=== PATIENT | male | born 1950 | race Caucasian/White ===

== ENCOUNTER → 2019-06-20 | Outpatient (CLI) | payer MEDICARE, OTHER, SELFPAY | PROVIDERS: Family Provider Nurse Practitioner Family; Visit Provider Internal Medicine Medical Oncology | DX: C4A.72 Merkel cell carcinoma of left lower limb, including hip (principal) | CPT/HCPCS: J7050; J9023 ==

== ENCOUNTER 2019-07-04 09:54 | Outpatient (CLI) | payer MEDICARE, OTHER, SELFPAY ==
[2019-07-04] MEDS: diphenhydrAMINE 25 mg Capsule PO (11:29)
[2019-07-04] MEDS: acetaminophen 325 mg Tablet 650 MG PO (11:29)
[2019-07-04 11:31] LABS: Basophils % 0.3 %; Eosinophils # 0.1 10^3/uL (0.0-0.8); Hematocrit 41.1 % (42.0-52.0); Hemoglobin 14.3 g/dL (11.7-16.6); Lymphocytes # 0.9 10^3/uL (0.8-4.8); Lymphocytes % 13.1 %; Mean Corpuscular HGB Conc 34.8 g/dL (30.0-36.0); Mean Corpuscular Hemoglobin 32.2 pg (28.0-34.0); Mean Corpuscular Volume 92.6 fL (80-94); Mean Platelet Volume 9.1 fL (7.4-10.4); Monocytes # 0.6 10^3/uL (0.2-0.9); Neutrophils # 5.4 10^3/uL (1.8-7.7); Neutrophils % 77.3 %; Nucleated Red Blood Cells % 0 %; Platelet Count 286 10^3/cmm (130-400); Red Blood Count 4.44 10^6/uL (4.1-5.3); Red Cell Distribution Width 12.5 % (12.1-15.1)
[2019-07-04 11:52] LABS: Alanine Aminotransferase 18 U/L (0-41); Albumin Level 4.2 g/dL (3.5-5.2); Alkaline Phosphatase 84 IU/L (40-130); Anion Gap 16.8 (5-19); Aspartate Amino Transferase 17 U/L (0-40); Blood Urea Nitrogen 18 mg/dL (8-23); Calcium 9.9 mg/Dl (8.8-10.2); Carbon Dioxide 23 mmol/L (22-29); Chloride 102 mmol/L (98-107); Globulin 2.7 g/dL (1.3-4.6); Glomerular Filtration Rate 111.5 mL/min (90-130); Glucose 160 mg/dL (74-106); Potassium 3.8 mmol/L (3.5-5.1); Sodium 138 mmol/L (136-145); Thyroid Stimulating Hormone 0.88 uIU/mL (0.27-4.20); Total Bilirubin 0.4 mg/dL (0.15-1.2); Total Protein 6.9 g/dL (6.6-8.7)
[2019-07-04] MEDS: sodium chloride 0.9% 250 ML IV (12:31)
--- NOTE | 2019-07-04 19:51 | ONC FU_ITS ---
Dr. Martínez Patient Follow-Up Note Patient: Bebeto Lang Unit #: [id number]: 1950 Dicatated By: Aman Martínez M.D.Date of Visit:Jul 04, 2019 Onc Med Follow-up/Prog Note Chief Complaint: Comptche cell carcinoma. 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 He had presented with an enlarging mass on his left knee. He was initially seen in the emergency room at [facility] in [place]. His subsequent evaluation there included an angiogram and an MRI of the left knee. He was then referred to Dr. Lin Blevins at [facility] for further evaluation. 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 The malignant cells were noted to be positive for pancytokeratin, DENI, CK20, CD56, and CD138. The tumor cells were also positive for NSE. The CK7, CD45, CD99, desmin, TTF-1, CD-X2, and SHIRA 3 stains were negative. Staging PET/CT on 11/11/2016 showed FDG avid mass within the left prepatellar soft tissues measuring 4.2 x 2.4 cm, maximum SUV 13.9. The mass was noted to be superficial to the joint capsule. An enlarged left inguinal lymph node measuring 1.7 x 1.5 cm showed increased FDG uptake with SUV 7.1, consistent with metastasis. A subcentimeter left external iliac lymph node showed mildly increased FDG uptake, SUV 2.9. A destructive lytic lesion was noted within the posterior L3 vertebral body with associated increased FDG uptake, SUV 10.6. There was an associated soft tissue component extending posteriorly with at least moderate central canal stenosis. 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 He was seen by Dr. Obdulio Banda for medical oncology consultation. He recommended systemic therapy with avelumab. He also recommended consideration for palliative radiation to the lumbar spine lesion. The patient was then seen here because he desired to receive his treatment closer to home. He was referred to Dr. Guzman. He began radiation to the lumbar spine on 12/15/2016. That treatment was completed on 12/29/2016 to a total dose of 3000 cGy. On 12/16/2016 he also began treatment to the involved left inguinal lymph node and to the primary tumor at the left knee. He completed radiation on 01/13/2017, both sites to a total dose of 4875 cGy. He received cycle 1 of avelumab on 12/29/2016. He tolerated it without acute toxicity, but for about a week afterward he was fatigued, and he just didn't feel good. He was able to proceed with a second cycle of treatment on 01/12/2017. He tolerated it well. He then continued his treatment at two-week intervals with the exception that his cycle 7 treatment was delayed to 4 weeks due to a follow-up visit in [place]. A restaging PET/CT on 04/09/2017 showed marked interval decrease in size and FDG activity within the left prepatellar soft tissue mass, left inguinal and external iliac lymph nodes, and the L3 lytic lesion, consistent with a nearly complete metabolic response. A CT abdomen/pelvis on 05/25/2017 still showed evidence of lytic metastatic disease involving the L3 vertebral body. There were no other significant findings. He had a follow-up visit at [facility] in 06/24/2017. PET/CT at that time was consistent with continued complete metabolic response. He then continued treatment with avelumab at 2 week intervals. He had a follow-up visit at [facility] again on 09/16/2017. Repeat PET/CT at that time showed complete metabolic response with no evidence of metabolically active disease. He then continued the same treatment. His other medical illnesses have been limited to GERD and obstructive sleep apnea. He was found to have serologic evidence of hepatitis C, but with no active hepatitis. He has a history of smoking 1-1/2 packs of cigarettes daily for 30 years. He quit smoking in approximately 1987. He has a history of alcohol and drug abuse. He quit both proximally 1986. INTERIM HISTORY: As of 10/11/2018 he had completed cycle 46 of avelumab. At that point he was tolerating the treatment well, and there had been no evidence of disease progression. On 10/19/2018 he reported development of a generalized skin eruption. The appearance was consistent with hives, and he responded very well to prednisone. An underlying cause for the reaction was not determined. He continued treatment with avelumab. His surveillance PET/CT at [facility] on 11/29/2018 showed minimally increased FDG uptake in left supraclavicular, mediastinal, and hilar lymph nodes and also in the spleen. The most FDG-avid lesion was a node in the aortopulmonary window measuring 2.0 x 1.3 cm with maximum SUV 5.2. It was felt to be a nonspecific finding, but short-term follow-up was recommended. There was no other suspicious activity noted. He continued treatment with avelumab at 2-week intervals. His repeat PET/CT at [facility] on 05/23/2019 showed multiple mildly enlarged mediastinal lymph nodes which demonstrated mildly increased FDG uptake, unchanged compared to the November 2018 study. Bilateral hilar lymphadenopathy also appeared unchanged, but with slightly increased SUV values. The most FDG avid lesion was in a right hilar lymph node measuring 11 mm with SUV 5.7. The appearance was felt to be most consistent with an inflammatory process. A right middle lobe groundglass pulmonary nodule had shown equivocal increase in size, but was still too small to characterize. A 4 cm exophytic lower pole right renal lesion measuring 4 cm was consistent with simple cyst. A 4 mm lesion in the lower pole the left kidney was noted to contain punctate calcifications. It was indeterminate, but unchanged. Overall there was no evidence of disease recurrence. He is seen for a scheduled visit. He has been feeling good generally. He reports that he still has outbreaks of hives off and on, but only about once every 2 or 3 weeks. He is managing it adequately with topical Benadryl. He was sick a couple weeks ago with fever and respiratory symptoms, but that all resolved. He has otherwise had good energy, and he has normal activity. ECOG score is 0. He has good appetite. He has otherwise not had fever. He sometimes has sweating at night. He has no shortness of breath, cough, or chest pain. He has no GI/ complaints other than occasional heartburn. He notes that his hip pain has improved. He currently is not having any other joint or bone pain. He has no focal neurologic symptoms. Medications: Acetaminophen 1 - 2 Capsule (of 325 mg) Oral PRN, Acidophilus 1 Capsule Oral daily PRN, Aleve 1 (220 mg) Tablet Oral q 8 hours PRN, Aspirin 1 (81 mg) Tablet Oral daily, Cinnamon 1 Capsule Oral daily, Clobetasol Propionate Shampoo Topical PRN, Clotrimazole-Betamethasone Cream Topical PRN, Co Q 10 1 Capsule Oral daily, Fish Oil 1 Capsule Oral daily, formula 303 1 Tablet daily PRN, Multiple Vitamin 1 Capsule Oral daily, Protonix 1 (40 mg) Tablet, enteric coated Oral daily, Red Yeast Rice 1 Capsule Oral daily Allergies: Codeine Sulfate Review of Systems: Constitutional - His energy is good. He does normal activities. His appetite is good and his weight is stable. He had a low-grade fever a couple of weeks ago when he was sick. He has occasional sweating at night. ECOG score is 0, ENMT - He has some sinus congestion in the mornings. No mouth sores. No sore throat or difficulty swallowing, Hematologic/Lymphatic - No abnormal bruising or bleeding, Respiratory - No shortness of breath. No cough. No pleuritic pain or hemoptysis, Cardiovascular - No angina pain. No palpitations, Gastrointestinal - No nausea or vomiting. He has some heartburn, depending on what he eats. No diarrhea or constipation. No blood in the stool or black stools, Genitourinary (M) - No dysuria or hematuria. No urinary frequency. No urgency or incontinence, Musculoskeletal - The pain in his hips has gotten better, Integumentary - He has flare-ups of hives every few weeks, Neurologic - No headache or dizziness. He has occasional tingling in his left knee, Psychiatric - He has a little bit of stress, nothing abnormal. No insomnia. Vital Signs: Performed on Jul 04, 2019 10:20 Height - 68.00 in Weight - 206.6 lbs (HIGH) BSA - 2.07 sq.m BMI - 31.41 (HIGH) Temperature - 98.3 F (LOW) Pulse - 64 /min Respiration - 20 /min BP - 141/75 mm(hg) (HIGH) O2 Sat - 98 % Pain - 0 Physical Examination: Constitutional - He looks good generally, Eyes - Sclerae nonicteric. Conjunctivae clear, ENMT - No lesions noted in the oral cavity, Hematologic/Lymphatic - No cervical, clavicular, or axillary adenopathy, Respiratory - Lungs are clear with good air movement bilaterally, Cardiovascular - Heart rhythm is regular. There is no murmur, gallop, or rub noted, Abdomen - Soft. Liver and spleen are not enlarged. There is no abdominal mass or ascites noted. There is no inguinal adenopathy, and there is no palpable mass in the left groin area, Extremities - No edema. There are no skin changes and no palpable mass in the area of the left patella, Neurologic - No focal neurologic deficits noted. Lab/Imaging: Test performed on Jul 04, 2019 12:00 TSH 0.88 uU/mL Glucose 160 mg/dL BUN 18 mg/dL Creatinine 0.7 mg/dL Cr Clearance (Est) 132.17 mL/min Sodium 138 mmol/L Potassium 3.8 mmol/L Chloride 102 mmol/L CO2 23 mmol/L Calcium 0.4 mg/dL Protein, Total 6.9 g/dL Albumin 4.2 g/dL Globulin 2.7 g/dL Bilirubin, Total 0.4 mg/dL Alkaline Phosphatase 84 IU/L AST (SGOT) 17 IU/L ALT (SGPT) 18 IU/L WBC 7 10^9/L RBC 4.44 10^12/L HGB 14.3 g/dL HCT 41.1 % MCV 92.6 fl MCH 32.2 pg MCHC 34.8 g/dL RDW 12.5 % Platelet Count 286 10^9/L MPV 9.1 fL Neutrophils (Gran) 5.4 10^9/L Lymphocytes 0.9 10^9/L Monocytes 0.6 10^9/L Eosinophils 0.1 10^9/L Basophils 0 10^9/L Manual Segs 77.3 % Manual Lymphocytes 13.1 % Manual Monocytes 8 % Manual Eosinophils 1 % Manual Basophils 0.3 % Test performed on Jul 04, 2019 10:13 Neutrophil % 77.3 % Lymphocyte % 0.9 % Monocyte % 0.6 % Basophils % 0.0 % Test performed on Feb 14, 2019 09:58 Anion Gap 18.1 eGFR 66.2 mL/min Eosinophil % 0.6 % Test performed on Jan 31, 2019 09:38 T4, Free 1.14 ng/dL Impression: 1. 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 By clinical evaluation his disease was stage IV (T2, N1, M1) with involvement in a left inguinal lymph node and in the L3 vertebral body. His other medical illnesses include: 2. GERD. 3. Obstructive sleep apnea. 4. He has had serologic evidence of hepatitis C, but without any clinical indication of active hepatitis. He began radiation to the lumbar spine on 12/15/2016. He completed that treatment on 12/29/2016 to a total dose of 3000 cGy. On 12/16/2016 he also began treatment to the involved left inguinal lymph node and to the primary tumor at the left knee. He completed radiation on 01/13/2017, both sites to a total dose of 4875 cGy. He received his initial infusion of avelumab on 12/29/2016. He developed fatigue and just didn't feel good for about a week or so afterwards. Those symptoms subsequently resolved. He had no other apparent toxicity. He developed significant radiation skin toxicity in the left groin area and the left knee, but that subsequently resolved. He had a very good response to the treatment. He has since then continued avelumab at 2-week intervals. Restaging PET/CT on 03/30/2017 showed findings consistent with near complete response to the treatment. CT abdomen/pelvis on 05/25/2017 showed evidence of lytic metastatic disease in the L3 vertebral body. There were no other significant findings on that study. He continued his treatment with avelumab, which he tolerated well. Restaging PET/CT on 06/24/2017 showed continued complete metabolic response. He had follow-up at [facility] again on 09/16/2017 and his repeat PET/CT again showed evidence of complete response with no metabolically active disease. He has since then continued treatment with avelumab every 2 weeks. As of 10/11/2018 he had completed his 46th cycle. He had subsequently developed a generalized skin eruption. The appearance was consistent with hives. An underlying cause for the eruption was not determined, but it did resolve on empiric treatment with prednisone. He continued with cycle 47 of avelumab on 10/25/2018. He had no adverse effects, and he continued treatment with avelumab on a 2-week schedule. His surveillance PET/CT at [facility] on 11/29/2018 showed nonspecific FDG uptake in left supraclavicular, mediastinal, and hilar lymph nodes and also in the spleen. The clinical significance is uncertain. Overall, he has been doing well clinically, though during treatment did develop significant joint pain, initially in the shoulders, and subsequently in the right hip. He continued treatment at the same dose and schedule. His repeat PET/CT on 05/23/2019 again showed no evidence of recurrent disease. Mild FDG avidity in mediastinal and hilar lymph nodes was felt to be most consistent with inflammatory uptake. Overall he has been doing well clinically with no evidence of recurrence of the Comptche cell carcinoma. He has continued to have occasional outbreaks of hives, but he has been able to manage it adequately with topical Benadryl. Plan: He will continue treatment with avelumab 952 mg by IV infusion every 2 weeks. This is now his 65th cycle of treatment. He is scheduled to return for follow-up visit at [facility] in 6 weeks, and he will be seen for a follow-up visit here in 12 weeks. Signed By: Aman Martínez M.D. <<Signature on File>>
== END 2019-07-04 09:55 | disposition home or self-care (01) ==
LOC: ONCMED 09:54
PROVIDERS: Family Provider Nurse Practitioner Family; PCP Nurse Practitioner Family; Visit Provider Internal Medicine Medical Oncology
DX: Z51.12 Encounter for antineoplastic immunotherapy (principal); C4A.72 Merkel cell carcinoma of left lower limb, including hip; C79.51 Secondary malignant neoplasm of bone; C77.4 Secondary and unspecified malignant neoplasm of inguinal and lower limb lymph nodes; K21.9 Gastro-esophageal reflux disease without esophagitis; G47.33 Obstructive sleep apnea (adult) (pediatric); Z79.899 Other long term (current) drug therapy; Z92.3 Personal history of irradiation; Z86.19 Personal history of other infectious and parasitic diseases; Z87.891 Personal history of nicotine dependence
CPT/HCPCS: 80053; 84443; 85025; 96413; 99214; J7050; J9023

== ENCOUNTER 2019-07-18 08:59 | Outpatient (CLI) | payer MEDICARE, OTHER, SELFPAY ==
[2019-07-18] MEDS: acetaminophen 325 mg Tablet 650 MG PO (09:20)
[2019-07-18] MEDS: diphenhydrAMINE 25 mg Capsule PO (09:20)
== END 2019-07-18 09:00 | disposition home or self-care (01) ==
LOC: ONCMED 09:04
PROVIDERS: Family Provider Nurse Practitioner Family; PCP Nurse Practitioner Family; Visit Provider Internal Medicine Medical Oncology
DX: Z51.12 Encounter for antineoplastic immunotherapy (principal); C4A.72 Merkel cell carcinoma of left lower limb, including hip; C79.51 Secondary malignant neoplasm of bone
CPT/HCPCS: 96413; J7050; J9023

== ENCOUNTER 2019-07-27 16:33 | Emergency (ER) | payer MEDICARE, OTHER, SELFPAY ==
[2019-07-27] VITALS (8 sets, daily range): BP systolic 102–1109; BP diastolic 59–88; PULSE 84–98; RESP 16–18; TEMP 37.3; O2SAT 92–96; BMI 31.6
--- NOTE | 2019-07-27 17:15 | ECG_ITS ---
Measurements Intervals [place] Rate: 101 P: 21 SD: 160 QRS: -46 QRSD: 87 T: 27 QT: 292 QTc: 380 SINUS TACHYCARDIA LEFT ANTERIOR FASCICULAR BLOCK [QRS AXIS <= -45, QR IN I, RS IN II] POSSIBLE ANTERIOR MYOCARDIAL INFARCTION [30 ms Q WAVE IN V3/V4, OR R < 0.2 mV IN V4], PROBABLY OLD No previous ECG available for comparison Electronically Signed On 07-28-2019 16:25:52 [employer] by Ben Oliver M.D. [email or web address]
--- NOTE | 2019-07-27 17:54 | ED_ITS ---
Entered by Jazmyn Rose, acting as scribe for Denisse Sandoval MD Jul 27, 2019 16:33 HPI - SOB/Dyspnea General: Chief Complaint: Shortness of Breath/Dyspnea Stated Complaint: O2 levels are low sent by another facility Time Seen by Provider: 07/27/19 17:56 Source: patient and family Mode of arrival: ambulatory Limitations: no limitations History of Present Illness: HPI Narrative: 69 yo male presents with shortness of breath and weakness. pt states this started a few days ago. pt has had a fever and cough. pt is on chemo every 2 weeks. pt denies any other symptoms at this time. MD elicited complaint: shortness of breath and cough Timing: constant and progressively worsening Severity: moderate Exacerbating factors: coughing and other (weakness) Relieving factors: nothing Associated symptoms: Reports cough, fever(s) and rash; Deny abdominal pain, nausea or vomiting Treatment prior to arrival: other (chemo every 2 weeks) Related Data: Home oxygen amount: none Review of Systems Const: Reports: fever Eyes: Denies: blurry vision or eye discomfort ENMT: Denies: throat pain or dental pain GI: Denies: abdominal pain, nausea, vomiting or diarrhea : Denies: painful urination Musc: Denies: neck pain or back pain Neuro: Denies: headache Psych: Denies: depression Ian/Lymph: Denies: easy bruising PFSH ED PFSH: Statuses (acute, chronic, etc) shown below reflect problem list status as previously entered and may not be historically accurate Social History Smoking and tobacco status: former smoker Physical Exam Const: COMMON NORMALS: no apparent distress, oriented x3 and healthy appearing HENMT: COMMON NORMALS: normocephalic and head/scalp atraumatic HEAD & SCALP: normocephalic and atraumatic Eye: COMMON NORMALS: PERRL and EOMs intact bilaterally PUPIL: Yes PERRL Neck/C-Spine: COMMON NORMALS: full ROM and supple Chest: COMMONS NORMALS: inspection of chest normal and palpation of chest normal Cardio: COMMON NORMALS: regular rate, regular rhythm and no murmurs RATE: regular rate RHYTHM: regular rhythm GI: COMMON NORMALS: normal to inspection, nondistended, normoactive bowel sounds, soft to palpation, non-tender and no masses PALPATION: Yes soft Extremity: COMMON NORMALS: normal to inspection and full ROM Neuro: COMMON NORMALS: oriented x3, moves all extremities and no focal motor deficits Psych: COMMON NORMALS: mental status grossly normal, thought process normal and cooperative THOUGHT PROCESS: normal thought process Course Vital Signs: Vital signs: Vital Signs Temperature 99.1 F 07/27/19 16:54 Pulse Rate 93 07/27/19 20:38 Respiratory Rate 16 07/27/19 20:38 Blood Pressure 118/88 07/27/19 20:38 Pulse Oximetry 96 07/27/19 20:38 MDM - SOB/Dyspnea MDM Narrative: Medical decision making narrative: Patient presents here after fever and slight cough. X-ray shows a possible pneumonia that is mild in nature. He has no signs of sepsis. Patient is stable for discharge and will start on doxycycline. Patient is to follow-up with his primary care doctor in 3 to 5 days and return if worsening. Lab Data: Labs: Lab Results 07/27/19 07/27/19 07/27/19 Range/Units 17:18 18:00 18:00 WBC 6.7 (4.0-10.0) 10^3/ uL RBC 4.41 (4.1-5.3) 10^6/u L Hgb 14.3 (11.7-16.6) g/dL Hct 40.6 L (42.0-52.0) % MCV 92.1 (80-94) fL MCH 32.4 (28.0-34.0) pg MCHC 35.2 (30.0-36.0) g/dL RDW 12.7 (12.1-15.1) % Plt Count 211 (130-400) 10^3/c mm MPV 9.1 (7.4-10.4) fL Neut % (Auto) 78.9 % Lymph % (Auto) 10.6 % Darke % (Auto) 7.9 % Eos % (Auto) 2.1 % Baso % (Auto) 0.1 % Neut # (Auto) 5.3 (1.8-7.7) 10^3/u L Lymph # (Auto) 0.7 L (0.8-4.8) 10^3/u L Darke # (Auto) 0.5 (0.2-0.9) 10^3/u L Eos # (Auto) 0.1 (0.0-0.8) 10^3/u L Baso # (Auto) 0.0 (0.0-0.1) 10^3/u L Nucleated RBC % (a uto) 0 % Nucleated RBCs # 0.0 /100WBC D-Dimer 17.55 H (0-0.59) ug/mIFE U Sodium (136-145) mmol/L Potassium (3.5-5.1) mmol/L Chloride (98-107) mmol/L Carbon Dioxide (22-29) mmol/L Anion Gap (5-19) BUN (8-23) mg/dL Creatinine (0.7-1.2) mg/dL GFR Calculation (90-130) mL/min Glucose (65-115) mg/dL Calcium (8.5-10.5) mg/dL Total Bilirubin (0.15-1.2) mg/dL AST (0-40) U/L ALT (0-41) U/L Alkaline Phosphata se (40-130) IU/L Troponin T Baselin e (0-15) ng/mL Troponin T 120 Min [place] (0-15) ng/mL Total Protein (6.6-8.7) g/dL Albumin (3.5-5.2) g/dL Globulin (1.3-4.6) g/dL Urine Color (Yellow) Urine Appearance (CLEAR) Urine pH (5-7) Ur Specific Gravit y (1.005-1.030) Urine Protein (Negative) Urine Glucose (UA) (Normal) Urine Ketones (Negative) Urine Occult Blood (Negative) Urine Nitrate (Negative) Urine Bilirubin (NEGATIVE) Urine Urobilinogen (Negative) mg/dL Ur Leukocyte [place] ase (Negative) Urine RBC (0-2) /hpf Urine WBC (0-5) /hpf Ur Squamous Epith Cells (0-5) Urine Bacteria (NONE) Urine Mucus Influenza Type A A g Negative (Negative) POC Influenza B Ag Negative (Negative) 07/27/19 07/27/19 07/27/19 Range/Units 18:00 18:00 19:10 WBC (4.0-10.0) 10^3/ uL RBC (4.1-5.3) 10^6/u L Hgb (11.7-16.6) g/dL Hct (42.0-52.0) % MCV (80-94) fL MCH (28.0-34.0) pg MCHC (30.0-36.0) g/dL RDW (12.1-15.1) % Plt Count (130-400) 10^3/c mm MPV (7.4-10.4) fL Neut % (Auto) % Lymph % (Auto) % Darke % (Auto) % Eos % (Auto) % Baso % (Auto) % Neut # (Auto) (1.8-7.7) 10^3/u L Lymph # (Auto) (0.8-4.8) 10^3/u L Darke # (Auto) (0.2-0.9) 10^3/u L Eos # (Auto) (0.0-0.8) 10^3/u L Baso # (Auto) (0.0-0.1) 10^3/u L Nucleated RBC % (a uto) % Nucleated RBCs # /100WBC D-Dimer (0-0.59) ug/mIFE U Sodium 134 L (136-145) mmol/L Potassium 4.0 (3.5-5.1) mmol/L Chloride 99 (98-107) mmol/L Carbon Dioxide 23 (22-29) mmol/L Anion Gap 16.0 (5-19) BUN 16 (8-23) mg/dL Creatinine 0.9 (0.7-1.2) mg/dL GFR Calculation 83.4 L (90-130) mL/min Glucose 118 H (65-115) mg/dL Calcium 8.8 (8.5-10.5) mg/dL Total Bilirubin 0.4 (0.15-1.2) mg/dL AST 21 (0-40) U/L ALT 25 (0-41) U/L Alkaline Phosphata se 82 (40-130) IU/L Troponin T Baselin e 27 H (0-15) ng/mL Troponin T 120 Min [place] 22.89 H (0-15) ng/mL Total Protein 7.2 (6.6-8.7) g/dL Albumin 3.6 (3.5-5.2) g/dL Globulin 3.6 (1.3-4.6) g/dL Urine Color (Yellow) Urine Appearance (CLEAR) Urine pH (5-7) Ur Specific Gravit y (1.005-1.030) Urine Protein (Negative) Urine Glucose (UA) (Normal) Urine Ketones (Negative) Urine Occult Blood (Negative) Urine Nitrate (Negative) Urine Bilirubin (NEGATIVE) Urine Urobilinogen (Negative) mg/dL Ur Leukocyte [place] ase (Negative) Urine RBC (0-2) /hpf Urine WBC (0-5) /hpf Ur Squamous Epith Cells (0-5) Urine Bacteria (NONE) Urine Mucus Influenza Type A A g (Negative) POC Influenza B Ag (Negative) 07/27/19 Range/Units 19:27 WBC (4.0-10.0) 10^3/ uL RBC (4.1-5.3) 10^6/u L Hgb (11.7-16.6) g/dL Hct (42.0-52.0) % MCV (80-94) fL MCH (28.0-34.0) pg MCHC (30.0-36.0) g/dL RDW (12.1-15.1) % Plt Count (130-400) 10^3/c mm MPV (7.4-10.4) fL Neut % (Auto) % Lymph % (Auto) % Darke % (Auto) % Eos % (Auto) % Baso % (Auto) % Neut # (Auto) (1.8-7.7) 10^3/u L Lymph # (Auto) (0.8-4.8) 10^3/u L Darke # (Auto) (0.2-0.9) 10^3/u L Eos # (Auto) (0.0-0.8) 10^3/u L Baso # (Auto) (0.0-0.1) 10^3/u L Nucleated RBC % (a uto) % Nucleated RBCs # /100WBC D-Dimer (0-0.59) ug/mIFE U Sodium (136-145) mmol/L Potassium (3.5-5.1) mmol/L Chloride (98-107) mmol/L Carbon Dioxide (22-29) mmol/L Anion Gap (5-19) BUN (8-23) mg/dL Creatinine (0.7-1.2) mg/dL GFR Calculation (90-130) mL/min Glucose (65-115) mg/dL Calcium (8.5-10.5) mg/dL Total Bilirubin (0.15-1.2) mg/dL AST (0-40) U/L ALT (0-41) U/L Alkaline Phosphata se (40-130) IU/L Troponin T Baselin e (0-15) ng/mL Troponin T 120 Min [place] (0-15) ng/mL Total Protein (6.6-8.7) g/dL Albumin (3.5-5.2) g/dL Globulin (1.3-4.6) g/dL Urine Color Yellow (Yellow) Urine Appearance Clear (CLEAR) Urine pH 5 (5-7) Ur Specific Gravit y 1.010 (1.005-1.030) Urine Protein Neg (Negative) Urine Glucose (UA) Norm (Normal) Urine Ketones 1+ H (Negative) Urine Occult Blood 2+ H (Negative) Urine Nitrate Negative (Negative) Urine Bilirubin Neg (NEGATIVE) Urine Urobilinogen Norm (Negative) mg/dL Ur Leukocyte [place] ase Negative (Negative) Urine RBC 5-10 H (0-2) /hpf Urine WBC None (0-5) /hpf Ur Squamous Epith Cells None (0-5) Urine Bacteria None (NONE) Urine Mucus Trace Influenza Type A A g (Negative) POC Influenza B Ag (Negative) Imaging Data^: CXR: Attestation: I personally reviewed and interpreted this imaging study as follows: My impression: no acute abnormality CT Chest: Radiologist's impression: Patient: Bebeto Lang Unit #: [id number] : 1950 Age/Sex: 69 / M ADM Date: 07/27/19 Loc: ER Room/Bed: Attending Dr: Ordering Provider/Ordering MD: Denisse Sandoval MD Date of Service: 07/27/19 Procedure(s): CT angio chest PE protcl [id number] Accession Number(s): [id number] Report Number: [id number] PROCEDURE INFORMATION: Exam: CT Angiography Chest With Contrast Exam date and time: 07/27/2019 7:14 PM Age: 69 years old Clinical indication: Shortness of breath; Additional info: Pe SOB TECHNIQUE: Imaging protocol: Computed tomographic angiography of the chest with intravenous contrast. 3D rendering: MIP and/or 3D reconstructed images were created by the technologist. Total DLP: 610.95 mGy-cm Radiation optimization: All CT scans at this facility use at least one of these dose optimization techniques: automated exposure control; mA and/or kV adjustment per patient size (includes targeted exams where dose is matched to clinical indication); or iterative reconstruction. Contrast material: OMNI; Contrast volume: 95 ml; Contrast route: IV; COMPARISON: CR XR chest 1V portable [id number] 07/27/2019 6:52 PM FINDINGS: Pulmonary arteries: There is no evidence of filling defects within the pulmonary arterial circulation to suggest pulmonary embolism. Aorta: Unremarkable. No aortic aneurysm. No aortic dissection. Lungs: There is partial atelectasis at the right lung base. There is some mild scattered in patchy ground-glass opacities in the peripheries of both lungs mostly in the right lower lobe but also in the other segments. This could represent some are on mild interstitial pneumonitis. There is a single 14 mm sized ground-glass nodule in the right upper lobe adjacent to the major fissure surrounding a bronchus such as on image number 27 of the axial series. Since this possible nodule and the peripheral ground-glass changes are new compared with 09/16/2017, short-term follow-up in 3 months is suggested to document clearing and this is likely related to inflammatory disease. Pleural space: Unremarkable. No pneumothorax. No pleural effusion. Heart: Unremarkable. No cardiomegaly. No pericardial effusion. Mediastinum: There is a small hiatal hernia. Adrenals: Adrenal glands are not enlarged. Lymph nodes: There is mild hilar mediastinal adenopathy with the largest subcarinal lymph node measuring 19 x 28 mm, right hilar lymph node measuring 17 x 25 mm, left hilar node measuring 16 x 16 mm, right paratracheal measuring 8 x 19 mm, and AP window measuring 16 x 26 mm. There is no axillary adenopathy. Bones/joints: Unremarkable. No acute fracture. Soft tissues: Unremarkable. CT/CT angio chest PE protcl [id number] IMPRESSION: 1. No evidence of pulmonary embolism 2. Peripheral ground-glass changes including ground-glass nodule in the right lung, likely related to inflammatory disease. Short-term follow-up recommended to document clearing EKG Data^: EKG 1: Attestation: I personally reviewed and interpreted this EKG as follows: EKG Interpretation Date: 07/27/19 EKG interpretation time: 19:12 Interpretation: nsr hr [address] or t wave abnormalities qrs 97 [id number] Discharge Plan Discharge Patient Disposition: Home, Self-Care Clinical Impression: Community acquired pneumonia Qualifiers: Laterality: right Lung location: middle lobe of lung Qualified Code(s): J18.9 - Pneumonia, unspecified organism Condition: Stable Prescriptions: New doxycycline hyclate 100 mg capsule 100 mg PO BID 7 Days Qty: 14 RF: 0 Discharge Orders: Discharge Order (Routine); Ordered 07/27/19 Ordered By: Denisse Sandoval Referrals: Nancy Calrk [Primary Care Provider] - Discharge Diet: Advance as tolerated Discharge Activity: Resume usual activity Patient Instructions: Bacterial Pneumonia (ED) Discharge Date/Time: 07/27/19 20:39 Coding Level of Care Code ED Weigh Boss for Chg Fwd Exam Problem Focused The documentation recorded by the Milton collazo Bridget Annette, accurately reflects the service I personally performed and the decisions made by Jaime abbott Korby, MD Jul 27, 2019 16:33
--- NOTE | 2019-07-27 17:58 | PC.NURSE ---
Patient reports that he has been not feeling well, with body aches, chills, SOB, and fever.
[2019-07-27 18:12] LABS: Basophils % 0.1 %; Eosinophils # 0.1 10^3/uL (0.0-0.8); Eosinophils % 2.1 %; Hematocrit 40.6 % (42.0-52.0); Hemoglobin 14.3 g/dL (11.7-16.6); Lymphocytes # 0.7 10^3/uL (0.8-4.8); Lymphocytes % 10.6 %; Mean Corpuscular HGB Conc 35.2 g/dL (30.0-36.0); Mean Corpuscular Hemoglobin 32.4 pg (28.0-34.0); Mean Corpuscular Volume 92.1 fL (80-94); Mean Platelet Volume 9.1 fL (7.4-10.4); Monocytes # 0.5 10^3/uL (0.2-0.9); Monocytes % 7.9 %; Neutrophils # 5.3 10^3/uL (1.8-7.7); Neutrophils % 78.9 %; Nucleated Red Blood Cells % 0 %; Platelet Count 211 10^3/cmm (130-400); Red Blood Count 4.41 10^6/uL (4.1-5.3); Red Cell Distribution Width 12.7 % (12.1-15.1); White Blood Count 6.7 10^3/uL (4.0-10.0)
[2019-07-27 18:20] LABS: Influenza A by IFA Negative (Negative); Influenza B by IFA Negative (Negative)
[2019-07-27] MEDS: acetaminophen 650 mg/20.3 mL UDC PO (18:30)
[2019-07-27] MEDS: sodium chloride 0.9% 1,000 ML 999 ML IV (18:30)
--- NOTE | 2019-07-27 18:33 | XR_ITS ---
WS: [id number] PORTABLE CHEST HISTORY: fever COMPARISON: None available. Lungs are clear and well expanded. No pleural effusion or pneumothorax. Cardiac size: Normal. Mediastinum/Aorta: Normal mediastinum. No osseous abnormality seen. XR/XR chest 1V portable [id number] IMPRESSION: Unremarkable portable chest.
[2019-07-27 18:35] LABS: Alanine Aminotransferase 25 U/L (0-41); Albumin Level 3.6 g/dL (3.5-5.2); Alkaline Phosphatase 82 IU/L (40-130); Aspartate Amino Transferase 21 U/L (0-40); Blood Urea Nitrogen 16 mg/dL (8-23); Calcium 8.8 mg/dL (8.5-10.5); Carbon Dioxide 23 mmol/L (22-29); Chloride 99 mmol/L (98-107); Globulin 3.6 g/dL (1.3-4.6); Glomerular Filtration Rate 83.4 mL/min (90-130); Glucose 118 mg/dL (65-115); Sodium 134 mmol/L (136-145); Total Bilirubin 0.4 mg/dL (0.15-1.2); Total Protein 7.2 g/dL (6.6-8.7)
[2019-07-27 18:37] LABS: D Dimer 17.55 ug/mIFEU (0-0.59)
[2019-07-27 18:52] LABS: Troponin(5th) Baseline 27 ng/mL (0-15)
--- NOTE | 2019-07-27 18:58 | CTR_ITS ---
PROCEDURE INFORMATION: Exam: CT Angiography Chest With Contrast Exam date and time: 07/27/2019 7:14 PM Age: 69 years old Clinical indication: Shortness of breath; Additional info: Pe SOB TECHNIQUE: Imaging protocol: Computed tomographic angiography of the chest with intravenous contrast. 3D rendering: MIP and/or 3D reconstructed images were created by the technologist. Total DLP: 610.95 mGy-cm Radiation optimization: All CT scans at this facility use at least one of these dose optimization techniques: automated exposure control; mA and/or kV adjustment per patient size (includes targeted exams where dose is matched to clinical indication); or iterative reconstruction. Contrast material: OMNI; Contrast volume: 95 ml; Contrast route: IV; COMPARISON: CR XR chest 1V portable [id number] 07/27/2019 6:52 PM FINDINGS: Pulmonary arteries: There is no evidence of filling defects within the pulmonary arterial circulation to suggest pulmonary embolism. Aorta: Unremarkable. No aortic aneurysm. No aortic dissection. Lungs: There is partial atelectasis at the right lung base. There is some mild scattered in patchy ground-glass opacities in the peripheries of both lungs mostly in the right lower lobe but also in the other segments. This could represent some are on mild interstitial pneumonitis. There is a single 14 mm sized ground-glass nodule in the right upper lobe adjacent to the major fissure surrounding a bronchus such as on image number 27 of the axial series. Since this possible nodule and the peripheral ground-glass changes are new compared with 09/16/2017, short-term follow-up in 3 months is suggested to document clearing and this is likely related to inflammatory disease. Pleural space: Unremarkable. No pneumothorax. No pleural effusion. Heart: Unremarkable. No cardiomegaly. No pericardial effusion. Mediastinum: There is a small hiatal hernia. Adrenals: Adrenal glands are not enlarged. Lymph nodes: There is mild hilar mediastinal adenopathy with the largest subcarinal lymph node measuring 19 x 28 mm, right hilar lymph node measuring 17 x 25 mm, left hilar node measuring 16 x 16 mm, right paratracheal measuring 8 x 19 mm, and AP window measuring 16 x 26 mm. There is no axillary adenopathy. Bones/joints: Unremarkable. No acute fracture. Soft tissues: Unremarkable. CT/CT angio chest PE protcl [id number] IMPRESSION: 1. No evidence of pulmonary embolism 2. Peripheral ground-glass changes including ground-glass nodule in the right lung, likely related to inflammatory disease. Short-term follow-up recommended to document clearing Radiation Dose CTDIVOL = (mGy): DLP = 610.95 (mGy-cm)
--- NOTE | 2019-07-27 19:16 | PC.NURSE ---
REPORT RECEIVED FROM [facility] AND CARE TRANSFERRED TO [facility]
--- NOTE | 2019-07-27 19:28 | PC.NURSE ---
collected urine and took to lab for a UA
[2019-07-27 19:40] LABS: Glucose Urine UA Norm (Normal); Ketones Urine 1+ (Negative); Protein Urine Neg (Negative); Urine Appearance Clear (CLEAR); Urine Color Yellow (Yellow); pH Urine 5 (5-7)
[2019-07-27 19:41] LABS: Bilirubin Urine Neg (NEGATIVE); Blood Urine 2+ (Negative); Leukocyte Esterase Urine Negative (Negative); Nitrate Urine Negative (Negative); Urobilinogen Urine Norm (Negative)
[2019-07-27] MEDS: iohexol 350 mg/mL 100 mL Btl 95 ML IV (19:48)
[2019-07-27 19:49] LABS: Mucus Urine TRACE
[2019-07-27 19:50] LABS: Troponin 5 2HR 22.89 ng/mL (0-15)
--- NOTE | 2019-07-27 23:15 | ECG_ITS ---
Measurements Intervals [place] Rate: 87 P: 61 IL: 165 QRS: 9 QRSD: 97 T: 50 QT: 343 QTc: 413 SINUS RHYTHM POSSIBLE ANTERIOR MYOCARDIAL INFARCTION , PROBABLY OLD [30 ms Q WAVE IN V3/V4, OR R < 0.2 mV IN V4] No previous ECG available for comparison Electronically Signed On 07-28-2019 16:35:28 SWEAT BAND SEPARATOR by Ben Oliver M.D. [email or web address]
== END 2019-07-27 20:39 | disposition home or self-care (01) ==
PROVIDERS: Family Medicine; Emergency Provider Emergency Medicine; Family Provider Nurse Practitioner Family; PCP Nurse Practitioner Family
DX: J18.9 Pneumonia, unspecified organism (principal); Z87.891 Personal history of nicotine dependence
CPT/HCPCS: 36415; 71045; 71275; 80053; 81001; 84484; 85025; 85378; 87804; 93005; 96360; 99283; 99284; J7030; Q9967

== ENCOUNTER 2019-08-02 09:15 | Outpatient (CLI) | payer MEDICARE, OTHER, SELFPAY | END 2019-08-02 09:16 | disposition home or self-care (01) | LOC: ONCMED 09:18 | PROVIDERS: Family Provider Nurse Practitioner Family; PCP Nurse Practitioner Family; Visit Provider Internal Medicine Medical Oncology | DX: Z51.12 Encounter for antineoplastic immunotherapy (principal); C4A.72 Merkel cell carcinoma of left lower limb, including hip; C79.51 Secondary malignant neoplasm of bone | CPT/HCPCS: 96413; J7050; J9023 ==

== ENCOUNTER 2019-08-16 09:43 | Outpatient (CLI) | payer MEDICARE, OTHER, SELFPAY ==
[2019-08-16] MEDS: acetaminophen 325 mg Tablet 650 MG PO (09:57)
[2019-08-16] MEDS: diphenhydrAMINE 25 mg Capsule PO (09:57)
[2019-08-16 10:06] LABS: Basophils % 0.6 %; Eosinophils # 0.1 10^3/uL (0.0-0.8); Eosinophils % 2.5 %; Hematocrit 37.9 % (42.0-52.0); Hemoglobin 12.9 g/dL (11.7-16.6); Lymphocytes # 0.7 10^3/uL (0.8-4.8); Lymphocytes % 13.3 %; Mean Corpuscular Hemoglobin 31.8 pg (28.0-34.0); Mean Corpuscular Volume 93.3 fL (80-94); Mean Platelet Volume 8.9 fL (7.4-10.4); Monocytes # 0.5 10^3/uL (0.2-0.9); Neutrophils # 3.9 10^3/uL (1.8-7.7); Neutrophils % 74.4 %; Nucleated Red Blood Cells % 0 %; Platelet Count 235 10^3/cmm (130-400); Red Blood Count 4.06 10^6/uL (4.1-5.3); Red Cell Distribution Width 12.8 % (12.1-15.1); White Blood Count 5.3 10^3/uL (4.0-10.0)
[2019-08-16 10:34] LABS: Alanine Aminotransferase 14 U/L (0-41); Albumin Level 3.7 g/dL (3.5-5.2); Alkaline Phosphatase 96 IU/L (40-130); Anion Gap 15.9 (5-19); Aspartate Amino Transferase 13 U/L (0-40); Blood Urea Nitrogen 16 mg/dL (8-23); Calcium 9.4 mg/dL (8.5-10.5); Carbon Dioxide 23 mmol/L (22-29); Chloride 102 mmol/L (98-107); Globulin 3.5 g/dL (1.3-4.6); Glomerular Filtration Rate 111.5 mL/min (90-130); Glucose 149 mg/dL (65-115); Potassium 3.9 mmol/L (3.5-5.1); Sodium 137 mmol/L (136-145); Thyroid Stimulating Hormone 0.71 uIU/mL (0.27-4.20); Total Bilirubin 0.3 mg/dL (0.15-1.2); Total Protein 7.2 g/dL (6.6-8.7)
== END 2019-08-16 09:44 | disposition home or self-care (01) ==
LOC: ONCMED 09:46
PROVIDERS: Family Provider Nurse Practitioner Family; PCP Nurse Practitioner Family; Visit Provider Internal Medicine Medical Oncology
DX: Z51.12 Encounter for antineoplastic immunotherapy (principal); C4A.72 Merkel cell carcinoma of left lower limb, including hip; C79.51 Secondary malignant neoplasm of bone; Z79.899 Other long term (current) drug therapy
CPT/HCPCS: 80053; 84443; 85025; 96413; J7050; J9023

== ENCOUNTER 2019-08-29 09:30 | Outpatient (CLI) | payer MEDICARE, OTHER, SELFPAY ==
[2019-08-29] MEDS: acetaminophen 325 mg Tablet 650 MG PO (09:50)
[2019-08-29] MEDS: diphenhydrAMINE 25 mg Capsule PO (09:50)
== END 2019-08-29 09:31 | disposition home or self-care (01) ==
PROVIDERS: Family Provider Nurse Practitioner Family; PCP Nurse Practitioner Family; Visit Provider Internal Medicine Medical Oncology
DX: Z51.12 Encounter for antineoplastic immunotherapy (principal); C4A.72 Merkel cell carcinoma of left lower limb, including hip; C79.51 Secondary malignant neoplasm of bone
CPT/HCPCS: 96413; J7050; J9023

== ENCOUNTER 2019-09-13 09:23 | Outpatient (CLI) | payer MEDICARE, OTHER, SELFPAY ==
[2019-09-13] MEDS: acetaminophen 325 mg Tablet 650 MG PO (09:52)
[2019-09-13] MEDS: diphenhydrAMINE 25 mg Capsule PO (09:52)
== END 2019-09-13 09:24 | disposition home or self-care (01) ==
LOC: ONCMED 09:23
PROVIDERS: Family Provider Nurse Practitioner Family; PCP Nurse Practitioner Family; Visit Provider Internal Medicine Medical Oncology
DX: Z51.12 Encounter for antineoplastic immunotherapy (principal); C4A.72 Merkel cell carcinoma of left lower limb, including hip; C79.51 Secondary malignant neoplasm of bone
CPT/HCPCS: 96413; J7050; J9023

== ENCOUNTER 2019-09-27 09:35 | Outpatient (CLI) | payer MEDICARE, OTHER, SELFPAY ==
[2019-09-27 10:03] LABS: Basophils % 0.8 %; Eosinophils # 0.1 10^3/uL (0.0-0.8); Hematocrit 40.2 % (42.0-52.0); Lymphocytes # 0.8 10^3/uL (0.8-4.8); Lymphocytes % 20.2 %; Mean Corpuscular HGB Conc 34.8 g/dL (30.0-36.0); Mean Corpuscular Hemoglobin 32.9 pg (28.0-34.0); Mean Corpuscular Volume 94.6 fL (80-94); Mean Platelet Volume 8.9 fL (7.4-10.4); Monocytes # 0.4 10^3/uL (0.2-0.9); Neutrophils # 2.6 10^3/uL (1.8-7.7); Neutrophils % 65.7 %; Nucleated Red Blood Cells % 0 %; Platelet Count 237 10^3/cmm (130-400); Red Blood Count 4.25 10^6/uL (4.1-5.3); Red Cell Distribution Width 13.1 % (12.1-15.1); White Blood Count 3.9 10^3/uL (4.0-10.0)
[2019-09-27 10:29] LABS: Alanine Aminotransferase 13 U/L (0-41); Alkaline Phosphatase 88 IU/L (40-130); Anion Gap 18.3 (5-19); Aspartate Amino Transferase 17 U/L (0-40); Blood Urea Nitrogen 16 mg/dL (8-23); Carbon Dioxide 22 mmol/L (22-29); Chloride 101 mmol/L (98-107); Globulin 3.1 g/dL (1.3-4.6); Glomerular Filtration Rate 95.6 mL/min (90-130); Glucose 128 mg/dL (65-115); Osmolality Calculated 282 mOsm/kg (285-295); Potassium 4.3 mmol/L (3.5-5.1); Sodium 137 mmol/L (136-145); Thyroid Stimulating Hormone 0.58 uIU/mL (0.27-4.20); Total Bilirubin 0.5 mg/dL (0.15-1.2); Total Protein 7.1 g/dL (6.6-8.7)
--- NOTE | 2019-09-27 11:43 | ONC FU_ITS ---
Dr. Martínez Patient Follow-Up Note Patient: Bebeto Lang Unit #: [id number]: 1950 Dicatated By: Aman Martínez M.D.Date of Visit:Sep 27, 2019 Onc Med Follow-up/Prog Note Chief Complaint: Lykens cell carcinoma. 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 He had presented with an enlarging mass on his left knee. He was initially seen in the emergency room at [facility] in [place]. His subsequent evaluation there included an angiogram and an MRI of the left knee. He was then referred to Dr. Lin Blevins at [facility] for further evaluation. 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 The malignant cells were noted to be positive for pancytokeratin, DENI, CK20, CD56, and CD138. The tumor cells were also positive for NSE. The CK7, CD45, CD99, desmin, TTF-1, CD-X2, and SHIRA 3 stains were negative. Staging PET/CT on 11/11/2016 showed FDG avid mass within the left prepatellar soft tissues measuring 4.2 x 2.4 cm, maximum SUV 13.9. The mass was noted to be superficial to the joint capsule. An enlarged left inguinal lymph node measuring 1.7 x 1.5 cm showed increased FDG uptake with SUV 7.1, consistent with metastasis. A subcentimeter left external iliac lymph node showed mildly increased FDG uptake, SUV 2.9. A destructive lytic lesion was noted within the posterior L3 vertebral body with associated increased FDG uptake, SUV 10.6. There was an associated soft tissue component extending posteriorly with at least moderate central canal stenosis. 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 He was seen by Dr. Obdulio Banda for medical oncology consultation. He recommended systemic therapy with avelumab. He also recommended consideration for palliative radiation to the lumbar spine lesion. The patient was then seen here because he desired to receive his treatment closer to home. He was referred to Dr. Guzman. He began radiation to the lumbar spine on 12/15/2016. That treatment was completed on 12/29/2016 to a total dose of 3000 cGy. On 12/16/2016 he also began treatment to the involved left inguinal lymph node and to the primary tumor at the left knee. He completed radiation on 01/13/2017, both sites to a total dose of 4875 cGy. He received cycle 1 of avelumab on 12/29/2016. He tolerated it without acute toxicity, but for about a week afterward he was fatigued, and he just didn't feel good. He was able to proceed with a second cycle of treatment on 01/12/2017. He tolerated it well. He then continued his treatment at two-week intervals with the exception that his cycle 7 treatment was delayed to 4 weeks due to a follow-up visit in [place]. A restaging PET/CT on 04/09/2017 showed marked interval decrease in size and FDG activity within the left prepatellar soft tissue mass, left inguinal and external iliac lymph nodes, and the L3 lytic lesion, consistent with a nearly complete metabolic response. A CT abdomen/pelvis on 05/25/2017 still showed evidence of lytic metastatic disease involving the L3 vertebral body. There were no other significant findings. He had a follow-up visit at [facility] in 06/24/2017. PET/CT at that time was consistent with continued complete metabolic response. He then continued treatment with avelumab at 2 week intervals. He had a follow-up visit at [facility] again on 09/16/2017. Repeat PET/CT at that time showed complete metabolic response with no evidence of metabolically active disease. He then continued the same treatment. His other medical illnesses have been limited to GERD and obstructive sleep apnea. He was found to have serologic evidence of hepatitis C, but with no active hepatitis. He has a history of smoking 1-1/2 packs of cigarettes daily for 30 years. He quit smoking in approximately 1987. He has a history of alcohol and drug abuse. He quit both proximally 1986. INTERIM HISTORY: As of 10/11/2018 he had completed cycle 46 of avelumab. At that point he was tolerating the treatment well, and there had been no evidence of disease progression. On 10/19/2018 he reported development of a generalized skin eruption. The appearance was consistent with hives, and he responded very well to prednisone. An underlying cause for the reaction was not determined. He continued treatment with avelumab. His surveillance PET/CT at [facility] on 11/29/2018 showed minimally increased FDG uptake in left supraclavicular, mediastinal, and hilar lymph nodes and also in the spleen. The most FDG-avid lesion was a node in the aortopulmonary window measuring 2.0 x 1.3 cm with maximum SUV 5.2. It was felt to be a nonspecific finding, but short-term follow-up was recommended. There was no other suspicious activity noted. His repeat PET/CT at [facility] on 05/23/2019 showed multiple mildly enlarged mediastinal lymph nodes which demonstrated mildly increased FDG uptake, unchanged compared to the November 2018 study. Bilateral hilar lymphadenopathy also appeared unchanged, but with slightly increased SUV values. The most FDG avid lesion was in a right hilar lymph node measuring 11 mm with SUV 5.7. The appearance was felt to be most consistent with an inflammatory process. A right middle lobe groundglass pulmonary nodule had shown equivocal increase in size, but was still too small to characterize. A 4 cm exophytic lower pole right renal lesion measuring 4 cm was consistent with simple cyst. A 4 mm lesion in the lower pole the left kidney was noted to contain punctate calcifications. It was indeterminate, but unchanged. Overall there was no evidence of disease recurrence. He continued treatment with avelumab at 2-week intervals. In July 2019 he was treated for pneumonia. His surveillance PET/CT on 08/15/2019 showed hypometabolism within a hypodense area involving the right frontal lobe of the brain, likely related to prior brain injury. There was no PET/CT evidence of recurrent or metastatic disease. He is seen for a scheduled visit. He has been feeling good generally. He does feel a little tired, but he still has normal activity. ECOG score is 0. His appetite is good. He has not had any fever since the pneumonia in July. He has been having occasional night sweating, that has decreased now. He has no shortness of breath, cough, or chest pain. He occasionally has heartburn, depending on what he eats. He has no other GI or complaints. He has been having pain in his hips and lower back. It tends to bother him the most when he first gets up in the morning. It eases up with activity. He has no other joint or bone pain. He does not complain of headache or dizziness. He has no focal neurologic symptoms. Medications: Acetaminophen 1 - 2 Capsule (of 325 mg) Oral PRN, Acidophilus 1 Capsule Oral daily PRN, Aleve 1 (220 mg) Tablet Oral q 8 hours PRN, Aspirin 1 (81 mg) Tablet Oral daily, Cinnamon 1 Capsule Oral daily, Clobetasol Propionate Shampoo Topical PRN, Clotrimazole-Betamethasone Cream Topical PRN, Co Q 10 1 Capsule Oral daily, Fish Oil 1 Capsule Oral daily, formula 303 1 Tablet daily PRN, Multiple Vitamin 1 Capsule Oral daily, Protonix 1 (40 mg) Tablet, enteric coated Oral daily, Red Yeast Rice 1 Capsule Oral daily Allergies: Codeine Sulfate Review of Systems: Constitutional - His energy level is generally good. He has some fatigue, but he has normal activity. His appetite is good and weight is stable. No fever, chills, or hot flashes. He was having occasional night sweats, but they have now resolved. ECOG score is 0, ENMT - No sinus congestion/drainage. No mouth sores. No sore throat or difficulty swallowing, Hematologic/Lymphatic - No abnormal bruising or bleeding, Respiratory - No shortness of breath. No cough. No pleuritic pain or hemoptysis, Cardiovascular - No angina pain. No palpitations, Gastrointestinal - No nausea or vomiting. He has occasional acid reflux depending on what he eats. No diarrhea or constipation. No blood in the stool or black stools, Genitourinary (M) - No dysuria or hematuria. No urinary frequency. No urgency or incontinence, Musculoskeletal - He is having pain in his hips and lower back, especially when he first gets up in the morning. It tends to improve with activity, Integumentary - No skin complications, Neurologic - No headache or dizziness. No numbness/paresthesias or other focal neurologic symptoms, Psychiatric - No anxiety or depression. No insomnia. Vital Signs: Performed on Sep 27, 2019 11:06 Height - 68.00 in Weight - 209.4 lbs (HIGH) BSA - 2.08 sq.m BMI - 31.84 (HIGH) Temperature - 99.0 F (HIGH) Pulse - 61 /min Respiration - 18 /min BP - 144/70 mm(hg) (HIGH) O2 Sat - 97 % Pain - 7 Physical Examination: Constitutional - He looks good generally, Eyes - Sclerae nonicteric. Conjunctivae clear, ENMT - No lesions noted in the oral cavity, Hematologic/Lymphatic - No cervical, clavicular, or axillary adenopathy, Respiratory - Lungs are clear with good air movement bilaterally, Cardiovascular - Heart rhythm is regular. There is no murmur, gallop, or rub noted, Abdomen - Soft. Liver and spleen are not enlarged. There is no abdominal mass or ascites noted. There is no inguinal mass or adenopathy noted, Extremities - No edema, Neurologic - No focal neurologic deficits noted. Lab/Imaging: Test performed on Sep 27, 2019 09:52 Sodium 137 mmol/L TSH 0.58 uIU/mL Potassium 4.3 mmol/L Chloride 101 mmol/L CO2 22 mmol/L Anion Gap 18.3 BUN 16 mg/dL Creatinine 0.8 mg/dL Cr Clearance (Est) 115.6500 mL/min eGFR 95.6 mL/min Glucose 128 mg/dL Calcium 9.0 mg/dL Protein, Total 7.1 g/dL Albumin 4.0 g/dL Globulin 3.1 g/dL Bilirubin, Total 0.5 mg/dL ALT (SGPT) 13 U/L AST (SGOT) 17 U/L Alkaline Phosphatase 88 IU/L WBC 3.9 10 3/uL RBC 4.25 10 6/uL HGB 14.0 g/dL HCT 40.2 % MCV 94.6 fL MCH 32.9 pg MCHC 34.8 g/dL RDW 13.1 % Platelet Count 237 10 3/cmm MPV 8.9 fL Neutrophils 2.6 10 3/uL Lymphocytes 0.8 10 3/uL Monocytes 0.4 10 3/uL Eosinophils 0.1 10 3/uL Basophils 0.0 10 3/uL Neutrophil % 65.7 % Lymphocyte % 20.2 % Monocyte % 11.0 % Eosinophil % 2.0 % Basophils % 0.8 % Impression: 1. Patient with Lykens cell carcinoma in the form of a left prepatellar mass. By clinical evaluation his disease was stage IV (T2, N1, M1) with involvement in a left inguinal lymph node and in the L3 vertebral body. His other medical illnesses include: 2. GERD. 3. Obstructive sleep apnea. 4. He has had serologic evidence of hepatitis C, but without any clinical indication of active hepatitis. He began radiation to the lumbar spine on 12/15/2016. He completed that treatment on 12/29/2016 to a total dose of 3000 cGy. On 12/16/2016 he also began treatment to the involved left inguinal lymph node and to the primary tumor at the left knee. He completed radiation on 01/13/2017, both sites to a total dose of 4875 cGy. He received his initial infusion of avelumab on 12/29/2016. He developed fatigue and just didn't feel good for about a week or so afterwards. Those symptoms subsequently resolved. He had no other apparent toxicity. He developed significant radiation skin toxicity in the left groin area and the left knee, but that subsequently resolved. He had a very good response to the treatment. He has since then continued avelumab at 2-week intervals. Restaging PET/CT on 03/30/2017 showed findings consistent with near complete response to the treatment. CT abdomen/pelvis on 05/25/2017 showed evidence of lytic metastatic disease in the L3 vertebral body. There were no other significant findings on that study. He continued his treatment with avelumab, which he tolerated well. Restaging PET/CT on 06/24/2017 showed continued complete metabolic response. He had follow-up at [facility] again on 09/16/2017 and his repeat PET/CT again showed evidence of complete response with no metabolically active disease. He has since then continued treatment with avelumab every 2 weeks. As of 10/11/2018 he had completed his 46th cycle. He had subsequently developed a generalized skin eruption. The appearance was consistent with hives. An underlying cause for the eruption was not determined, but it did resolve on empiric treatment with prednisone. He continued with cycle 47 of avelumab on 10/25/2018. He had no adverse effects, and he continued treatment with avelumab on a 2-week schedule. His surveillance PET/CT at [facility] on 11/29/2018 showed nonspecific FDG uptake in left supraclavicular, mediastinal, and hilar lymph nodes and also in the spleen. The clinical significance is uncertain. Overall, he has been doing well clinically, though during treatment did develop significant joint pain, initially in the shoulders, and subsequently in the right hip. He continued treatment at the same dose and schedule. His repeat PET/CT on 05/23/2019 again showed no evidence of recurrent disease. Mild FDG avidity in mediastinal and hilar lymph nodes was felt to be most consistent with inflammatory uptake. In July 2019 he was treated for pneumonia. That illness resolved uneventfully. His surveillance PET/CT on 08/15/2019 showed no evidence of recurrent or metastatic disease. Overall, he has been doing well clinically, thus far with no evidence of recurrence of the Lykens cell carcinoma. He continues to tolerate his treatment well. Plan: He will continue with cycle 71 of avelumab 952 mg by IV infusion. He returns for treatment every 2 weeks. He is tentatively scheduled for follow-up at [facility] on 06 November. He will be scheduled for a follow-up visit here in 12 weeks. Signed By: Aman Martínez M.D. <<Signature on File>>
[2019-09-27] MEDS: diphenhydrAMINE 25 mg Capsule PO (12:35)
[2019-09-27] MEDS: acetaminophen 325 mg Tablet 650 MG PO (12:35)
[2019-09-27] MEDS: sodium chloride 0.9% 250 ML 75 ML IV (12:35)
== END 2019-09-27 09:36 | disposition home or self-care (01) ==
LOC: ONCMED 09:35
PROVIDERS: Family Provider Nurse Practitioner Family; PCP Nurse Practitioner Family; Visit Provider Internal Medicine Medical Oncology
DX: Z51.12 Encounter for antineoplastic immunotherapy (principal); C4A.72 Merkel cell carcinoma of left lower limb, including hip; C79.51 Secondary malignant neoplasm of bone; K21.9 Gastro-esophageal reflux disease without esophagitis; G47.33 Obstructive sleep apnea (adult) (pediatric); Z79.899 Other long term (current) drug therapy; Z79.82 Long term (current) use of aspirin; Z92.3 Personal history of irradiation; Z87.891 Personal history of nicotine dependence; Z87.01 Personal history of pneumonia (recurrent); Z86.19 Personal history of other infectious and parasitic diseases
CPT/HCPCS: 80053; 84443; 85025; 96413; 99214; J7050; J9023

== ENCOUNTER 2019-10-11 08:38 | Outpatient (CLI) | payer MEDICARE, OTHER, SELFPAY ==
[2019-10-11] MEDS: acetaminophen 325 mg Tablet 650 MG PO (08:57)
[2019-10-11] MEDS: diphenhydrAMINE 25 mg Capsule PO (08:57)
== END 2019-10-11 08:39 | disposition home or self-care (01) ==
LOC: ONCMED 08:39
PROVIDERS: Family Provider Nurse Practitioner Family; PCP Nurse Practitioner Family; Visit Provider Internal Medicine Medical Oncology
DX: Z51.12 Encounter for antineoplastic immunotherapy (principal); C4A.72 Merkel cell carcinoma of left lower limb, including hip; C79.51 Secondary malignant neoplasm of bone
CPT/HCPCS: 96413; J7050; J9023

== ENCOUNTER 2019-10-25 08:46 | Outpatient (CLI) | payer MEDICARE, OTHER, SELFPAY ==
[2019-10-25] MEDS: diphenhydrAMINE 25 mg Capsule PO (09:00)
[2019-10-25] MEDS: acetaminophen 325 mg Tablet 650 MG PO (09:00)
== END 2019-10-25 08:47 | disposition home or self-care (01) ==
LOC: ONCMED 08:47
PROVIDERS: Family Provider Nurse Practitioner Family; PCP Nurse Practitioner Family; Visit Provider Internal Medicine Medical Oncology
DX: Z51.12 Encounter for antineoplastic immunotherapy (principal); C4A.72 Merkel cell carcinoma of left lower limb, including hip; C79.51 Secondary malignant neoplasm of bone; Z92.3 Personal history of irradiation; Z79.899 Other long term (current) drug therapy
CPT/HCPCS: 96413; J7050; J9023

== ENCOUNTER 2019-11-08 08:54 | Outpatient (CLI) | payer MEDICARE, OTHER, SELFPAY ==
[2019-11-08] MEDS: acetaminophen 325 mg Tablet 650 MG PO (09:10)
[2019-11-08] MEDS: diphenhydrAMINE 25 mg Capsule PO (09:10)
== END 2019-11-08 08:55 | disposition home or self-care (01) ==
LOC: ONCMED 08:57
PROVIDERS: PCP Nurse Practitioner Family; Visit Provider Internal Medicine Medical Oncology
DX: Z51.12 Encounter for antineoplastic immunotherapy (principal); C4A.72 Merkel cell carcinoma of left lower limb, including hip; C79.51 Secondary malignant neoplasm of bone; K21.9 Gastro-esophageal reflux disease without esophagitis; G47.33 Obstructive sleep apnea (adult) (pediatric); Z86.19 Personal history of other infectious and parasitic diseases; Z92.3 Personal history of irradiation; Z79.899 Other long term (current) drug therapy
CPT/HCPCS: 96413; J7050; J9023

== ENCOUNTER 2019-11-22 08:41 | Outpatient (CLI) | payer MEDICARE, OTHER, SELFPAY ==
[2019-11-22] MEDS: diphenhydrAMINE 25 mg Capsule PO (08:50)
[2019-11-22] MEDS: acetaminophen 325 mg Tablet 650 MG PO (08:50)
== END 2019-11-22 08:42 | disposition home or self-care (01) ==
LOC: ONCMED 08:45
PROVIDERS: PCP Nurse Practitioner Family; Visit Provider Internal Medicine Medical Oncology
DX: Z51.12 Encounter for antineoplastic immunotherapy (principal); C4A.72 Merkel cell carcinoma of left lower limb, including hip; C79.51 Secondary malignant neoplasm of bone; K21.9 Gastro-esophageal reflux disease without esophagitis; G47.33 Obstructive sleep apnea (adult) (pediatric); Z86.19 Personal history of other infectious and parasitic diseases; Z92.3 Personal history of irradiation; Z79.899 Other long term (current) drug therapy
CPT/HCPCS: 96413; J7050; J9023

== ENCOUNTER 2019-12-06 08:58 | Outpatient (CLI) | payer MEDICARE, OTHER, SELFPAY ==
[2019-12-06] MEDS: diphenhydrAMINE 25 mg Capsule PO (09:30)
[2019-12-06] MEDS: acetaminophen 325 mg Tablet 650 MG PO (09:30)
== END 2019-12-06 08:59 | disposition home or self-care (01) ==
LOC: ONCMED 09:03
PROVIDERS: Visit Provider Internal Medicine Medical Oncology
DX: Z51.12 Encounter for antineoplastic immunotherapy (principal); C4A.72 Merkel cell carcinoma of left lower limb, including hip; C79.51 Secondary malignant neoplasm of bone; Z92.3 Personal history of irradiation; Z79.899 Other long term (current) drug therapy
CPT/HCPCS: 96413; J7050; J9023

== ENCOUNTER 2019-12-20 09:03 | Outpatient (CLI) | payer MEDICARE, OTHER, SELFPAY ==
[2019-12-20 09:47] LABS: Basophils % 0.7 %; Eosinophils # 0.1 10^3/uL (0.0-0.8); Eosinophils % 1.8 %; Hematocrit 40.4 % (42.0-52.0); Hemoglobin 14.2 g/dL (11.7-16.6); Lymphocytes # 0.8 10^3/uL (0.8-4.8); Lymphocytes % 17.3 %; Mean Corpuscular HGB Conc 35.1 g/dL (30.0-36.0); Mean Corpuscular Hemoglobin 33.5 pg (28.0-34.0); Mean Corpuscular Volume 95.3 fL (80-94); Monocytes # 0.4 10^3/uL (0.2-0.9); Neutrophils # 3.2 10^3/uL (1.8-7.7); Neutrophils % 70.8 %; Nucleated Red Blood Cells % 0 %; Platelet Count 226 10^3/cmm (130-400); Red Blood Count 4.24 10^6/uL (4.1-5.3); Red Cell Distribution Width 13.1 % (12.1-15.1); White Blood Count 4.6 10^3/uL (4.0-10.0)
[2019-12-20 10:21] LABS: Alanine Aminotransferase 16 U/L (0-41); Alkaline Phosphatase 79 IU/L (40-130); Anion Gap 16.1 (5-19); Aspartate Amino Transferase 17 U/L (0-40); Blood Urea Nitrogen 16 mg/dL (8-23); Calcium 9.1 mg/dL (8.5-10.5); Carbon Dioxide 24 mmol/L (22-29); Chloride 104 mmol/L (98-107); Glomerular Filtration Rate 111.5 mL/min (90-130); Glucose 124 mg/dL (65-115); Osmolality Calculated 288 mOsm/kg (285-295); Potassium 4.1 mmol/L (3.5-5.1); Sodium 140 mmol/L (136-145); Thyroid Stimulating Hormone 1.05 uIU/mL (0.27-4.20); Total Bilirubin 0.6 mg/dL (0.15-1.2)
[2019-12-20] MEDS: diphenhydrAMINE 25 mg Capsule PO (11:28)
[2019-12-20] MEDS: acetaminophen 325 mg Tablet 650 MG PO (13:46)
--- NOTE | 2019-12-23 10:34 | ONC FU_ITS ---
Dr. Martínez Patient Follow-Up Note Patient: Bebeto Lang Unit #: [id number]: 1950 Dicatated By: Aman Martínez M.D.Date of Visit:Dec 20, 2019 Onc Med Follow-up/Prog Note Chief Complaint: [place] cell carcinoma. 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 He had presented with an enlarging mass on his left knee. He was initially seen in the emergency room at [facility] in [place]. His subsequent evaluation there included an angiogram and an MRI of the left knee. He was then referred to Dr. Lin Blevins at [facility] for further evaluation. 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 The malignant cells were noted to be positive for pancytokeratin, DENI, CK20, CD56, and CD138. The tumor cells were also positive for NSE. The CK7, CD45, CD99, desmin, TTF-1, CD-X2, and SHIRA 3 stains were negative. Staging PET/CT on 11/11/2016 showed FDG avid mass within the left prepatellar soft tissues measuring 4.2 x 2.4 cm, maximum SUV 13.9. The mass was noted to be superficial to the joint capsule. An enlarged left inguinal lymph node measuring 1.7 x 1.5 cm showed increased FDG uptake with SUV 7.1, consistent with metastasis. A subcentimeter left external iliac lymph node showed mildly increased FDG uptake, SUV 2.9. A destructive lytic lesion was noted within the posterior L3 vertebral body with associated increased FDG uptake, SUV 10.6. There was an associated soft tissue component extending posteriorly with at least moderate central canal stenosis. 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 He was seen by Dr. Obdulio Banda for medical oncology consultation. He recommended systemic therapy with avelumab. He also recommended consideration for palliative radiation to the lumbar spine lesion. The patient was then seen here because he desired to receive his treatment closer to home. He was referred to Dr. Guzman. He began radiation to the lumbar spine on 12/15/2016. That treatment was completed on 12/29/2016 to a total dose of 3000 cGy. On 12/16/2016 he also began treatment to the involved left inguinal lymph node and to the primary tumor at the left knee. He completed radiation on 01/13/2017, both sites to a total dose of 4875 cGy. He received cycle 1 of avelumab on 12/29/2016. He tolerated it without acute toxicity, but for about a week afterward he was fatigued, and he just didn't feel good. He was able to proceed with a second cycle of treatment on 01/12/2017. He tolerated it well. He then continued his treatment at two-week intervals with the exception that his cycle 7 treatment was delayed to 4 weeks due to a follow-up visit in [place]. A restaging PET/CT on 04/09/2017 showed marked interval decrease in size and FDG activity within the left prepatellar soft tissue mass, left inguinal and external iliac lymph nodes, and the L3 lytic lesion, consistent with a nearly complete metabolic response. A CT abdomen/pelvis on 05/25/2017 still showed evidence of lytic metastatic disease involving the L3 vertebral body. There were no other significant findings. He had a follow-up visit at [facility] in 06/24/2017. PET/CT at that time was consistent with continued complete metabolic response. He then continued treatment with avelumab at 2 week intervals. He had a follow-up visit at [facility] again on 09/16/2017. Repeat PET/CT at that time showed complete metabolic response with no evidence of metabolically active disease. He then continued the same treatment. His other medical illnesses have been limited to GERD and obstructive sleep apnea. He was found to have serologic evidence of hepatitis C, but with no active hepatitis. He has a history of smoking 1-1/2 packs of cigarettes daily for 30 years. He quit smoking in approximately 1987. He has a history of alcohol and drug abuse. He quit both proximally 1986. INTERIM HISTORY: As of 10/11/2018 he had completed cycle 46 of avelumab. At that point he was tolerating the treatment well, and there had been no evidence of disease progression. On 10/19/2018 he reported development of a generalized skin eruption. The appearance was consistent with hives, and he responded very well to prednisone. An underlying cause for the reaction was not determined. He continued treatment with avelumab. His surveillance PET/CT at [facility] on 11/29/2018 showed minimally increased FDG uptake in left supraclavicular, mediastinal, and hilar lymph nodes and also in the spleen. The most FDG-avid lesion was a node in the aortopulmonary window measuring 2.0 x 1.3 cm with maximum SUV 5.2. It was felt to be a nonspecific finding, but short-term follow-up was recommended. There was no other suspicious activity noted. His repeat PET/CT at [facility] on 05/23/2019 showed multiple mildly enlarged mediastinal lymph nodes which demonstrated mildly increased FDG uptake, unchanged compared to the November 2018 study. Bilateral hilar lymphadenopathy also appeared unchanged, but with slightly increased SUV values. The most FDG avid lesion was in a right hilar lymph node measuring 11 mm with SUV 5.7. The appearance was felt to be most consistent with an inflammatory process. A right middle lobe groundglass pulmonary nodule had shown equivocal increase in size, but was still too small to characterize. A 4 cm exophytic lower pole right renal lesion measuring 4 cm was consistent with simple cyst. A 4 mm lesion in the lower pole the left kidney was noted to contain punctate calcifications. It was indeterminate, but unchanged. Overall there was no evidence of disease recurrence. In July 2019 he was treated for pneumonia. His surveillance PET/CT on 08/15/2019 showed hypometabolism within a hypodense area involving the right frontal lobe of the brain, likely related to prior brain injury. There was no PET/CT evidence of recurrent or metastatic disease. He continued treatment with avelumab at 2-week intervals. Repeat PET/CT at [facility] on 11/07/2019 showed no evidence of recurrent or metastatic disease. There was unchanged hypometabolic lesion in the right frontal lobe noted to be likely secondary to prior trauma. Mediastinal and hilar lymph nodes were felt to be likely reactive. He is seen for a scheduled visit. He has been feeling good generally. His energy has been okay, though not real good. He still has normal activity. He has good appetite. He has not had fever. He has very little night sweating. He has no shortness of breath, cough, or chest pain. He has no GI complaints. Bladder function has been good. He does report that he has been developing Peyronie's disease. He has some pain in the lower back when he first gets up, but that goes away with activity. He has no other joint or bone pain. He has no focal neurologic symptoms. Medications: Acetaminophen 1 - 2 Capsule (of 325 mg) Oral PRN, Acidophilus 1 Capsule Oral daily PRN, Aleve 1 (220 mg) Tablet Oral q 8 hours PRN, Aspirin 1 (81 mg) Tablet Oral daily, Cinnamon 1 Capsule Oral daily, Clobetasol Propionate Shampoo Topical PRN, Clotrimazole-Betamethasone Cream Topical PRN, Co Q 10 1 Capsule Oral daily, Fish Oil 1 Capsule Oral daily, formula 303 1 Tablet daily PRN, Multiple Vitamin 1 Capsule Oral daily, Protonix 1 (40 mg) Tablet, enteric coated Oral daily, Red Yeast Rice 1 Capsule Oral daily Allergies: Codeine Sulfate Review of Systems: Constitutional - His energy is OK, though not as good. He has normal activity. Appetite is good and weight is stable. No fever. He has very little night sweating. ECOG score is 0, ENMT - No sinus congestion/drainage. No mouth sores. No sore throat or difficulty swallowing, Hematologic/Lymphatic - No abnormal bruising or bleeding, Respiratory - No shortness of breath. No cough. No pleuritic pain or hemoptysis, Cardiovascular - No angina pain. No palpitations, Gastrointestinal - No nausea or vomiting. No heartburn or acid reflux. No diarrhea or constipation. No blood in the stool or black stools, Genitourinary (M) - No dysuria or hematuria. No urinary frequency. No urgency or incontinence, Musculoskeletal - His lower back has been hurting more lately. He has no other joint or bone pain. His shoulders have not been bothering him, Integumentary - No skin rash, Neurologic - No headache or dizziness. No numbness or tingling. No other focal neurologic symptoms, Psychiatric - No anxiety or depression. No insomnia. Vital Signs: Performed on Dec 20, 2019 10:36 Height - 68.00 in Weight - 213.8 lbs (HIGH) BSA - 2.10 sq.m BMI - 32.51 (HIGH) Temperature - 98.8 F Pulse - 57 /min (LOW) Respiration - 20 /min BP - 135/58 mm(hg) O2 Sat - 97 % Pain - 5 Physical Examination: Constitutional - He looks good generally, Eyes - Sclerae nonicteric. Conjunctivae clear, ENMT - No lesions noted in the oral cavity, Hematologic/Lymphatic - No cervical, clavicular, or axillary adenopathy, Respiratory - Lungs are clear with good air movement bilaterally, Cardiovascular - Heart rhythm is regular. There is no murmur, gallop, or rub noted, Abdomen - Soft. Liver and spleen are not enlarged. There is no abdominal mass or ascites noted. There is no inguinal mass or adenopathy noted, Extremities - No edema. The appearance of the left knee is unchanged. There is no evidence of residual or recurrent mass, Neurologic - No focal neurologic deficits noted. Lab/Imaging: Test performed on Dec 20, 2019 09:23 Sodium 140 mmol/L TSH 1.05 uIU/mL Potassium 4.1 mmol/L Chloride 104 mmol/L CO2 24 mmol/L Anion Gap 16.1 BUN 16 mg/dL Creatinine 0.7 mg/dL Cr Clearance (Est) 132.1700 mL/min eGFR 111.5 mL/min Glucose 124 mg/dL Calcium 9.1 mg/dL Protein, Total 7.0 g/dL Albumin 4.0 g/dL Globulin 3.0 g/dL Bilirubin, Total 0.6 mg/dL ALT (SGPT) 16 U/L AST (SGOT) 17 U/L Alkaline Phosphatase 79 IU/L WBC 4.6 10 3/uL RBC 4.24 10 6/uL HGB 14.2 g/dL HCT 40.4 % MCV 95.3 fL MCH 33.5 pg MCHC 35.1 g/dL RDW 13.1 % Platelet Count 226 10 3/cmm MPV 9.0 fL Neutrophils 3.2 10 3/uL Lymphocytes 0.8 10 3/uL Monocytes 0.4 10 3/uL Eosinophils 0.1 10 3/uL Basophils 0.0 10 3/uL Neutrophil % 70.8 % Lymphocyte % 17.3 % Monocyte % 9.0 % Eosinophil % 1.8 % Basophils % 0.7 % NRBC % 0 % Impression: 1. 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 By clinical evaluation his disease was stage IV (T2, N1, M1) with involvement in a left inguinal lymph node and in the L3 vertebral body. His other medical illnesses include: 2. GERD. 3. Obstructive sleep apnea. 4. He has had serologic evidence of hepatitis C, but without any clinical indication of active hepatitis. He began radiation to the lumbar spine on 12/15/2016. He completed that treatment on 12/29/2016 to a total dose of 3000 cGy. On 12/16/2016 he also began treatment to the involved left inguinal lymph node and to the primary tumor at the left knee. He completed radiation on 01/13/2017, both sites to a total dose of 4875 cGy. He received his initial infusion of avelumab on 12/29/2016. He developed fatigue and just didn't feel good for about a week or so afterwards. Those symptoms subsequently resolved. He had no other apparent toxicity. He developed significant radiation skin toxicity in the left groin area and the left knee, but that subsequently resolved. He had a very good response to the treatment. He has since then continued avelumab at 2-week intervals. Restaging PET/CT on 03/30/2017 showed findings consistent with near complete response to the treatment. CT abdomen/pelvis on 05/25/2017 showed evidence of lytic metastatic disease in the L3 vertebral body. There were no other significant findings on that study. He continued his treatment with avelumab, which he tolerated well. Restaging PET/CT on 06/24/2017 showed continued complete metabolic response. He had follow-up at [facility] again on 09/16/2017 and his repeat PET/CT again showed evidence of complete response with no metabolically active disease. He has since then continued treatment with avelumab every 2 weeks. As of 10/11/2018 he had completed his 46th cycle. He had subsequently developed a generalized skin eruption. The appearance was consistent with hives. An underlying cause for the eruption was not determined, but it did resolve on empiric treatment with prednisone. He continued with cycle 47 of avelumab on 10/25/2018. He had no adverse effects, and he continued treatment with avelumab on a 2-week schedule. His surveillance PET/CT at [facility] on 11/29/2018 showed nonspecific FDG uptake in left supraclavicular, mediastinal, and hilar lymph nodes and also in the spleen. The clinical significance is uncertain. Overall, he has been doing well clinically, though during treatment did develop significant joint pain, initially in the shoulders, and subsequently in the right hip. He continued treatment at the same dose and schedule. His repeat PET/CT on 05/23/2019 again showed no evidence of recurrent disease. Mild FDG avidity in mediastinal and hilar lymph nodes was felt to be most consistent with inflammatory uptake. In July 2019 he was treated for pneumonia. That illness resolved uneventfully. His surveillance PET/CT on 08/15/2019 showed no evidence of recurrent or metastatic disease. During subsequent follow-up he has been doing well clinically, and he has continued to tolerate his treatment well. Thus far there has been no evidence of recurrence/progression of the Erik cell carcinoma. Plan: He will continue with cycle 77 of avelumab 952 mg by IV infusion. He returns for treatment every 2 weeks. He will be scheduled for follow-up in 6 weeks. Signed By: Aman Martínez M.D. <<Signature on File>>
== END 2019-12-20 09:04 | disposition home or self-care (01) ==
LOC: ONCMED 09:09
PROVIDERS: PCP Nurse Practitioner Family; Visit Provider Internal Medicine Medical Oncology
DX: Z51.12 Encounter for antineoplastic immunotherapy (principal); C4A.72 Merkel cell carcinoma of left lower limb, including hip; C79.51 Secondary malignant neoplasm of bone; K21.9 Gastro-esophageal reflux disease without esophagitis; G47.33 Obstructive sleep apnea (adult) (pediatric); R79.89 Other specified abnormal findings of blood chemistry; R76.8 Other specified abnormal immunological findings in serum; Z92.3 Personal history of irradiation; Z79.899 Other long term (current) drug therapy
CPT/HCPCS: 80053; 84443; 85025; 96413; 99214; J7050; J9023

== ENCOUNTER 2020-01-02 08:08 | Outpatient (CLI) | payer MEDICARE, OTHER, SELFPAY ==
[2020-01-02] MEDS: diphenhydrAMINE 25 mg Capsule PO (09:00)
[2020-01-02] MEDS: acetaminophen 325 mg Tablet 650 MG PO (09:00)
== END 2020-01-02 08:09 | disposition home or self-care (01) ==
LOC: ONCMED 08:35
PROVIDERS: PCP Nurse Practitioner Family; Visit Provider Internal Medicine Medical Oncology
DX: Z51.12 Encounter for antineoplastic immunotherapy (principal); C4A.72 Merkel cell carcinoma of left lower limb, including hip; C79.51 Secondary malignant neoplasm of bone; K21.9 Gastro-esophageal reflux disease without esophagitis; G47.33 Obstructive sleep apnea (adult) (pediatric); Z86.19 Personal history of other infectious and parasitic diseases; Z92.3 Personal history of irradiation; Z79.899 Other long term (current) drug therapy
CPT/HCPCS: 96413; J7050; J9023

== ENCOUNTER 2020-01-19 09:05 | Outpatient (CLI) | payer MEDICARE, OTHER, SELFPAY ==
[2020-01-19] MEDS: diphenhydrAMINE 25 mg Capsule PO (09:45)
[2020-01-19] MEDS: acetaminophen 325 mg Tablet 650 MG PO (09:45)
== END 2020-01-19 09:06 | disposition home or self-care (01) ==
LOC: ONCMED 09:09
PROVIDERS: PCP Nurse Practitioner Family; Visit Provider Internal Medicine Medical Oncology
DX: Z51.12 Encounter for antineoplastic immunotherapy (principal); C4A.72 Merkel cell carcinoma of left lower limb, including hip; C79.51 Secondary malignant neoplasm of bone; K21.9 Gastro-esophageal reflux disease without esophagitis; G47.33 Obstructive sleep apnea (adult) (pediatric); B18.2 Chronic viral hepatitis C; Z92.3 Personal history of irradiation; Z79.899 Other long term (current) drug therapy
CPT/HCPCS: 96413; J7050; J9023

== ENCOUNTER 2020-01-31 08:38 | Outpatient (CLI) | payer MEDICARE, OTHER, SELFPAY ==
[2020-01-31 09:31] LABS: Basophils % 0.4 %; Eosinophils # 0.1 10^3/uL (0.0-0.8); Eosinophils % 1.2 %; Hematocrit 42.7 % (42.0-52.0); Hemoglobin 14.8 g/dL (11.7-16.6); Lymphocytes # 0.9 10^3/uL (0.8-4.8); Lymphocytes % 16.3 %; Mean Corpuscular HGB Conc 34.7 g/dL (30.0-36.0); Mean Corpuscular Hemoglobin 33.1 pg (28.0-34.0); Mean Corpuscular Volume 95.5 fL (80-94); Mean Platelet Volume 8.9 fL (7.4-10.4); Monocytes # 0.4 10^3/uL (0.2-0.9); Monocytes % 8.3 %; Neutrophils # 3.83 10^3/uL (1.8-7.7); Neutrophils % 73.6 %; Nucleated Red Blood Cells % 0 %; Platelet Count 258 10^3/cmm (130-400); Red Blood Count 4.47 10^6/uL (4.1-5.3); Red Cell Distribution Width 12.8 % (12.1-15.1); White Blood Count 5.2 10^3/uL (4.0-10.0)
[2020-01-31 10:04] LABS: Thyroid Stimulating Hormone 0.97 uIU/mL (0.27-4.20)
[2020-01-31 10:36] LABS: Alanine Aminotransferase 17 U/L (0-41); Albumin Level 4.2 g/dL (3.5-5.2); Alkaline Phosphatase 75 IU/L (40-130); Aspartate Amino Transferase 18 U/L (0-40); Blood Urea Nitrogen 18 mg/dL (8-23); Calcium 8.5 mg/dL (8.5-10.5); Carbon Dioxide 22 mmol/L (22-29); Chloride 104 mmol/L (98-107); Globulin 3.1 g/dL (1.3-4.6); Glucose 145 mg/dL (65-115); Osmolality Calculated 285 mOsm/kg (285-295); Sodium 138 mmol/L (136-145); Total Bilirubin 0.7 mg/dL (0.15-1.2); Total Protein 7.3 g/dL (6.6-8.7)
[2020-01-31] MEDS: diphenhydrAMINE 25 mg Capsule PO (10:46)
[2020-01-31] MEDS: acetaminophen 325 mg Tablet 650 MG PO (10:46)
--- NOTE | 2020-01-31 10:49 | ONC FU_ITS ---
[facility] Patient Note Patient: Bebeto Lang Unit #: [id number]: 1950 Dictated By: Austin MontielDate of Visit: Jan 31, 2020 Onc MED Follow-Up/Prog Note Chief Complaint: [place] cell carcinoma. 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 He had presented with an enlarging mass on his left knee. He was initially seen in the emergency room at [facility] in [place]. His subsequent evaluation there included an angiogram and an MRI of the left knee. He was then referred to Dr. Lin Blevins at [facility] for further evaluation. A biopsy of the left prepatellar mass on 10/23/2016 showed poorly differentiated carcinoma favoring [place] cell carcinoma. The malignant cells were noted to be positive for pancytokeratin, DENI, CK20, CD56, and CD138. The tumor cells were also positive for NSE. The CK7, CD45, CD99, desmin, TTF-1, CD-X2, and SHIRA 3 stains were negative. Staging PET/CT on 11/11/2016 showed FDG avid mass within the left prepatellar soft tissues measuring 4.2 x 2.4 cm, maximum SUV 13.9. The mass was noted to be superficial to the joint capsule. An enlarged left inguinal lymph node measuring 1.7 x 1.5 cm showed increased FDG uptake with SUV 7.1, consistent with metastasis. A subcentimeter left external iliac lymph node showed mildly increased FDG uptake, SUV 2.9. A destructive lytic lesion was noted within the posterior L3 vertebral body with associated increased FDG uptake, SUV 10.6. There was an associated soft tissue component extending posteriorly with at least moderate central canal stenosis. 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 He was seen by Dr. Obdulio Banda for medical oncology consultation. He recommended systemic therapy with avelumab. He also recommended consideration for palliative radiation to the lumbar spine lesion. The patient was then seen here because he desired to receive his treatment closer to home. He was referred to Dr. Guzman. He began radiation to the lumbar spine on 12/15/2016. That treatment was completed on 12/29/2016 to a total dose of 3000 cGy. On 12/16/2016 he also began treatment to the involved left inguinal lymph node and to the primary tumor at the left knee. He completed radiation on 01/13/2017, both sites to a total dose of 4875 cGy. He received cycle 1 of avelumab on 12/29/2016. He tolerated it without acute toxicity, but for about a week afterward he was fatigued, and he just didn't feel good. He was able to proceed with a second cycle of treatment on 01/12/2017. He tolerated it well. He then continued his treatment at two-week intervals with the exception that his cycle 7 treatment was delayed to 4 weeks due to a follow-up visit in [place]. A restaging PET/CT on 04/09/2017 showed marked interval decrease in size and FDG activity within the left prepatellar soft tissue mass, left inguinal and external iliac lymph nodes, and the L3 lytic lesion, consistent with a nearly complete metabolic response. A CT abdomen/pelvis on 05/25/2017 still showed evidence of lytic metastatic disease involving the L3 vertebral body. There were no other significant findings. He had a follow-up visit at [facility] in 06/24/2017. PET/CT at that time was consistent with continued complete metabolic response. He then continued treatment with avelumab at 2 week intervals. He had a follow-up visit at [facility] again on 09/16/2017. Repeat PET/CT at that time showed complete metabolic response with no evidence of metabolically active disease. He then continued the same treatment. His other medical illnesses have been limited to GERD and obstructive sleep apnea. He was found to have serologic evidence of hepatitis C, but with no active hepatitis. He has a history of smoking 1-1/2 packs of cigarettes daily for 30 years. He quit smoking in approximately 1987. He has a history of alcohol and drug abuse. He quit both proximally 1986. INTERIM HISTORY: As of 10/11/2018 he had completed cycle 46 of avelumab. At that point he was tolerating the treatment well, and there had been no evidence of disease progression. On 10/19/2018 he reported development of a generalized skin eruption. The appearance was consistent with hives, and he responded very well to prednisone. An underlying cause for the reaction was not determined. He continued treatment with avelumab. His surveillance PET/CT at [facility] on 11/29/2018 showed minimally increased FDG uptake in left supraclavicular, mediastinal, and hilar lymph nodes and also in the spleen. The most FDG-avid lesion was a node in the aortopulmonary window measuring 2.0 x 1.3 cm with maximum SUV 5.2. It was felt to be a nonspecific finding, but short-term follow-up was recommended. There was no other suspicious activity noted. His repeat PET/CT at [facility] on 05/23/2019 showed multiple mildly enlarged mediastinal lymph nodes which demonstrated mildly increased FDG uptake, unchanged compared to the November 2018 study. Bilateral hilar lymphadenopathy also appeared unchanged, but with slightly increased SUV values. The most FDG avid lesion was in a right hilar lymph node measuring 11 mm with SUV 5.7. The appearance was felt to be most consistent with an inflammatory process. A right middle lobe groundglass pulmonary nodule had shown equivocal increase in size, but was still too small to characterize. A 4 cm exophytic lower pole right renal lesion measuring 4 cm was consistent with simple cyst. A 4 mm lesion in the lower pole the left kidney was noted to contain punctate calcifications. It was indeterminate, but unchanged. Overall there was no evidence of disease recurrence. In July 2019 he was treated for pneumonia. His surveillance PET/CT on 08/15/2019 showed hypometabolism within a hypodense area involving the right frontal lobe of the brain, likely related to prior brain injury. There was no PET/CT evidence of recurrent or metastatic disease. He continued treatment with avelumab at 2-week intervals. Repeat PET/CT at [facility] on 11/07/2019 showed no evidence of recurrent or metastatic disease. There was unchanged hypometabolic lesion in the right frontal lobe noted to be likely secondary to prior trauma. Mediastinal and hilar lymph nodes were felt to be likely reactive. Mr. Garcia is here today for follow-up. He has no new concerns. He states he feels like he has been clearing his throat more than normal for him. He states is, like a cough but not really a cough. He states that he has had a little sputum production with that but nothing that is bothersome. He does not feel it is concerned. He states it may be something related to allergies as well. We discussed that he could you try over the counter antihistamine if he feels it is bad enough to take something. If he has any further cough or develops any fever or more sputum production I did tell him to do a chest x-ray to monitor that if needed. He states he does not feel he wants to worry about at this point. He denies any other concerns. He denies diarrhea or constipation. He has had no new shortness of breath orthopnea. He denies any pneumonitis symptoms. 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 He has no shortness of breath, cough, or chest pain. He has no GI complaints. Bladder function has been good. His ECOG is 0. Past Medical History: Gastroesophageal reflux disease Hepatitis C Obstructive sleep apnea Past Surgical History: Angiogram in 2017 He underwent biopsy of the mass overlying the left knee on 10/23/2016. He underwent ultrasound-guided fine-needle aspiration biopsy of left inguinal lymph node on 11/24/2016. He has had no prior surgeries. Allergies: Codeine Sulfate Medications: Acetaminophen 1 - 2 Capsule (of 325 mg) Oral PRN Acidophilus 1 Capsule Oral daily PRN Aleve 1 (220 mg) Tablet Oral q 8 hours PRN Aspirin 1 (81 mg) Tablet Oral daily Cinnamon 1 Capsule Oral daily Clobetasol Propionate Shampoo Topical PRN Clotrimazole-Betamethasone Cream Topical PRN Co Q 10 1 Capsule Oral daily Fish Oil 1 Capsule Oral daily formula 303 1 Tablet daily PRN Multiple Vitamin 1 Capsule Oral daily Protonix 1 (40 mg) Tablet, enteric coated Oral daily Red Yeast Rice 1 Capsule Oral daily Family History: Mr. Lang's mother at age 84: old age . Mr. Lang's father at age 87: old age . Mr. Lang's maternal grandmother is : breast cancer. His paternal grandfather is : stomach cancer. Mr. Lang has 2 sisters: 1 , 1 unknown. Mr. Lang's first sister's stroke. Another sister's breast cancer. Both parents apparently of old age. A brother of heart disease at age 70. A sister of stroke at age 65. She also had breast cancer, and his maternal grandmother had breast cancer. His paternal grandfather had stomach cancer. Social History: Mr. 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 Mr. Lang quit smoking 29 years ago but had smoked 1.5 packs/day for 20 years. He is a former drinker. Mr. Lang reports the following support systems: lives alone, lives in own house, supportive family/friends willing to assist with needs, and adequate transportation available for expected visits. His diet consists of regular meals. He indicates his activity level as: daily activities. 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 He has a history of smoking 1-1/2 packs of cigarettes daily for 30 years. He quit smoking approximately 1987. He has a prior history of alcohol and drug abuse. He quit both approximately 1986. Review Of Symptoms: Constitutional Denies fevers, night sweats, or weight loss. Had exposure to extreme heat last week and got too hot 2 days in a row . chills off and on, overall better today. Does have Cipro on hand at home. Allergic/Immunologic No reactions. Eyes His vision has improved. ENMT Denies changes in hearing, sore throat, mouth sores, difficulty or changes in swallowing ability, and/or sinus drainage. Feels like clearing throat more than normal for him with occasional sputum, thinks it could be allergies. Endocrine No diabetes, thyroid disease or hormone replacement. Denies hot flashes. Hematologic/Lymphatic Denies easy bruising or bleeding. Respiratory Denies dyspnea on exertion, chest pain, cough or hemoptysis. Cardiovascular Denies anginal chest pain, palpitations or orthopnea. Gastrointestinal Denies nausea, vomiting, GI bleeding, or constipation. Denies change in bowel habits and/or stool color, no heartburn or early satiety. Genitourinary (M) Denies hematuria, dysuria, increased frequency, urgency, hesitancy or incontinence. Musculoskeletal No new concerns. Denies any new pain. Integumentary Denies chronic rashes, inflammation, ulcerations or skin changes. Neurologic Denies headache, blurred vision, and no areas of focal weakness or numbness. Psychiatric Denies insomnia. Denies anxiety and depression. Vital Signs: Performed on Jan 31, 2020 10:13 Height - 68.00 in Weight - 214.8 lbs (HIGH) BSA - 2.11 sq.m BMI - 32.66 (HIGH) Temperature - 98.2 F (LOW) Pulse - 67 /min Respiration - 17 /min BP - 140/64 mm(hg) O2 Sat - 96 % Pain - 0,0 - Fully active, able to carry on all predisease activities without restrictions. (ECOG) Physical Examination: Constitutional Alert, oriented, no acute distress. Skin pink, warm and dry. Head Normocephalic; atraumatic. Eyes Conjunctivae and sclerae are clear and without icterus. Pupils are reactive and equal. Neck Supple without masses or thyromegaly. No jugular venous distension. Hematologic/Lymphatic No petechiae or purpura. Respiratory Lungs are clear to auscultation without rhonchi or wheezing. Cardiovascular Regular rate and rhythm of heart without murmurs,clicks, gallops or rubs. Abdomen Non-tender, non-distended, no masses, ascites. Good bowel sounds in all quads. Back/Spine Non-tender to palpation. Extremities No visible deformities, no cyanosis, clubbing or edema. Musculoskeletal No tenderness or swelling, normal range of motion without obvious weakness. Integumentary No rashes or lesions. Neurologic No sensory or motor deficits, normal cerebellar function, normal gait. Psychiatric Alert and oriented times three. Coherent speech. Verbalizes understanding of our discussions today. Laboratory:Test performed on Jan 31, 2020 08:52 Sodium 138 mmol/L TSH 0.97 uIU/mL Potassium 4.0 mmol/L Chloride 104 mmol/L CO2 22 mmol/L Anion Gap 16.0 BUN 18 mg/dL Creatinine 0.8 mg/dL Cr Clearance (Est) 114.0000 mL/min Glucose 145 mg/dL Calcium 8.5 mg/dL Protein, Total 7.3 g/dL Albumin 4.2 g/dL Globulin 3.1 g/dL Bilirubin, Total 0.7 mg/dL ALT (SGPT) 17 U/L AST (SGOT) 18 U/L Alkaline Phosphatase 75 IU/L WBC 5.2 10 3/uL RBC 4.47 10 6/uL HGB 14.8 g/dL HCT 42.7 % MCV 95.5 fL MCH 33.1 pg MCHC 34.7 g/dL RDW 12.8 % Platelet Count 258 10 3/cmm MPV 8.9 fL Neutrophils 3.83 10 3/uL Lymphocytes 0.9 10 3/uL Monocytes 0.4 10 3/uL Eosinophils 0.1 10 3/uL Basophils 0.0 10 3/uL Neutrophil % 73.6 % Lymphocyte % 16.3 % Monocyte % 8.3 % Eosinophil % 1.2 % Basophils % 0.4 % NRBC % 0 % Test performed on Dec 20, 2019 09:23 eGFR 111.5 mL/min Impression: 1. 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 By clinical evaluation his disease was stage IV (T2, N1, M1) with involvement in a left inguinal lymph node and in the L3 vertebral body. His other medical illnesses include: 2. GERD. 3. Obstructive sleep apnea. 4. He has had serologic evidence of hepatitis C, but without any clinical indication of active hepatitis. He began radiation to the lumbar spine on 12/15/2016. He completed that treatment on 12/29/2016 to a total dose of 3000 cGy. On 12/16/2016 he also began treatment to the involved left inguinal lymph node and to the primary tumor at the left knee. He completed radiation on 01/13/2017, both sites to a total dose of 4875 cGy. He received his initial infusion of avelumab on 12/29/2016. He developed fatigue and just didn't feel good for about a week or so afterwards. Those symptoms subsequently resolved. He had no other apparent toxicity. He developed significant radiation skin toxicity in the left groin area and the left knee, but that subsequently resolved. He had a very good response to the treatment. He has since then continued avelumab at 2-week intervals. Restaging PET/CT on 03/30/2017 showed findings consistent with near complete response to the treatment. CT abdomen/pelvis on 05/25/2017 showed evidence of lytic metastatic disease in the L3 vertebral body. There were no other significant findings on that study. He continued his treatment with avelumab, which he tolerated well. Restaging PET/CT on 06/24/2017 showed continued complete metabolic response. He had follow-up at [facility] again on 09/16/2017 and his repeat PET/CT again showed evidence of complete response with no metabolically active disease. He has since then continued treatment with avelumab every 2 weeks. As of 10/11/2018 he had completed his 46th cycle. He had subsequently developed a generalized skin eruption. The appearance was consistent with hives. An underlying cause for the eruption was not determined, but it did resolve on empiric treatment with prednisone. He continued with cycle 47 of avelumab on 10/25/2018. He had no adverse effects, and he continued treatment with avelumab on a 2-week schedule. His surveillance PET/CT at [facility] on 11/29/2018 showed nonspecific FDG uptake in left supraclavicular, mediastinal, and hilar lymph nodes and also in the spleen. The clinical significance is uncertain. Overall, he has been doing well clinically, though during treatment did develop significant joint pain, initially in the shoulders, and subsequently in the right hip. He continued treatment at the same dose and schedule. His repeat PET/CT on 05/23/2019 again showed no evidence of recurrent disease. Mild FDG avidity in mediastinal and hilar lymph nodes was felt to be most consistent with inflammatory uptake. In July 2019 he was treated for pneumonia. That illness resolved uneventfully. His surveillance PET/CT on 08/15/2019 showed no evidence of recurrent or metastatic disease. During subsequent follow-up he has been doing well clinically, and he has continued to tolerate his treatment well. Thus far there has been no evidence of recurrence/progression of the Erik cell carcinoma. Plan: 1. Proceed with cycle 80 avelumab 952 mg IV. 2. Today's labs were reviewed in detail discussed with Mr. Lang and a copy was given to him. WBC 5.2, hemoglobin 14.8, platelets 258,000 ANC is 3800. Chemistry was unremarkable. 3. He was encouraged to let us know if he feels that the clearing of the throat worsens or if he feels like he is becoming short of breath or having a productive cough, we can do a chest x-ray at that point. 4. He will continue treatments every 2 weeks. 5. He will be due for follow-up again in 6 weeks with CBC CMP and TSH. 6. Mr. Lang was instructed to contact us in the interim should questions or problems arise. Signed By: Austin Montiel-, [facility] Aman Martínez MD <<Signature on File>>
== END 2020-01-31 08:39 | disposition home or self-care (01) ==
LOC: ONCMED 08:39
PROVIDERS: PCP Nurse Practitioner Family; Visit Provider Nurse Practitioner
DX: Z51.12 Encounter for antineoplastic immunotherapy (principal); C4A.72 Merkel cell carcinoma of left lower limb, including hip; C79.51 Secondary malignant neoplasm of bone; K21.9 Gastro-esophageal reflux disease without esophagitis; G47.33 Obstructive sleep apnea (adult) (pediatric); Z92.3 Personal history of irradiation; Z79.899 Other long term (current) drug therapy; Z86.19 Personal history of other infectious and parasitic diseases
CPT/HCPCS: 80053; 84443; 85025; 96413; 99214; J7050; J9023

== ENCOUNTER 2020-02-14 06:02 | Outpatient (CLI) | payer MEDICARE, OTHER, SELFPAY ==
[2020-02-14] MEDS: acetaminophen 325 mg Tablet 650 MG PO (10:00)
[2020-02-14] MEDS: diphenhydrAMINE 25 mg Capsule PO (10:00)
[2020-02-14] MEDS: sodium chloride 0.9% 250 ML 75 ML IV (10:17)
== END 2020-02-14 06:03 | disposition home or self-care (01) ==
LOC: ONCMED 06:05
PROVIDERS: PCP Nurse Practitioner Family; Visit Provider Nurse Practitioner
DX: Z51.12 Encounter for antineoplastic immunotherapy (principal); C4A.72 Merkel cell carcinoma of left lower limb, including hip; C79.51 Secondary malignant neoplasm of bone; Z92.3 Personal history of irradiation; Z79.899 Other long term (current) drug therapy
CPT/HCPCS: 96413; J7050; J9023

== ENCOUNTER 2020-02-28 08:37 | Outpatient (CLI) | payer MEDICARE, OTHER, SELFPAY ==
[2020-02-28] MEDS: acetaminophen 325 mg Tablet 650 MG PO (09:30)
[2020-02-28] MEDS: diphenhydrAMINE 25 mg Capsule PO (09:30)
[2020-02-28] MEDS: sodium chloride 0.9% 1,000 ML 999 ML IV (11:05)
== END 2020-02-28 08:38 | disposition home or self-care (01) ==
PROVIDERS: PCP Nurse Practitioner Family; Visit Provider Nurse Practitioner
DX: Z51.12 Encounter for antineoplastic immunotherapy (principal); C4A.72 Merkel cell carcinoma of left lower limb, including hip; C79.51 Secondary malignant neoplasm of bone; K21.9 Gastro-esophageal reflux disease without esophagitis; G47.33 Obstructive sleep apnea (adult) (pediatric); Z86.19 Personal history of other infectious and parasitic diseases
CPT/HCPCS: 96361; 96413; J7030; J7050; J9023

== ENCOUNTER 2020-02-29 09:38 | Outpatient (CLI) | payer MEDICARE, OTHER, SELFPAY ==
[2020-02-29] MEDS: sodium chloride 0.9% 1,000 ML 999 ML IV (10:00)
[2020-02-29] MEDS: ibuprofen 600 mg Tablet PO (10:30)
[2020-02-29 11:21] LABS: Eosinophils % 0.6 %; Hematocrit 42.9 % (42.0-52.0); Hemoglobin 14.5 g/dL (11.7-16.6); Lymphocytes # 0.5 10^3/uL (0.8-4.8); Lymphocytes % 9.2 %; Mean Corpuscular HGB Conc 33.8 g/dL (30.0-36.0); Mean Corpuscular Hemoglobin 32.9 pg (28.0-34.0); Mean Corpuscular Volume 97.3 fL (80-94); Mean Platelet Volume 9.2 fL (7.4-10.4); Monocytes # 0.4 10^3/uL (0.2-0.9); Monocytes % 6.7 %; Neutrophils # 4.35 10^3/uL (1.8-7.7); Neutrophils % 83.1 %; Nucleated Red Blood Cells % 0 %; Platelet Count 211 10^3/cmm (130-400); Red Blood Count 4.41 10^6/uL (4.1-5.3); Red Cell Distribution Width 12.5 % (12.1-15.1); White Blood Count 5.2 10^3/uL (4.0-10.0)
[2020-02-29 11:38] LABS: Alanine Aminotransferase 15 U/L (0-41); Albumin Level 3.3 g/dL (3.5-5.2); Alkaline Phosphatase 74 IU/L (40-130); Anion Gap 14.1 (5-19); Aspartate Amino Transferase 19 U/L (0-40); Blood Urea Nitrogen 13 mg/dL (8-23); Calcium 8.1 mg/dL (8.5-10.5); Carbon Dioxide 22 mmol/L (22-29); Chloride 103 mmol/L (98-107); Globulin 3.6 g/dL (1.3-4.6); Glucose 91 mg/dL (65-115); Osmolality Calculated 276 mOsm/kg (285-295); Potassium 4.1 mmol/L (3.5-5.1); Sodium 135 mmol/L (136-145); Total Bilirubin 0.4 mg/dL (0.15-1.2); Total Protein 6.9 g/dL (6.6-8.7)
[2020-02-29 12:14] LABS: Add Urine Microscopic? NO
[2020-02-29 12:30] LABS: Bilirubin Urine Neg (NEGATIVE); Blood Urine Neg (Negative); Glucose Urine UA Norm (Normal); Ketones Urine Negative (Negative); Leukocyte Esterase Urine Negative (Negative); Nitrate Urine Negative (Negative); Protein Urine Neg (Negative); Urine Appearance Clear (CLEAR); Urine Color Yellow (Yellow); Urobilinogen Urine Norm (Negative)
[2020-02-29 13:00] LABS: SARS Covid-2 Antigen Positive (Negative)
== END 2020-02-29 09:39 | disposition home or self-care (01) ==
LOC: ONCMED 09:42
PROVIDERS: PCP Nurse Practitioner Family; Visit Provider Nurse Practitioner
DX: R50.9 Fever, unspecified (principal); C4A.72 Merkel cell carcinoma of left lower limb, including hip; Z11.59 Encounter for screening for other viral diseases
CPT/HCPCS: 80053; 81003; 85025; 87426; 96360; J7030

== ENCOUNTER 2020-03-13 05:49 | Outpatient (CLI) | payer MEDICARE, OTHER, SELFPAY ==
[2020-03-13 09:31] LABS: Basophils # 0.1 10^3/uL (0.0-0.1); Basophils % 0.8 %; Eosinophils # 0.1 10^3/uL (0.0-0.8); Eosinophils % 0.8 %; Hemoglobin 13.7 g/dL (11.7-16.6); Lymphocytes # 0.8 10^3/uL (0.8-4.8); Lymphocytes % 13.3 %; Mean Corpuscular HGB Conc 34.3 g/dL (30.0-36.0); Mean Corpuscular Hemoglobin 32.4 pg (28.0-34.0); Mean Corpuscular Volume 94.6 fL (80-94); Mean Platelet Volume 8.3 fL (7.4-10.4); Monocytes # 0.5 10^3/uL (0.2-0.9); Monocytes % 8.9 %; Neutrophils # 4.59 10^3/uL (1.8-7.7); Neutrophils % 75.7 %; Nucleated Red Blood Cells % 0 %; Platelet Count 420 10^3/cmm (130-400); Red Blood Count 4.23 10^6/uL (4.1-5.3); Red Cell Distribution Width 12.7 % (12.1-15.1); White Blood Count 6.1 10^3/uL (4.0-10.0)
[2020-03-13 10:09] LABS: Alanine Aminotransferase 17 U/L (0-41); Albumin Level 3.5 g/dL (3.5-5.2); Alkaline Phosphatase 85 IU/L (40-130); Anion Gap 16.9 (5-19); Aspartate Amino Transferase 14 U/L (0-40); Blood Urea Nitrogen 14 mg/dL (8-23); Carbon Dioxide 22 mmol/L (22-29); Chloride 103 mmol/L (98-107); Globulin 3.8 g/dL (1.3-4.6); Glucose 111 mg/dL (65-115); Osmolality Calculated 287 mOsm/kg (285-295); Potassium 3.9 mmol/L (3.5-5.1); Sodium 138 mmol/L (136-145); Thyroid Stimulating Hormone 0.65 uIU/mL (0.27-4.20); Total Bilirubin 0.5 mg/dL (0.15-1.2); Total Protein 7.3 g/dL (6.6-8.7)
[2020-03-13] MEDS: acetaminophen 325 mg Tablet 650 MG PO (11:00)
[2020-03-13] MEDS: diphenhydrAMINE 25 mg Capsule PO (11:00)
[2020-03-13] MEDS: sodium chloride 0.9% 1,000 ML 999 ML IV (11:35)
--- NOTE | 2020-03-22 20:11 | ONC FU_ITS ---
[facility] Patient Note Patient: Bebeto Lang Unit #: [id number]: 1950 Dictated By: Austin MontielDate of Visit: Mar 13, 2020 Onc MED Follow-Up/Prog Note Chief Complaint: Warwick cell carcinoma. 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 He had presented with an enlarging mass on his left knee. He was initially seen in the emergency room at [facility] in [place]. His subsequent evaluation there included an angiogram and an MRI of the left knee. He was then referred to Dr. Lin Blevins at [facility] for further evaluation. A biopsy of the left prepatellar mass on 10/23/2016 showed poorly differentiated carcinoma favoring Warwick cell carcinoma. The malignant cells were noted to be positive for pancytokeratin, DENI, CK20, CD56, and CD138. The tumor cells were also positive for NSE. The CK7, CD45, CD99, desmin, TTF-1, CD-X2, and SHIRA 3 stains were negative. Staging PET/CT on 11/11/2016 showed FDG avid mass within the left prepatellar soft tissues measuring 4.2 x 2.4 cm, maximum SUV 13.9. The mass was noted to be superficial to the joint capsule. An enlarged left inguinal lymph node measuring 1.7 x 1.5 cm showed increased FDG uptake with SUV 7.1, consistent with metastasis. A subcentimeter left external iliac lymph node showed mildly increased FDG uptake, SUV 2.9. A destructive lytic lesion was noted within the posterior L3 vertebral body with associated increased FDG uptake, SUV 10.6. There was an associated soft tissue component extending posteriorly with at least moderate central canal stenosis. 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 He was seen by Dr. Obdulio Banda for medical oncology consultation. He recommended systemic therapy with avelumab. He also recommended consideration for palliative radiation to the lumbar spine lesion. The patient was then seen here because he desired to receive his treatment closer to home. He was referred to Dr. Guzman. He began radiation to the lumbar spine on 12/15/2016. That treatment was completed on 12/29/2016 to a total dose of 3000 cGy. On 12/16/2016 he also began treatment to the involved left inguinal lymph node and to the primary tumor at the left knee. He completed radiation on 01/13/2017, both sites to a total dose of 4875 cGy. He received cycle 1 of avelumab on 12/29/2016. He tolerated it without acute toxicity, but for about a week afterward he was fatigued, and he just didn't feel good. He was able to proceed with a second cycle of treatment on 01/12/2017. He tolerated it well. He then continued his treatment at two-week intervals with the exception that his cycle 7 treatment was delayed to 4 weeks due to a follow-up visit in [place]. A restaging PET/CT on 04/09/2017 showed marked interval decrease in size and FDG activity within the left prepatellar soft tissue mass, left inguinal and external iliac lymph nodes, and the L3 lytic lesion, consistent with a nearly complete metabolic response. A CT abdomen/pelvis on 05/25/2017 still showed evidence of lytic metastatic disease involving the L3 vertebral body. There were no other significant findings. He had a follow-up visit at [facility] in 06/24/2017. PET/CT at that time was consistent with continued complete metabolic response. He then continued treatment with avelumab at 2 week intervals. He had a follow-up visit at [facility] again on 09/16/2017. Repeat PET/CT at that time showed complete metabolic response with no evidence of metabolically active disease. He then continued the same treatment. His other medical illnesses have been limited to GERD and obstructive sleep apnea. He was found to have serologic evidence of hepatitis C, but with no active hepatitis. He has a history of smoking 1-1/2 packs of cigarettes daily for 30 years. He quit smoking in approximately 1987. He has a history of alcohol and drug abuse. He quit both proximally 1986. INTERIM HISTORY: As of 10/11/2018 he had completed cycle 46 of avelumab. At that point he was tolerating the treatment well, and there had been no evidence of disease progression. On 10/19/2018 he reported development of a generalized skin eruption. The appearance was consistent with hives, and he responded very well to prednisone. An underlying cause for the reaction was not determined. He continued treatment with avelumab. His surveillance PET/CT at [facility] on 11/29/2018 showed minimally increased FDG uptake in left supraclavicular, mediastinal, and hilar lymph nodes and also in the spleen. The most FDG-avid lesion was a node in the aortopulmonary window measuring 2.0 x 1.3 cm with maximum SUV 5.2. It was felt to be a nonspecific finding, but short-term follow-up was recommended. There was no other suspicious activity noted. His repeat PET/CT at [facility] on 05/23/2019 showed multiple mildly enlarged mediastinal lymph nodes which demonstrated mildly increased FDG uptake, unchanged compared to the November 2018 study. Bilateral hilar lymphadenopathy also appeared unchanged, but with slightly increased SUV values. The most FDG avid lesion was in a right hilar lymph node measuring 11 mm with SUV 5.7. The appearance was felt to be most consistent with an inflammatory process. A right middle lobe groundglass pulmonary nodule had shown equivocal increase in size, but was still too small to characterize. A 4 cm exophytic lower pole right renal lesion measuring 4 cm was consistent with simple cyst. A 4 mm lesion in the lower pole the left kidney was noted to contain punctate calcifications. It was indeterminate, but unchanged. Overall there was no evidence of disease recurrence. In July 2019 he was treated for pneumonia. His surveillance PET/CT on 08/15/2019 showed hypometabolism within a hypodense area involving the right frontal lobe of the brain, likely related to prior brain injury. There was no PET/CT evidence of recurrent or metastatic disease. He continued treatment with avelumab at 2-week intervals. Repeat PET/CT at [facility] on 11/07/2019 showed no evidence of recurrent or metastatic disease. There was unchanged hypometabolic lesion in the right frontal lobe noted to be likely secondary to prior trauma. Mediastinal and hilar lymph nodes were felt to be likely reactive. Mr. Garcia is here today for follow-up. Mr. Lang tested positive for COVID-19 on February 29, 2020. He remained a quarantine but states that his health department released him from quarantined about 2 days ago. He denies any fever or chills or use of any Tylenol reducing medicine for at least the last 72 hours. He states he did have some shortness of breath and once or twice thought he may have to go to the hospital but it did settle down on its own . He denies any nausea or vomiting. He states he has had significant fatigue. He states that he has not even been [place] 2 [place]. He is planning to present there tomorrow. 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 His is had no symptoms and has quarantined with him. He states his bowel and bladder are normal for him. He denies any new pain other than body aches with the COVID-19. He states that it started to settle down some as well. He states the pain was severe enough though that he did take a couple of pain medications a couple days in a row. His ECOG currently is 1. Past Medical History: Gastroesophageal reflux disease Hepatitis C Obstructive sleep apnea COVID 19 + in 2019 Past Surgical History: Angiogram in 2017 He underwent biopsy of the mass overlying the left knee on 10/23/2016. He underwent ultrasound-guided fine-needle aspiration biopsy of left inguinal lymph node on 11/24/2016. He has had no prior surgeries. Allergies: Codeine Sulfate Medications: Acetaminophen 1 - 2 Capsule (of 325 mg) Oral PRN Acidophilus 1 Capsule Oral daily PRN Aleve 1 (220 mg) Tablet Oral q 8 hours PRN Aspirin 1 (81 mg) Tablet Oral daily Cinnamon 1 Capsule Oral daily Clobetasol Propionate Shampoo Topical PRN Clotrimazole-Betamethasone Cream Topical PRN Co Q 10 1 Capsule Oral daily Fish Oil 1 Capsule Oral daily formula 303 1 Tablet daily PRN Multiple Vitamin 1 Capsule Oral daily Protonix 1 (40 mg) Tablet, enteric coated Oral daily Red Yeast Rice 1 Capsule Oral daily Family History: Mr. Lang's mother at age 84: old age . Mr. Lang's father at age 87: old age . Mr. Lang's maternal grandmother is : breast cancer. His paternal grandfather is : stomach cancer. Mr. Lang has 2 sisters: 1 , 1 unknown. Mr. Lang's first sister's stroke. Another sister's breast cancer. Both parents apparently of old age. A brother of heart disease at age 70. A sister of stroke at age 65. She also had breast cancer, and his maternal grandmother had breast cancer. His paternal grandfather had stomach cancer. 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 Mr. Lang quit smoking 30 years ago but had smoked 1.5 packs/day for 20 years. He is a former drinker. Mr. Lang reports the following support systems: lives alone, lives in own house, supportive family/friends willing to assist with needs, and adequate transportation available for expected visits. His diet consists of regular meals. He indicates his activity level as: daily activities. 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 He has a history of smoking 1-1/2 packs of cigarettes daily for 30 years. He quit smoking approximately 1987. He has a prior history of alcohol and drug abuse. He quit both approximately 1986. Review Of Symptoms: Constitutional Denies fevers, night sweats, or weight loss. Had + COVID testing and states he was really weak and Tylenol products. Fatigue is still present but some better overall. Allergic/Immunologic No reactions. Eyes His vision has improved. ENMT Denies changes in hearing, sore throat, mouth sores, difficulty or changes in swallowing ability, and/or sinus drainage. Endocrine No diabetes, thyroid disease or hormone replacement. Denies hot flashes. Hematologic/Lymphatic Denies easy bruising or bleeding. Respiratory Denies dyspnea on exertion, chest pain, cough or hemoptysis. Cardiovascular Denies anginal chest pain, palpitations or orthopnea. Gastrointestinal Denies nausea, vomiting, GI bleeding, or constipation. Denies change in bowel habits and/or stool color, no heartburn or early satiety. Genitourinary (M) Denies hematuria, dysuria, increased frequency, urgency, hesitancy or incontinence. Musculoskeletal No new concerns. Denies any new pain. Integumentary Denies chronic rashes, inflammation, ulcerations or skin changes. Neurologic Denies headache, blurred vision, and no areas of focal weakness or numbness. Psychiatric Denies insomnia. Denies anxiety and depression. Vital Signs: Performed on Mar 13, 2020 10:23 Height - 68.00 in Weight - 207.8 lbs (LOW) BSA - 2.08 sq.m BMI - 31.60 (HIGH) Temperature - 98.2 F (LOW) Pulse - 60 /min Respiration - 20 /min BP - 149/68 mm(hg) (HIGH) O2 Sat - 97 % Pain - 0,1 - No physically strenuous activity, but ambulatory and able to carry out light or sedentary work (e.g. office work, light house work). (ECOG) Physical Examination: Constitutional Alert, oriented, no acute distress. Skin pink, warm and dry. Head Normocephalic; atraumatic. Eyes Conjunctivae and sclerae are clear and without icterus. Pupils are reactive and equal. Neck Supple without masses or thyromegaly. No jugular venous distension. Hematologic/Lymphatic No petechiae or purpura. Respiratory Lungs are clear to auscultation without rhonchi or wheezing. Cardiovascular Regular rate and rhythm of heart without murmurs,clicks, gallops or rubs. Abdomen Non-tender, non-distended, no masses, ascites. Good bowel sounds in all quads. Back/Spine Non-tender to palpation. Extremities No visible deformities, no cyanosis, clubbing or edema. Musculoskeletal No tenderness or swelling, normal range of motion without obvious weakness. Integumentary No rashes or lesions. Neurologic No sensory or motor deficits, normal cerebellar function, normal gait. Psychiatric Alert and oriented times three. Coherent speech. Verbalizes understanding of our discussions today. Laboratory:Test performed on Mar 13, 2020 09:15 Sodium 138 mmol/L TSH 0.65 uIU/mL Potassium 3.9 mmol/L Chloride 103 mmol/L CO2 22 mmol/L Anion Gap 16.9 BUN 14 mg/dL Creatinine 0.7 mg/dL Cr Clearance (Est) 130.2900 mL/min Glucose 111 mg/dL Osmolality - Calculated 287 mOsm/kg Calcium 9.0 mg/dL Protein, Total 7.3 g/dL Albumin 3.5 g/dL Globulin 3.8 g/dL Bilirubin, Total 0.5 mg/dL ALT (SGPT) 17 U/L AST (SGOT) 14 U/L Alkaline Phosphatase 85 IU/L WBC 6.1 10 3/uL RBC 4.23 10 6/uL HGB 13.7 g/dL HCT 40.0 % MCV 94.6 fL MCH 32.4 pg MCHC 34.3 g/dL RDW 12.7 % Platelet Count 420 10 3/cmm MPV 8.3 fL Neutrophils 4.59 10 3/uL Lymphocytes 0.8 10 3/uL Monocytes 0.5 10 3/uL Eosinophils 0.1 10 3/uL Basophils 0.1 10 3/uL Neutrophil % 75.7 % Lymphocyte % 13.3 % Monocyte % 8.9 % Eosinophil % 0.8 % Basophils % 0.8 % NRBC % 0 % Test performed on Dec 20, 2019 09:23 eGFR 111.5 mL/min Impression: 1. 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 By clinical evaluation his disease was stage IV (T2, N1, M1) with involvement in a left inguinal lymph node and in the L3 vertebral body. His other medical illnesses include: 2. GERD. 3. Obstructive sleep apnea. 4. He has had serologic evidence of hepatitis C, but without any clinical indication of active hepatitis. He began radiation to the lumbar spine on 12/15/2016. He completed that treatment on 12/29/2016 to a total dose of 3000 cGy. On 12/16/2016 he also began treatment to the involved left inguinal lymph node and to the primary tumor at the left knee. He completed radiation on 01/13/2017, both sites to a total dose of 4875 cGy. He received his initial infusion of avelumab on 12/29/2016. He developed fatigue and just didn't feel good for about a week or so afterwards. Those symptoms subsequently resolved. He had no other apparent toxicity. He developed significant radiation skin toxicity in the left groin area and the left knee, but that subsequently resolved. He had a very good response to the treatment. He has since then continued avelumab at 2-week intervals. Restaging PET/CT on 03/30/2017 showed findings consistent with near complete response to the treatment. CT abdomen/pelvis on 05/25/2017 showed evidence of lytic metastatic disease in the L3 vertebral body. There were no other significant findings on that study. He continued his treatment with avelumab, which he tolerated well. Restaging PET/CT on 06/24/2017 showed continued complete metabolic response. He had follow-up at [facility] again on 09/16/2017 and his repeat PET/CT again showed evidence of complete response with no metabolically active disease. He has since then continued treatment with avelumab every 2 weeks. As of 10/11/2018 he had completed his 46th cycle. He had subsequently developed a generalized skin eruption. The appearance was consistent with hives. An underlying cause for the eruption was not determined, but it did resolve on empiric treatment with prednisone. He continued with cycle 47 of avelumab on 10/25/2018. He had no adverse effects, and he continued treatment with avelumab on a 2-week schedule. His surveillance PET/CT at [facility] on 11/29/2018 showed nonspecific FDG uptake in left supraclavicular, mediastinal, and hilar lymph nodes and also in the spleen. The clinical significance is uncertain. Overall, he has been doing well clinically, though during treatment did develop significant joint pain, initially in the shoulders, and subsequently in the right hip. He continued treatment at the same dose and schedule. His repeat PET/CT on 05/23/2019 again showed no evidence of recurrent disease. Mild FDG avidity in mediastinal and hilar lymph nodes was felt to be most consistent with inflammatory uptake. In July 2019 he was treated for pneumonia. That illness resolved uneventfully. His surveillance PET/CT on 08/15/2019 showed no evidence of recurrent or metastatic disease. During subsequent follow-up he has been doing well clinically, and he has continued to tolerate his treatment well. Thus far there has been no evidence of recurrence/progression of the Erik cell carcinoma. We did discuss at length the unknown possible side effects of the avelumab with known COVID-19 infection. We did discuss delaying his treatment but he states he wants to try to go ahead and do treatment now. He states he feels good overall and feels that he can do the treatment. He was advised to make sure and watch for worsening shortness of breath, cough, hemoptysis, pneumonitis symptoms or worsening fatigue.. Plan: 1. Proceed with cycle 83 avelumab 952 mg IV. 2. Today's labs were reviewed in detail discussed with Mr. Lang and a copy was given to him. WBC 6.1, hemoglobin 13.7, platelets 420,000 ANC is 4600. Chemistry was unremarkable. TSH 0.65. 3. He was encouraged to let us know if he feels that he is having any recurrent symptoms he experienced with COVID-19. 4. He will continue treatments every 2 weeks. 5. He will be due for follow-up again in 4 weeks with CBC CMP and TSH. 6. Mr. Lang was instructed to contact us in the interim should questions or problems arise. Signed By: Austin Montiel-, [facility] Aman Martínez MD <<Signature on File>>
== END 2020-03-13 05:50 | disposition home or self-care (01) ==
LOC: ONCMED 05:51
PROVIDERS: PCP Nurse Practitioner Family; Visit Provider Nurse Practitioner
DX: Z51.12 Encounter for antineoplastic immunotherapy (principal); C4A.72 Merkel cell carcinoma of left lower limb, including hip; C7B.1 Secondary Merkel cell carcinoma; C79.51 Secondary malignant neoplasm of bone; K21.9 Gastro-esophageal reflux disease without esophagitis; G47.33 Obstructive sleep apnea (adult) (pediatric); R74.8 Abnormal levels of other serum enzymes; Z79.899 Other long term (current) drug therapy; Z87.891 Personal history of nicotine dependence; Z86.19 Personal history of other infectious and parasitic diseases; Z92.3 Personal history of irradiation
CPT/HCPCS: 80053; 84443; 85025; 96361; 96367; 96413; 99214; J1100; J7030; J7050; J9023

== ENCOUNTER 2020-03-14 13:25 | Outpatient (CLI) | payer MEDICARE, OTHER, SELFPAY ==
[2020-03-14] MEDS: sodium chloride 0.9% 1,000 ML 999 ML IV (13:55)
== END 2020-03-14 13:26 | disposition home or self-care (01) ==
LOC: ONCMED 13:28
PROVIDERS: PCP Nurse Practitioner Family; Visit Provider Nurse Practitioner
DX: C4A.72 Merkel cell carcinoma of left lower limb, including hip (principal); C79.51 Secondary malignant neoplasm of bone; Z79.899 Other long term (current) drug therapy; Z92.3 Personal history of irradiation
CPT/HCPCS: 96361; 96365; J1100; J7030

== ENCOUNTER 2020-03-19 14:14 | Outpatient (CLI) | payer MEDICARE, OTHER, SELFPAY ==
[2020-03-19] MEDS: sodium chloride 0.9% 1,000 ML 999 ML IV (14:46)
== END 2020-03-19 14:15 | disposition home or self-care (01) ==
LOC: ONCMED 14:18
PROVIDERS: PCP Nurse Practitioner Family; Visit Provider Nurse Practitioner
DX: C4A.72 Merkel cell carcinoma of left lower limb, including hip (principal); C79.51 Secondary malignant neoplasm of bone; Z51.81 Encounter for therapeutic drug level monitoring; Z79.899 Other long term (current) drug therapy; Z92.3 Personal history of irradiation
CPT/HCPCS: 96361; 96365; J1100; J7030

== ENCOUNTER 2020-03-22 05:59 | Outpatient (CLI) | payer MEDICARE, OTHER, SELFPAY ==
[2020-03-22] MEDS: sodium chloride 0.9% 1,000 ML 999 ML IV (15:03)
== END 2020-03-22 06:00 | disposition home or self-care (01) ==
LOC: ONCMED 06:02
PROVIDERS: PCP Nurse Practitioner Family; Visit Provider Nurse Practitioner
DX: C4A.72 Merkel cell carcinoma of left lower limb, including hip (principal); C79.51 Secondary malignant neoplasm of bone; Z92.3 Personal history of irradiation; Z79.899 Other long term (current) drug therapy
CPT/HCPCS: 96361; 96365; J1100; J7030

== ENCOUNTER → 2020-03-23 16:13 | Outpatient (BNVA) | payer MEDICARE, OTHER, SELFPAY | PROVIDERS: PCP Nurse Practitioner Family; Visit Provider Emergency Medicine | DX: Z11.59 Encounter for screening for other viral diseases (principal) | CPT/HCPCS: 87635 ==

== ENCOUNTER 2020-03-27 06:26 | Outpatient (CLI) | payer MEDICARE, OTHER, SELFPAY ==
[2020-03-27] MEDS: acetaminophen 325 mg Tablet 650 MG PO (09:15)
[2020-03-27] MEDS: diphenhydrAMINE 25 mg Capsule PO (09:15)
[2020-03-27] MEDS: sodium chloride 0.9% 1,000 ML 1000 ML IV (09:47)
== END 2020-03-27 06:27 | disposition home or self-care (01) ==
PROVIDERS: PCP Nurse Practitioner Family; Visit Provider Nurse Practitioner
DX: Z51.12 Encounter for antineoplastic immunotherapy (principal); C4A.72 Merkel cell carcinoma of left lower limb, including hip; C79.51 Secondary malignant neoplasm of bone; Z92.3 Personal history of irradiation; Z79.899 Other long term (current) drug therapy
CPT/HCPCS: 96361; 96367; 96413; J1100; J7030; J7050; J9023

== ENCOUNTER 2020-04-10 05:58 | Outpatient (CLI) | payer MEDICARE, OTHER, SELFPAY ==
[2020-04-10] MEDS: diphenhydrAMINE 25 mg Capsule PO (09:49)
[2020-04-10] MEDS: acetaminophen 325 mg Tablet 650 MG PO (09:49)
== END 2020-04-10 05:59 | disposition home or self-care (01) ==
LOC: ONCMED 06:00
PROVIDERS: PCP Nurse Practitioner Family; Visit Provider Nurse Practitioner
DX: Z51.12 Encounter for antineoplastic immunotherapy (principal); C4A.72 Merkel cell carcinoma of left lower limb, including hip; C79.51 Secondary malignant neoplasm of bone; Z92.3 Personal history of irradiation; Z79.899 Other long term (current) drug therapy
CPT/HCPCS: 96413; J7050; J9023

== ENCOUNTER 2020-04-26 05:53 | Outpatient (CLI) | payer MEDICARE, OTHER, SELFPAY ==
[2020-04-26 09:02] LABS: Basophils % 0.9 %; Eosinophils # 0.1 10^3/uL (0.0-0.8); Eosinophils % 2.3 %; Hematocrit 41.5 % (42.0-52.0); Hemoglobin 14.3 g/dL (11.7-16.6); Lymphocytes # 0.7 10^3/uL (0.8-4.8); Lymphocytes % 16.9 %; Mean Corpuscular HGB Conc 34.5 g/dL (30.0-36.0); Mean Corpuscular Hemoglobin 32.6 pg (28.0-34.0); Mean Corpuscular Volume 94.7 fL (80-94); Monocytes # 0.5 10^3/uL (0.2-0.9); Monocytes % 12.1 %; Neutrophils # 2.97 10^3/uL (1.8-7.7); Neutrophils % 67.6 %; Nucleated Red Blood Cells % 0 %; Platelet Count 245 10^3/cmm (130-400); Red Blood Count 4.38 10^6/uL (4.1-5.3); Red Cell Distribution Width 13.4 % (12.1-15.1); White Blood Count 4.4 10^3/uL (4.0-10.0)
[2020-04-26 09:29] LABS: Alanine Aminotransferase 14 U/L (0-41); Albumin Level 3.9 g/dL (3.5-5.2); Alkaline Phosphatase 88 IU/L (40-130); Aspartate Amino Transferase 14 U/L (0-40); Blood Urea Nitrogen 20 mg/dL (8-23); Carbon Dioxide 23 mmol/L (22-29); Chloride 105 mmol/L (98-107); Glucose 141 mg/dL (65-115); Osmolality Calculated 293 mOsm/kg (285-295); Sodium 139 mmol/L (136-145); Thyroid Stimulating Hormone 1.14 uIU/mL (0.27-4.20); Total Bilirubin 0.5 mg/dL (0.15-1.2); Total Protein 6.9 g/dL (6.6-8.7)
[2020-04-26] MEDS: acetaminophen 325 mg Tablet 650 MG PO (10:35)
[2020-04-26] MEDS: diphenhydrAMINE 25 mg Capsule PO (10:35)
[2020-04-26] MEDS: sodium chloride 0.9% 250 ML 75 ML IV (10:39)
--- NOTE | 2020-04-26 18:24 | ONC FU_ITS ---
Dr. Martínez Patient Follow-Up Note Patient: Bebeto Lang Unit #: [id number]: 1950 Dicatated By: Aman Martínez M.D.Date of Visit:Apr 26, 2020 Onc Med Follow-up/Prog Note Chief Complaint: [place] cell carcinoma. 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 He had presented with an enlarging mass on his left knee. He was initially seen in the emergency room at [facility] in [place]. His subsequent evaluation there included an angiogram and an MRI of the left knee. He was then referred to Dr. Lin Blevins at [facility] for further evaluation. 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 The malignant cells were noted to be positive for pancytokeratin, DENI, CK20, CD56, and CD138. The tumor cells were also positive for NSE. The CK7, CD45, CD99, desmin, TTF-1, CD-X2, and SHIRA 3 stains were negative. Staging PET/CT on 11/11/2016 showed FDG avid mass within the left prepatellar soft tissues measuring 4.2 x 2.4 cm, maximum SUV 13.9. The mass was noted to be superficial to the joint capsule. An enlarged left inguinal lymph node measuring 1.7 x 1.5 cm showed increased FDG uptake with SUV 7.1, consistent with metastasis. A subcentimeter left external iliac lymph node showed mildly increased FDG uptake, SUV 2.9. A destructive lytic lesion was noted within the posterior L3 vertebral body with associated increased FDG uptake, SUV 10.6. There was an associated soft tissue component extending posteriorly with at least moderate central canal stenosis. 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 He was seen by Dr. Obdulio Banda for medical oncology consultation. He recommended systemic therapy with avelumab. He also recommended consideration for palliative radiation to the lumbar spine lesion. The patient was then seen here because he desired to receive his treatment closer to home. He was referred to Dr. Guzman. He began radiation to the lumbar spine on 12/15/2016. That treatment was completed on 12/29/2016 to a total dose of 3000 cGy. On 12/16/2016 he also began treatment to the involved left inguinal lymph node and to the primary tumor at the left knee. He completed radiation on 01/13/2017, both sites to a total dose of 4875 cGy. He received cycle 1 of avelumab on 12/29/2016. He tolerated it without acute toxicity, but for about a week afterward he was fatigued, and he just didn't feel good. He was able to proceed with a second cycle of treatment on 01/12/2017. He tolerated it well. He then continued his treatment at two-week intervals with the exception that his cycle 7 treatment was delayed to 4 weeks due to a follow-up visit in [place]. A restaging PET/CT on 04/09/2017 showed marked interval decrease in size and FDG activity within the left prepatellar soft tissue mass, left inguinal and external iliac lymph nodes, and the L3 lytic lesion, consistent with a nearly complete metabolic response. A CT abdomen/pelvis on 05/25/2017 still showed evidence of lytic metastatic disease involving the L3 vertebral body. There were no other significant findings. He had a follow-up visit at [facility] in 06/24/2017. PET/CT at that time was consistent with continued complete metabolic response. He then continued treatment with avelumab at 2 week intervals. He had a follow-up visit at [facility] again on 09/16/2017. Repeat PET/CT at that time showed complete metabolic response with no evidence of metabolically active disease. He then continued the same treatment. His other medical illnesses have been limited to GERD and obstructive sleep apnea. He was found to have serologic evidence of hepatitis C, but with no active hepatitis. He has a history of smoking 1-1/2 packs of cigarettes daily for 30 years. He quit smoking in approximately 1987. He has a history of alcohol and drug abuse. He quit both proximally 1986. INTERIM HISTORY: As of 10/11/2018 he had completed cycle 46 of avelumab. At that point he was tolerating the treatment well, and there had been no evidence of disease progression. On 10/19/2018 he reported development of a generalized skin eruption. The appearance was consistent with hives, and he responded very well to prednisone. An underlying cause for the reaction was not determined. He continued treatment with avelumab. His surveillance PET/CT at [facility] on 11/29/2018 showed minimally increased FDG uptake in left supraclavicular, mediastinal, and hilar lymph nodes and also in the spleen. The most FDG-avid lesion was a node in the aortopulmonary window measuring 2.0 x 1.3 cm with maximum SUV 5.2. It was felt to be a nonspecific finding, but short-term follow-up was recommended. There was no other suspicious activity noted. His repeat PET/CT at [facility] on 05/23/2019 showed multiple mildly enlarged mediastinal lymph nodes which demonstrated mildly increased FDG uptake, unchanged compared to the November 2018 study. Bilateral hilar lymphadenopathy also appeared unchanged, but with slightly increased SUV values. The most FDG avid lesion was in a right hilar lymph node measuring 11 mm with SUV 5.7. The appearance was felt to be most consistent with an inflammatory process. A right middle lobe groundglass pulmonary nodule had shown equivocal increase in size, but was still too small to characterize. A 4 cm exophytic lower pole right renal lesion measuring 4 cm was consistent with simple cyst. A 4 mm lesion in the lower pole the left kidney was noted to contain punctate calcifications. It was indeterminate, but unchanged. Overall there was no evidence of disease recurrence. In July 2019 he was treated for pneumonia. His surveillance PET/CT on 08/15/2019 showed hypometabolism within a hypodense area involving the right frontal lobe of the brain, likely related to prior brain injury. There was no PET/CT evidence of recurrent or metastatic disease. Repeat PET/CT at [facility] on 11/07/2019 showed no evidence of recurrent or metastatic disease. There was unchanged hypometabolic lesion in the right frontal lobe noted to be likely secondary to prior trauma. Mediastinal and hilar lymph nodes were felt to be likely reactive. He continued treatment with avelumab at 2-week intervals. In February 2020 he was diagnosed with COVID-19 virus infection. However, he did not encounter any treatment delays because of it. His surveillance PET/CT at [facility] on 04/23/2020 showed no PET/CT evidence of recurrent or residual metastatic [place] cell carcinoma. He is seen for a follow-up visit. He says his energy is not completely back to normal since the COVID-19 infection, but it is getting better. His ECOG score is 1. He has recovered is sense of taste and smell, so his appetite is good now. He does not have fever or night sweats. He has no shortness of breath, cough, or chest pain. He has no GI or complaints. He was having generalized aching, but that has resolved. He now has just a little bit of lower back and hip pain. He has shoulder pain just occasionally. He does not complain of headache or dizziness. He has no focal neurologic symptoms. Medications: Acetaminophen 1 - 2 Capsule (of 325 mg) Oral PRN, Acidophilus 1 Capsule Oral daily PRN, Aleve 1 (220 mg) Tablet Oral q 8 hours PRN, Aspirin 1 (81 mg) Tablet Oral daily, Cinnamon 1 Capsule Oral daily, Clobetasol Propionate Shampoo Topical PRN, Clotrimazole-Betamethasone Cream Topical PRN, Co Q 10 1 Capsule Oral daily, Fish Oil 1 Capsule Oral daily, formula 303 1 Tablet daily PRN, Multiple Vitamin 1 Capsule Oral daily, Protonix 1 (40 mg) Tablet, enteric coated Oral daily, Red Yeast Rice 1 Capsule Oral daily Allergies: Codeine Sulfate Review of Systems: Constitutional - With the COVID-19 virus infection in February he had significant weakness/fatigue, and his energy is still not back up to normal. He also had lost of taste and smell, but that is better, and his appetite is okay now. He had fever, also resolved. He does not have night sweating. ECOG score is 1, ENMT - No sinus congestion/drainage. No mouth sores. No sore throat or difficulty swallowing, Hematologic/Lymphatic - No abnormal bruising or bleeding, Respiratory - No shortness of breath. No cough. No pleuritic pain or hemoptysis, Cardiovascular - No angina pain. No palpitations, Gastrointestinal - No nausea or vomiting. No heartburn or acid reflux. No diarrhea or constipation. No blood in the stool or black stools, Genitourinary (M) - No dysuria or hematuria. No urinary frequency. He has some urgency. No incontinence, Musculoskeletal - He is having a little pain in his lower back and hips. He he now has just occasional shoulder pain, Integumentary - No skin rash, Neurologic - No headache or dizziness. No numbness or tingling. No other focal neurologic symptoms, Psychiatric - He has a little depression. No insomnia. Vital Signs: Performed on Apr 26, 2020 09:57 Height - 68.00 in Weight - 212.0 lbs (HIGH) BSA - 2.10 sq.m BMI - 32.23 (HIGH) Temperature - 98.6 F Pulse - 65 /min Respiration - 20 /min BP - 136/61 mm(hg) O2 Sat - 97 % Pain - 0 Physical Examination: Constitutional - He looks good generally, Eyes - Sclerae nonicteric. Conjunctivae clear, ENMT - No lesions noted in the oral cavity, Hematologic/Lymphatic - No cervical, clavicular, or axillary adenopathy, Respiratory - Lungs are clear with good air movement bilaterally, Cardiovascular - Heart rhythm is regular. There is no murmur, gallop, or rub noted, Abdomen - Soft. Liver and spleen are not enlarged. There is no abdominal mass or ascites noted. There is no inguinal mass or adenopathy noted, Extremities - No edema. There is no evidence of residual or recurrent mass in the left knee area, Integumentary - No skin eruption, Neurologic - No focal neurologic deficits noted. Lab/Imaging: Test performed on Apr 26, 2020 08:48 Sodium 139 mmol/L TSH 1.14 uIU/mL Potassium 4.0 mmol/L Chloride 105 mmol/L CO2 23 mmol/L Anion Gap 15.0 BUN 20 mg/dL Creatinine 0.7 mg/dL Cr Clearance (Est) 130.2900 mL/min Glucose 141 mg/dL Osmolality - Calculated 293 mOsm/kg Calcium 9.0 mg/dL Protein, Total 6.9 g/dL Albumin 3.9 g/dL Globulin 3.0 g/dL Bilirubin, Total 0.5 mg/dL ALT (SGPT) 14 U/L AST (SGOT) 14 U/L Alkaline Phosphatase 88 IU/L WBC 4.4 10 3/uL RBC 4.38 10 6/uL HGB 14.3 g/dL HCT 41.5 % MCV 94.7 fL MCH 32.6 pg MCHC 34.5 g/dL RDW 13.4 % Platelet Count 245 10 3/cmm MPV 9.0 fL Neutrophils 2.97 10 3/uL Lymphocytes 0.7 10 3/uL Monocytes 0.5 10 3/uL Eosinophils 0.1 10 3/uL Basophils 0.0 10 3/uL Neutrophil % 67.6 % Lymphocyte % 16.9 % Monocyte % 12.1 % Eosinophil % 2.3 % Basophils % 0.9 % NRBC % 0 % Impression: 1. Patient with [place] cell carcinoma in the form of a left prepatellar mass. By clinical evaluation his disease was stage IV (T2, N1, M1) with involvement in a left inguinal lymph node and in the L3 vertebral body. His other medical illnesses include: 2. GERD. 3. Obstructive sleep apnea. 4. He has had serologic evidence of hepatitis C, but without any clinical indication of active hepatitis. He began radiation to the lumbar spine on 12/15/2016. He completed that treatment on 12/29/2016 to a total dose of 3000 cGy. On 12/16/2016 he also began treatment to the involved left inguinal lymph node and to the primary tumor at the left knee. He completed radiation on 01/13/2017, both sites to a total dose of 4875 cGy. He received his initial infusion of avelumab on 12/29/2016. He developed fatigue and just didn't feel good for about a week or so afterwards. Those symptoms subsequently resolved. He had no other apparent toxicity. He developed significant radiation skin toxicity in the left groin area and the left knee, but that subsequently resolved. He had a very good response to the treatment. He has since then continued avelumab at 2-week intervals. Restaging PET/CT on 03/30/2017 showed findings consistent with near complete response to the treatment. CT abdomen/pelvis on 05/25/2017 showed evidence of lytic metastatic disease in the L3 vertebral body. There were no other significant findings on that study. He continued his treatment with avelumab, which he tolerated well. Restaging PET/CT on 06/24/2017 showed continued complete metabolic response. He had follow-up at [facility] again on 09/16/2017 and his repeat PET/CT again showed evidence of complete response with no metabolically active disease. He has since then continued treatment with avelumab every 2 weeks. As of 10/11/2018 he had completed his 46th cycle. He had subsequently developed a generalized skin eruption. The appearance was consistent with hives. An underlying cause for the eruption was not determined, but it did resolve on empiric treatment with prednisone. He continued with cycle 47 of avelumab on 10/25/2018. He had no adverse effects, and he continued treatment with avelumab on a 2-week schedule. His surveillance PET/CT at [facility] on 11/29/2018 showed nonspecific FDG uptake in left supraclavicular, mediastinal, and hilar lymph nodes and also in the spleen. The clinical significance is uncertain. Overall, he has been doing well clinically, though during treatment did develop significant joint pain, initially in the shoulders, and subsequently in the right hip. He continued treatment at the same dose and schedule. His repeat PET/CT on 05/23/2019 again showed no evidence of recurrent disease. Mild FDG avidity in mediastinal and hilar lymph nodes was felt to be most consistent with inflammatory uptake. In July 2019 he was treated for pneumonia. That illness resolved uneventfully. His surveillance PET/CT on 08/15/2019 showed no evidence of recurrent or metastatic disease. During subsequent follow-up he has been doing well clinically, and he has continued to tolerate his treatment well. His clinical course was complicated by COVID-19 virus infection in February 2020. He did not encounter any treatment delays because of it, and he has had an uneventful recovery. Thus far there has been no evidence of recurrence/progression of the [place] Michael cell cancer. Plan: He will continue with avelumab 10 mg/kg by IV infusion. He returns for treatment every 2 weeks. He will be scheduled for follow-up in 6 weeks. Signed By: Aman Martínez M.D. <<Signature on File>>
== END 2020-04-26 05:54 | disposition home or self-care (01) ==
LOC: ONCMED 05:56
PROVIDERS: PCP Nurse Practitioner Family; Visit Provider Internal Medicine Medical Oncology
DX: Z51.12 Encounter for antineoplastic immunotherapy (principal); C4A.72 Merkel cell carcinoma of left lower limb, including hip; C79.51 Secondary malignant neoplasm of bone; Z86.19 Personal history of other infectious and parasitic diseases; K21.9 Gastro-esophageal reflux disease without esophagitis; G47.33 Obstructive sleep apnea (adult) (pediatric); Z92.3 Personal history of irradiation; Z79.899 Other long term (current) drug therapy
CPT/HCPCS: 80053; 84443; 85025; 96367; 96413; 99214; J1100; J7050; J9023

== ENCOUNTER 2020-05-07 06:13 | Outpatient (CLI) | payer MEDICARE, OTHER, SELFPAY ==
[2020-05-07] MEDS: acetaminophen 325 mg Tablet 650 MG PO (11:05)
[2020-05-07] MEDS: diphenhydrAMINE 25 mg Capsule PO (11:05)
== END 2020-05-07 06:14 | disposition home or self-care (01) ==
LOC: ONCMED 06:16
PROVIDERS: PCP Nurse Practitioner Family; Visit Provider Internal Medicine Medical Oncology
DX: Z51.12 Encounter for antineoplastic immunotherapy (principal); C4A.72 Merkel cell carcinoma of left lower limb, including hip; C79.51 Secondary malignant neoplasm of bone; Z92.3 Personal history of irradiation; Z79.899 Other long term (current) drug therapy
CPT/HCPCS: 96413; J7050; J9023

== ENCOUNTER 2020-05-21 05:47 | Outpatient (CLI) | payer MEDICARE, OTHER, SELFPAY ==
[2020-05-21] MEDS: diphenhydrAMINE 25 mg Capsule PO (10:55)
[2020-05-21] MEDS: acetaminophen 325 mg Tablet 650 MG PO (10:55)
== END 2020-05-21 05:48 | disposition home or self-care (01) ==
LOC: ONCMED 05:50
PROVIDERS: PCP Nurse Practitioner Family; Visit Provider Internal Medicine Medical Oncology
DX: Z51.12 Encounter for antineoplastic immunotherapy (principal); C4A.72 Merkel cell carcinoma of left lower limb, including hip; C79.51 Secondary malignant neoplasm of bone; Z79.899 Other long term (current) drug therapy; Z92.3 Personal history of irradiation
CPT/HCPCS: 96413; J7050; J9023

== ENCOUNTER 2020-06-04 05:47 | Outpatient (CLI) | payer MEDICARE, OTHER, SELFPAY ==
[2020-06-04 09:51] LABS: Basophils % 0.6 %; Eosinophils # 0.1 10^3/uL (0.0-0.8); Eosinophils % 2.3 %; Hematocrit 42.5 % (42.0-52.0); Hemoglobin 15.2 g/dL (11.7-16.6); Lymphocytes # 0.9 10^3/uL (0.8-4.8); Mean Corpuscular HGB Conc 35.8 g/dL (30.0-36.0); Mean Corpuscular Hemoglobin 33.3 pg (28.0-34.0); Mean Corpuscular Volume 93.2 fL (80-94); Mean Platelet Volume 8.8 fL (7.4-10.4); Monocytes # 0.4 10^3/uL (0.2-0.9); Monocytes % 7.9 %; Neutrophils # 3.73 10^3/uL (1.8-7.7); Neutrophils % 71.8 %; Nucleated Red Blood Cells % 0 %; Platelet Count 272 10^3/cmm (130-400); Red Blood Count 4.56 10^6/uL (4.1-5.3); Red Cell Distribution Width 13.1 % (12.1-15.1); White Blood Count 5.2 10^3/uL (4.0-10.0)
[2020-06-04 10:19] LABS: Alanine Aminotransferase 12 U/L (0-41); Albumin Level 4.1 g/dL (3.5-5.2); Alkaline Phosphatase 84 IU/L (40-130); Anion Gap 15.7 (5-19); Aspartate Amino Transferase 14 U/L (0-40); Blood Urea Nitrogen 13 mg/dL (8-23); Carbon Dioxide 25 mmol/L (22-29); Chloride 104 mmol/L (98-107); Globulin 2.8 g/dL (1.3-4.6); Glucose 157 mg/dL (65-115); Osmolality Calculated 295 mOsm/kg (285-295); Potassium 3.7 mmol/L (3.5-5.1); Sodium 141 mmol/L (136-145); Thyroid Stimulating Hormone 0.92 uIU/mL (0.27-4.20); Total Bilirubin 0.3 mg/dL (0.15-1.2); Total Protein 6.9 g/dL (6.6-8.7)
[2020-06-04] MEDS: diphenhydrAMINE 25 mg Capsule PO (11:20)
[2020-06-04] MEDS: acetaminophen 325 mg Tablet 650 MG PO (11:20)
--- NOTE | 2020-06-04 22:29 | ONC FU_ITS ---
[facility] Patient Note Patient: Bebeto Lang Unit #: [id number]: 1950 Dictated By: Austin MontielDate of Visit: Jun 04, 2020 Onc MED Follow-Up/Prog Note Chief Complaint: Ark[place] cell carcinoma. 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 He had presented with an enlarging mass on his left knee. He was initially seen in the emergency room at [facility] in [place]. His subsequent evaluation there included an angiogram and an MRI of the left knee. He was then referred to Dr. Lin Blevins at [facility] for further evaluation. 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 The malignant cells were noted to be positive for pancytokeratin, DENI, CK20, CD56, and CD138. The tumor cells were also positive for NSE. The CK7, CD45, CD99, desmin, TTF-1, CD-X2, and SHIRA 3 stains were negative. Staging PET/CT on 11/11/2016 showed FDG avid mass within the left prepatellar soft tissues measuring 4.2 x 2.4 cm, maximum SUV 13.9. The mass was noted to be superficial to the joint capsule. An enlarged left inguinal lymph node measuring 1.7 x 1.5 cm showed increased FDG uptake with SUV 7.1, consistent with metastasis. A subcentimeter left external iliac lymph node showed mildly increased FDG uptake, SUV 2.9. A destructive lytic lesion was noted within the posterior L3 vertebral body with associated increased FDG uptake, SUV 10.6. There was an associated soft tissue component extending posteriorly with at least moderate central canal stenosis. 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 He was seen by Dr. Obdulio Banda for medical oncology consultation. He recommended systemic therapy with avelumab. He also recommended consideration for palliative radiation to the lumbar spine lesion. The patient was then seen here because he desired to receive his treatment closer to home. He was referred to Dr. Guzman. He began radiation to the lumbar spine on 12/15/2016. That treatment was completed on 12/29/2016 to a total dose of 3000 cGy. On 12/16/2016 he also began treatment to the involved left inguinal lymph node and to the primary tumor at the left knee. He completed radiation on 01/13/2017, both sites to a total dose of 4875 cGy. He received cycle 1 of avelumab on 12/29/2016. He tolerated it without acute toxicity, but for about a week afterward he was fatigued, and he just didn't feel good. He was able to proceed with a second cycle of treatment on 01/12/2017. He tolerated it well. He then continued his treatment at two-week intervals with the exception that his cycle 7 treatment was delayed to 4 weeks due to a follow-up visit in [place]. A restaging PET/CT on 04/09/2017 showed marked interval decrease in size and FDG activity within the left prepatellar soft tissue mass, left inguinal and external iliac lymph nodes, and the L3 lytic lesion, consistent with a nearly complete metabolic response. A CT abdomen/pelvis on 05/25/2017 still showed evidence of lytic metastatic disease involving the L3 vertebral body. There were no other significant findings. He had a follow-up visit at [facility] in 06/24/2017. PET/CT at that time was consistent with continued complete metabolic response. He then continued treatment with avelumab at 2 week intervals. He had a follow-up visit at [facility] again on 09/16/2017. Repeat PET/CT at that time showed complete metabolic response with no evidence of metabolically active disease. He then continued the same treatment. His other medical illnesses have been limited to GERD and obstructive sleep apnea. He was found to have serologic evidence of hepatitis C, but with no active hepatitis. He has a history of smoking 1-1/2 packs of cigarettes daily for 30 years. He quit smoking in approximately 1987. He has a history of alcohol and drug abuse. He quit both proximally 1986. INTERIM HISTORY: As of 10/11/2018 he had completed cycle 46 of avelumab. At that point he was tolerating the treatment well, and there had been no evidence of disease progression. On 10/19/2018 he reported development of a generalized skin eruption. The appearance was consistent with hives, and he responded very well to prednisone. An underlying cause for the reaction was not determined. He continued treatment with avelumab. His surveillance PET/CT at [facility] on 11/29/2018 showed minimally increased FDG uptake in left supraclavicular, mediastinal, and hilar lymph nodes and also in the spleen. The most FDG-avid lesion was a node in the aortopulmonary window measuring 2.0 x 1.3 cm with maximum SUV 5.2. It was felt to be a nonspecific finding, but short-term follow-up was recommended. There was no other suspicious activity noted. His repeat PET/CT at [facility] on 05/23/2019 showed multiple mildly enlarged mediastinal lymph nodes which demonstrated mildly increased FDG uptake, unchanged compared to the November 2018 study. Bilateral hilar lymphadenopathy also appeared unchanged, but with slightly increased SUV values. The most FDG avid lesion was in a right hilar lymph node measuring 11 mm with SUV 5.7. The appearance was felt to be most consistent with an inflammatory process. A right middle lobe groundglass pulmonary nodule had shown equivocal increase in size, but was still too small to characterize. A 4 cm exophytic lower pole right renal lesion measuring 4 cm was consistent with simple cyst. A 4 mm lesion in the lower pole the left kidney was noted to contain punctate calcifications. It was indeterminate, but unchanged. Overall there was no evidence of disease recurrence. In July 2019 he was treated for pneumonia. His surveillance PET/CT on 08/15/2019 showed hypometabolism within a hypodense area involving the right frontal lobe of the brain, likely related to prior brain injury. There was no PET/CT evidence of recurrent or metastatic disease. Repeat PET/CT at [facility] on 11/07/2019 showed no evidence of recurrent or metastatic disease. There was unchanged hypometabolic lesion in the right frontal lobe noted to be likely secondary to prior trauma. Mediastinal and hilar lymph nodes were felt to be likely reactive. He continued treatment with avelumab at 2-week intervals. In February 2020 he was diagnosed with COVID-19 virus infection. However, he did not encounter any treatment delays because of it. His surveillance PET/CT at [facility] on 04/23/2020 showed no PET/CT evidence of recurrent or residual metastatic Erik cell carcinoma. Mr Lang is here today for followup. He is due for dose 89 avelumab. He continues to have gradual recovery from the COVID-19. He states his energy is not back to normal but seems to be getting a low bit better every day. His only concern is that he has had shortness of breath since the Covid diagnosis but it is not worsening. He denies cough. He denies any fever. He denies any hemoptysis. He states he does notices that when he is doing exertion. He reports that he has had some lower back and right hip pain but thinks it was because he was sitting on his wallet he has now moved to wallet and the pain is improved. He states he is eating good. He denies any lower extremity edema. He denies any orthopnea. He states he has not had any chest pain or palpitations. 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 As mentioned above he is not recovered fully to his normal activity but am getting there . He denies any neuropathy. He states he has not had any diarrhea or abdominal pain. He denies any urinary problems. He states that he has been taking super beta prostate suppplement and thinks his urination patterns are better at night. His ECOG is 1. Past Medical History: Gastroesophageal reflux disease Hepatitis C Obstructive sleep apnea COVID 19 + in 2019 Past Surgical History: Angiogram in 2017 He underwent biopsy of the mass overlying the left knee on 10/23/2016. He underwent ultrasound-guided fine-needle aspiration biopsy of left inguinal lymph node on 11/24/2016. He has had no prior surgeries. Allergies: Codeine Sulfate Medications: Acetaminophen 1 - 2 Capsule (of 325 mg) Oral PRN Acidophilus 1 Capsule Oral daily PRN Aleve 1 (220 mg) Tablet Oral q 8 hours PRN Aspirin 1 (81 mg) Tablet Oral daily Cinnamon 1 Capsule Oral daily Clobetasol Propionate Shampoo Topical PRN Clotrimazole-Betamethasone Cream Topical PRN Co Q 10 1 Capsule Oral daily Fish Oil 1 Capsule Oral daily formula 303 1 Tablet daily PRN Multiple Vitamin 1 Capsule Oral daily Protonix 1 (40 mg) Tablet, enteric coated Oral daily Red Yeast Rice 1 Capsule Oral daily super beta prostate 2 Capsule daily Family History: Mr. Lima mother at age 84: old age . Mr. Lima father at age 87: old age . Mr. Chowdarys maternal grandmother is : breast cancer. His paternal grandfather is : stomach cancer. Mr. Lang has 2 sisters: 1 , 1 unknown. Mr. Lang's first sister's stroke. Another sister's breast cancer. Both parents apparently of old age. A brother of heart disease at age 70. A sister of stroke at age 65. She also had breast cancer, and his maternal grandmother had breast cancer. His paternal grandfather had stomach cancer. 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 Mr. Lang quit smoking 30 years ago but had smoked 1.5 packs/day for 20 years. He is a former drinker. Mr. Lang reports the following support systems: lives alone, lives in own house, supportive family/friends willing to assist with needs, and adequate transportation available for expected visits. His diet consists of regular meals. He indicates his activity level as: daily activities. 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 He has a history of smoking 1-1/2 packs of cigarettes daily for 30 years. He quit smoking approximately 1987. He has a prior history of alcohol and drug abuse. He quit both approximately 1986. Review Of Symptoms: Constitutional Denies fevers, night sweats, or weight loss. Still having some fatigue but getting better. Allergic/Immunologic No reactions. Eyes His vision has improved. ENMT Denies changes in hearing, sore throat, mouth sores, difficulty or changes in swallowing ability, and/or sinus drainage. Hematologic/Lymphatic Denies easy bruising or bleeding. Respiratory Denies dyspnea on exertion, chest pain, cough or hemoptysis. Cardiovascular Denies anginal chest pain, palpitations or orthopnea. Gastrointestinal Denies nausea, vomiting, GI bleeding, or constipation. Denies change in bowel habits and/or stool color, no heartburn or early satiety. Genitourinary (M) Denies hematuria, dysuria, increased frequency, urgency, hesitancy or incontinence. Musculoskeletal No new concerns. Denies any new pain. Integumentary Denies chronic rashes, inflammation, ulcerations or skin changes. Neurologic Denies headache, blurred vision, and no areas of focal weakness or numbness. Psychiatric Denies insomnia. Denies anxiety and depression. Vital Signs: Performed on Jun 04, 2020 10:47 Height - 68.00 in Weight - 214.2 lbs (HIGH) BSA - 2.10 sq.m BMI - 32.57 (HIGH) Temperature - 99.0 F (HIGH) Pulse - 65 /min Respiration - 18 /min BP - 153/74 mm(hg) (HIGH) O2 Sat - 97 % Pain - 0,1 - No physically strenuous activity, but ambulatory and able to carry out light or sedentary work (e.g. office work, light house work). (ECOG) Physical Examination: Constitutional Alert, oriented, no acute distress. Skin pink, warm and dry. Head Normocephalic; atraumatic. Eyes Conjunctivae and sclerae are clear and without icterus. Pupils are reactive and equal. Neck Supple without masses or thyromegaly. No jugular venous distension. Hematologic/Lymphatic No petechiae or purpura. Respiratory Lungs are clear to auscultation without rhonchi or wheezing. Cardiovascular Regular rate and rhythm of heart without murmurs,clicks, gallops or rubs. Chest Chest is symmetric without chest wall deformities. Abdomen Non-tender, non-distended, no masses, ascites. Good bowel sounds in all quads. Back/Spine Non-tender to palpation. Extremities No visible deformities, no cyanosis, clubbing or edema. Musculoskeletal No tenderness or swelling, normal range of motion without obvious weakness. Integumentary No rashes or lesions. Neurologic No sensory or motor deficits, normal cerebellar function, normal gait. Psychiatric Alert and oriented times three. Coherent speech. Verbalizes understanding of our discussions today. Laboratory:Test performed on Jun 04, 2020 09:30 Sodium 141 mmol/L TSH 0.92 uIU/mL Potassium 3.7 mmol/L Chloride 104 mmol/L CO2 25 mmol/L Anion Gap 15.7 BUN 13 mg/dL Creatinine 0.7 mg/dL Cr Clearance (Est) 130.2900 mL/min Glucose 157 mg/dL Osmolality - Calculated 295 mOsm/kg Calcium 9.0 mg/dL Protein, Total 6.9 g/dL Albumin 4.1 g/dL Globulin 2.8 g/dL Bilirubin, Total 0.3 mg/dL ALT (SGPT) 12 U/L AST (SGOT) 14 U/L Alkaline Phosphatase 84 IU/L WBC 5.2 10 3/uL RBC 4.56 10 6/uL HGB 15.2 g/dL HCT 42.5 % MCV 93.2 fL MCH 33.3 pg MCHC 35.8 g/dL RDW 13.1 % Platelet Count 272 10 3/cmm MPV 8.8 fL Neutrophils 3.73 10 3/uL Lymphocytes 0.9 10 3/uL Monocytes 0.4 10 3/uL Eosinophils 0.1 10 3/uL Basophils 0.0 10 3/uL Neutrophil % 71.8 % Lymphocyte % 17.0 % Monocyte % 7.9 % Eosinophil % 2.3 % Basophils % 0.6 % NRBC % 0 % Impression: 1. Patient with Ark[place] cell carcinoma in the form of a left prepatellar mass. By clinical evaluation his disease was stage IV (T2, N1, M1) with involvement in a left inguinal lymph node and in the L3 vertebral body. His other medical illnesses include: 2. GERD. 3. Obstructive sleep apnea. 4. He has had serologic evidence of hepatitis C, but without any clinical indication of active hepatitis. He began radiation to the lumbar spine on 12/15/2016. He completed that treatment on 12/29/2016 to a total dose of 3000 cGy. On 12/16/2016 he also began treatment to the involved left inguinal lymph node and to the primary tumor at the left knee. He completed radiation on 01/13/2017, both sites to a total dose of 4875 cGy. He received his initial infusion of avelumab on 12/29/2016. He developed fatigue and just didn't feel good for about a week or so afterwards. Those symptoms subsequently resolved. He had no other apparent toxicity. He developed significant radiation skin toxicity in the left groin area and the left knee, but that subsequently resolved. He had a very good response to the treatment. He has since then continued avelumab at 2-week intervals. Restaging PET/CT on 03/30/2017 showed findings consistent with near complete response to the treatment. CT abdomen/pelvis on 05/25/2017 showed evidence of lytic metastatic disease in the L3 vertebral body. There were no other significant findings on that study. He continued his treatment with avelumab, which he tolerated well. Restaging PET/CT on 06/24/2017 showed continued complete metabolic response. He had follow-up at [facility] again on 09/16/2017 and his repeat PET/CT again showed evidence of complete response with no metabolically active disease. He has since then continued treatment with avelumab every 2 weeks. As of 10/11/2018 he had completed his 46th cycle. He had subsequently developed a generalized skin eruption. The appearance was consistent with hives. An underlying cause for the eruption was not determined, but it did resolve on empiric treatment with prednisone. He continued with cycle 47 of avelumab on 10/25/2018. He had no adverse effects, and he continued treatment with avelumab on a 2-week schedule. His surveillance PET/CT at [facility] on 11/29/2018 showed nonspecific FDG uptake in left supraclavicular, mediastinal, and hilar lymph nodes and also in the spleen. The clinical significance is uncertain. Overall, he has been doing well clinically, though during treatment did develop significant joint pain, initially in the shoulders, and subsequently in the right hip. He continued treatment at the same dose and schedule. His repeat PET/CT on 05/23/2019 again showed no evidence of recurrent disease. Mild FDG avidity in mediastinal and hilar lymph nodes was felt to be most consistent with inflammatory uptake. In July 2019 he was treated for pneumonia. That illness resolved uneventfully. His surveillance PET/CT on 08/15/2019 showed no evidence of recurrent or metastatic disease. During subsequent follow-up he has been doing well clinically, and he has continued to tolerate his treatment well. His clinical course was complicated by COVID-19 virus infection in February 2020. He did not encounter any treatment delays because of it, and he has had an uneventful, although gradual, recovery. Thus far there has been no evidence of recurrence/progression of the Ark[place] cell cancer. He did have restaging PET/CT on 04/23/2020 at [place] with no evidence of disease recurrence/progression. Plan: 1. Erik cell carcinoma in the left prepatellar with left inguinal lymph node and L3 vertebral body involvement: A. Continue with avelumab at current dosing. He is tolerating that well. B. He did have follow-up PET CT imaging at [place] on 04/23/2020 and has had no signs of disease residual or recurrence. We did review that report again today. C. Chronic low back pain due to L3 vertebral body involvement???currently controlled with hydrocodone. He was given a refill today for 5/325 mg tablets #[address] Martínez's written prescription. D. Today's labs were reviewed in detail and discussed with Mr. Lang and a copy was given to him. WBC 5.2, hemoglobin 15.2, platelets 272,000 ANC is 3730. Potassium 3.7 creatinine 0.7 random glucose 157 (he states he ate a (6-year-old) Addendum: 06-18-2020 should read ate a cinnamon roll on the way to the office this morning). LFTs are normal TSH is 0.92. 2. Follow-up plan: A. He is not due back in [place] for restaging imaging and followup until October 15, 2020. He states they have now put him on a 24-week follow-up plan. B. He will continue every 2-week avelumab. C. We will plan to see him back here in 8 weeks with CBC CMP and TSH. He is aware that we will be glad to see him at any point should he have any problems or questions. He was encouraged to let us know if any issues or concerns arise. Signed By: Austin Montiel-, AOCNP Aman Martínez MD <<Signature on File>>
== END 2020-06-04 05:48 | disposition home or self-care (01) ==
LOC: ONCMED 05:50
PROVIDERS: Internal Medicine Medical Oncology; PCP Nurse Practitioner Family; Visit Provider Nurse Practitioner
DX: Z51.12 Encounter for antineoplastic immunotherapy (principal); C4A.72 Merkel cell carcinoma of left lower limb, including hip; C79.51 Secondary malignant neoplasm of bone; C77.4 Secondary and unspecified malignant neoplasm of inguinal and lower limb lymph nodes; Z79.899 Other long term (current) drug therapy; Z86.19 Personal history of other infectious and parasitic diseases; Z87.891 Personal history of nicotine dependence; K21.9 Gastro-esophageal reflux disease without esophagitis; G47.33 Obstructive sleep apnea (adult) (pediatric)
CPT/HCPCS: 80053; 84443; 85025; 96413; 99214; J7050; J9023

== ENCOUNTER 2020-06-18 05:57 | Outpatient (CLI) | payer MEDICARE, OTHER, SELFPAY ==
[2020-06-18] MEDS: acetaminophen 325 mg Tablet 650 MG PO (08:58)
[2020-06-18] MEDS: diphenhydrAMINE 25 mg Capsule PO (09:11)
== END 2020-06-18 05:58 | disposition home or self-care (01) ==
LOC: ONCMED 05:59
PROVIDERS: PCP Nurse Practitioner Family; Visit Provider Nurse Practitioner
DX: Z51.12 Encounter for antineoplastic immunotherapy (principal); C4A.72 Merkel cell carcinoma of left lower limb, including hip; C79.51 Secondary malignant neoplasm of bone; Z92.3 Personal history of irradiation; Z79.899 Other long term (current) drug therapy
CPT/HCPCS: 96413; J7050; J9023

== ENCOUNTER 2020-07-02 09:02 | Outpatient (CLI) | payer MEDICARE, OTHER, SELFPAY ==
[2020-07-02] MEDS: diphenhydrAMINE 25 mg Capsule PO (09:40)
[2020-07-02] MEDS: acetaminophen 325 mg Tablet 650 MG PO (09:40)
== END 2020-07-02 09:03 | disposition home or self-care (01) ==
LOC: ONCMED 09:06
PROVIDERS: PCP Nurse Practitioner Family; Visit Provider Nurse Practitioner
DX: Z51.12 Encounter for antineoplastic immunotherapy (principal); C4A.72 Merkel cell carcinoma of left lower limb, including hip; C79.51 Secondary malignant neoplasm of bone; Z92.3 Personal history of irradiation; Z79.899 Other long term (current) drug therapy
CPT/HCPCS: 96413; J7050; J9023

== ENCOUNTER 2020-07-16 06:10 | Outpatient (CLI) | payer MEDICARE, OTHER, SELFPAY ==
[2020-07-16] MEDS: acetaminophen 325 mg Tablet 650 MG PO (10:10)
[2020-07-16] MEDS: diphenhydrAMINE 25 mg Capsule PO (10:10)
== END 2020-07-16 06:11 | disposition home or self-care (01) ==
LOC: ONCMED 06:13
PROVIDERS: PCP Nurse Practitioner Family; Visit Provider Nurse Practitioner
DX: Z51.12 Encounter for antineoplastic immunotherapy (principal); C4A.72 Merkel cell carcinoma of left lower limb, including hip; C79.51 Secondary malignant neoplasm of bone; Z92.3 Personal history of irradiation; Z79.899 Other long term (current) drug therapy
CPT/HCPCS: 96413; J7050; J9023

== ENCOUNTER 2020-07-30 06:10 | Outpatient (CLI) | payer MEDICARE, OTHER, SELFPAY ==
[2020-07-30] MEDS: acetaminophen 325 mg Tablet 650 MG PO (09:45)
[2020-07-30] MEDS: diphenhydrAMINE 25 mg Capsule PO (09:45)
== END 2020-07-30 06:11 | disposition home or self-care (01) ==
LOC: ONCMED 06:12
PROVIDERS: PCP Nurse Practitioner Family; Visit Provider Nurse Practitioner
DX: Z51.12 Encounter for antineoplastic immunotherapy (principal); C4A.72 Merkel cell carcinoma of left lower limb, including hip; C79.51 Secondary malignant neoplasm of bone
CPT/HCPCS: 96413; J7050; J9023

== ENCOUNTER 2020-08-13 05:45 | Outpatient (CLI) | payer MEDICARE, OTHER, SELFPAY ==
[2020-08-13 09:43] LABS: Basophils % 0.6 %; Eosinophils # 0.1 10^3/uL (0.0-0.8); Eosinophils % 1.5 %; Hematocrit 43.1 % (42.0-52.0); Hemoglobin 15.1 g/dL (11.7-16.6); Lymphocytes # 0.8 10^3/uL (0.8-4.8); Mean Corpuscular Hemoglobin 32.5 pg (28.0-34.0); Mean Corpuscular Volume 92.9 fL (80-94); Mean Platelet Volume 8.7 fL (7.4-10.4); Monocytes # 0.5 10^3/uL (0.2-0.9); Monocytes % 8.9 %; Neutrophils # 3.88 10^3/uL (1.8-7.7); Neutrophils % 73.6 %; Nucleated Red Blood Cells % 0 %; Platelet Count 289 10^3/cmm (130-400); Red Blood Count 4.64 10^6/uL (4.1-5.3); Red Cell Distribution Width 12.8 % (12.1-15.1); White Blood Count 5.3 10^3/uL (4.0-10.0)
[2020-08-13 10:17] LABS: Alanine Aminotransferase 16 U/L (0-41); Albumin Level 4.1 g/dL (3.5-5.2); Alkaline Phosphatase 78 IU/L (40-130); Anion Gap 12.2 (5-19); Aspartate Amino Transferase 16 U/L (0-40); Blood Urea Nitrogen 13 mg/dL (8-23); Calcium 9.1 mg/dL (8.5-10.5); Carbon Dioxide 26 mmol/L (22-29); Chloride 104 mmol/L (98-107); Globulin 3.2 g/dL (1.3-4.6); Glucose 104 mg/dL (65-115); Osmolality Calculated 286 mOsm/kg (285-295); Potassium 4.2 mmol/L (3.5-5.1); Sodium 138 mmol/L (136-145); Total Bilirubin 0.5 mg/dL (0.15-1.2); Total Protein 7.3 g/dL (6.6-8.7)
--- NOTE | 2020-08-17 18:36 | ONC FU_ITS ---
Dr. Martínez Patient Follow-Up Note Patient: Bebeto Lang Unit #: [id number]: 1950 Dicatated By: Aman Martínez M.D.Date of Visit:Aug 13, 2020 Onc Med Follow-up/Prog Note Chief Complaint: [place] cell carcinoma. 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 He had presented with an enlarging mass on his left knee. He was initially seen in the emergency room at [facility] in [place]. His subsequent evaluation there included an angiogram and an MRI of the left knee. He was then referred to Dr. Lin Blevins at [facility] for further evaluation. 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 The malignant cells were noted to be positive for pancytokeratin, DENI, CK20, CD56, and CD138. The tumor cells were also positive for NSE. The CK7, CD45, CD99, desmin, TTF-1, CD-X2, and SHIRA 3 stains were negative. Staging PET/CT on 11/11/2016 showed FDG avid mass within the left prepatellar soft tissues measuring 4.2 x 2.4 cm, maximum SUV 13.9. The mass was noted to be superficial to the joint capsule. An enlarged left inguinal lymph node measuring 1.7 x 1.5 cm showed increased FDG uptake with SUV 7.1, consistent with metastasis. A subcentimeter left external iliac lymph node showed mildly increased FDG uptake, SUV 2.9. A destructive lytic lesion was noted within the posterior L3 vertebral body with associated increased FDG uptake, SUV 10.6. There was an associated soft tissue component extending posteriorly with at least moderate central canal stenosis. 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 He was seen by Dr. Obdulio Banda for medical oncology consultation. He recommended systemic therapy with avelumab. He also recommended consideration for palliative radiation to the lumbar spine lesion. The patient was then seen here because he desired to receive his treatment closer to home. He was referred to Dr. Guzman. He began radiation to the lumbar spine on 12/15/2016. That treatment was completed on 12/29/2016 to a total dose of 3000 cGy. On 12/16/2016 he also began treatment to the involved left inguinal lymph node and to the primary tumor at the left knee. He completed radiation on 01/13/2017, both sites to a total dose of 4875 cGy. He received cycle 1 of avelumab on 12/29/2016. He tolerated it without acute toxicity, but for about a week afterward he was fatigued, and he just didn't feel good. He was able to proceed with a second cycle of treatment on 01/12/2017. He tolerated it well. He then continued his treatment at two-week intervals with the exception that his cycle 7 treatment was delayed to 4 weeks due to a follow-up visit in [place]. A restaging PET/CT on 04/09/2017 showed marked interval decrease in size and FDG activity within the left prepatellar soft tissue mass, left inguinal and external iliac lymph nodes, and the L3 lytic lesion, consistent with a nearly complete metabolic response. A CT abdomen/pelvis on 05/25/2017 still showed evidence of lytic metastatic disease involving the L3 vertebral body. There were no other significant findings. He had a follow-up visit at [facility] in 06/24/2017. PET/CT at that time was consistent with continued complete metabolic response. He then continued treatment with avelumab at 2 week intervals. He had a follow-up visit at [facility] again on 09/16/2017. Repeat PET/CT at that time showed complete metabolic response with no evidence of metabolically active disease. He then continued the same treatment. His other medical illnesses have been limited to GERD and obstructive sleep apnea. He was found to have serologic evidence of hepatitis C, but with no active hepatitis. He has a history of smoking 1-1/2 packs of cigarettes daily for 30 years. He quit smoking in approximately 1987. He has a history of alcohol and drug abuse. He quit both proximally 1986. INTERIM HISTORY: As of 10/11/2018 he had completed cycle 46 of avelumab. At that point he was tolerating the treatment well, and there had been no evidence of disease progression. On 10/19/2018 he reported development of a generalized skin eruption. The appearance was consistent with hives, and he responded very well to prednisone. An underlying cause for the reaction was not determined. He continued treatment with avelumab. His surveillance PET/CT at [facility] on 11/29/2018 showed minimally increased FDG uptake in left supraclavicular, mediastinal, and hilar lymph nodes and also in the spleen. The most FDG-avid lesion was a node in the aortopulmonary window measuring 2.0 x 1.3 cm with maximum SUV 5.2. It was felt to be a nonspecific finding, but short-term follow-up was recommended. There was no other suspicious activity noted. His repeat PET/CT at [facility] on 05/23/2019 showed multiple mildly enlarged mediastinal lymph nodes which demonstrated mildly increased FDG uptake, unchanged compared to the November 2018 study. Bilateral hilar lymphadenopathy also appeared unchanged, but with slightly increased SUV values. The most FDG avid lesion was in a right hilar lymph node measuring 11 mm with SUV 5.7. The appearance was felt to be most consistent with an inflammatory process. A right middle lobe groundglass pulmonary nodule had shown equivocal increase in size, but was still too small to characterize. A 4 cm exophytic lower pole right renal lesion measuring 4 cm was consistent with simple cyst. A 4 mm lesion in the lower pole the left kidney was noted to contain punctate calcifications. It was indeterminate, but unchanged. Overall there was no evidence of disease recurrence. In July 2019 he was treated for pneumonia. His surveillance PET/CT on 08/15/2019 showed hypometabolism within a hypodense area involving the right frontal lobe of the brain, likely related to prior brain injury. There was no PET/CT evidence of recurrent or metastatic disease. Repeat PET/CT at [facility] on 11/07/2019 showed no evidence of recurrent or metastatic disease. There was unchanged hypometabolic lesion in the right frontal lobe noted to be likely secondary to prior trauma. Mediastinal and hilar lymph nodes were felt to be likely reactive. He continued treatment with avelumab at 2-week intervals. In February 2020 he was diagnosed with COVID-19 virus infection. However, he did not encounter any treatment delays because of it. His surveillance PET/CT at [facility] on 04/23/2020 showed no PET/CT evidence of recurrent or residual metastatic [place] cell carcinoma. He is seen for a follow-up visit. He continues to have some fatigue, but he is able to do light work. ECOG score is 1. He is otherwise feeling okay. Appetite is good. His weight is stable. He has no fever or night sweats. He has no shortness of breath, cough, or chest pain. He has no GI or complaints. He still has some pain in his right shoulder and in his lower back. He does not complain of headache or dizziness. He has no focal neurologic symptoms. Medications: Acetaminophen 1 - 2 Capsule (of 325 mg) Oral PRN, Acidophilus 1 Capsule Oral daily PRN, Aleve 1 (220 mg) Tablet Oral q 8 hours PRN, Aspirin 1 (81 mg) Tablet Oral daily, Cinnamon 1 Capsule Oral daily, Clobetasol Propionate Shampoo Topical PRN, Clotrimazole-Betamethasone Cream Topical PRN, Co Q 10 1 Capsule Oral daily, Fish Oil 1 Capsule Oral daily, formula 303 1 Tablet daily PRN, Multiple Vitamin 1 Capsule Oral daily, Protonix 1 (40 mg) Tablet, enteric coated Oral daily, Red Yeast Rice 1 Capsule Oral daily, super beta prostate 2 Capsule daily Allergies: Codeine Sulfate Vital Signs: Performed on Aug 13, 2020 10:43 Height - 68.00 in Weight - 212.2 lbs (LOW) BSA - 2.10 sq.m BMI - 32.27 (HIGH) Temperature - 98.8 F Pulse - 61 /min Respiration - 18 /min BP - 150/68 mm(hg) (HIGH) O2 Sat - 98 % Pain - 6 Fatigue - 7 Physical Examination: Constitutional - He looks good generally, Eyes - Sclerae nonicteric. Conjunctivae clear, ENMT - No lesions noted in the oral cavity, Hematologic/Lymphatic - No cervical, clavicular, or axillary adenopathy, Respiratory - Lungs are clear with good air movement bilaterally, Cardiovascular - Heart rhythm is regular. There is no murmur, gallop, or rub noted, Abdomen - Soft. Liver and spleen are not enlarged. There is no abdominal mass or ascites noted. There is no inguinal mass or adenopathy noted, Extremities - No edema. There is no evidence of residual or recurrent mass in the left knee area, Integumentary - No skin eruption, Neurologic - No focal neurologic deficits noted. Lab/Imaging: Test performed on Aug 13, 2020 09:34 Sodium 138 mmol/L TSH 0.90 uIU/mL Potassium 4.2 mmol/L Chloride 104 mmol/L CO2 26 mmol/L Anion Gap 12.2 BUN 13 mg/dL Creatinine 0.6 mg/dL Cr Clearance (Est) 152.0000 mL/min Glucose 104 mg/dL Osmolality - Calculated 286 mOsm/kg Calcium 9.1 mg/dL Protein, Total 7.3 g/dL Albumin 4.1 g/dL Globulin 3.2 g/dL Bilirubin, Total 0.5 mg/dL ALT (SGPT) 16 U/L AST (SGOT) 16 U/L Alkaline Phosphatase 78 IU/L WBC 5.3 10 3/uL RBC 4.64 10 6/uL HGB 15.1 g/dL HCT 43.1 % MCV 92.9 fL MCH 32.5 pg MCHC 35.0 g/dL RDW 12.8 % Platelet Count 289 10 3/cmm MPV 8.7 fL Neutrophils 3.88 10 3/uL Lymphocytes 0.8 10 3/uL Monocytes 0.5 10 3/uL Eosinophils 0.1 10 3/uL Basophils 0.0 10 3/uL Neutrophil % 73.6 % Lymphocyte % 15.0 % Monocyte % 8.9 % Eosinophil % 1.5 % Basophils % 0.6 % NRBC % 0 % Problem List: 1. 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 By clinical evaluation his disease was stage IV (T2, N1, M1) with involvement in a left inguinal lymph node and in the L3 vertebral body. 2. GERD. 3. Obstructive sleep apnea. 4. He has had serologic evidence of hepatitis C, but without any clinical indication of active hepatitis. 5. He required treatment for pneumonia in July 2019. 6. He was diagnosed with COVID-19 virus infection in February 2020. 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 By clinical evaluation his disease was stage IV (T2, N1, M1) with involvement in a left inguinal lymph node and in the L3 vertebral body. He began radiation to the lumbar spine on 12/15/2016. He completed that treatment on 12/29/2016 to a total dose of 3000 cGy. On 12/16/2016 he also began radiation to the involved left inguinal lymph node and to the primary tumor at the left knee. He completed treatment on 01/13/2017, both sites to a total dose of 4875 cGy. On 12/29/2016 he began immunotherapy with avelumab. He tolerated the initial infusion well, and he was then able to continue treatment at 2-week intervals. Restaging PET/CT on 03/30/2017 showed findings consistent with near complete response to the treatment. CT abdomen/pelvis on 05/25/2017 showed evidence of lytic metastatic disease in the L3 vertebral body. There were no other significant findings on that study. He has since then continued avelumab infusions every 2 weeks. He has tolerated it very well, thus far with no evidence of recurrence/progression of the [place] cell carcinoma. He continues now to have some fatigue following COVID-19 virus infection in February 2020. He is otherwise doing well clinically. He will be given avelumab 10 mg/kg by IV infusion. He returns for treatment every 2 weeks. He is scheduled to have follow-up at [facility] in the latter part of September. I will plan to see him here at the 6-week interval from that visit. Signed By: Aman Martínez M.D. <<Signature on File>>
== END 2020-08-13 05:46 | disposition home or self-care (01) ==
LOC: ONCMED 05:47
PROVIDERS: PCP Nurse Practitioner Family; Visit Provider Internal Medicine Medical Oncology
DX: C4A.72 Merkel cell carcinoma of left lower limb, including hip (principal); C79.51 Secondary malignant neoplasm of bone; Z79.899 Other long term (current) drug therapy; Z86.16 Personal history of COVID-19; Z92.3 Personal history of irradiation
CPT/HCPCS: 36415; 80053; 84443; 85025; 99214

== ENCOUNTER 2020-08-16 06:03 | Outpatient (CLI) | payer MEDICARE, OTHER, SELFPAY ==
[2020-08-16] MEDS: acetaminophen 325 mg Tablet 650 MG PO (13:40)
[2020-08-16] MEDS: diphenhydrAMINE 25 mg Capsule PO (13:40)
== END 2020-08-16 06:04 | disposition home or self-care (01) ==
LOC: ONCMED 06:05
PROVIDERS: PCP Nurse Practitioner Family; Visit Provider Internal Medicine Medical Oncology
DX: Z51.12 Encounter for antineoplastic immunotherapy (principal); C4A.72 Merkel cell carcinoma of left lower limb, including hip; C79.51 Secondary malignant neoplasm of bone
CPT/HCPCS: 96413; J7050; J9023

== ENCOUNTER 2020-08-27 06:08 | Outpatient (CLI) | payer MEDICARE, OTHER, SELFPAY ==
[2020-08-27] MEDS: acetaminophen 325 mg Tablet 650 MG PO (10:15)
[2020-08-27] MEDS: diphenhydrAMINE 25 mg Capsule PO (10:15)
== END 2020-08-27 06:09 | disposition home or self-care (01) ==
LOC: ONCMED 06:10
PROVIDERS: PCP Nurse Practitioner Family; Visit Provider Internal Medicine Medical Oncology
DX: Z51.11 Encounter for antineoplastic chemotherapy (principal); C4A.72 Merkel cell carcinoma of left lower limb, including hip; C79.51 Secondary malignant neoplasm of bone; Z92.3 Personal history of irradiation; Z79.899 Other long term (current) drug therapy
CPT/HCPCS: 96413; J7050; J9023

== ENCOUNTER 2020-09-10 06:16 | Outpatient (CLI) | payer MEDICARE, OTHER, SELFPAY ==
[2020-09-10] MEDS: diphenhydrAMINE 25 mg Capsule PO (09:45)
[2020-09-10] MEDS: acetaminophen 325 mg Tablet 650 MG PO (09:45)
== END 2020-09-10 06:17 | disposition home or self-care (01) ==
LOC: ONCMED 06:18
PROVIDERS: PCP Nurse Practitioner Family; Visit Provider Internal Medicine Medical Oncology
DX: Z51.12 Encounter for antineoplastic immunotherapy (principal); C4A.72 Merkel cell carcinoma of left lower limb, including hip; C79.51 Secondary malignant neoplasm of bone; Z79.899 Other long term (current) drug therapy; Z92.3 Personal history of irradiation
CPT/HCPCS: 96413; J7050; J9023

== ENCOUNTER 2020-09-24 06:06 | Outpatient (CLI) | payer MEDICARE, OTHER, SELFPAY ==
[2020-09-24] MEDS: acetaminophen 325 mg Tablet 650 MG PO (09:20)
[2020-09-24] MEDS: diphenhydrAMINE 25 mg Capsule PO (09:20)
[2020-09-24] MEDS: sodium chloride 0.9% 250 ML IV (09:45)
== END 2020-09-24 06:07 | disposition home or self-care (01) ==
LOC: ONCMED 06:08
PROVIDERS: PCP Nurse Practitioner Family; Visit Provider Internal Medicine Medical Oncology
DX: Z51.12 Encounter for antineoplastic immunotherapy (principal); C4A.72 Merkel cell carcinoma of left lower limb, including hip; C79.51 Secondary malignant neoplasm of bone; Z92.3 Personal history of irradiation; Z79.899 Other long term (current) drug therapy
CPT/HCPCS: 96413; J7050; J9023

== ENCOUNTER 2020-10-08 06:22 | Outpatient (CLI) | payer MEDICARE, OTHER, SELFPAY ==
[2020-10-08] MEDS: sodium chloride 0.9% 250 ML 75 ML IV (09:40)
[2020-10-08] MEDS: diphenhydrAMINE 25 mg Capsule PO (09:40)
[2020-10-08] MEDS: acetaminophen 325 mg Tablet 650 MG PO (09:40)
[2020-10-08 09:44] LABS: Basophils % 0.7 %; Eosinophils # 0.1 10^3/uL (0.0-0.8); Eosinophils % 1.7 %; Hematocrit 42.6 % (42.0-52.0); Hemoglobin 14.9 g/dL (11.7-16.6); Lymphocytes # 0.9 10^3/uL (0.8-4.8); Lymphocytes % 15.5 %; Mean Corpuscular Hemoglobin 32.7 pg (28.0-34.0); Mean Corpuscular Volume 93.6 fL (80-94); Mean Platelet Volume 8.9 fL (7.4-10.4); Monocytes # 0.4 10^3/uL (0.2-0.9); Monocytes % 7.5 %; Neutrophils # 4.26 10^3/uL (1.8-7.7); Neutrophils % 74.3 %; Nucleated Red Blood Cells % 0 %; Platelet Count 261 10^3/cmm (130-400); Red Blood Count 4.55 10^6/uL (4.1-5.3); White Blood Count 5.7 10^3/uL (4.0-10.0)
[2020-10-08 10:14] LABS: Alanine Aminotransferase 13 U/L (0-41); Albumin Level 4.1 g/dL (3.5-5.2); Alkaline Phosphatase 89 IU/L (40-130); Anion Gap 15.2 (5-19); Aspartate Amino Transferase 14 U/L (0-40); Blood Urea Nitrogen 16 mg/dL (8-23); Calcium 8.7 mg/dL (8.5-10.5); Carbon Dioxide 24 mmol/L (22-29); Chloride 103 mmol/L (98-107); Globulin 3.2 g/dL (1.3-4.6); Glucose 130 mg/dL (65-115); Osmolality Calculated 289 mOsm/kg (285-295); Potassium 4.2 mmol/L (3.5-5.1); Sodium 138 mmol/L (136-145); Total Bilirubin 0.5 mg/dL (0.15-1.2); Total Protein 7.3 g/dL (6.6-8.7)
== END 2020-10-08 06:23 | disposition home or self-care (01) ==
LOC: ONCMED 06:23
PROVIDERS: PCP Nurse Practitioner Family; Visit Provider Internal Medicine Medical Oncology
DX: Z51.11 Encounter for antineoplastic chemotherapy (principal); C4A.72 Merkel cell carcinoma of left lower limb, including hip; C79.51 Secondary malignant neoplasm of bone; Z79.899 Other long term (current) drug therapy; Z92.3 Personal history of irradiation
CPT/HCPCS: 80053; 84443; 85025; 96413; J7050; J9023

== ENCOUNTER 2020-10-22 06:37 | Outpatient (CLI) | payer MEDICARE, OTHER, SELFPAY ==
[2020-10-22] MEDS: acetaminophen 325 mg Tablet 650 MG PO (10:30)
[2020-10-22] MEDS: diphenhydrAMINE 25 mg Capsule PO (10:35)
== END 2020-10-22 06:38 | disposition home or self-care (01) ==
LOC: ONCMED 06:39
PROVIDERS: PCP Nurse Practitioner Family; Visit Provider Internal Medicine Medical Oncology
DX: Z51.12 Encounter for antineoplastic immunotherapy (principal); C4A.72 Merkel cell carcinoma of left lower limb, including hip
CPT/HCPCS: 96413; J7050; J9023

== ENCOUNTER 2020-11-05 06:11 | Outpatient (CLI) | payer MEDICARE, OTHER, SELFPAY ==
[2020-11-05] MEDS: diphenhydrAMINE 25 mg Capsule PO (09:55)
[2020-11-05] MEDS: acetaminophen 325 mg Tablet 650 MG PO (09:55)
== END 2020-11-05 06:12 | disposition home or self-care (01) ==
LOC: ONCMED 06:12
PROVIDERS: PCP Nurse Practitioner Family; Visit Provider Internal Medicine Medical Oncology
DX: Z51.12 Encounter for antineoplastic immunotherapy (principal); C4A.72 Merkel cell carcinoma of left lower limb, including hip; C79.51 Secondary malignant neoplasm of bone
CPT/HCPCS: 96413; J7050; J9023

== ENCOUNTER → 2020-11-20 14:19 | Outpatient (BNVA) | payer MEDICARE, OTHER, SELFPAY | PROVIDERS: PCP Nurse Practitioner Family; Visit Provider Internal Medicine Medical Oncology | DX: C4A.72 Merkel cell carcinoma of left lower limb, including hip (principal); C79.51 Secondary malignant neoplasm of bone; Z79.899 Other long term (current) drug therapy | CPT/HCPCS: 80053; 84443; 85025 ==

== ENCOUNTER 2020-11-22 06:11 | Outpatient (CLI) | payer MEDICARE, OTHER, SELFPAY ==
[2020-11-22] MEDS: diphenhydrAMINE 25 mg Capsule PO (15:00)
[2020-11-22] MEDS: acetaminophen 325 mg Tablet 650 MG PO (15:00)
--- NOTE | 2020-11-25 09:19 | ONC FU_ITS ---
Dr. Martínez Patient Follow-Up Note Patient: Bebeto Lang Unit #: [id number]: 1950 Dicatated By: Aman Martínez M.D.Date of Visit:Nov 22, 2020 Onc Med Follow-up/Prog Note Chief Complaint: [place] cell carcinoma. 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 He had presented with an enlarging mass on his left knee. He was initially seen in the emergency room at [facility] in [place]. His subsequent evaluation there included an angiogram and an MRI of the left knee. He was then referred to Dr. Lin Blevins at [facility] for further evaluation. 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 The malignant cells were noted to be positive for pancytokeratin, DENI, CK20, CD56, and CD138. The tumor cells were also positive for NSE. The CK7, CD45, CD99, desmin, TTF-1, CD-X2, and SHIRA 3 stains were negative. Staging PET/CT on 11/11/2016 showed FDG avid mass within the left prepatellar soft tissues measuring 4.2 x 2.4 cm, maximum SUV 13.9. The mass was noted to be superficial to the joint capsule. An enlarged left inguinal lymph node measuring 1.7 x 1.5 cm showed increased FDG uptake with SUV 7.1, consistent with metastasis. A subcentimeter left external iliac lymph node showed mildly increased FDG uptake, SUV 2.9. A destructive lytic lesion was noted within the posterior L3 vertebral body with associated increased FDG uptake, SUV 10.6. There was an associated soft tissue component extending posteriorly with at least moderate central canal stenosis. 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 He was seen by Dr. Obduloi Banda for medical oncology consultation. He recommended systemic therapy with avelumab. He also recommended consideration for palliative radiation to the lumbar spine lesion. The patient was then seen here because he desired to receive his treatment closer to home. He was referred to Dr. Guzman. He began radiation to the lumbar spine on 12/15/2016. That treatment was completed on 12/29/2016 to a total dose of 3000 cGy. On 12/16/2016 he also began treatment to the involved left inguinal lymph node and to the primary tumor at the left knee. He completed radiation on 01/13/2017, both sites to a total dose of 4875 cGy. He received cycle 1 of avelumab on 12/29/2016. He tolerated it without acute toxicity, but for about a week afterward he was fatigued, and he just didn't feel good. He was able to proceed with a second cycle of treatment on 01/12/2017. He tolerated it well. He then continued his treatment at two-week intervals with the exception that his cycle 7 treatment was delayed to 4 weeks due to a follow-up visit in [place]. A restaging PET/CT on 04/09/2017 showed marked interval decrease in size and FDG activity within the left prepatellar soft tissue mass, left inguinal and external iliac lymph nodes, and the L3 lytic lesion, consistent with a nearly complete metabolic response. A CT abdomen/pelvis on 05/25/2017 still showed evidence of lytic metastatic disease involving the L3 vertebral body. There were no other significant findings. He had a follow-up visit at [facility] in 06/24/2017. PET/CT at that time was consistent with continued complete metabolic response. He then continued treatment with avelumab at 2 week intervals. He had a follow-up visit at [facility] again on 09/16/2017. Repeat PET/CT at that time showed complete metabolic response with no evidence of metabolically active disease. He then continued the same treatment. His other medical illnesses have been limited to GERD and obstructive sleep apnea. He was found to have serologic evidence of hepatitis C, but with no active hepatitis. He has a history of smoking 1-1/2 packs of cigarettes daily for 30 years. He quit smoking in approximately 1987. He has a history of alcohol and drug abuse. He quit both proximally 1986. INTERIM HISTORY: As of 10/11/2018 he had completed cycle 46 of avelumab. At that point he was tolerating the treatment well, and there had been no evidence of disease progression. On 10/19/2018 he reported development of a generalized skin eruption. The appearance was consistent with hives, and he responded very well to prednisone. An underlying cause for the reaction was not determined. He continued treatment with avelumab. His surveillance PET/CT at [facility] on 11/29/2018 showed minimally increased FDG uptake in left supraclavicular, mediastinal, and hilar lymph nodes and also in the spleen. The most FDG-avid lesion was a node in the aortopulmonary window measuring 2.0 x 1.3 cm with maximum SUV 5.2. It was felt to be a nonspecific finding, but short-term follow-up was recommended. There was no other suspicious activity noted. His repeat PET/CT at [facility] on 05/23/2019 showed multiple mildly enlarged mediastinal lymph nodes which demonstrated mildly increased FDG uptake, unchanged compared to the November 2018 study. Bilateral hilar lymphadenopathy also appeared unchanged, but with slightly increased SUV values. The most FDG avid lesion was in a right hilar lymph node measuring 11 mm with SUV 5.7. The appearance was felt to be most consistent with an inflammatory process. A right middle lobe groundglass pulmonary nodule had shown equivocal increase in size, but was still too small to characterize. A 4 cm exophytic lower pole right renal lesion measuring 4 cm was consistent with simple cyst. A 4 mm lesion in the lower pole the left kidney was noted to contain punctate calcifications. It was indeterminate, but unchanged. Overall there was no evidence of disease recurrence. In July 2019 he was treated for pneumonia. His surveillance PET/CT on 08/15/2019 showed hypometabolism within a hypodense area involving the right frontal lobe of the brain, likely related to prior brain injury. There was no PET/CT evidence of recurrent or metastatic disease. Repeat PET/CT at [facility] on 11/07/2019 showed no evidence of recurrent or metastatic disease. There was unchanged hypometabolic lesion in the right frontal lobe noted to be likely secondary to prior trauma. Mediastinal and hilar lymph nodes were felt to be likely reactive. In February 2020 he was diagnosed with COVID-19 virus infection. However, he did not encounter any treatment delays because of it. His surveillance PET/CT at [facility] on 04/23/2020 showed no PET/CT evidence of recurrent or residual metastatic Erik cell carcinoma. He continued treatment with avelumab at 2-week intervals. His surveillance PET/CT at [facility] on 10/15/2020 showed no evidence of recurrent or metastatic disease. He is seen for a follow-up visit. He has been feeling good generally. He still feels tired some days, but he has normal activity now. His ECOG score is 0. He has good appetite. He has no fever or night sweats. He has had no mouth sores and he has not had sore throat or difficulty swallowing. He has no shortness of breath, cough, or chest pain. He has no GI or complaints. In particular, he has had no diarrhea. He still has some problems with his right shoulder. He has no other joint or bone pain. He does not complain of headache or dizziness, and he has no focal neurologic symptoms. Medications: Acetaminophen 1 - 2 Capsule (of 325 mg) Oral PRN, Acidophilus 1 Capsule Oral daily PRN, Aleve 1 (220 mg) Tablet Oral q 8 hours PRN, Aspirin 1 (81 mg) Tablet Oral daily, Cinnamon 1 Capsule Oral daily, Clobetasol Propionate Shampoo Topical PRN, Clotrimazole-Betamethasone Cream Topical PRN, Co Q 10 1 Capsule Oral daily, Fish Oil 1 Capsule Oral daily, formula 303 1 Tablet daily PRN, Multiple Vitamin 1 Capsule Oral daily, Protonix 1 (40 mg) Tablet, enteric coated Oral daily, Red Yeast Rice 1 Capsule Oral daily, super beta prostate 2 Capsule daily Allergies: Codeine Sulfate Vital Signs: Performed on Nov 22, 2020 16:21 Height - 68.00 in Temperature - 98.2 F (LOW) Pulse - 75 /min Respiration - 18 /min BP - 143/67 mm(hg) (HIGH) O2 Sat - 97 % Performed on Nov 22, 2020 14:07 Height - 68.00 in Weight - 210.8 lbs (LOW) BSA - 2.09 sq.m BMI - 32.05 (HIGH) Temperature - 99.2 F (HIGH) Pulse - 68 /min Respiration - 18 /min BP - 144/75 mm(hg) (HIGH) O2 Sat - 96 % Pain - 0 Fatigue - 0 Physical Examination: Constitutional - He looks good generally, Eyes - Sclerae nonicteric. Conjunctivae clear, ENMT - No lesions noted in the oral cavity, Hematologic/Lymphatic - No cervical, clavicular, or axillary adenopathy, Respiratory - Lungs are clear with good air movement bilaterally, Cardiovascular - Heart rhythm is regular. There is no murmur, gallop, or rub noted, Abdomen - Soft. Liver and spleen are not enlarged. There is no abdominal mass or ascites noted. There is no inguinal mass or adenopathy noted, Extremities - No edema. There is no evidence of residual or recurrent mass in the left knee area, Integumentary - No skin eruption, Neurologic - No focal neurologic deficits noted. Lab/Imaging: CBC shows hemoglobin 14.6 g, white blood cell count 7500, and platelet count 271,000. Comprehensive metabolic profile shows stable renal function with BUN 19 and creatinine 0.7 mg/dL. Bilirubin and liver enzymes are normal. TSH is normal at 1.08 ???IU/mL. Problem List: 1. 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 By clinical evaluation his disease was stage IV (T2, N1, M1) with involvement in a left inguinal lymph node and in the L3 vertebral body. 2. GERD. 3. Obstructive sleep apnea. 4. He has had serologic evidence of hepatitis C, but without any clinical indication of active hepatitis. 5. He required treatment for pneumonia in July 2019. 6. He was diagnosed with COVID-19 virus infection in February 2020. Problems Addressed with this Encounter and Plan: Patient with [place] cell carcinoma in the form of a left prepatellar mass, initially diagnosed in October 2016. By clinical evaluation his disease was stage IV (T2, N1, M1) with involvement in a left inguinal lymph node and in the L3 vertebral body. He began radiation to the lumbar spine on 12/15/2016. He completed that treatment on 12/29/2016 to a total dose of 3000 cGy. On 12/16/2016 he also began radiation to the involved left inguinal lymph node and to the primary tumor at the left knee. He completed treatment on 01/13/2017, both sites to a total dose of 4875 cGy. On 12/29/2016 he began immunotherapy with avelumab. He tolerated the initial infusion well, and he was then able to continue treatment at 2-week intervals. Restaging PET/CT on 03/30/2017 showed findings consistent with near complete response to the treatment. CT abdomen/pelvis on 05/25/2017 showed evidence of lytic metastatic disease in the L3 vertebral body. There were no other significant findings on that study. He then continued avelumab infusions every 2 weeks. In February 2020 he was diagnosed with COVID-19 virus infection, but the illness did not result in any interruption in his treatment. He continues to tolerate his treatment well, and his surveillance PET/CT at [facility] in September 2020 showed no evidence of recurrent or metastatic disease. Overall, he is doing well clinically with no evidence of recurrence of the Erik cell carcinoma. He will continue treatment with avelumab, but he will be transitioned now to the fixed dosing schedule of 800 mg by IV infusion every 2 weeks. He will be seen for a follow-up visit in 6 weeks. Signed By: Aman Martínez M.D. <<Signature on File>>
== END 2020-11-22 06:12 | disposition home or self-care (01) ==
LOC: ONCMED 06:11
PROVIDERS: PCP Nurse Practitioner Family; Visit Provider Internal Medicine Medical Oncology
DX: Z51.12 Encounter for antineoplastic immunotherapy (principal); C4A.72 Merkel cell carcinoma of left lower limb, including hip; C7B.1 Secondary Merkel cell carcinoma; K21.9 Gastro-esophageal reflux disease without esophagitis; G47.33 Obstructive sleep apnea (adult) (pediatric); Z86.16 Personal history of COVID-19
CPT/HCPCS: 96413; 99214; J7050; J9023

== ENCOUNTER 2020-12-10 06:10 | Outpatient (CLI) | payer MEDICARE, OTHER, SELFPAY ==
[2020-12-10] MEDS: acetaminophen 325 mg Tablet 650 MG PO (09:00)
[2020-12-10] MEDS: diphenhydrAMINE 25 mg Capsule PO (09:02)
== END 2020-12-10 06:11 | disposition home or self-care (01) ==
LOC: ONCMED 06:14
PROVIDERS: PCP Nurse Practitioner Family; Visit Provider Internal Medicine Medical Oncology
DX: Z51.12 Encounter for antineoplastic immunotherapy (principal); C4A.72 Merkel cell carcinoma of left lower limb, including hip; C79.51 Secondary malignant neoplasm of bone; Z79.899 Other long term (current) drug therapy; Z92.3 Personal history of irradiation
CPT/HCPCS: 96413; J7050; J9023

== ENCOUNTER 2020-12-25 06:34 | Outpatient (CLI) | payer MEDICARE, OTHER, SELFPAY ==
[2020-12-25] MEDS: acetaminophen 325 mg Tablet 650 MG PO (10:05)
[2020-12-25] MEDS: diphenhydrAMINE 25 mg Capsule PO (10:05)
[2020-12-25] MEDS: sodium chloride 0.9% 250 ML 75 ML IV (10:05)
== END 2020-12-25 06:35 | disposition home or self-care (01) ==
LOC: ONCMED 06:36
PROVIDERS: PCP Nurse Practitioner Family; Visit Provider Internal Medicine Medical Oncology
DX: Z51.12 Encounter for antineoplastic immunotherapy (principal); C4A.72 Merkel cell carcinoma of left lower limb, including hip; C79.51 Secondary malignant neoplasm of bone; Z79.899 Other long term (current) drug therapy; Z92.3 Personal history of irradiation
CPT/HCPCS: 96413; J7050; J9023

== ENCOUNTER 2021-01-07 10:34 | Outpatient (CLI) | payer MEDICARE, OTHER, SELFPAY ==
[2021-01-07 11:03] LABS: Basophils # 0.1 10^3/uL (0.0-0.1); Basophils % 1.1 %; Eosinophils # 0.1 10^3/uL (0.0-0.8); Eosinophils % 1.7 %; Hematocrit 40.2 % (42.0-52.0); Hemoglobin 13.9 g/dL (11.7-16.6); Lymphocytes % 18.7 %; Mean Corpuscular HGB Conc 34.6 g/dL (30.0-36.0); Mean Corpuscular Hemoglobin 32.7 pg (28.0-34.0); Mean Corpuscular Volume 94.6 fL (80-94); Mean Platelet Volume 8.9 fL (7.4-10.4); Monocytes # 0.4 10^3/uL (0.2-0.9); Monocytes % 8.2 %; Neutrophils # 3.73 10^3/uL (1.8-7.7); Neutrophils % 69.9 %; Nucleated Red Blood Cells % 0 %; Platelet Count 285 10^3/cmm (130-400); Red Blood Count 4.25 10^6/uL (4.1-5.3); Red Cell Distribution Width 12.8 % (12.1-15.1); White Blood Count 5.3 10^3/uL (4.0-10.0)
[2021-01-07 12:05] LABS: Alanine Aminotransferase 10 U/L (0-41); Albumin Level 3.8 g/dL (3.5-5.2); Alkaline Phosphatase 82 IU/L (40-130); Aspartate Amino Transferase 14 U/L (0-40); Blood Urea Nitrogen 18 mg/dL (8-23); Calcium 8.5 mg/dL (8.5-10.5); Carbon Dioxide 24 mmol/L (22-29); Chloride 105 mmol/L (98-107); Globulin 3.5 g/dL (1.3-4.6); Glucose 134 mg/dL (65-115); Osmolality Calculated 290 mOsm/kg (285-295); Sodium 138 mmol/L (136-145); Thyroid Stimulating Hormone 0.74 uIU/mL (0.27-4.20); Total Bilirubin 0.4 mg/dL (0.15-1.2); Total Protein 7.3 g/dL (6.6-8.7)
[2021-01-07] MEDS: diphenhydrAMINE 25 mg Capsule PO (12:21)
[2021-01-07] MEDS: acetaminophen 325 mg Tablet 650 MG PO (12:21)
== END 2021-01-07 10:35 | disposition home or self-care (01) ==
PROVIDERS: PCP Nurse Practitioner Family; Visit Provider Internal Medicine Medical Oncology
DX: Z51.12 Encounter for antineoplastic immunotherapy (principal); C4A.72 Merkel cell carcinoma of left lower limb, including hip; C79.51 Secondary malignant neoplasm of bone; Z79.899 Other long term (current) drug therapy; Z92.3 Personal history of irradiation
CPT/HCPCS: 36415; 80053; 84443; 85025; 96413; J7050; J9023

== ENCOUNTER 2021-01-21 06:27 | Outpatient (CLI) | payer MEDICARE, OTHER, SELFPAY ==
[2021-01-21] MEDS: diphenhydrAMINE 25 mg Capsule PO (11:00)
[2021-01-21] MEDS: acetaminophen 325 mg Tablet 650 MG PO (11:00)
== END 2021-01-21 06:28 | disposition home or self-care (01) ==
LOC: ONCMED 06:32
PROVIDERS: PCP Nurse Practitioner Family; Visit Provider Internal Medicine Medical Oncology
DX: Z51.12 Encounter for antineoplastic immunotherapy (principal); C4A.72 Merkel cell carcinoma of left lower limb, including hip; C79.51 Secondary malignant neoplasm of bone; Z79.899 Other long term (current) drug therapy; Z92.3 Personal history of irradiation
CPT/HCPCS: 96413; J7050; J9023

== ENCOUNTER 2021-02-04 06:04 | Outpatient (CLI) | payer MEDICARE, OTHER, SELFPAY ==
[2021-02-04] MEDS: diphenhydrAMINE 25 mg Capsule PO (11:10)
[2021-02-04] MEDS: acetaminophen 325 mg Tablet 650 MG PO (11:10)
== END 2021-02-04 06:05 | disposition home or self-care (01) ==
LOC: ONCMED 06:06
PROVIDERS: PCP Nurse Practitioner Family; Visit Provider Nurse Practitioner
DX: Z51.12 Encounter for antineoplastic immunotherapy (principal); C4A.72 Merkel cell carcinoma of left lower limb, including hip; C79.51 Secondary malignant neoplasm of bone; Z79.899 Other long term (current) drug therapy; Z92.3 Personal history of irradiation
CPT/HCPCS: 96413; J7050; J9023

== ENCOUNTER 2021-02-19 05:52 | Outpatient (CLI) | payer MEDICARE, OTHER, SELFPAY ==
[2021-02-19 11:07] LABS: Basophils % 0.6 %; Eosinophils # 0.1 10^3/uL (0.0-0.8); Eosinophils % 1.8 %; Hematocrit 42.7 % (42.0-52.0); Hemoglobin 14.8 g/dL (11.7-16.6); Lymphocytes # 0.9 10^3/uL (0.8-4.8); Lymphocytes % 18.3 %; Mean Corpuscular HGB Conc 34.7 g/dL (30.0-36.0); Mean Corpuscular Hemoglobin 32.9 pg (28.0-34.0); Mean Corpuscular Volume 94.9 fl (80-94); Mean Platelet Volume 8.9 fL (7.4-10.4); Monocytes # 0.6 10^3/uL (0.2-0.9); Monocytes % 11.6 %; Neutrophils # 3.42 10^3/uL (1.8-7.7); Neutrophils % 67.3 %; Nucleated Red Blood Cells % 0 %; Platelet Count 242 10^3/cmm (130-400); White Blood Count 5.1 10^3/uL (4.0-10.0)
[2021-02-19 11:29] LABS: Alanine Aminotransferase 13 U/L (0-41); Alkaline Phosphatase 109 IU/L (40-130); Anion Gap 17.2 (5-19); Aspartate Amino Transferase 16 U/L (0-40); Blood Urea Nitrogen 14 mg/dL (8-23); Carbon Dioxide 24 mmol/L (22-29); Chloride 102 mmol/L (98-107); Globulin 3.8 g/dL (1.3-4.6); Glucose 101 mg/dL (65-115); Osmolality Calculated 289 mOsm/kg (285-295); Potassium 4.2 mmol/L (3.5-5.1); Sodium 139 mmol/L (136-145); Total Bilirubin 0.5 mg/dL (0.15-1.2); Total Protein 7.8 g/dL (6.6-8.7)
[2021-02-19] MEDS: acetaminophen 325 mg Tablet 650 MG PO (12:03)
[2021-02-19] MEDS: diphenhydrAMINE 25 mg Capsule PO (12:03)
--- NOTE | 2021-02-23 10:11 | ONC FU_ITS ---
Dr. Martínez Patient Follow-Up Note Patient: Bebeto Lang Unit #: [id number]: 1950 Dicatated By: Aman Martínez M.D.Date of Visit:Feb 19, 2021 Onc Med Follow-up/Prog Note Chief Complaint: Pella cell carcinoma. 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 He had presented with an enlarging mass on his left knee. He was initially seen in the emergency room at [facility] in [place]. His subsequent evaluation there included an angiogram and an MRI of the left knee. He was then referred to Dr. Lin Blevins at [facility] for further evaluation. 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 The malignant cells were noted to be positive for pancytokeratin, DENI, CK20, CD56, and CD138. The tumor cells were also positive for NSE. The CK7, CD45, CD99, desmin, TTF-1, CD-X2, and SHIRA 3 stains were negative. Staging PET/CT on 11/11/2016 showed FDG avid mass within the left prepatellar soft tissues measuring 4.2 x 2.4 cm, maximum SUV 13.9. The mass was noted to be superficial to the joint capsule. An enlarged left inguinal lymph node measuring 1.7 x 1.5 cm showed increased FDG uptake with SUV 7.1, consistent with metastasis. A subcentimeter left external iliac lymph node showed mildly increased FDG uptake, SUV 2.9. A destructive lytic lesion was noted within the posterior L3 vertebral body with associated increased FDG uptake, SUV 10.6. There was an associated soft tissue component extending posteriorly with at least moderate central canal stenosis. 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 He was seen by Dr. Obdulio Banda for medical oncology consultation. He recommended systemic therapy with avelumab. He also recommended consideration for palliative radiation to the lumbar spine lesion. The patient was then seen here because he desired to receive his treatment closer to home. He was referred to Dr. Guzman. He began radiation to the lumbar spine on 12/15/2016. That treatment was completed on 12/29/2016 to a total dose of 3000 cGy. On 12/16/2016 he also began treatment to the involved left inguinal lymph node and to the primary tumor at the left knee. He completed radiation on 01/13/2017, both sites to a total dose of 4875 cGy. He received cycle 1 of avelumab on 12/29/2016. He tolerated it without acute toxicity, but for about a week afterward he was fatigued, and he just didn't feel good. He was able to proceed with a second cycle of treatment on 01/12/2017. He tolerated it well. He then continued his treatment at two-week intervals with the exception that his cycle 7 treatment was delayed to 4 weeks due to a follow-up visit in [place]. A restaging PET/CT on 04/09/2017 showed marked interval decrease in size and FDG activity within the left prepatellar soft tissue mass, left inguinal and external iliac lymph nodes, and the L3 lytic lesion, consistent with a nearly complete metabolic response. A CT abdomen/pelvis on 05/25/2017 still showed evidence of lytic metastatic disease involving the L3 vertebral body. There were no other significant findings. He had a follow-up visit at [facility] in 06/24/2017. PET/CT at that time was consistent with continued complete metabolic response. He then continued treatment with avelumab at 2 week intervals. He had a follow-up visit at [facility] again on 09/16/2017. Repeat PET/CT at that time showed complete metabolic response with no evidence of metabolically active disease. He then continued the same treatment. His other medical illnesses have been limited to GERD and obstructive sleep apnea. He was found to have serologic evidence of hepatitis C, but with no active hepatitis. He has a history of smoking 1-1/2 packs of cigarettes daily for 30 years. He quit smoking in approximately 1987. He has a history of alcohol and drug abuse. He quit both proximally 1986. INTERIM HISTORY: As of 10/11/2018 he had completed cycle 46 of avelumab. At that point he was tolerating the treatment well, and there had been no evidence of disease progression. On 10/19/2018 he reported development of a generalized skin eruption. The appearance was consistent with hives, and he responded very well to prednisone. An underlying cause for the reaction was not determined. He continued treatment with avelumab. His surveillance PET/CT at [facility] on 11/29/2018 showed minimally increased FDG uptake in left supraclavicular, mediastinal, and hilar lymph nodes and also in the spleen. The most FDG-avid lesion was a node in the aortopulmonary window measuring 2.0 x 1.3 cm with maximum SUV 5.2. It was felt to be a nonspecific finding, but short-term follow-up was recommended. There was no other suspicious activity noted. His repeat PET/CT at [facility] on 05/23/2019 showed multiple mildly enlarged mediastinal lymph nodes which demonstrated mildly increased FDG uptake, unchanged compared to the November 2018 study. Bilateral hilar lymphadenopathy also appeared unchanged, but with slightly increased SUV values. The most FDG avid lesion was in a right hilar lymph node measuring 11 mm with SUV 5.7. The appearance was felt to be most consistent with an inflammatory process. A right middle lobe groundglass pulmonary nodule had shown equivocal increase in size, but was still too small to characterize. A 4 cm exophytic lower pole right renal lesion measuring 4 cm was consistent with simple cyst. A 4 mm lesion in the lower pole the left kidney was noted to contain punctate calcifications. It was indeterminate, but unchanged. Overall there was no evidence of disease recurrence. In July 2019 he was treated for pneumonia. His surveillance PET/CT on 08/15/2019 showed hypometabolism within a hypodense area involving the right frontal lobe of the brain, likely related to prior brain injury. There was no PET/CT evidence of recurrent or metastatic disease. Repeat PET/CT at [facility] on 11/07/2019 showed no evidence of recurrent or metastatic disease. There was unchanged hypometabolic lesion in the right frontal lobe noted to be likely secondary to prior trauma. Mediastinal and hilar lymph nodes were felt to be likely reactive. In February 2020 he was diagnosed with COVID-19 virus infection. However, he did not encounter any treatment delays because of it. His PET/CT at [facility] on 04/23/2020 showed no PET/CT evidence of recurrent or residual metastatic Erik cell carcinoma. His surveillance PET/CT on 10/15/2020 showed no evidence of recurrent or metastatic disease. He continued treatment with avelumab at 2-week intervals. He is seen for a follow-up visit. He has been feeling pretty good generally. He says he bruised up some ribs in a fall last week, but that is getting better now. Energy is fair. He has continued normal activities. ECOG score is 0. He has good appetite. He has not had fever. He has rare episodes of sweating at night. He has not had sore mouth or throat. He does not complain of cough or shortness of breath, and he otherwise has not been having chest pain. He has no GI/ complaints. He is managing constipation adequately with probiotic. He has no other joint or bone pain. He does not complain of headache or dizziness, and he has no focal neurologic symptoms. Medications: Acetaminophen 1 - 2 Capsule (of 325 mg) Oral PRN, Acidophilus 1 Capsule Oral daily PRN, Aleve 1 (220 mg) Tablet Oral q 8 hours PRN, Aspirin 1 (81 mg) Tablet Oral daily, Cinnamon 1 Capsule Oral daily, Clobetasol Propionate Shampoo Topical PRN, Clotrimazole-Betamethasone Cream Topical PRN, Co Q 10 1 Capsule Oral daily, Fish Oil 1 Capsule Oral daily, formula 303 1 Tablet daily PRN, Multiple Vitamin 1 Capsule Oral daily, Protonix 1 (40 mg) Tablet, enteric coated Oral daily, Red Yeast Rice 1 Capsule Oral daily, super beta prostate 2 Capsule daily Allergies: Codeine Sulfate Vital Signs: Performed on Feb 19, 2021 11:44 Height - 68.00 in Weight - 210.4 lbs (LOW) BSA - 2.09 sq.m BMI - 31.99 (HIGH) Temperature - 98.7 F Pulse - 72 /min Respiration - 18 /min BP - 160/74 mm(hg) (HIGH) O2 Sat - 98 % Pain - 0 Fatigue - 7 Physical Examination: Constitutional - He looks good generally, Eyes - Sclerae nonicteric. Conjunctivae clear, ENMT - No lesions noted in the oral cavity, Hematologic/Lymphatic - No cervical, clavicular, or axillary adenopathy, Respiratory - Lungs are clear with good air movement bilaterally, Cardiovascular - Heart rhythm is regular. There is no murmur, gallop, or rub noted, Abdomen - Soft. Liver and spleen are not enlarged. There is no abdominal mass or ascites noted. There is no inguinal mass or adenopathy noted, Extremities - No edema. There is no evidence of residual or recurrent mass in the left knee area, Integumentary - No skin eruption, Neurologic - No focal neurologic deficits noted. Lab/Imaging: Test performed on Feb 19, 2021 10:20 Sodium 139 mmol/L Potassium 4.2 mmol/L Chloride 102 mmol/L CO2 24 mmol/L Anion Gap 17.2 BUN 14 mg/dL Creatinine 0.6 mg/dL Cr Clearance (Est) 149.8000 mL/min Glucose 101 mg/dL Osmolality - Calculated 289 mOsm/kg Calcium 9.0 mg/dL Protein, Total 7.8 g/dL Albumin 4.0 g/dL Globulin 3.8 g/dL Bilirubin, Total 0.5 mg/dL ALT (SGPT) 13 U/L AST (SGOT) 16 U/L Alkaline Phosphatase 109 IU/L WBC 5.1 10 3/uL RBC 4.50 10 6/uL HGB 14.8 g/dL HCT 42.7 % MCV 94.9 fl MCH 32.9 pg MCHC 34.7 g/dL RDW 13.0 % Platelet Count 242 10 3/cmm MPV 8.9 fL Neutrophils 3.42 10 3/uL Lymphocytes 0.9 10 3/uL Monocytes 0.6 10 3/uL Eosinophils 0.1 10 3/uL Basophils 0.0 10 3/uL Neutrophil % 67.3 % Lymphocyte % 18.3 % Monocyte % 11.6 % Eosinophil % 1.8 % Basophils % 0.6 % NRBC % 0 % Problem List: 1. 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 By clinical evaluation his disease was stage IV (T2, N1, M1) with involvement in a left inguinal lymph node and in the L3 vertebral body. 2. GERD. 3. Obstructive sleep apnea. 4. He has had serologic evidence of hepatitis C, but without any clinical indication of active hepatitis. 5. He required treatment for pneumonia in July 2019. 6. He was diagnosed with COVID-19 virus infection in February 2020. 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 By clinical evaluation his disease was stage IV (T2, N1, M1) with involvement in a left inguinal lymph node and in the L3 vertebral body. He began radiation to the lumbar spine on 12/15/2016. He completed that treatment on 12/29/2016 to a total dose of 3000 cGy. On 12/16/2016 he also began radiation to the involved left inguinal lymph node and to the primary tumor at the left knee. He completed treatment on 01/13/2017, both sites to a total dose of 4875 cGy. On 12/29/2016 he began immunotherapy with avelumab. He tolerated the initial infusion well, and he was then able to continue treatment at 2-week intervals. Restaging PET/CT on 03/30/2017 showed findings consistent with near complete response to the treatment. CT abdomen/pelvis on 05/25/2017 showed evidence of lytic metastatic disease in the L3 vertebral body. There were no other significant findings on that study. He then continued avelumab infusions every 2 weeks. In February 2020 he was diagnosed with COVID-19 virus infection, but the illness did not result in any interruption in his treatment. Hiis surveillance PET/CT at [facility] in September 2020 showed no evidence of recurrent or metastatic disease. Overall, he has been doing very well clinically. He has been tolerating the immunotherapy with no significant adverse effects, and thus far there has been no evidence of recurrence of the Erik cell carcinoma. He will continue treatment with avelumab, now at the fixed dosing schedule of 800 mg by IV infusion every 2 weeks. He will be seen for follow-up at [facility] in March. Signed By: Aman Martínez M.D. <<Signature on File>>
== END 2021-02-19 05:53 | disposition home or self-care (01) ==
LOC: ONCMED 05:55
PROVIDERS: PCP Nurse Practitioner Family; Visit Provider Internal Medicine Medical Oncology
DX: Z51.12 Encounter for antineoplastic immunotherapy (principal); C4A.72 Merkel cell carcinoma of left lower limb, including hip; C7B.1 Secondary Merkel cell carcinoma; Z79.899 Other long term (current) drug therapy
CPT/HCPCS: 80053; 85025; 96413; 99215; J7050; J9023

== ENCOUNTER 2021-03-04 13:17 | Outpatient (CLI) | payer MEDICARE, OTHER, SELFPAY ==
[2021-03-04] MEDS: acetaminophen 325 mg Tablet 650 MG PO (13:40)
[2021-03-04] MEDS: diphenhydrAMINE 25 mg Capsule PO (13:40)
== END 2021-03-04 13:18 | disposition home or self-care (01) ==
LOC: ONCMED 13:22
PROVIDERS: PCP Nurse Practitioner Family; Visit Provider Internal Medicine Medical Oncology
DX: Z51.12 Encounter for antineoplastic immunotherapy (principal); C4A.72 Merkel cell carcinoma of left lower limb, including hip; C79.51 Secondary malignant neoplasm of bone; Z79.899 Other long term (current) drug therapy; Z92.3 Personal history of irradiation
CPT/HCPCS: 96413; J7050; J9023

== ENCOUNTER 2021-03-18 13:03 | Outpatient (CLI) | payer MEDICARE, OTHER, SELFPAY ==
[2021-03-18] MEDS: acetaminophen 325 mg Tablet 650 MG PO (13:30)
[2021-03-18] MEDS: diphenhydrAMINE 25 mg Capsule PO (13:30)
== END 2021-03-18 13:04 | disposition home or self-care (01) ==
PROVIDERS: PCP Nurse Practitioner Family; Visit Provider Internal Medicine Medical Oncology
DX: Z51.12 Encounter for antineoplastic immunotherapy (principal); C4A.72 Merkel cell carcinoma of left lower limb, including hip; C7B.1 Secondary Merkel cell carcinoma
CPT/HCPCS: 96413; J7050; J9023

== ENCOUNTER 2021-04-02 12:47 | Outpatient (CLI) | payer MEDICARE, OTHER, SELFPAY ==
[2021-04-02] MEDS: acetaminophen 325 mg Tablet 650 MG PO (13:20)
[2021-04-02] MEDS: diphenhydrAMINE 25 mg Capsule PO (13:20)
== END 2021-04-02 12:48 | disposition home or self-care (01) ==
LOC: ONCMED 12:50
PROVIDERS: PCP Nurse Practitioner Family; Visit Provider Internal Medicine Medical Oncology
DX: Z51.12 Encounter for antineoplastic immunotherapy (principal); C4A.72 Merkel cell carcinoma of left lower limb, including hip; C7B.1 Secondary Merkel cell carcinoma
CPT/HCPCS: 96413; J7050; J9023

== ENCOUNTER 2021-04-15 13:29 | Outpatient (CLI) | payer MEDICARE, OTHER, SELFPAY ==
[2021-04-15] MEDS: diphenhydrAMINE 25 mg Capsule PO (14:00)
[2021-04-15] MEDS: acetaminophen 325 mg Tablet 650 MG PO (14:00)
[2021-04-15] MEDS: sodium chloride 0.9% 250 ML 75 ML IV (14:20)
== END 2021-04-15 13:30 | disposition home or self-care (01) ==
PROVIDERS: PCP Nurse Practitioner Family; Visit Provider Internal Medicine Medical Oncology
DX: Z51.12 Encounter for antineoplastic immunotherapy (principal); C4A.72 Merkel cell carcinoma of left lower limb, including hip; C79.51 Secondary malignant neoplasm of bone
CPT/HCPCS: 96413; J7050; J9023

== ENCOUNTER 2021-04-29 13:09 | Outpatient (CLI) | payer MEDICARE, OTHER, SELFPAY ==
[2021-04-29] MEDS: acetaminophen 325 mg Tablet 650 MG PO (13:55)
[2021-04-29] MEDS: diphenhydrAMINE 25 mg Capsule PO (13:55)
== END 2021-04-29 13:10 | disposition home or self-care (01) ==
LOC: ONCMED 13:11
PROVIDERS: PCP Nurse Practitioner Family; Visit Provider Internal Medicine Medical Oncology
DX: Z51.12 Encounter for antineoplastic immunotherapy (principal); C4A.72 Merkel cell carcinoma of left lower limb, including hip; C79.51 Secondary malignant neoplasm of bone; Z79.899 Other long term (current) drug therapy
CPT/HCPCS: 96413; J7050; J9023

== ENCOUNTER 2021-05-14 10:09 | Outpatient (CLI) | payer MEDICARE, OTHER, SELFPAY ==
[2021-05-14 11:07] LABS: Basophils % 0.7 %; Eosinophils # 0.1 10^3/uL (0.0-0.8); Eosinophils % 1.8 %; Hematocrit 40.4 % (42.0-52.0); Hemoglobin 14.9 g/dL (11.7-16.6); Lymphocytes % 17.5 %; Mean Corpuscular HGB Conc 36.9 g/dL (30.0-36.0); Mean Corpuscular Hemoglobin 33.9 pg (28.0-34.0); Mean Corpuscular Volume 91.8 fl (80-94); Mean Platelet Volume 8.9 fL (7.4-10.4); Monocytes # 0.5 10^3/uL (0.2-0.9); Monocytes % 8.4 %; Neutrophils % 71.2 %; Nucleated Red Blood Cells % 0 %; Platelet Count 240 10^3/cmm (130-400); Red Cell Distribution Width 12.6 % (12.1-15.1); White Blood Count 5.5 10^3/uL (4.0-10.0)
[2021-05-14 11:56] LABS: Alanine Aminotransferase 17 U/L (0-41); Albumin Level 4.2 g/dL (3.5-5.2); Alkaline Phosphatase 89 IU/L (40-130); Anion Gap 14.9 (5-19); Aspartate Amino Transferase 20 U/L (0-40); Blood Urea Nitrogen 20 mg/dL (8-23); Calcium 8.4 mg/dL (8.5-10.5); Carbon Dioxide 24 mmol/L (22-29); Chloride 102 mmol/L (98-107); Globulin 2.8 g/dL (1.3-4.6); Glucose 120 mg/dL (65-115); Osmolality Calculated 288 mOsm/kg (285-295); Potassium 3.9 mmol/L (3.5-5.1); Sodium 137 mmol/L (136-145); Thyroid Stimulating Hormone 1.08 uIU/mL (0.27-4.20); Total Bilirubin 0.5 mg/dL (0.15-1.2)
[2021-05-14] MEDS: diphenhydrAMINE 25 mg Capsule PO (12:10)
[2021-05-14] MEDS: acetaminophen 325 mg Tablet 650 MG PO (12:10)
[2021-05-14] MEDS: sodium chloride 0.9% 250 ML 75 ML IV (12:15)
--- NOTE | 2021-05-14 13:54 | ONC FU_ITS ---
Dr. Martínez Patient Follow-Up Note Patient: Bebeto Lang Unit #: [id number]: 1950 Dicatated By: Aman Martínez M.D.Date of Visit:May 14, 2021 Onc Med Follow-up/Prog Note Chief Complaint: [place] cell carcinoma. 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 He had presented with an enlarging mass on his left knee. He was initially seen in the emergency room at [facility] in [place]. His subsequent evaluation there included an angiogram and an MRI of the left knee. He was then referred to Dr. Lin Blevins at [facility] for further evaluation. 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 The malignant cells were noted to be positive for pancytokeratin, DENI, CK20, CD56, and CD138. The tumor cells were also positive for NSE. The CK7, CD45, CD99, desmin, TTF-1, CD-X2, and SHIRA 3 stains were negative. Staging PET/CT on 11/11/2016 showed FDG avid mass within the left prepatellar soft tissues measuring 4.2 x 2.4 cm, maximum SUV 13.9. The mass was noted to be superficial to the joint capsule. An enlarged left inguinal lymph node measuring 1.7 x 1.5 cm showed increased FDG uptake with SUV 7.1, consistent with metastasis. A subcentimeter left external iliac lymph node showed mildly increased FDG uptake, SUV 2.9. A destructive lytic lesion was noted within the posterior L3 vertebral body with associated increased FDG uptake, SUV 10.6. There was an associated soft tissue component extending posteriorly with at least moderate central canal stenosis. 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 He was seen by Dr. Obdulio Banda for medical oncology consultation. He recommended systemic therapy with avelumab. He also recommended consideration for palliative radiation to the lumbar spine lesion. The patient was then seen here because he desired to receive his treatment closer to home. He was referred to Dr. Guzman. He began radiation to the lumbar spine on 12/15/2016. That treatment was completed on 12/29/2016 to a total dose of 3000 cGy. On 12/16/2016 he also began treatment to the involved left inguinal lymph node and to the primary tumor at the left knee. He completed radiation on 01/13/2017, both sites to a total dose of 4875 cGy. He received cycle 1 of avelumab on 12/29/2016. He tolerated it without acute toxicity, but for about a week afterward he was fatigued, and he just didn't feel good. He was able to proceed with a second cycle of treatment on 01/12/2017. He tolerated it well. He then continued his treatment at two-week intervals with the exception that his cycle 7 treatment was delayed to 4 weeks due to a follow-up visit in [place]. A restaging PET/CT on 04/09/2017 showed marked interval decrease in size and FDG activity within the left prepatellar soft tissue mass, left inguinal and external iliac lymph nodes, and the L3 lytic lesion, consistent with a nearly complete metabolic response. A CT abdomen/pelvis on 05/25/2017 still showed evidence of lytic metastatic disease involving the L3 vertebral body. There were no other significant findings. He had a follow-up visit at [facility] in 06/24/2017. PET/CT at that time was consistent with continued complete metabolic response. He then continued treatment with avelumab at 2 week intervals. He had a follow-up visit at [facility] again on 09/16/2017. Repeat PET/CT at that time showed complete metabolic response with no evidence of metabolically active disease. He then continued the same treatment. His other medical illnesses have been limited to GERD and obstructive sleep apnea. He was found to have serologic evidence of hepatitis C, but with no active hepatitis. He has a history of smoking 1-1/2 packs of cigarettes daily for 30 years. He quit smoking in approximately 1987. He has a history of alcohol and drug abuse. He quit both proximally 1986. INTERIM HISTORY: As of 10/11/2018 he had completed cycle 46 of avelumab. At that point he was tolerating the treatment well, and there had been no evidence of disease progression. On 10/19/2018 he reported development of a generalized skin eruption. The appearance was consistent with hives, and he responded very well to prednisone. An underlying cause for the reaction was not determined. He continued treatment with avelumab. His surveillance PET/CT at [facility] on 11/29/2018 showed minimally increased FDG uptake in left supraclavicular, mediastinal, and hilar lymph nodes and also in the spleen. The most FDG-avid lesion was a node in the aortopulmonary window measuring 2.0 x 1.3 cm with maximum SUV 5.2. It was felt to be a nonspecific finding, but short-term follow-up was recommended. There was no other suspicious activity noted. His repeat PET/CT at [facility] on 05/23/2019 showed multiple mildly enlarged mediastinal lymph nodes which demonstrated mildly increased FDG uptake, unchanged compared to the November 2018 study. Bilateral hilar lymphadenopathy also appeared unchanged, but with slightly increased SUV values. The most FDG avid lesion was in a right hilar lymph node measuring 11 mm with SUV 5.7. The appearance was felt to be most consistent with an inflammatory process. A right middle lobe groundglass pulmonary nodule had shown equivocal increase in size, but was still too small to characterize. A 4 cm exophytic lower pole right renal lesion measuring 4 cm was consistent with simple cyst. A 4 mm lesion in the lower pole the left kidney was noted to contain punctate calcifications. It was indeterminate, but unchanged. Overall there was no evidence of disease recurrence. In July 2019 he was treated for pneumonia. His surveillance PET/CT on 08/15/2019 showed hypometabolism within a hypodense area involving the right frontal lobe of the brain, likely related to prior brain injury. There was no PET/CT evidence of recurrent or metastatic disease. Repeat PET/CT at [facility] on 11/07/2019 showed no evidence of recurrent or metastatic disease. There was unchanged hypometabolic lesion in the right frontal lobe noted to be likely secondary to prior trauma. Mediastinal and hilar lymph nodes were felt to be likely reactive. In February 2020 he was diagnosed with COVID-19 virus infection. However, he did not encounter any treatment delays because of it. His PET/CT at [facility] on 04/23/2020 showed no PET/CT evidence of recurrent or residual metastatic Erik cell carcinoma. His surveillance PET/CT on 10/15/2020 showed no evidence of recurrent or metastatic disease. He was seen for follow-up at [facility] again on 04/01/2021. His PET/CT at that time showed a lytic lesion with associated mild compression deformity involving the L3 vertebral body which appeared unchanged and without increased FDG uptake. Mild FDG uptake along the left lateral distal femur was favored to be inflammatory. Overall, there was no FDG evidence of locally recurrent or metastatic disease. He was recommended to continue treatment with avelumab at 2-week intervals and to just have yearly follow-up PET/CT imaging. He is seen for a scheduled visit. He has been feeling pretty good generally. His energy, though, is just fair. He rates it at 7/10. 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 He has good appetite. He has not had fever. He rarely has sweating at night. He has not had sore mouth or throat. He does not complain of cough, and has not been having shortness of breath or chest pain. He has no GI or complaints. He still has some pain in his right shoulder. His hips tend to bother him after he has been walking on concrete. He does not complain of back pain. He does not have headache or dizziness, and he has no focal neurologic symptoms. Medications: Acetaminophen 1 - 2 Capsule (of 325 mg) Oral PRN, Acidophilus 1 Capsule Oral daily PRN, Aleve 1 (220 mg) Tablet Oral q 8 hours PRN, Aspirin 1 (81 mg) Tablet Oral daily, Cinnamon 1 Capsule Oral daily, Clobetasol Propionate Shampoo Topical PRN, Clotrimazole-Betamethasone Cream Topical PRN, Co Q 10 1 Capsule Oral daily, Fish Oil 1 Capsule Oral daily, formula 303 1 Tablet daily PRN, Multiple Vitamin 1 Capsule Oral daily, Protonix 1 (40 mg) Tablet, enteric coated Oral daily, Red Yeast Rice 1 Capsule Oral daily, super beta prostate 2 Capsule daily Allergies: Codeine Sulfate Vital Signs: Performed on May 14, 2021 11:31 Height - 68.00 in Weight - 215.6 lbs (HIGH) BSA - 2.11 sq.m BMI - 32.78 (HIGH) Temperature - 98.4 F Pulse - 86 /min Respiration - 16 /min BP - 146/75 mm(hg) (HIGH) O2 Sat - 95 % (LOW) Pain - 0 Fatigue - 7 Physical Examination: Constitutional - He looks good generally, Eyes - Sclerae nonicteric. Conjunctivae clear, ENMT - No lesions noted in the oral cavity, Hematologic/Lymphatic - No cervical, clavicular, or axillary adenopathy, Respiratory - Lungs are clear with good air movement bilaterally, Cardiovascular - Heart rhythm is regular. There is no murmur, gallop, or rub noted, Abdomen - Soft. Liver and spleen are not enlarged. There is no abdominal mass or ascites noted. There is no inguinal mass or adenopathy noted, Extremities - No edema, Neurologic - No focal neurologic deficits noted. Lab/Imaging: Test performed on May 14, 2021 10:35 Sodium 137 mmol/L TSH 1.08 uIU/mL Potassium 3.9 mmol/L Chloride 102 mmol/L CO2 24 mmol/L Anion Gap 14.9 BUN 20 mg/dL Creatinine 0.7 mg/dL Cr Clearance (Est) 128.4000 mL/min Glucose 120 mg/dL Osmolality - Calculated 288 mOsm/kg Calcium 8.4 mg/dL Protein, Total 7.0 g/dL Albumin 4.2 g/dL Globulin 2.8 g/dL Bilirubin, Total 0.5 mg/dL ALT (SGPT) 17 U/L AST (SGOT) 20 U/L Alkaline Phosphatase 89 IU/L WBC 5.5 10 3/uL RBC 4.40 10 6/uL HGB 14.9 g/dL HCT 40.4 % MCV 91.8 fl MCH 33.9 pg MCHC 36.9 g/dL RDW 12.6 % Platelet Count 240 10 3/cmm MPV 8.9 fL Neutrophils 3.90 10 3/uL Lymphocytes 1.0 10 3/uL Monocytes 0.5 10 3/uL Eosinophils 0.1 10 3/uL Basophils 0.0 10 3/uL Neutrophil % 71.2 % Lymphocyte % 17.5 % Monocyte % 8.4 % Eosinophil % 1.8 % Basophils % 0.7 % NRBC % 0 % Problem List: 1. [place] cell carcinoma in the form of a left prepatellar mass, initially diagnosed in October 2016. By clinical evaluation his disease was stage IV (T2, N1, M1) with involvement in a left inguinal lymph node and in the L3 vertebral body. 2. GERD. 3. Obstructive sleep apnea. 4. He has had serologic evidence of hepatitis C, but without any clinical indication of active hepatitis. 5. He required treatment for pneumonia in July 2019. 6. He was diagnosed with COVID-19 virus infection in February 2020. Problems Addressed with this Encounter and Plan: Patient with [place] cell carcinoma in the form of a left prepatellar mass, initially diagnosed in October 2016. By clinical evaluation his disease was stage IV (T2, N1, M1) with involvement in a left inguinal lymph node and in the L3 vertebral body. He began radiation to the lumbar spine on 12/15/2016. He completed that treatment on 12/29/2016 to a total dose of 3000 cGy. On 12/16/2016 he also began radiation to the involved left inguinal lymph node and to the primary tumor at the left knee. He completed treatment on 01/13/2017, both sites to a total dose of 4875 cGy. On 12/29/2016 he began immunotherapy with avelumab. He tolerated the initial infusion well, and he was then able to continue treatment at 2-week intervals. Restaging PET/CT on 03/30/2017 showed findings consistent with near complete response to the treatment. CT abdomen/pelvis on 05/25/2017 showed evidence of lytic metastatic disease in the L3 vertebral body. There were no other significant findings on that study. He continued avelumab infusions every 2 weeks. In February 2020 he was diagnosed with COVID-19 virus infection, but the illness did not result in any interruption in his treatment. His further surveillance PET/CT scans at [facility] have shown no evidence of recurrent or metastatic disease. Overall, he has been doing very well clinically. He has been tolerating the immunotherapy with no significant adverse effects. Thus far there has been no evidence of recurrence of the [place] cell carcinoma. He will continue treatment with avelumab, now at the fixed dosing schedule of 800 mg by IV infusion every 2 weeks. He will be scheduled for a follow-up visit in 8 weeks. Signed By: Aman Martínez M.D. <<Signature on File>>
== END 2021-05-14 10:10 | disposition home or self-care (01) ==
LOC: ONCMED 10:18
PROVIDERS: PCP Nurse Practitioner Family; Visit Provider Internal Medicine Medical Oncology
DX: Z51.12 Encounter for antineoplastic immunotherapy (principal); C4A.72 Merkel cell carcinoma of left lower limb, including hip; C79.51 Secondary malignant neoplasm of bone; C77.4 Secondary and unspecified malignant neoplasm of inguinal and lower limb lymph nodes; K21.9 Gastro-esophageal reflux disease without esophagitis; G47.33 Obstructive sleep apnea (adult) (pediatric); B17.10 Acute hepatitis C without hepatic coma; Z86.16 Personal history of COVID-19; Z79.899 Other long term (current) drug therapy
CPT/HCPCS: 80053; 84443; 85025; 96413; 99215; J7050; J9023

== ENCOUNTER 2021-05-29 13:31 | Outpatient (CLI) | payer MEDICARE, OTHER, SELFPAY ==
[2021-05-29] MEDS: acetaminophen 325 mg Tablet 650 MG PO (14:10)
[2021-05-29] MEDS: diphenhydrAMINE 25 mg Capsule PO (14:10)
== END 2021-05-29 13:32 | disposition home or self-care (01) ==
LOC: ONCMED 13:33
PROVIDERS: PCP Nurse Practitioner Family; Visit Provider Internal Medicine Medical Oncology
DX: Z51.12 Encounter for antineoplastic immunotherapy (principal); C4A.72 Merkel cell carcinoma of left lower limb, including hip; C79.51 Secondary malignant neoplasm of bone; Z79.899 Other long term (current) drug therapy; Z92.3 Personal history of irradiation
CPT/HCPCS: 96413; J7050; J9023

== ENCOUNTER 2021-06-11 13:44 | Outpatient (CLI) | payer MEDICARE, OTHER, SELFPAY ==
[2021-06-11] MEDS: sodium chloride 0.9% 250 ML 75 ML IV (14:07)
[2021-06-11] MEDS: acetaminophen 325 mg Tablet 650 MG PO (14:07)
[2021-06-11] MEDS: diphenhydrAMINE 25 mg Capsule PO (14:07)
== END 2021-06-11 13:45 | disposition home or self-care (01) ==
LOC: ONCMED 13:46
PROVIDERS: PCP Nurse Practitioner Family; Visit Provider Internal Medicine Medical Oncology
DX: Z51.12 Encounter for antineoplastic immunotherapy (principal); C4A.72 Merkel cell carcinoma of left lower limb, including hip; C79.51 Secondary malignant neoplasm of bone; Z79.899 Other long term (current) drug therapy; Z92.3 Personal history of irradiation
CPT/HCPCS: 96413; J7050; J9023

== ENCOUNTER 2021-06-25 09:52 | Outpatient (CLI) | payer MEDICARE, OTHER, SELFPAY ==
[2021-06-25] MEDS: sodium chloride 0.9% 250 ML 75 ML IV (10:00)
[2021-06-25] MEDS: acetaminophen 325 mg Tablet 650 MG PO (10:20)
[2021-06-25] MEDS: diphenhydrAMINE 25 mg Capsule PO (10:20)
== END 2021-06-25 09:53 | disposition home or self-care (01) ==
LOC: ONCMED 09:56
PROVIDERS: PCP Nurse Practitioner Family; Visit Provider Internal Medicine Medical Oncology
DX: Z51.12 Encounter for antineoplastic immunotherapy (principal); C4A.72 Merkel cell carcinoma of left lower limb, including hip; C79.51 Secondary malignant neoplasm of bone; Z79.899 Other long term (current) drug therapy; Z92.3 Personal history of irradiation
CPT/HCPCS: 96413; J7050; J9023

== ENCOUNTER 2021-07-09 10:26 | Outpatient (CLI) | payer MEDICARE, OTHER, SELFPAY ==
[2021-07-09 11:11] LABS: Basophils % 0.6 %; Eosinophils # 0.1 10^3/uL (0.0-0.8); Eosinophils % 1.1 %; Hematocrit 42.2 % (42.0-52.0); Lymphocytes # 1.6 10^3/uL (0.8-4.8); Lymphocytes % 23.6 %; Mean Corpuscular HGB Conc 35.5 g/dL (30.0-36.0); Mean Corpuscular Hemoglobin 32.8 pg (28.0-34.0); Mean Corpuscular Volume 92.1 fl (80-94); Mean Platelet Volume 8.6 fL (7.4-10.4); Monocytes # 0.4 10^3/uL (0.2-0.9); Monocytes % 6.6 %; Neutrophils # 4.49 10^3/uL (1.8-7.7); Neutrophils % 67.5 %; Nucleated Red Blood Cells % 0 %; Platelet Count 289 10^3/cmm (130-400); Red Blood Count 4.58 10^6/uL (4.1-5.3); Red Cell Distribution Width 12.5 % (12.1-15.1); White Blood Count 6.7 10^3/uL (4.0-10.0)
[2021-07-09 11:42] LABS: Slide Review Slide Review Perform
[2021-07-09 12:01] LABS: Alanine Aminotransferase 17 U/L (0-41); Albumin Level 4.1 g/dL (3.5-5.2); Alkaline Phosphatase 98 IU/L (40-130); Aspartate Amino Transferase 15 U/L (0-40); Blood Urea Nitrogen 19 mg/dL (8-23); Calcium 8.3 mg/dL (8.5-10.5); Carbon Dioxide 23 mmol/L (22-29); Chloride 101 mmol/L (98-107); Glucose 107 mg/dL (65-115); Osmolality Calculated 287 mOsm/kg (285-295); Sodium 137 mmol/L (136-145); Thyroid Stimulating Hormone 1.02 uIU/mL (0.27-4.20); Total Bilirubin 0.3 mg/dL (0.15-1.2); Total Protein 7.1 g/dL (6.6-8.7)
[2021-07-09] MEDS: diphenhydrAMINE 25 mg Capsule PO (12:18)
[2021-07-09] MEDS: acetaminophen 325 mg Tablet 650 MG PO (12:18)
== END 2021-07-09 10:27 | disposition home or self-care (01) ==
PROVIDERS: PCP Nurse Practitioner Family; Visit Provider Nurse Practitioner Family
DX: Z51.12 Encounter for antineoplastic immunotherapy (principal); C4A.72 Merkel cell carcinoma of left lower limb, including hip; Z79.899 Other long term (current) drug therapy
CPT/HCPCS: 80053; 84443; 85025; 96413; 99215; J7050; J9023

== ENCOUNTER 2021-07-23 09:42 | Outpatient (CLI) | payer MEDICARE, OTHER, SELFPAY ==
[2021-07-23] MEDS: sodium chloride 0.9% 250 ML 75 ML IV (10:12)
[2021-07-23] MEDS: acetaminophen 325 mg Tablet 650 MG PO (10:12)
[2021-07-23] MEDS: diphenhydrAMINE 25 mg Capsule PO (10:12)
== END 2021-07-23 09:43 | disposition home or self-care (01) ==
LOC: ONCMED 09:45
PROVIDERS: PCP Nurse Practitioner Family; Visit Provider Nurse Practitioner Family
DX: Z51.12 Encounter for antineoplastic immunotherapy (principal); C4A.72 Merkel cell carcinoma of left lower limb, including hip; C77.4 Secondary and unspecified malignant neoplasm of inguinal and lower limb lymph nodes; K21.9 Gastro-esophageal reflux disease without esophagitis; G47.33 Obstructive sleep apnea (adult) (pediatric); Z79.899 Other long term (current) drug therapy; Z87.891 Personal history of nicotine dependence; Z86.16 Personal history of COVID-19
CPT/HCPCS: 96413; J7050; J9023

== ENCOUNTER 2021-08-05 10:35 | Outpatient (CLI) | payer MEDICARE, OTHER, SELFPAY ==
[2021-08-05] MEDS: acetaminophen 325 mg Tablet 650 MG PO (11:00)
[2021-08-05] MEDS: diphenhydrAMINE 25 mg Capsule PO (11:00)
[2021-08-05] MEDS: sodium chloride 0.9% 250 ML 75 ML IV (11:00)
== END 2021-08-05 10:36 | disposition home or self-care (01) ==
LOC: ONCMED 10:38
PROVIDERS: PCP Nurse Practitioner Family; Visit Provider Internal Medicine Medical Oncology
DX: Z51.12 Encounter for antineoplastic immunotherapy (principal)
CPT/HCPCS: 96413; J7050; J9023

== ENCOUNTER 2021-08-20 11:03 | Outpatient (CLI) | payer MEDICARE, OTHER, SELFPAY ==
[2021-08-20] MEDS: diphenhydrAMINE 25 mg Capsule PO (12:05)
[2021-08-20] MEDS: acetaminophen 325 mg Tablet 650 MG PO (12:10)
== END 2021-08-20 11:04 | disposition home or self-care (01) ==
PROVIDERS: PCP Nurse Practitioner Family; Visit Provider Internal Medicine Medical Oncology
DX: Z51.12 Encounter for antineoplastic immunotherapy (principal); C4A.72 Merkel cell carcinoma of left lower limb, including hip; C79.51 Secondary malignant neoplasm of bone; Z79.899 Other long term (current) drug therapy
CPT/HCPCS: 96413; J7050; J9023

== ENCOUNTER 2021-09-06 08:02 | Outpatient (CLI) | payer MEDICARE, OTHER, SELFPAY ==
[2021-09-06 08:37] LABS: Basophils % 0.4 %; Eosinophils # 0.1 10^3/uL (0.0-0.8); Hematocrit 42.3 % (42.0-52.0); Hemoglobin 14.9 g/dL (11.7-16.6); Lymphocytes # 0.9 10^3/uL (0.8-4.8); Mean Corpuscular HGB Conc 35.2 g/dL (30.0-36.0); Mean Corpuscular Hemoglobin 33.1 pg (28.0-34.0); Monocytes # 0.5 10^3/uL (0.2-0.9); Monocytes % 10.4 %; Neutrophils # 3.45 10^3/uL (1.8-7.7); Nucleated Red Blood Cells % 0 %; Platelet Count 218 10^3/cmm (130-400); Red Cell Distribution Width 13.2 % (12.1-15.1)
[2021-09-06 09:10] LABS: Alanine Aminotransferase 18 U/L (0-41); Albumin Level 4.4 g/dL (3.5-5.2); Alkaline Phosphatase 80 IU/L (40-130); Anion Gap 15.4 (5-19); Aspartate Amino Transferase 19 U/L (0-40); Blood Urea Nitrogen 17 mg/dL (8-23); Calcium 9.3 mg/dL (8.5-10.5); Carbon Dioxide 25 mmol/L (22-29); Chloride 102 mmol/L (98-107); Globulin 2.6 g/dL (1.3-4.6); Glucose 103 mg/dL (65-115); Osmolality Calculated 288 mOsm/kg (285-295); Potassium 4.4 mmol/L (3.5-5.1); Sodium 138 mmol/L (136-145); Thyroid Stimulating Hormone 2.29 uIU/mL (0.27-4.20); Total Bilirubin 0.5 mg/dL (0.15-1.2)
--- NOTE | 2021-09-06 09:49 | ONC FU_ITS ---
Veronika Pat Progress Note Patient: Bebeto Lang Unit #: [id number]: 1950 Dicatated By: Veronika Pat N.P.Date of Visit:Sep 06, 2021 Onc MED Follow-up/Prog Note Chief Complaint: Erik cell carcinoma. 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 He had presented with an enlarging mass on his left knee. He was initially seen in the emergency room at [facility] in [place]. His subsequent evaluation there included an angiogram and an MRI of the left knee. He was then referred to Dr. Lin Blevins at [facility] for further evaluation. 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 The malignant cells were noted to be positive for pancytokeratin, DENI, CK20, CD56, and CD138. The tumor cells were also positive for NSE. The CK7, CD45, CD99, desmin, TTF-1, CD-X2, and SHIRA 3 stains were negative. Staging PET/CT on 11/11/2016 showed FDG avid mass within the left prepatellar soft tissues measuring 4.2 x 2.4 cm, maximum SUV 13.9. The mass was noted to be superficial to the joint capsule. An enlarged left inguinal lymph node measuring 1.7 x 1.5 cm showed increased FDG uptake with SUV 7.1, consistent with metastasis. A subcentimeter left external iliac lymph node showed mildly increased FDG uptake, SUV 2.9. A destructive lytic lesion was noted within the posterior L3 vertebral body with associated increased FDG uptake, SUV 10.6. There was an associated soft tissue component extending posteriorly with at least moderate central canal stenosis. 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 He was seen by Dr. Obdulio Banda for medical oncology consultation. He recommended systemic therapy with avelumab. He also recommended consideration for palliative radiation to the lumbar spine lesion. The patient was then seen here because he desired to receive his treatment closer to home. He was referred to Dr. Guzman. He began radiation to the lumbar spine on 12/15/2016. That treatment was completed on 12/29/2016 to a total dose of 3000 cGy. On 12/16/2016 he also began treatment to the involved left inguinal lymph node and to the primary tumor at the left knee. He completed radiation on 01/13/2017, both sites to a total dose of 4875 cGy. He received cycle 1 of avelumab on 12/29/2016. He tolerated it without acute toxicity, but for about a week afterward he was fatigued, and he just didn't feel good. He was able to proceed with a second cycle of treatment on 01/12/2017. He tolerated it well. He then continued his treatment at two-week intervals with the exception that his cycle 7 treatment was delayed to 4 weeks due to a follow-up visit in [employer]. A restaging PET/CT on 04/09/2017 showed marked interval decrease in size and FDG activity within the left prepatellar soft tissue mass, left inguinal and external iliac lymph nodes, and the L3 lytic lesion, consistent with a nearly complete metabolic response. A CT abdomen/pelvis on 05/25/2017 still showed evidence of lytic metastatic disease involving the L3 vertebral body. There were no other significant findings. He had a follow-up visit at [facility] in 06/24/2017. PET/CT at that time was consistent with continued complete metabolic response. He then continued treatment with avelumab at 2 week intervals. He had a follow-up visit at [facility] again on 09/16/2017. Repeat PET/CT at that time showed complete metabolic response with no evidence of metabolically active disease. He then continued the same treatment. His other medical illnesses have been limited to GERD and obstructive sleep apnea. He was found to have serologic evidence of hepatitis C, but with no active hepatitis. He has a history of smoking 1-1/2 packs of cigarettes daily for 30 years. He quit smoking in approximately 1987. He has a history of alcohol and drug abuse. He quit both proximally 1986. INTERIM HISTORY: As of 10/11/2018 he had completed cycle 46 of avelumab. At that point he was tolerating the treatment well, and there had been no evidence of disease progression. On 10/19/2018 he reported development of a generalized skin eruption. The appearance was consistent with hives, and he responded very well to prednisone. An underlying cause for the reaction was not determined. He continued treatment with avelumab. His surveillance PET/CT at [facility] on 11/29/2018 showed minimally increased FDG uptake in left supraclavicular, mediastinal, and hilar lymph nodes and also in the spleen. The most FDG-avid lesion was a node in the aortopulmonary window measuring 2.0 x 1.3 cm with maximum SUV 5.2. It was felt to be a nonspecific finding, but short-term follow-up was recommended. There was no other suspicious activity noted. His repeat PET/CT at [facility] on 05/23/2019 showed multiple mildly enlarged mediastinal lymph nodes which demonstrated mildly increased FDG uptake, unchanged compared to the November 2018 study. Bilateral hilar lymphadenopathy also appeared unchanged, but with slightly increased SUV values. The most FDG avid lesion was in a right hilar lymph node measuring 11 mm with SUV 5.7. The appearance was felt to be most consistent with an inflammatory process. A right middle lobe groundglass pulmonary nodule had shown equivocal increase in size, but was still too small to characterize. A 4 cm exophytic lower pole right renal lesion measuring 4 cm was consistent with simple cyst. A 4 mm lesion in the lower pole the left kidney was noted to contain punctate calcifications. It was indeterminate, but unchanged. Overall there was no evidence of disease recurrence. In July 2019 he was treated for pneumonia. His surveillance PET/CT on 08/15/2019 showed hypometabolism within a hypodense area involving the right frontal lobe of the brain, likely related to prior brain injury. There was no PET/CT evidence of recurrent or metastatic disease. Repeat PET/CT at [facility] on 11/07/2019 showed no evidence of recurrent or metastatic disease. There was unchanged hypometabolic lesion in the right frontal lobe noted to be likely secondary to prior trauma. Mediastinal and hilar lymph nodes were felt to be likely reactive. In February 2020 he was diagnosed with COVID-19 virus infection. However, he did not encounter any treatment delays because of it. His PET/CT at [facility] on 04/23/2020 showed no PET/CT evidence of recurrent or residual metastatic Erik cell carcinoma. His surveillance PET/CT on 10/15/2020 showed no evidence of recurrent or metastatic disease. He was seen for follow-up at [facility] again on 04/01/2021. His PET/CT at that time showed a lytic lesion with associated mild compression deformity involving the L3 vertebral body which appeared unchanged and without increased FDG uptake. Mild FDG uptake along the left lateral distal femur was favored to be inflammatory. Overall, there was no FDG evidence of locally recurrent or metastatic disease. He was recommended to continue treatment with avelumab at 2-week intervals and to just have yearly follow-up PET/CT imaging. Patient presents today for follow-up. He denies weakness or fatigue. He has a good appetite. No fever, chills, night sweats sinus drainage or sore throat. No shortness of breath, cough, chest pain. He denies any GI or problems. No joint or muscle pain. No headaches or dizziness. He is tolerating immunotherapy well. Review Of Symptoms:Review of Systems is not available for this patient. Past Medical History: Gastroesophageal reflux disease Hepatitis C Obstructive sleep apnea COVID 19 + in 2019 Past Surgical History: Covid vaccine #2 in 2020 Covid vaccine #1 in 2020 Angiogram in 2016 He underwent biopsy of the mass overlying the left knee on 10/23/2016. He underwent ultrasound-guided fine-needle aspiration biopsy of left inguinal lymph node on 11/24/2016. He has had no prior surgeries. Allergies: Codeine Sulfate Medications: Acetaminophen 1 - 2 Capsule (of 325 mg) Oral PRN Acidophilus 1 Capsule Oral daily PRN Aleve 1 (220 mg) Tablet Oral q 8 hours PRN Aspirin 1 (81 mg) Tablet Oral daily Cinnamon 1 Capsule Oral daily Clobetasol Propionate Shampoo Topical PRN Clotrimazole-Betamethasone Cream Topical PRN Co Q 10 1 Capsule Oral daily Fish Oil 1 Capsule Oral daily formula 303 1 Tablet daily PRN Multiple Vitamin 1 Capsule Oral daily Protonix 1 (40 mg) Tablet, enteric coated Oral daily Red Yeast Rice 1 Capsule Oral daily super beta prostate 2 Capsule daily Family History: Mr. Lang's mother at age 84: old age . Mr. Lang's father at age 87: old age . Mr. Lang's maternal grandmother is : breast cancer. His paternal grandfather is : stomach cancer. Mr. Lang has 2 sisters: 1 , 1 unknown. Mr. Lang's first sister's stroke. Another sister's breast cancer. Both parents apparently of old age. A brother of heart disease at age 70. A sister of stroke at age 65. She also had breast cancer, and his maternal grandmother had breast cancer. His paternal grandfather had stomach cancer. Social History: Mr. 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 Mr. Lang quit smoking 31 years ago but had smoked 1.5 packs/day for 20 years. He is a former drinker. Mr. Lang reports the following support systems: lives alone, lives in own house, supportive family/friends willing to assist with needs, and adequate transportation available for expected visits. His diet consists of regular meals. He indicates his activity level as: daily activities. 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 He has a history of smoking 1-1/2 packs of cigarettes daily for 30 years. He quit smoking approximately 1987. He has a prior history of alcohol and drug abuse. He quit both approximately 1986. Physical Examination: Performed on Sep 06, 2021 09:28: Height - 68.00 in, Weight - 214.8 lbs (HIGH), BSA - 2.11 sq.m, BMI - 32.66 (HIGH), Temperature - 98.4 F, Pulse - 70 /min, Respiration - 18 /min, BP - 155/77 mm(hg) (HIGH), O2 Sat - 96 %, Pain - 0, and Fatigue - 6. Performance Status: 0 - Fully active, able to carry on all predisease activities without restrictions. (ECOG) Constitutional Alert, cooperative, oriented. Mood and affect appropriate. Appears close to chronological age. Well nourished. Well developed. Head Normocephalic; no scars. Respiratory Lungs are clear to auscultation without rhonchi or wheezing. Cardiovascular Regular rate and rhythm of heart without murmurs, gallops or rubs. Abdomen Non-tender, non-distended, no masses, ascites or hepatosplenomegaly. Good bowel sounds. No guarding or rebound tenderness. Extremities No visible deformities, no cyanosis, clubbing or edema. Pulses 3+ and equal bilaterally. Psychiatric Alert and oriented times three. Coherent speech. Verbalizes understanding of our discussions today. Laboratory: Test performed on Sep 06, 2021 08:25 Sodium 138 mmol/L TSH 2.29 uIU/mL Potassium 4.4 mmol/L Chloride 102 mmol/L CO2 25 mmol/L Anion Gap 15.4 BUN 17 mg/dL Creatinine 0.8 mg/dL Cr Clearance (Est) 112.3500 mL/min Glucose 103 mg/dL Osmolality - Calculated 288 mOsm/kg Calcium 9.3 mg/dL Protein, Total 7.0 g/dL Albumin 4.4 g/dL Globulin 2.6 g/dL Bilirubin, Total 0.5 mg/dL ALT (SGPT) 18 U/L AST (SGOT) 19 U/L Alkaline Phosphatase 80 IU/L WBC 5.0 10 3/uL RBC 4.50 10 6/uL HGB 14.9 g/dL HCT 42.3 % MCV 94.0 fl MCH 33.1 pg MCHC 35.2 g/dL RDW 13.2 % Platelet Count 218 10 3/cmm MPV 9.0 fL Neutrophils 3.45 10 3/uL Lymphocytes 0.9 10 3/uL Monocytes 0.5 10 3/uL Eosinophils 0.1 10 3/uL Basophils 0.0 10 3/uL Neutrophil % 69.0 % Lymphocyte % 18.0 % Monocyte % 10.4 % Eosinophil % 2.0 % Basophils % 0.4 % NRBC % 0 % Impression: 1. 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 By clinical evaluation his disease was stage IV (T2, N1, M1) with involvement in a left inguinal lymph node and in the L3 vertebral body. 2. GERD. 3. Obstructive sleep apnea. 4. He has had serologic evidence of hepatitis C, but without any clinical indication of active hepatitis. 5. He required treatment for pneumonia in July 2019. 6. He was diagnosed with COVID-19 virus infection in February 2020. 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 By clinical evaluation his disease was stage IV (T2, N1, M1) with involvement in a left inguinal lymph node and in the L3 vertebral body. He began radiation to the lumbar spine on 12/15/2016. He completed that treatment on 12/29/2016 to a total dose of 3000 cGy. On 12/16/2016 he also began radiation to the involved left inguinal lymph node and to the primary tumor at the left knee. He completed treatment on 01/13/2017, both sites to a total dose of 4875 cGy. On 12/29/2016 he began immunotherapy with avelumab. He tolerated the initial infusion well, and he was then able to continue treatment at 2-week intervals. Restaging PET/CT on 03/30/2017 showed findings consistent with near complete response to the treatment. CT abdomen/pelvis on 05/25/2017 showed evidence of lytic metastatic disease in the L3 vertebral body. There were no other significant findings on that study. He continued avelumab infusions every 2 weeks. In February 2020 he was diagnosed with COVID-19 virus infection, but the illness did not result in any interruption in his treatment. His further surveillance PET/CT scans at [facility] have shown no evidence of recurrent or metastatic disease. Patient presents today for follow-up; he has been tolerating avelumab well. No signs or symptoms of disease progression. He will continue immunotherapy every 2 weeks. He will follow-up in 8 weeks with CBC CMP. Signed By: Veronika Pat N.P. <<Signature on File>>
== END 2021-09-06 08:03 | disposition home or self-care (01) ==
PROVIDERS: PCP Nurse Practitioner Family; Visit Provider Nurse Practitioner Family
DX: C4A.72 Merkel cell carcinoma of left lower limb, including hip (principal); C7B.1 Secondary Merkel cell carcinoma; K21.9 Gastro-esophageal reflux disease without esophagitis; G47.33 Obstructive sleep apnea (adult) (pediatric); Z86.19 Personal history of other infectious and parasitic diseases; Z86.16 Personal history of COVID-19; Z87.01 Personal history of pneumonia (recurrent); Z79.899 Other long term (current) drug therapy
CPT/HCPCS: 36415; 80053; 84443; 85025; 96413; 99215; J7050; J9023

== ENCOUNTER 2021-09-17 08:52 | Outpatient (CLI) | payer MEDICARE, OTHER, SELFPAY ==
[2021-09-17] MEDS: diphenhydrAMINE 25 mg Capsule PO (09:15)
[2021-09-17] MEDS: acetaminophen 325 mg Tablet 650 MG PO (09:15)
[2021-09-17] MEDS: sodium chloride 0.9% 250 ML 75 ML IV (09:38)
== END 2021-09-17 08:53 | disposition home or self-care (01) ==
PROVIDERS: PCP Nurse Practitioner Family; Visit Provider Nurse Practitioner Family
DX: Z51.12 Encounter for antineoplastic immunotherapy (principal); C4A.72 Merkel cell carcinoma of left lower limb, including hip; C79.51 Secondary malignant neoplasm of bone
CPT/HCPCS: 96413; J7050; J9023

== ENCOUNTER 2021-10-01 13:03 | Outpatient (CLI) | payer MEDICARE, OTHER, SELFPAY ==
[2021-10-01] MEDS: sodium chloride 0.9% 250 ML 100 ML IV (13:24)
[2021-10-01] MEDS: acetaminophen 325 mg Tablet 650 MG PO (13:24)
[2021-10-01] MEDS: diphenhydrAMINE 25 mg Capsule PO (13:24)
== END 2021-10-01 13:04 | disposition home or self-care (01) ==
PROVIDERS: PCP Nurse Practitioner Family; Visit Provider Nurse Practitioner
DX: Z51.12 Encounter for antineoplastic immunotherapy (principal); C4A.72 Merkel cell carcinoma of left lower limb, including hip; C79.51 Secondary malignant neoplasm of bone
CPT/HCPCS: 96413; J7050; J9023

== ENCOUNTER 2021-10-06 13:43 | Emergency (ER) | payer MEDICARE, OTHER, SELFPAY ==
[2021-10-06 14:14] VITALS: BP 131/75; PULSE 75; RESP 18; TEMP 37.4; O2SAT 96; BMI 31.9
--- NOTE | 2021-10-06 14:16 | W.ED.NAVMDI ---
HPI - Nausea/Vomiting/Diarrhea General: Chief complaint: Abdominal Pain Stated complaint: loss of appetite / nausea Time Seen by Provider: 10/06/21 14:15 History of Present Illness: Mr. Lang is a 71-year-old gentleman with significant past medical history of [place] cell carcinoma on antineoplastic immunotherapy with avelumab who presents to the emergency department due to generalized symptoms. Onset of symptoms was approximately 3 days ago and subacute. He endorses generalized malaise, fatigue, and abdominal pain with subjective fevers. He has had decreased p.o. intake and even has difficulty drinking water. He denies associated respiratory symptoms. He did complete a injection for his immunotherapy on the however has never had similar reactions to the the past. Additionally he does note mild generalized non-itchy skin rash that he is unsure of the source of but has had mild episodes similar in the past. No other specific changes in health, exacerbating, or alleviating factors identified. Onset (ago): day(s) Description of vomiting: watery Associated nausea: Yes Associated abdominal pain: Yes Location of pain: Diffuse Pain consistency: constant Severity: mild Quality: cramping Exacerbating factors: eating Associated symtoms: Reports nausea Review of Systems General: Reports: 10 or more systems reviewed and unremarkable except in HPI and below GI: Reports: nausea PFSH ED PFSH: Medical History Erik cell carcinoma Social History Smoking and tobacco status: former smoker Physical Exam Const: COMMON NORMALS: alert GENERAL APPEARANCE: cooperative, well developed and ill appearing (Somewhat) HENMT: COMMON NORMALS: normocephalic and atraumatic HEAD & SCALP: normocephalic and atraumatic Eye: COMMON NORMALS: conjunctivae normal CONJUNCTIVA: Yes conjunctivae normal SCLERA: sclerae normal Neck/C-Spine: COMMON NORMALS: supple GENERAL: Yes trachea midline Resp: COMMON NORMALS: clear to auscultation bilaterally EFFORT & INSPECTION: Yes able to speak in complete sentences AUSCULTATION: clear to auscultation bilaterally Cardio: COMMON NORMALS: regular rate and regular rhythm RATE: regular rate RHYTHM: regular rhythm GI: COMMON NORMALS: Soft to palpation PALPATION: Yes Soft to palpation and No Tenderness to palpation present (GI) PERCUSSION: normal to percussion Extremity: GENERAL: Yes normal exam except as noted and No edema Neuro: COMMON NORMALS: moves all extremities SENSORIUM/ORIENTATION: Yes alert and No Orientation impaired Psych: COMMON NORMALS: mental status grossly normal and Normal thought process present THOUGHT PROCESS: Normal thought process present Skin: NARRATIVE SKIN EXAM: Scattered macular rash with no vesicular lesions or erosions/ulcerations. No particular pattern to distribution. Involves trunk and extends to extremities. No mucous membrane involvement. Course ED course: - Patient was seen and evaluated by me at bedside - Patient placed on cardiac monitors, IV access obtained - Initial evaluation notable for exam as above - Labs personally interpreted by me. EKG from 1504 and 1658 personally interpreted by me demonstrating sinus rhythm with nonspecific ST segment abnormalities. No STEMI. - Labs notable for no leukocytosis, normal hemoglobin. Metabolic panel with mild evidence of dehydration. Urinalysis without evidence of urinary tract infection. Negative viral studies. - Imaging notable for no acute intra-abdominal pathology to explain patient's symptoms. - Fluids, antiemetic, and allergic reaction medications given. No evidence of anaphylaxis. - Upon serial reexamination after treatment the patient was somewhat improved. - Case discussed with Dr. Martínez, patient will have close outpatient follow-up. - Subsequent to my discussion with Dr. Martínez the patient did endorse a history of tick bite on the left hip region. This area was examined and no target lesion was identified. It does raise questions however regarding patient's symptoms and rash of tickborne illness. A tick panel will be sent however given patient's comorbidities, and in conjugation with discussion with patient, will be treated empirically with doxycycline - Based on patient history, evaluation, and testing as interpreted the most likely cause of the patient's condition is unclear; tickborne illness versus viral syndrome with rash possibly secondary to medication reaction - The results of ED evaluation were discussed with the patient including prescriptions and/or symptomatic cares (if applicable) including appropriate and responsible use, followup plan, and return precautions. The patient verbalized understanding and felt safe for discharge. - Patient discharged in satisfactory condition. Note: Click bubbles or prepopulated brewer in note writing are used for assistance with data collection and billing and are inherently more limited than narrative and other text portions of this note. Please use narrative for additional clinical history and defer to narrative/free test for any case of contradictory information. If information appears in only free text or click bubble it should be considered present or absent as reported. Please contact note mortgage loan underwriter for clarifications of clinical information or contradictory information. MDM is a brief summary, contradictory or erroneous seeming information should be clarified and full note should be reviewed. Vital Signs: Vital signs: Vital Signs Temperature 98.4 F 10/06/21 18:04 Pulse Rate 80 10/06/21 19:40 Respiratory Rate 18 10/06/21 19:40 Blood Pressure 133/61 10/06/21 19:40 Pulse Oximetry 93 10/06/21 19:40 MDM - Nausea/Vomiting/Diarrhea Medical Decision Making 71-year-old gentleman presenting with 3-day history of generalized symptoms including nausea and vomiting and dehydration. Additionally patient endorses rash without new environmental exposures. Labs only notable for dehydration and no acute abnormality identified on CT abdomen pelvis. Subsequent to history patient endorses history of tick bite without prolonged attachment time. Will be treated empirically for possible tickborne illness as well as exposure rash. Satisfactory for close outpatient management. Medical Records I reviewed the patient's medical records. Lab Data I reviewed the patient's lab results. : 10/06/21 14:53 10/06/21 14:53 Radiology Impressions Abdomen/Pelvis CT 10/06/21 14:[address]: [address] evidence of acute intra-abdominal or pelvic pathology. 2. Additional findings, as above. COMMENTS: Consistent with the [employer]'s Incidental Findings Committee white paper (J Am Kendy Radiol 2018): Any incidental renal lesion less than 1 cm or classified as too small to characterize, or any incidental cystic renal lesion characterized as simple-appearing, is likely benign. No follow-up imaging is recommended for these lesions per consensus recommendations based on imaging criteria. Laboratory Results WBC 6.3 10^3/uL (4.0-10.0) 10/06/21 14:53 RBC 4.40 10^6/uL (4.1-5.3) 10/06/21 14:53 Hgb 14.1 g/dL (11.7-16.6) 10/06/21 14:53 Hct 41.3 % (42.0-52.0) L 10/06/21 14:53 MCV 93.9 fl (80-94) 10/06/21 14:53 MCH 32.0 pg (28.0-34.0) 10/06/21 14:53 MCHC 34.1 g/dL (30.0-36.0) 10/06/21 14:53 RDW 13.1 % (12.1-15.1) 10/06/21 14:53 Plt Count 204 10^3/cmm (130-400) 10/06/21 14:53 MPV 9.0 fL (7.4-10.4) 10/06/21 14:53 Neut % (Auto) 62.1 % 10/06/21 14:53 Lymph % (Auto) 15.7 % 10/06/21 14:53 Benson % (Auto) 11.2 % 10/06/21 14:53 Eos % (Auto) 10.0 % 10/06/21 14:53 Baso % (Auto) 0.5 % 10/06/21 14:53 Neut # (Auto) 3.93 10^3/uL (1.8-7.7) 10/06/21 14:53 Lymph # (Auto) 1.0 10^3/uL (0.8-4.8) 10/06/21 14:53 Benson # (Auto) 0.7 10^3/uL (0.2-0.9) 10/06/21 14:53 Eos # (Auto) 0.6 10^3/uL (0.0-0.8) 10/06/21 14:53 Baso # (Auto) 0.0 10^3/uL (0.0-0.1) 10/06/21 14:53 Nucleated RBC % (auto) 0 % 10/06/21 14:53 Nucleated RBCs # 0.0 /100WBC 10/06/21 14:53 Sodium 133 mmol/L (136-145) L 10/06/21 14:53 Potassium 3.9 mmol/L (3.5-5.1) 10/06/21 14:53 Chloride 99 mmol/L (98-107) 10/06/21 14:53 Carbon Dioxide 21 mmol/L (22-29) L 10/06/21 14:53 Anion Gap 16.9 (5-19) 10/06/21 14:53 BUN 12 mg/dL (8-23) 10/06/21 14:53 Creatinine 0.9 mg/dL (0.7-1.2) 10/06/21 14:53 GFR Calculation Not Reportable 10/06/21 14:53 Glucose 101 mg/dL (65-115) 10/06/21 14:53 Calculated Osmolality 276 mOsm/kg (285-295) L 10/06/21 14:53 Calcium 8.5 mg/dL (8.5-10.5) 10/06/21 14:53 Total Bilirubin 0.5 mg/dL (0.15-1.2) 10/06/21 14:53 AST 13 U/L (0-40) 10/06/21 14:53 ALT 12 U/L (0-41) 10/06/21 14:53 Alkaline Phosphatase 81 IU/L (40-130) 10/06/21 14:53 Troponin T Baseline 10 ng/L (0-15) 10/06/21 14:53 Troponin T 120 Minute 11.55 ng/L (0-15) 10/06/21 16:53 Delta Troponin T 1.55 ABS# (0-10) 10/06/21 16:53 Total Protein 8.1 g/dL (6.6-8.7) 10/06/21 14:53 Albumin 3.3 g/dL (3.5-5.2) L 10/06/21 14:53 Globulin 4.8 g/dL (1.3-4.6) H 10/06/21 14:53 Lipase 11 U/L (13-60) L 10/06/21 14:53 TSH 0.91 uIU/mL (0.27-4.20) 10/06/21 14:53 Urine Color Yellow (Yellow) 10/06/21 17:02 Urine Appearance Clear (CLEAR) 10/06/21 17:02 Urine pH 6 (5-7) 10/06/21 17:02 Ur Specific [place] 1.005 (1.005-1.030) 10/06/21 17:02 Urine Protein Neg (Negative) 10/06/21 17:02 Urine Glucose (UA) Norm (Normal) 10/06/21 17:02 Urine Ketones 1+ (Negative) H 10/06/21 17:02 Urine Blood 2+ (Negative) H 10/06/21 17:02 Urine Nitrate Negative (Negative) 10/06/21 17:02 Urine Bilirubin Neg (Negative) 10/06/21 17:02 Urine Urobilinogen Norm mg/dL (Negative) 10/06/21 17:02 Ur Leukocyte Esterase Negative (Negative) 10/06/21 17:02 Urine RBC None /hpf (0-2) 10/06/21 17:02 Urine WBC Rare /hpf (0-5) 10/06/21 17:02 Ur Squamous Epith Cells None /hpf (0-5) 10/06/21 17:02 Amorphous Sediment Not Reportable 10/06/21 17:02 Urine Bacteria None /hpf (NONE) 10/06/21 17:02 Coronavirus 229E (PCR) Not detected (NOT DETECT) 10/06/21 14:53 SARS-CoV-2 (PCR) Not detected (NOT DETECT) 10/06/21 14:53 Discharge Plan Discharge Patient Disposition: Home Clinical Impression: Abdominal pain, Rash, Dehydration, Nausea & vomiting Condition: Stable Prescriptions: New ondansetron 4 mg tablet,disintegrating 4 mg PO Q8H PRN (Reason: nausea and vomiting) Qty: 15 0RF Pepcid 40 mg tablet 40 mg PO BID Qty: 10 0RF prednisone 50 mg tablet 50 mg PO DAILY 5 Days Qty: 5 0RF doxycycline hyclate 100 mg tablet 100 mg PO BID 14 Days Qty: 28 0RF No Action pantoprazole 40 mg tablet,delayed release (DR/EC) 40 mg PO DAILY 0RF Discharge Orders: Discharge ED (Routine); Ordered 10/06/21 Ordered By: Vinod Matamoros Referrals: Nancy Clark [Primary Care Provider] - Discharge Diet: Usual diet Discharge Activity: Increase activity as tolerated Patient Instructions: Tick Bite (ED), Acute Rash (ED), Abdominal Pain (ED) Activity Restrictions/Additional Instructions: Thank you for visiting the emergency department. You were seen and evaluated for abdominal pain, nausea, vomiting, rash, and generalized symptoms. The exact cause of your symptoms is unclear. As discussed, given your recent history of tick bite you will be treated with antibiotics in addition to other medications to help with rash. You will be given a prescription for nausea medication. Please follow-up with your primary care provider and oncologist. Return to the emergency department for worsening symptoms or anything else that you are concerned about and feel needs emergency department evaluation. Coding Level of Care Code ED Underwriting Consultant for Chg Fwd Exam Comprehensive
--- NOTE | 2021-10-06 14:31 | CTR_ITS ---
PROCEDURE INFORMATION: Exam: CT Abdomen And Pelvis With Contrast Exam date and time: 10/06/2021 3:23 PM Age: 71 years old Clinical indication: Abdominal pain; Generalized; Patient HX: HX of merkels w immunotherapy last Thursday C/O abd pain w n/v and constipation; Additional info: Abdominal pain, n/v, constipation, HX cancer TECHNIQUE: Imaging protocol: Computed tomography of the abdomen and pelvis with contrast. Axial, coronal and sagittal reformatted images were created and reviewed. Radiation optimization: All CT scans at this facility use at least one of these dose optimization techniques: automated exposure control; mA and/or kV adjustment per patient size (includes targeted exams where dose is matched to clinical indication); or iterative reconstruction. Contrast material: OMNI 300; Contrast volume: 95 ml; Contrast route: INTRAVENOUS (IV); COMPARISON: CT Abdomen/Pelvis [facility] [id number] 05/25/2017 7:02 PM RADIATION DOSE METRICS: Total DLP (mGy-cm): 1695.64 FINDINGS: Diaphragm: Small hiatal hernia. Liver: Scattered subcentimeter low-density hepatic lesions, measuring up to 8 mm, too small to characterize. Gallbladder and bile ducts: No radiodense gallstones. No biliary ductal dilatation. Pancreas: Unremarkable. Spleen: Unremarkable. Adrenal glands: Normal. No mass. Kidneys and ureters: 4.3 cm simple right renal cyst (no follow-up is indicated based on the imaging appearance). 8 mm low-density right renal lesion, too small to characterize. No radiodense calculi. No hydronephrosis. Stomach and bowel: Colonic diverticulosis without evidence of diverticulitis. No obstruction. No bowel wall thickening. No pneumatosis. Appendix: Normal. Intraperitoneal space: No free fluid. No organized fluid collection. No free air. Arteries: Mild to moderate atherosclerotic disease. Ectasia of the infrarenal abdominal aorta to approximately 2.5 cm. No aneurysm or dissection. Lymph nodes: Small mesenteric lymph nodes, nonspecific in appearance. No pathologically enlarged lymph nodes. Urinary bladder: Mild circumferential urinary bladder wall thickening and trabeculation, suggestive of chronic bladder outlet obstruction. Reproductive: Mildly enlarged prostate. Bones/joints: No acute osseous abnormality. Osteopenia. Degenerative changes. Chronic deformity of the L3 vertebra. Soft tissues: Unremarkable. CT/CT abdomen pelvis w con* [id number]: 1[address] No CT evidence of acute intra-abdominal or pelvic pathology. 2. Additional findings, as above. COMMENTS: Consistent with the [employer]'s Incidental Findings Committee white paper (J Am Kendy Radiol 2018): Any incidental renal lesion less than 1 cm or classified as too small to characterize, or any incidental cystic renal lesion characterized as simple-appearing, is likely benign. No follow-up imaging is recommended for these lesions per consensus recommendations based on imaging criteria.
--- NOTE | 2021-10-06 14:32 | ECG_ITS ---
[facility] Test Date: 2021-10-06 Pat Name: Bebeto Lang Department: Room: Gender: Male Director Athletic: : 1950 Requested By: Vinod Matamoros Order Number: [id number] Bhatia MD: Katia Sultana M.D. Measurements Intervals [place] Rate: 72 P: 40 GA: 165 QRS: 29 QRSD: 105 T: 38 QT: 373 QTc: 410 Interpretive Statements SINUS RHYTHM Compared to ECG 07/27/2019 19:12:51 Myocardial infarct finding no longer present Electronically Signed On 10-06-2021 16:08:29 CDT by Ktaia Sultana M.D. [id number]
[2021-10-06 15:12] LABS: Basophils % 0.5 %; Eosinophils # 0.6 10^3/uL (0.0-0.8); Hematocrit 41.3 % (42.0-52.0); Hemoglobin 14.1 g/dL (11.7-16.6); Lymphocytes % 15.7 %; Mean Corpuscular HGB Conc 34.1 g/dL (30.0-36.0); Mean Corpuscular Volume 93.9 fl (80-94); Monocytes # 0.7 10^3/uL (0.2-0.9); Monocytes % 11.2 %; Neutrophils # 3.93 10^3/uL (1.8-7.7); Neutrophils % 62.1 %; Nucleated Red Blood Cells % 0 %; Platelet Count 204 10^3/cmm (130-400); Red Cell Distribution Width 13.1 % (12.1-15.1); White Blood Count 6.3 10^3/uL (4.0-10.0)
[2021-10-06] MEDS: iohexol 300 mg/mL 100 mL Btl IV (15:23)
[2021-10-06 15:37] LABS: Slide Review Slide Review Perform
[2021-10-06 15:40] LABS: Troponin(5th) Baseline 10 ng/L (0-15)
[2021-10-06 15:45] LABS: Alanine Aminotransferase 12 U/L (0-41); Albumin Level 3.3 g/dL (3.5-5.2); Alkaline Phosphatase 81 IU/L (40-130); Anion Gap 16.9 (5-19); Aspartate Amino Transferase 13 U/L (0-40); Blood Urea Nitrogen 12 mg/dL (8-23); Calcium 8.5 mg/dL (8.5-10.5); Carbon Dioxide 21 mmol/L (22-29); Chloride 99 mmol/L (98-107); Globulin 4.8 g/dL (1.3-4.6); Glucose 101 mg/dL (65-115); Lipase 11 U/L (13-60); Osmolality Calculated 276 mOsm/kg (285-295); Potassium 3.9 mmol/L (3.5-5.1); Sodium 133 mmol/L (136-145); Thyroid Stimulating Hormone 0.91 uIU/mL (0.27-4.20); Total Bilirubin 0.5 mg/dL (0.15-1.2); Total Protein 8.1 g/dL (6.6-8.7)
[2021-10-06 16:04] VITALS: BP 118/94; PULSE 73; RESP 20; O2SAT 96
--- NOTE | 2021-10-06 16:32 | ECG_ITS ---
[facility] Test Date: 2021-10-06 Pat Name: Bebeto Lang Department: Room: Gender: Male Intake Coordinator: : 1950 Requested By: Vinod Matamoros Order Number: [id number] Jannette MD: Katia Sultana M.D. Measurements Intervals [place] Rate: 75 P: 51 CA: 173 QRS: 13 QRSD: 104 T: 40 QT: 363 QTc: 408 Interpretive Statements SINUS RHYTHM Compared to ECG 10/06/2021 15:04:00 No significant changes Electronically Signed On 10-08-2021 7:49:49 CDT by Katia Sultana M.D. [id number]
[2021-10-06] MEDS: famotidine 20 mg/2 mL INJ 40 MG IVP (16:33)
[2021-10-06] MEDS: diphenhydrAMINE 50 mg/mL SDV 1mL 25 MG IVP ×2 (16:33→19:04)
[2021-10-06 16:54] LABS: Adenovirus Not Detected (NOT DETECT); Chlamydia Pneumoniae Not Detected (NOT DETECT); Coronavirus 229E,HKU1,NL63,OC4 Not Detected (NOT DETECT); Human Metapneumovirus Not Detected (NOT DETECT); Human Rhinovirus/Enterovirus Not Detected (NOT DETECT); Influenza A Not Detected (NOT DETECT); Influenza A H1 Not Detected (NOT DETECT); Influenza A H1-2009 Not Detected (NOT DETECT); Influenza A H3 Not Detected (NOT DETECT); Influenza B Not Detected (NOT DETECT); Mycoplasma Pneumoniae Not Detected (NOT DETECT); Parainfluenza Virus Type 1 Not Detected (NOT DETECT); Parainfluenza Virus Type 2 Not Detected (NOT DETECT); Parainfluenza Virus Type 3 Not Detected (NOT DETECT); Parainfluenza Virus Type 4 Not Detected (NOT DETECT); Respiratory Syncytial Virus A Not Detected (NOT DETECT); Respiratory Syncytial Virus B Not Detected (NOT DETECT); SARS-COV-2 Not Detected (NOT DETECT)
[2021-10-06 17:21] LABS: Troponin 5 2HR 11.55 ng/L (0-15)
[2021-10-06 17:29] LABS: Troponin 5 2HR Delta 1.55 ABS# (0-10)
[2021-10-06 17:45] LABS: Glucose Urine UA Norm (Normal); Ketones Urine 1+ (Negative); Protein Urine Neg (Negative); Specific Gravity, Urine 1.005 (1.005-1.030); Urine Appearance Clear (CLEAR); Urine Color Yellow (Yellow); pH Urine 6 (5-7)
[2021-10-06 17:46] LABS: Add Urine Microscopic? YES; Bilirubin Urine Neg (Negative); Blood Urine 2+ (Negative); Leukocyte Esterase Urine Negative (Negative); Nitrate Urine Negative (Negative); Urobilinogen Urine Norm (Negative); WBC Urine RARE /hpf (0-5)
[2021-10-06] MEDS: sodium chloride 0.9% 1,000 ML 999 ML IV (18:03)
[2021-10-06] MEDS: ondansetron 2 mg/ML SDV 2 mL 4 MG IVP (18:03)
[2021-10-06 18:04] VITALS: BP 144/67; PULSE 75; RESP 16; TEMP 36.9; O2SAT 94
[2021-10-06 19:08] VITALS: BP 138/53; PULSE 85; RESP 18; O2SAT 93
--- NOTE | 2021-10-06 19:19 | PC.NURSE ---
Lab called to verify if there is a red tube in lab that can be used for the ordered tick panel.
[2021-10-06 19:40] VITALS: BP 133/61; PULSE 80; RESP 18; O2SAT 93
[2021-10-08 13:07] LABS: Lyme AB Screen <0.90 index
[2021-10-11 16:54] LABS: E. Chaffeensis AB IGG <1:64; E. Chaffeensis AB IGM <1:20
[2021-10-12 16:32] LABS: RMSF IGG DETECTED; RMSF IGM NOT DETECTED
== END 2021-10-06 19:45 | disposition home or self-care (01) ==
PROVIDERS: Emergency Provider Emergency Medicine; PCP Nurse Practitioner Family
DX: R10.9 Unspecified abdominal pain (principal); E86.0 Dehydration; C4A.9 Merkel cell carcinoma, unspecified; F17.210 Nicotine dependence, cigarettes, uncomplicated; Z79.899 Other long term (current) drug therapy; R21 Rash and other nonspecific skin eruption; R11.2 Nausea with vomiting, unspecified
CPT/HCPCS: 74177; 80053; 81001; 83690; 84443; 84484; 85025; 86618; 86666; 86757; 87635; 93005; 96361; 96374; 96375; 96376; 99284; J1200; J2405; J2930; J3490; J7030; Q9967

== ENCOUNTER 2021-10-14 08:03 | Outpatient (CLI) | payer MEDICARE, OTHER, SELFPAY ==
[2021-10-14] MEDS: sodium chloride 0.9% 250 ML 75 ML IV (08:50)
[2021-10-14] MEDS: acetaminophen 325 mg Tablet 650 MG PO (08:50)
[2021-10-14] MEDS: diphenhydrAMINE 25 mg Capsule PO (08:50)
== END 2021-10-14 08:04 | disposition home or self-care (01) ==
PROVIDERS: PCP Nurse Practitioner Family; Visit Provider Nurse Practitioner Family
DX: Z51.12 Encounter for antineoplastic immunotherapy (principal); C4A.72 Merkel cell carcinoma of left lower limb, including hip; C79.51 Secondary malignant neoplasm of bone; Z79.899 Other long term (current) drug therapy
CPT/HCPCS: 96413; J7050; J9023

== ENCOUNTER 2021-11-12 08:00 | Oncology outpatient (recurring) (ONCR) | payer MEDICARE, OTHER, SELFPAY ==
[2021-10-29 08:54] LABS: Eosinophils # 0.1 10^3/uL (0.0-0.8); Eosinophils % 3.1 %; Hematocrit 39.8 % (42.0-52.0); Hemoglobin 13.6 g/dL (11.7-16.6); Lymphocytes # 1.1 10^3/uL (0.8-4.8); Lymphocytes % 25.9 %; Mean Corpuscular HGB Conc 34.2 g/dL (30.0-36.0); Mean Corpuscular Hemoglobin 31.9 pg (28.0-34.0); Mean Corpuscular Volume 93.2 fl (80-94); Mean Platelet Volume 8.8 fL (7.4-10.4); Monocytes # 0.3 10^3/uL (0.2-0.9); Monocytes % 8.2 %; Neutrophils # 2.57 10^3/uL (1.8-7.7); Neutrophils % 61.6 %; Nucleated Red Blood Cells % 0 %; Platelet Count 227 10^3/cmm (130-400); Red Blood Count 4.27 10^6/uL (4.1-5.3); Red Cell Distribution Width 13.6 % (12.1-15.1); White Blood Count 4.2 10^3/uL (4.0-10.0)
[2021-10-29 09:00] LABS: Alanine Aminotransferase 14 U/L (0-41); Albumin Level 3.9 g/dL (3.5-5.2); Alkaline Phosphatase 75 IU/L (40-130); Anion Gap 15.1 (5-19); Aspartate Amino Transferase 17 U/L (0-40); Blood Urea Nitrogen 20 mg/dL (8-23); Calcium 9.2 mg/dL (8.5-10.5); Carbon Dioxide 23 mmol/L (22-29); Chloride 103 mmol/L (98-107); Globulin 3.8 g/dL (1.3-4.6); Glucose 140 mg/dL (65-115); Osmolality Calculated 289 mOsm/kg (285-295); Potassium 4.1 mmol/L (3.5-5.1); Sodium 137 mmol/L (136-145); Total Bilirubin 0.4 mg/dL (0.15-1.2); Total Protein 7.7 g/dL (6.6-8.7)
[2021-10-29] MEDS: acetaminophen 325 mg Tablet 650 MG PO (10:54)
[2021-10-29] MEDS: diphenhydrAMINE 25 mg Capsule PO (10:54)
[2021-10-29] MEDS: [UNRECOGNIZED DRUG - OTHER] IV (11:18)
[2021-10-29] MEDS: SODIUM CHLORIDE 0.9% IV (11:18)
[2021-10-29 12:16] VITALS: BP 126/64; PULSE 63; RESP 16; TEMP 37.2; O2SAT 98
[2021-10-29 12:25] VITALS: BP 126/64; PULSE 63; RESP 16; TEMP 37.2; O2SAT 98
[2021-11-12 09:10] VITALS: BP 146/73; PULSE 64; RESP 16; TEMP 37; O2SAT 98
[2021-11-12] MEDS: diphenhydrAMINE 25 mg Capsule PO (09:46)
[2021-11-12] MEDS: acetaminophen 325 mg Tablet 650 MG PO (09:46)
[2021-11-12] MEDS: [UNRECOGNIZED DRUG - OTHER] IV (09:50)
[2021-11-12] MEDS: SODIUM CHLORIDE 0.9% IV (09:50)
== END 2021-11-19 23:59 | disposition home or self-care (01) ==
PROVIDERS: PCP Nurse Practitioner Family; Referring Provider Internal Medicine Medical Oncology; Visit Provider Nurse Practitioner Family
DX: C4A.72 Merkel cell carcinoma of left lower limb, including hip (principal); C79.51 Secondary malignant neoplasm of bone
CPT/HCPCS: 80053; 85025; 96413; 99214; 99999; J7050; J9023

== ENCOUNTER 2021-12-10 08:00 | Oncology outpatient (recurring) (ONCR) | payer MEDICARE, OTHER, SELFPAY ==
[2021-11-26] MEDS: acetaminophen 325 mg Tablet 650 MG PO (09:32)
[2021-11-26] MEDS: sodium chloride 0.9% 250 ML 75 ML IV (09:32)
[2021-11-26] MEDS: diphenhydrAMINE 25 mg Capsule PO (09:33)
[2021-11-26] MEDS: SODIUM CHLORIDE 0.9% IV (10:02)
[2021-11-26] MEDS: [UNRECOGNIZED DRUG - OTHER] IV (10:02)
[2021-11-26 10:18] VITALS: BMI 29.9
[2021-11-26 13:58] VITALS: BP 130/77; PULSE 72; RESP 18; TEMP 36.7; O2SAT 100
[2021-12-10 08:21] VITALS: BP 127/72; PULSE 60; RESP 16; TEMP 36.4; O2SAT 97
[2021-12-10] MEDS: diphenhydrAMINE 25 mg Capsule PO (08:34)
[2021-12-10] MEDS: acetaminophen 325 mg Tablet 650 MG PO (08:34)
[2021-12-10] MEDS: [UNRECOGNIZED DRUG - OTHER] IV (08:43)
[2021-12-10] MEDS: SODIUM CHLORIDE 0.9% IV (08:43)
== END 2021-12-19 23:59 | disposition home or self-care (01) ==
PROVIDERS: PCP Nurse Practitioner Family; Referring Provider Internal Medicine Medical Oncology; Visit Provider Nurse Practitioner Family
DX: Z51.11 Encounter for antineoplastic chemotherapy (principal); C4A.72 Merkel cell carcinoma of left lower limb, including hip; C79.51 Secondary malignant neoplasm of bone
CPT/HCPCS: 96413; J7050; J9023

== ENCOUNTER 2022-01-07 13:00 | Oncology outpatient (recurring) (ONCR) | payer MEDICARE, OTHER, SELFPAY ==
[2021-12-24 08:44] LABS: Basophils % 0.7 %; Eosinophils # 0.2 10^3/uL (0.0-0.8); Eosinophils % 2.7 %; Hematocrit 40.7 % (42.0-52.0); Hemoglobin 14.4 g/dL (11.7-16.6); Lymphocytes # 1.1 10^3/uL (0.8-4.8); Lymphocytes % 20.6 %; Mean Corpuscular HGB Conc 35.4 g/dL (30.0-36.0); Mean Corpuscular Hemoglobin 32.3 pg (28.0-34.0); Mean Corpuscular Volume 91.3 fl (80-94); Mean Platelet Volume 9.1 fL (7.4-10.4); Monocytes # 0.5 10^3/uL (0.2-0.9); Monocytes % 9.1 %; Neutrophils # 3.65 10^3/uL (1.8-7.7); Neutrophils % 66.7 %; Nucleated Red Blood Cells % 0 %; Platelet Count 261 10^3/cmm (130-400); Red Blood Count 4.46 10^6/uL (4.1-5.3); Red Cell Distribution Width 13.7 % (12.1-15.1); White Blood Count 5.5 10^3/uL (4.0-10.0)
[2021-12-24 09:03] LABS: Alanine Aminotransferase 12 U/L (0-41); Alkaline Phosphatase 91 IU/L (40-130); Aspartate Amino Transferase 16 U/L (0-40); Blood Urea Nitrogen 15 mg/dL (8-23); Calcium 8.7 mg/dL (8.5-10.5); Carbon Dioxide 25 mmol/L (22-29); Chloride 102 mmol/L (98-107); Globulin 3.2 g/dL (1.3-4.6); Glucose 105 mg/dL (65-115); Osmolality Calculated 287 mOsm/kg (285-295); Sodium 138 mmol/L (136-145); Total Bilirubin 0.4 mg/dL (0.15-1.2); Total Protein 7.2 g/dL (6.6-8.7)
[2021-12-24 09:21] LABS: Anion Gap 15.4 (5-19); Potassium 4.4 mmol/L (3.5-5.1)
[2021-12-24] MEDS: acetaminophen 325 mg Tablet 650 MG PO (09:59)
[2021-12-24] MEDS: sodium chloride 0.9% 250 ML 75 ML IV (10:00)
[2021-12-24] MEDS: diphenhydrAMINE 25 mg Capsule PO (10:00)
[2021-12-24] MEDS: [UNRECOGNIZED DRUG - OTHER] IV (10:22)
[2021-12-24] MEDS: SODIUM CHLORIDE 0.9% IV (10:22)
[2021-12-24 11:40] VITALS: BP 137/80; PULSE 69; RESP 18; TEMP 36.7; O2SAT 97
[2022-01-07] MEDS: acetaminophen 325 mg Tablet 650 MG PO (13:32)
[2022-01-07] MEDS: diphenhydrAMINE 25 mg Capsule PO (13:33)
[2022-01-07] MEDS: [UNRECOGNIZED DRUG - OTHER] IV (14:02)
[2022-01-07] MEDS: SODIUM CHLORIDE 0.9% IV (14:02)
[2022-01-07 14:08] VITALS: BP 145/78; PULSE 74; RESP 18; TEMP 36.6; O2SAT 99
== END 2022-01-19 23:59 | disposition home or self-care (01) ==
PROVIDERS: PCP Nurse Practitioner Family; Referring Provider Internal Medicine Medical Oncology; Visit Provider Nurse Practitioner Family
DX: Z51.12 Encounter for antineoplastic immunotherapy (principal); C4A.72 Merkel cell carcinoma of left lower limb, including hip; C79.51 Secondary malignant neoplasm of bone; R53.83 Other fatigue; Z79.899 Other long term (current) drug therapy
CPT/HCPCS: 80053; 85025; 96413; 99215; J7050; J9023

== ENCOUNTER 2022-02-18 08:00 | Oncology outpatient (recurring) (ONCR) | payer MEDICARE, OTHER, SELFPAY ==
[2022-01-21 13:42] VITALS: BP 133/67; PULSE 69; RESP 16; TEMP 37.2; O2SAT 94
[2022-01-21] MEDS: acetaminophen 325 mg Tablet 650 MG PO (13:56)
[2022-01-21] MEDS: diphenhydrAMINE 25 mg Capsule PO (13:56)
[2022-01-21] MEDS: [UNRECOGNIZED DRUG - OTHER] IV (13:57)
[2022-01-21] MEDS: SODIUM CHLORIDE 0.9% IV (13:57)
[2022-01-21 15:01] VITALS: BP 134/77; PULSE 64; RESP 16; TEMP 37.1; O2SAT 97
[2022-02-04] MEDS: acetaminophen 325 mg Tablet 650 MG PO (13:43)
[2022-02-04] MEDS: diphenhydrAMINE 25 mg Capsule PO (13:44)
[2022-02-04] MEDS: SODIUM CHLORIDE 0.9% IV (13:55)
[2022-02-04] MEDS: [UNRECOGNIZED DRUG - OTHER] IV (13:55)
[2022-02-04 15:31] VITALS: BP 146/53; PULSE 73; RESP 16; TEMP 36.9; O2SAT 97
[2022-02-18 08:27] LABS: Basophils % 0.5 %; Eosinophils # 0.1 10^3/uL (0.0-0.8); Eosinophils % 2.3 %; Lymphocytes # 1.1 10^3/uL (0.8-4.8); Mean Corpuscular HGB Conc 34.9 g/dL (30.0-36.0); Mean Corpuscular Hemoglobin 33.1 pg (28.0-34.0); Mean Corpuscular Volume 94.9 fl (80-94); Monocytes # 0.4 10^3/uL (0.2-0.9); Monocytes % 5.9 %; Neutrophils % 72.1 %; Nucleated Red Blood Cells % 0 %; Platelet Count 233 10^3/cmm (130-400); Red Blood Count 4.53 10^6/uL (4.1-5.3); Red Cell Distribution Width 12.9 % (12.1-15.1)
[2022-02-18 08:56] LABS: Alanine Aminotransferase 12 U/L (0-41); Albumin Level 3.8 g/dL (3.5-5.2); Alkaline Phosphatase 91 U/L (40-130); Blood Urea Nitrogen 16 mg/dL (8-23); Calcium 8.6 mg/dL (8.5-10.5); Carbon Dioxide 24 mmol/L (22-29); Chloride 104 mmol/L (98-107); Globulin 2.9 g/dL (1.3-4.6); Glucose 150 mg/dL (65-115); Osmolality Calculated 288 mOsm/kg (285-295); Sodium 137 mmol/L (136-145); Thyroid Stimulating Hormone 1.12 uIU/mL (0.27-4.20); Total Bilirubin 0.4 mg/dL (0.15-1.2); Total Protein 6.7 g/dL (6.6-8.7)
[2022-02-18 09:04] LABS: Aspartate Amino Transferase 14 U/L (0-40)
[2022-02-18] MEDS: acetaminophen 325 mg Tablet 650 MG PO (10:14)
[2022-02-18] MEDS: diphenhydrAMINE 25 mg Capsule PO (10:14)
[2022-02-18] MEDS: [UNRECOGNIZED DRUG - OTHER] IV (10:18)
[2022-02-18] MEDS: SODIUM CHLORIDE 0.9% IV (10:18)
[2022-02-18 11:29] VITALS: BP 144/81; PULSE 57; RESP 16; TEMP 36.7; O2SAT 99
== END 2022-02-19 23:59 | disposition home or self-care (01) ==
PROVIDERS: Nurse Practitioner; PCP Nurse Practitioner Family; Referring Provider Internal Medicine Medical Oncology; Visit Provider Nurse Practitioner Family
DX: Z51.12 Encounter for antineoplastic immunotherapy (principal); C4A.72 Merkel cell carcinoma of left lower limb, including hip; C79.51 Secondary malignant neoplasm of bone; Z79.899 Other long term (current) drug therapy; R53.83 Other fatigue; Z92.3 Personal history of irradiation
CPT/HCPCS: 80053; 84443; 85025; 96413; 96415; 99214; 99215; J7050; J9023

== ENCOUNTER 2022-03-18 14:00 | Oncology outpatient (recurring) (ONCR) | payer MEDICARE, OTHER, SELFPAY ==
[2022-03-04 13:11] VITALS: BP 158/81; PULSE 62; RESP 16; TEMP 36.8; O2SAT 98
[2022-03-04] MEDS: diphenhydrAMINE 25 mg Capsule PO (13:34)
[2022-03-04] MEDS: acetaminophen 325 mg Tablet 650 MG PO (13:34)
[2022-03-04] MEDS: [UNRECOGNIZED DRUG - OTHER] IV (13:35)
[2022-03-04] MEDS: SODIUM CHLORIDE 0.9% IV (13:35)
[2022-03-04 14:44] VITALS: BP 162/88; PULSE 66; RESP 16; TEMP 37; O2SAT 95
[2022-03-18 13:43] VITALS: BP 137/73; PULSE 62; RESP 16; TEMP 37.2; O2SAT 96
[2022-03-18] MEDS: acetaminophen 325 mg Tablet 650 MG PO (13:55)
[2022-03-18] MEDS: sodium chloride 0.9% 250 ML 75 ML IV (13:55)
[2022-03-18] MEDS: diphenhydrAMINE 25 mg Capsule PO (13:56)
[2022-03-18] MEDS: SODIUM CHLORIDE 0.9% IV (14:12)
[2022-03-18] MEDS: [UNRECOGNIZED DRUG - OTHER] IV (14:12)
[2022-03-18 15:15] VITALS: BP 153/74; PULSE 53; RESP 15; TEMP 37.2; O2SAT 96
== END 2022-03-21 23:59 | disposition home or self-care (01) ==
PROVIDERS: PCP Nurse Practitioner Family; Visit Provider Internal Medicine Medical Oncology
DX: Z51.12 Encounter for antineoplastic immunotherapy (principal); C4A.72 Merkel cell carcinoma of left lower limb, including hip; C79.51 Secondary malignant neoplasm of bone; Z79.899 Other long term (current) drug therapy; R53.83 Other fatigue
CPT/HCPCS: 96413; J7050; J9023

== ENCOUNTER 2022-04-01 12:52 | Oncology outpatient (recurring) (ONCR) | payer MEDICARE, OTHER, SELFPAY ==
[2022-04-01 12:58] VITALS: BP 123/66; PULSE 60; RESP 16; TEMP 36.8; O2SAT 97
[2022-04-01] MEDS: acetaminophen 325 mg Tablet 650 MG PO (13:06)
[2022-04-01] MEDS: diphenhydrAMINE 25 mg Capsule PO (13:07)
[2022-04-01] MEDS: SODIUM CHLORIDE 0.9% IV (13:20)
[2022-04-01] MEDS: [UNRECOGNIZED DRUG - OTHER] IV (13:20)
[2022-04-01 14:30] VITALS: BP 150/74; PULSE 58; RESP 16; TEMP 36.7; O2SAT 99
== END 2022-04-21 23:59 | disposition home or self-care (01) ==
PROVIDERS: PCP Nurse Practitioner Family; Visit Provider Internal Medicine Medical Oncology
DX: Z51.12 Encounter for antineoplastic immunotherapy (principal); C4A.72 Merkel cell carcinoma of left lower limb, including hip; C79.51 Secondary malignant neoplasm of bone; Z79.899 Other long term (current) drug therapy; R53.83 Other fatigue
CPT/HCPCS: 96413; J7050; J9023

== ENCOUNTER 2022-05-08 13:00 | Oncology outpatient (recurring) (ONCR) | payer MEDICARE, OTHER, SELFPAY ==
[2022-04-24 08:42] LABS: Basophils % 0.8 %; Eosinophils # 0.1 10^3/uL (0.0-0.8); Eosinophils % 2.1 %; Hemoglobin 14.6 g/dL (11.7-16.6); Lymphocytes % 19.3 %; Mean Corpuscular HGB Conc 34.8 g/dL (30.0-36.0); Mean Corpuscular Volume 94.8 fl (80-94); Monocytes # 0.5 10^3/uL (0.2-0.9); Monocytes % 9.8 %; Neutrophils # 3.46 10^3/uL (1.8-7.7); Neutrophils % 67.6 %; Nucleated Red Blood Cells % 0 %; Platelet Count 258 10^3/cmm (130-400); Red Blood Count 4.43 10^6/uL (4.1-5.3); Red Cell Distribution Width 13.2 % (12.1-15.1); White Blood Count 5.1 10^3/uL (4.0-10.0)
[2022-04-24 09:09] LABS: Alanine Aminotransferase 14 U/L (0-41); Alkaline Phosphatase 87 U/L (40-130); Aspartate Amino Transferase 17 U/L (0-40); Blood Urea Nitrogen 18 mg/dL (8-23); Carbon Dioxide 26 mmol/L (22-29); Chloride 103 mmol/L (98-107); Creatinine Clr Calc Pharmacy 94.7175; Globulin 3.1 g/dL (1.3-4.6); Glucose 106 mg/dL (65-115); Osmolality Calculated 286 mOsm/kg (285-295); Sodium 137 mmol/L (136-145); Thyroid Stimulating Hormone 1.18 uIU/mL (0.27-4.20); Total Bilirubin 0.3 mg/dL (0.15-1.2); Total Protein 7.1 g/dL (6.6-8.7)
[2022-04-24 09:53] LABS: Anion Gap 12.2 (5-19); Potassium 4.2 mmol/L (3.5-5.1)
[2022-04-24] MEDS: acetaminophen 325 mg Tablet 650 MG PO (11:14)
[2022-04-24] MEDS: diphenhydrAMINE 25 mg Capsule PO (11:15)
[2022-04-24] MEDS: SODIUM CHLORIDE 0.9% IV (11:39)
[2022-04-24] MEDS: [UNRECOGNIZED DRUG - OTHER] IV (11:39)
[2022-04-24 12:30] VITALS: BP 132/78; PULSE 78; RESP 18; TEMP 36.6; O2SAT 97
[2022-04-24 12:40] VITALS: BP 135/78; PULSE 78; RESP 18; TEMP 36.6; O2SAT 97
[2022-05-08 09:55] LABS: Basophils % 0.3 %; Eosinophils # 0.1 10^3/uL (0.0-0.8); Eosinophils % 1.9 %; Hematocrit 41.9 % (42.0-52.0); Hemoglobin 14.4 g/dL (11.7-16.6); Lymphocytes % 17.9 %; Mean Corpuscular HGB Conc 34.4 g/dL (30.0-36.0); Mean Corpuscular Hemoglobin 32.4 pg (28.0-34.0); Mean Corpuscular Volume 94.4 fl (80-94); Mean Platelet Volume 8.8 fL (7.4-10.4); Monocytes # 0.6 10^3/uL (0.2-0.9); Monocytes % 9.5 %; Neutrophils # 4.06 10^3/uL (1.8-7.7); Neutrophils % 70.1 %; Nucleated Red Blood Cells % 0 %; Platelet Count 230 10^3/cmm (130-400); Red Blood Count 4.44 10^6/uL (4.1-5.3); Red Cell Distribution Width 13.1 % (12.1-15.1); White Blood Count 5.8 10^3/uL (4.0-10.0)
[2022-05-08 10:27] LABS: Alanine Aminotransferase 18 U/L (0-41); Albumin Level 4.1 g/dL (3.5-5.2); Alkaline Phosphatase 88 U/L (40-130); Anion Gap 14.2 (5-19); Aspartate Amino Transferase 21 U/L (0-40); Blood Urea Nitrogen 20 mg/dL (8-23); Calcium 9.1 mg/dL (8.5-10.5); Carbon Dioxide 26 mmol/L (22-29); Chloride 103 mmol/L (98-107); Creatinine Clr Calc Pharmacy 94.7175; Globulin 3.4 g/dL (1.3-4.6); Glucose 132 mg/dL (65-115); Osmolality Calculated 292 mOsm/kg (285-295); Potassium 4.2 mmol/L (3.5-5.1); Sodium 139 mmol/L (136-145); Total Bilirubin 0.5 mg/dL (0.15-1.2); Total Protein 7.5 g/dL (6.6-8.7)
[2022-05-08 10:42] VITALS: BMI 31.5
[2022-05-08] MEDS: diphenhydrAMINE 25 mg Capsule PO (11:10)
[2022-05-08] MEDS: acetaminophen 325 mg Tablet 650 MG PO (11:10)
[2022-05-08] MEDS: sodium chloride 0.9% 250 ML 100 ML IV (11:10)
[2022-05-08] MEDS: SODIUM CHLORIDE 0.9% IV (11:21)
[2022-05-08] MEDS: [UNRECOGNIZED DRUG - OTHER] IV (11:21)
[2022-05-08 12:42] VITALS: BP 154/64; PULSE 64; RESP 18; TEMP 36.7; O2SAT 98
== END 2022-05-09 09:08 | disposition home or self-care (01) ==
PROVIDERS: PCP Nurse Practitioner Family; Visit Provider Internal Medicine Medical Oncology
DX: Z51.12 Encounter for antineoplastic immunotherapy (principal); C4A.72 Merkel cell carcinoma of left lower limb, including hip; C77.8 Secondary and unspecified malignant neoplasm of lymph nodes of multiple regions; C79.51 Secondary malignant neoplasm of bone; Z79.899 Other long term (current) drug therapy; Z92.3 Personal history of irradiation; Z92.21 Personal history of antineoplastic chemotherapy
CPT/HCPCS: 80053; 84443; 85025; 96413; 99214; J7050; J9023

== ENCOUNTER 2022-05-20 12:20 | Oncology outpatient (recurring) (ONCR) | payer MEDICARE, OTHER, SELFPAY ==
[2022-05-20] MEDS: diphenhydrAMINE 25 mg Capsule PO (12:40)
[2022-05-20] MEDS: acetaminophen 325 mg Tablet 650 MG PO (12:41)
[2022-05-20] MEDS: SODIUM CHLORIDE 0.9% IV (13:02)
[2022-05-20] MEDS: [UNRECOGNIZED DRUG - OTHER] IV (13:02)
[2022-05-20 14:14] VITALS: BP 134/71; PULSE 67; RESP 16; TEMP 36.4; O2SAT 96
== END 2022-05-21 23:59 | disposition home or self-care (01) ==
PROVIDERS: PCP Nurse Practitioner Family; Visit Provider Internal Medicine Medical Oncology
DX: Z51.12 Encounter for antineoplastic immunotherapy (principal); C4A.72 Merkel cell carcinoma of left lower limb, including hip; C77.8 Secondary and unspecified malignant neoplasm of lymph nodes of multiple regions; C79.51 Secondary malignant neoplasm of bone; Z79.899 Other long term (current) drug therapy; Z92.3 Personal history of irradiation; Z92.21 Personal history of antineoplastic chemotherapy
CPT/HCPCS: 96365; J7050; J9023

== ENCOUNTER 2022-05-27 14:24 | Outpatient (CLI) | payer MEDICARE, OTHER, SELFPAY ==
[2022-05-27] MEDS: iohexol 350 mg/mL 100 mL Btl IV (15:03)
--- NOTE | 2022-05-27 16:00 | CT_ITS ---
WS: [id number] EXAMINATION: CT pelvis w con* [id number] REASON FOR EXAM: Follow-up for abnormal PET/CT COMPARISON: 10/06/2021 CT abdomen and pelvis IV CONTRAST ADMINISTERED: Omnipaque 350 95 ml TOTAL EXAM DLP: 815.[address] scans at [facility] use at least one of these dose optimization techniques: automated e xposure control; mA and/or kV adjustment per patient size (includes targeted exams where dose is matc hed to clinical indication); or iterative reconstruction. FINDINGS: There is chronic atherosclerotic calcified plaque in the aorta and iliac vessels. The visualized margie l pattern is unremarkable. The presence of scattered diverticula especially in the sigmoid segment is noted without acute diverticulitis. The urinary bladder outline is normal. There is slightly heterog enous prostate enlargement. Marked degenerative changes seen at the partially visualized L3-4 and more completely visualized L4-5 disc spaces both with vacuum disc change. CT/CT pelvis w con* [id number] IMPRESSION: No acute abnormality. No interval change compared with the prior study.
== END 2022-05-27 14:25 | disposition home or self-care (01) ==
LOC: RAD 14:26
PROVIDERS: PCP Nurse Practitioner Family; Visit Provider Internal Medicine Medical Oncology
DX: C4A.72 Merkel cell carcinoma of left lower limb, including hip (principal)
CPT/HCPCS: 72193; Q9967

== ENCOUNTER 2022-06-18 09:39 | Oncology outpatient (recurring) (ONCR) | payer MEDICARE, OTHER, SELFPAY ==
[2022-06-05 10:04] LABS: Basophils % 0.5 %; Eosinophils # 0.1 10^3/uL (0.0-0.8); Eosinophils % 1.6 %; Hematocrit 41.3 % (42.0-52.0); Hemoglobin 14.6 g/dL (11.7-16.6); Lymphocytes % 22.7 %; Mean Corpuscular HGB Conc 35.4 g/dL (30.0-36.0); Mean Corpuscular Hemoglobin 33.3 pg (28.0-34.0); Mean Corpuscular Volume 94.3 fl (80-94); Monocytes # 0.4 10^3/uL (0.2-0.9); Monocytes % 10.1 %; Neutrophils # 2.83 10^3/uL (1.8-7.7); Neutrophils % 64.9 %; Nucleated Red Blood Cells % 0 %; Platelet Count 223 10^3/cmm (130-400); Red Blood Count 4.38 10^6/uL (4.1-5.3); Red Cell Distribution Width 13.1 % (12.1-15.1); White Blood Count 4.4 10^3/uL (4.0-10.0)
[2022-06-05 10:30] LABS: Alanine Aminotransferase 13 U/L (0-41); Albumin Level 4.3 g/dL (3.5-5.2); Alkaline Phosphatase 82 U/L (40-130); Anion Gap 14.2 (5-19); Aspartate Amino Transferase 16 U/L (0-40); Blood Urea Nitrogen 18 mg/dL (8-23); Calcium 8.6 mg/dL (8.5-10.5); Carbon Dioxide 25 mmol/L (22-29); Chloride 105 mmol/L (98-107); Globulin 2.9 g/dL (1.3-4.6); Glucose 120 mg/dL (65-115); Osmolality Calculated 293 mOsm/kg (285-295); Potassium 4.2 mmol/L (3.5-5.1); Sodium 140 mmol/L (136-145); Thyroid Stimulating Hormone 1.34 uIU/mL (0.27-4.20); Total Bilirubin 0.3 mg/dL (0.15-1.2); Total Protein 7.2 g/dL (6.6-8.7)
[2022-06-05] MEDS: sodium chloride 0.9% 250 ML 100 ML IV (11:08)
[2022-06-05] MEDS: acetaminophen 325 mg Tablet 650 MG PO (11:09)
[2022-06-05] MEDS: diphenhydrAMINE 25 mg Capsule PO (11:09)
[2022-06-05] MEDS: [UNRECOGNIZED DRUG - OTHER] IV (11:15)
[2022-06-05] MEDS: SODIUM CHLORIDE 0.9% IV (11:15)
[2022-06-05 12:40] VITALS: BP 153/87; PULSE 64; RESP 18; TEMP 36.9; O2SAT 97
[2022-06-18 10:15] VITALS: BP 146/74; PULSE 66; RESP 16; TEMP 36.6; O2SAT 96
[2022-06-18 10:46] LABS: Basophils % 0.4 %; Eosinophils # 0.1 10^3/uL (0.0-0.8); Eosinophils % 1.6 %; Hematocrit 39.7 % (42.0-52.0); Hemoglobin 14.1 g/dL (11.7-16.6); Lymphocytes % 17.5 %; Mean Corpuscular HGB Conc 35.5 g/dL (30.0-36.0); Mean Corpuscular Hemoglobin 33.4 pg (28.0-34.0); Mean Corpuscular Volume 94.1 fl (80-94); Mean Platelet Volume 8.7 fL (7.4-10.4); Monocytes # 0.4 10^3/uL (0.2-0.9); Monocytes % 7.4 %; Neutrophils # 4.17 10^3/uL (1.8-7.7); Neutrophils % 72.9 %; Nucleated Red Blood Cells % 0 %; Platelet Count 237 10^3/cmm (130-400); Red Blood Count 4.22 10^6/uL (4.1-5.3); Red Cell Distribution Width 13.1 % (12.1-15.1); White Blood Count 5.7 10^3/uL (4.0-10.0)
[2022-06-18 11:01] LABS: INR 0.95 (0.8-1.2); Partial Thromboplastin Time 28.1 SECONDS (23.9-36.7)
[2022-06-18] MEDS: diphenhydrAMINE 25 mg Capsule PO (11:12)
[2022-06-18] MEDS: acetaminophen 325 mg Tablet 650 MG PO (11:12)
[2022-06-18] MEDS: [UNRECOGNIZED DRUG - OTHER] IV (11:12)
[2022-06-18] MEDS: SODIUM CHLORIDE 0.9% IV (11:12)
[2022-06-18 11:13] LABS: Alanine Aminotransferase 14 U/L (0-41); Albumin Level 4.1 g/dL (3.5-5.2); Alkaline Phosphatase 83 U/L (40-130); Aspartate Amino Transferase 15 U/L (0-40); Blood Urea Nitrogen 18 mg/dL (8-23); Calcium 8.9 mg/dL (8.5-10.5); Carbon Dioxide 25 mmol/L (22-29); Chloride 106 mmol/L (98-107); Globulin 3.1 g/dL (1.3-4.6); Glucose 146 mg/dL (65-115); Osmolality Calculated 297 mOsm/kg (285-295); Sodium 141 mmol/L (136-145); Total Bilirubin 0.3 mg/dL (0.15-1.2); Total Protein 7.2 g/dL (6.6-8.7)
[2022-06-18 12:22] VITALS: BP 138/74; PULSE 64; RESP 16; TEMP 37.1; O2SAT 95
== END 2022-06-21 23:59 | disposition home or self-care (01) ==
PROVIDERS: PCP Nurse Practitioner Family; Visit Provider Internal Medicine Medical Oncology
DX: C4A.72 Merkel cell carcinoma of left lower limb, including hip (principal); Z51.12 Encounter for antineoplastic immunotherapy; Z01.818 Encounter for other preprocedural examination; Z79.899 Other long term (current) drug therapy
CPT/HCPCS: 80053; 84443; 85025; 85610; 85730; 96413; 99214; J7050; J9023

== ENCOUNTER 2022-07-21 14:00 | Oncology outpatient (recurring) (ONCR) | payer MEDICARE, OTHER, SELFPAY ==
--- NOTE | 2022-07-02 08:56 | N.ONRAD NP_ITS ---
Radiation Oncology Consultation Patient Name: Bebeto Lang Date of : 1950 Date of Service: 07/02/2022 Attending Physician: David Dorsey M.D. Bebeto Lang was seen in consultation this morning at the request of Aman Martínez M.D. for consideration of palliative radiotherapy. 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 A staging PET scan identified a left prepatellar soft tissue mass, left inguinal lymph node, left external iliac lymph node, and a destructive lytic lesion of L3 vertebral body. An ultrasound-guided fine-needle aspiration of the left inguinal lymph node confirmed metastatic disease. Radiotherapy was administered to the prepatellar soft tissue mass, left inguinal lymph node, and L3. He was prescribed immunotherapy (Avelumab) in March of 2017. His most recent infusion was June 18, 2022. A restaging PET scan (independently reviewed in [employer]) ordered on April 12, 2022 described a 1.7 cm left external iliac lymph node (SUV 2.8) and a 6 mm right middle lobe nodule. A pelvic CT scan on May 27, 2022 reported an increase in size of the lymph node that measured 2.1 cm x 1.4 cm. A biopsy of the left external iliac lymph node performed at [facility] was positive for [place] cell carcinoma. The patient was evaluated for radiotherapy to the external iliac lymph node. I would recommend stereotactic ablative body radiotherapy to the site of metastatic disease. A computed tomographic radiotherapy planning scan will be performed to identify the gross tumor volume. The potential toxicities of thoracic radiotherapy were reviewed. The patient has verbalized understanding would like to proceed as recommended. The patient's medical treatment plan was discussed with Aman Martínez M.D. Signed by: Dr. David Dorsey 07/02/2022 8:54:41 AM
[2022-07-02 09:37] VITALS: BP 123/80; PULSE 55; RESP 16; TEMP 36.8; O2SAT 96
[2022-07-02] MEDS: diphenhydrAMINE 25 mg Capsule PO (09:44)
[2022-07-02] MEDS: acetaminophen 325 mg Tablet 650 MG PO (09:44)
[2022-07-02] MEDS: SODIUM CHLORIDE 0.9% IV (09:47)
[2022-07-02] MEDS: [UNRECOGNIZED DRUG - OTHER] IV (09:47)
[2022-07-02 11:12] VITALS: BP 130/71; PULSE 61; RESP 16; TEMP 36.8; O2SAT 97
--- NOTE | 2022-07-09 | CT_ITS ---
Radiation Therapy Planning CT images; total exam DLP: 695.96 mGy-cm MTDD
== END 2022-07-22 23:59 | disposition home or self-care (01) ==
PROVIDERS: PCP Nurse Practitioner Family; Visit Provider Radiology Radiation Oncology
DX: Z51.0 Encounter for antineoplastic radiation therapy (principal); C4A.72 Merkel cell carcinoma of left lower limb, including hip; C79.51 Secondary malignant neoplasm of bone; C77.8 Secondary and unspecified malignant neoplasm of lymph nodes of multiple regions; Z79.899 Other long term (current) drug therapy
CPT/HCPCS: 77295; 77300; 77334; 77373; 77470; 96413; 99024; 99205; J7050; J9023

== ENCOUNTER 2022-08-13 09:05 | Oncology outpatient (recurring) (ONCR) | payer MEDICARE, OTHER, SELFPAY ==
--- NOTE | 2022-07-25 08:23 | N.ONRD TS_ITS ---
SABR Treatment Summary Patient Name: Bebeto Lang Date of : 1950 Date of Service: 07/25/2022 Attending Physician: David Dorsey M.D. Bebeto Lang has completed stereotactic ablative body radiotherapy for the management of metastatic Erik cell carcinoma. He was diagnosed in October of 2016 with a stage IV [place] cell carcinoma following an evaluation for an enlarging left knee mass at [facility] in [place], [place]. A staging PET scan identified a left prepatellar soft tissue mass, left inguinal lymph node, left external iliac lymph node, and a destructive lytic lesion of L3 vertebral body. An ultrasound-guided fine-needle aspiration of the left inguinal lymph node confirmed metastatic disease. Radiotherapy was administered to the prepatellar soft tissue mass, left inguinal lymph node, and L3. He was prescribed immunotherapy (Avelumab) in March of 2017. His most recent infusion was June 18, 2022. A restaging PET scan ordered on April 12, 2022 described a 1.7 cm left external iliac lymph node (SUV 2.8) and a 6 mm right middle lobe nodule. A pelvic CT scan on May 27, 2022 reported an increase in size of the lymph node that measured 2.1 cm x 1.4 cm. A biopsy of the left external iliac lymph node performed at [facility] was positive for Erik cell carcinoma. SABR was delivered between the dates of July 21, 2022 through July 25, 2022. A prescribed dose of 30 Gy was delivered in three fractions encompassing 5 elapsed days. The left external iliac lymph node was treated utilizing a 3-dimensional radiotherapy plan with a step and shoot treatment technique. The plan required five gantry angles (0???, 30???, 60???, 120???, and 150???) with a collimator rotation of 0??? in a partial arc design. The field size spanned 5 cm x 5 cm. The SSDs measured a minimum of 82.8 cm to a maximum of 86.9 cm. The ports delivered 257 MU, 256 MU, 271 MU, 342 MU, and 354 MU corresponding to the gantry angles described. High-energy photons were prescribed. All treatments were performed with the [employer]views linear accelerator and an isocentric technique. Low energy photons were prescribed. The dose was calculated by Anisotropic Analytic Algorithm with the plan normalized to deliver 100% of the prescription dose to 100% of the planning target volume. Signed by: Dr. David Dorsey 07/25/2022 8:21:41 AM
--- NOTE | 2022-07-25 09:09 | ONCRAD TMN_ITS ---
SABR Treatment Management Note Patient Name: Bebeto Lang Date of : 1950 Date of Service: 07/25/2022 Attending Physician: David Dorsey M.D. Bebeto Lang is a 72 year-old white male diagnosed with metastatic [place] cell carcinoma. He was diagnosed in October of 2016 with a stage IV [place] cell carcinoma following an evaluation for an enlarging left knee mass at [facility] in [place], [place]. A staging PET scan identified a left prepatellar soft tissue mass, left inguinal lymph node, left external iliac lymph node, and a destructive lytic lesion of L3 vertebral body. An ultrasound-guided fine-needle aspiration of the left inguinal lymph node confirmed metastatic disease. Radiotherapy was administered to the prepatellar soft tissue mass, left inguinal lymph node, and L3. He was prescribed immunotherapy (Avelumab) in March of 2017. His most recent infusion was June 18, 2022. A restaging PET scan ordered on April 12, 2022 described a 1.7 cm left external iliac lymph node (SUV 2.8) and a 6 mm right middle lobe nodule. A pelvic CT scan on May 27, 2022 reported an increase in size of the lymph node that measured 2.1 cm x 1.4 cm. A biopsy of the left external iliac lymph node performed at [facility] was positive for [place] cell carcinoma. The patient has received 30 Gy of a prescribed 30 [place] (SABR) delivered with an intensity modulated radiotherapy plan utilizing a step and shoot treatment technique. Upon review of systems, he denied any complaints. On physical examination, the patient weighed 208 lbs. His temperature was 97.7 ???F and the blood pressure was 152/71 mmHg. The pulse was 59 bpm and his respiratory rate was 17. Stereotactic ablative body radiotherapy was completed today. He will return for post-radiotherapy evaluation in 1 month. Signed by: Dr. David Dorsey 07/25/2022 9:07:38 AM
[2022-07-30 09:27] LABS: Basophils % 0.6 %; Eosinophils # 0.1 10^3/uL (0.0-0.8); Eosinophils % 2.3 %; Hematocrit 41.6 % (42.0-52.0); Hemoglobin 14.3 g/dL (11.7-16.6); Lymphocytes % 20.4 %; Mean Corpuscular HGB Conc 34.4 g/dL (30.0-36.0); Mean Corpuscular Hemoglobin 32.3 pg (28.0-34.0); Mean Corpuscular Volume 93.9 fl (80-94); Mean Platelet Volume 8.8 fL (7.4-10.4); Monocytes # 0.4 10^3/uL (0.2-0.9); Monocytes % 7.7 %; Neutrophils # 3.22 10^3/uL (1.8-7.7); Neutrophils % 68.6 %; Nucleated Red Blood Cells % 0 %; Platelet Count 240 10^3/cmm (130-400); Red Blood Count 4.43 10^6/uL (4.1-5.3); Red Cell Distribution Width 12.8 % (12.1-15.1); White Blood Count 4.7 10^3/uL (4.0-10.0)
[2022-07-30 09:57] LABS: Alanine Aminotransferase 11 U/L (0-41); Albumin Level 4.2 g/dL (3.5-5.2); Alkaline Phosphatase 91 U/L (40-130); Chloride 104 mmol/L (98-107); Potassium 4.1 mmol/L (3.5-5.1); Sodium 140 mmol/L (136-145); Thyroid Stimulating Hormone 1.54 uIU/mL (0.27-4.20)
[2022-07-30 10:21] LABS: Anion Gap 16.1 (5-19); Aspartate Amino Transferase 17 U/L (0-40); Blood Urea Nitrogen 21 mg/dL (8-23); Carbon Dioxide 24 mmol/L (22-29); Globulin 3.1 g/dL (1.3-4.6); Glucose 160 mg/dL (65-115); Osmolality Calculated 296 mOsm/kg (285-295); Total Bilirubin 0.4 mg/dL (0.15-1.2); Total Protein 7.3 g/dL (6.6-8.7)
[2022-07-30] MEDS: sodium chloride 0.9% 250 ML 75 ML IV (11:33)
[2022-07-30] MEDS: acetaminophen 325 mg Tablet 650 MG PO (11:34)
[2022-07-30] MEDS: diphenhydrAMINE 25 mg Capsule PO (11:34)
[2022-07-30] MEDS: [UNRECOGNIZED DRUG - OTHER] IV (11:58)
[2022-07-30] MEDS: SODIUM CHLORIDE 0.9% IV (11:58)
[2022-07-30 13:04] VITALS: BP 159/83; PULSE 69; RESP 16; TEMP 36.8; O2SAT 95
[2022-08-13 09:49] VITALS: BP 132/72; PULSE 58; RESP 16; TEMP 37; O2SAT 95
[2022-08-13] MEDS: acetaminophen 325 mg Tablet 650 MG PO (09:50)
[2022-08-13] MEDS: diphenhydrAMINE 25 mg Capsule PO (09:51)
[2022-08-13] MEDS: sodium chloride 0.9% 250 ML 75 ML IV (09:52)
[2022-08-13] MEDS: SODIUM CHLORIDE 0.9% IV (09:54)
[2022-08-13] MEDS: [UNRECOGNIZED DRUG - OTHER] IV (09:54)
[2022-08-13 11:03] VITALS: BP 154/84; PULSE 65; RESP 14; TEMP 37.2; O2SAT 97
== END 2022-08-19 23:59 | disposition home or self-care (01) ==
PROVIDERS: Internal Medicine Medical Oncology; PCP Nurse Practitioner Family; Visit Provider Specialist
DX: Z51.12 Encounter for antineoplastic immunotherapy (principal); C4A.72 Merkel cell carcinoma of left lower limb, including hip; C79.51 Secondary malignant neoplasm of bone; Z79.899 Other long term (current) drug therapy; Z92.21 Personal history of antineoplastic chemotherapy; Z92.3 Personal history of irradiation
CPT/HCPCS: 77336; 77373; 80053; 84443; 85025; 96413; 99024; 99214; J7050; J9023

== ENCOUNTER 2022-09-11 08:14 | Oncology outpatient (recurring) (ONCR) | payer MEDICARE, OTHER, SELFPAY ==
[2022-08-27 09:08] VITALS: BP 149/78; PULSE 54; RESP 16; TEMP 36.7; O2SAT 98
--- NOTE | 2022-08-27 09:08 | ONCRAD EPV_ITS ---
Radiation Oncology Follow-Up Note Patient Name: Bebeto Lang Date of : 1950 Date of Service: 08/27/2022 Attending Physician: David Dorsey M.D. Bebeto Lang returned to my office this morning for a routinely scheduled follow-up appointment. He completed stereotactic ablative body radiotherapy in July for the Bebeto Lang has completed stereotactic ablative body radiotherapy for the management of metastatic Erik cell carcinoma. 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 A staging PET scan identified a left prepatellar soft tissue mass, left inguinal lymph node, left external iliac lymph node, and a destructive lytic lesion of L3 vertebral body. An ultrasound-guided fine-needle aspiration of the left inguinal lymph node confirmed metastatic disease. Radiotherapy was administered to the prepatellar soft tissue mass, left inguinal lymph node, and L3. He was prescribed immunotherapy (Avelumab) in March of 2017. His most recent infusion was June 18, 2022. A restaging PET scan ordered on April 12, 2022 described a 1.7 cm left external iliac lymph node (SUV 2.8) and a 6 mm right middle lobe nodule. A pelvic CT scan on May 27, 2022 reported an increase in size of the lymph node that measured 2.1 cm x 1.4 cm. A biopsy of the left external iliac lymph node performed at [facility] was positive for Preston cell carcinoma. SABR was delivered between the dates of July 21, 2022 through July 25, 2022. A prescribed dose of 30 Gy was delivered in three fractions encompassing 5 elapsed days. On review of systems, he denied any new gastrointestinal symptoms. On physical examination, he weighed 213 lbs. The temperature was 98.2???F. His blood pressure was 151/74 mmHg. The pulse was 64 bpm and his respiratory rate was 16 breaths per minute. In summary, Mr. Lang completed SABR in July. He has no residual adverse effects from treatment. He will continue follow-up with medical oncology as scheduled. Signed by: David Dorsey 08/27/2022 9:07:10 AM
[2022-08-27] MEDS: sodium chloride 0.9% 250 ML 75 ML IV (09:46)
[2022-08-27] MEDS: acetaminophen 325 mg Tablet 650 MG PO (09:47)
[2022-08-27] MEDS: diphenhydrAMINE 25 mg Capsule PO (09:47)
[2022-08-27] MEDS: [UNRECOGNIZED DRUG - OTHER] IV (09:53)
[2022-08-27] MEDS: SODIUM CHLORIDE 0.9% IV (09:53)
[2022-08-27 11:22] VITALS: BP 161/80; PULSE 69; RESP 16; TEMP 37; O2SAT 98
[2022-09-11 08:38] LABS: Basophils % 0.6 %; Eosinophils # 0.1 10^3/uL (0.0-0.8); Eosinophils % 2.6 %; Hematocrit 42.7 % (42.0-52.0); Hemoglobin 14.8 g/dL (11.7-16.6); Lymphocytes # 0.9 10^3/uL (0.8-4.8); Lymphocytes % 20.3 %; Mean Corpuscular HGB Conc 34.7 g/dL (30.0-36.0); Mean Corpuscular Hemoglobin 32.2 pg (28.0-34.0); Mean Platelet Volume 8.9 fL (7.4-10.4); Monocytes # 0.4 10^3/uL (0.2-0.9); Monocytes % 8.9 %; Neutrophils % 67.2 %; Nucleated Red Blood Cells % 0 %; Platelet Count 227 10^3/cmm (130-400); Red Blood Count 4.59 10^6/uL (4.1-5.3); Red Cell Distribution Width 13.4 % (12.1-15.1); White Blood Count 4.6 10^3/uL (4.0-10.0)
[2022-09-11 09:11] LABS: Alanine Aminotransferase 14 U/L (0-41); Albumin Level 4.1 g/dL (3.5-5.2); Alkaline Phosphatase 92 U/L (40-130); Anion Gap 14.4 (5-19); Aspartate Amino Transferase 16 U/L (0-40); Blood Urea Nitrogen 17 mg/dL (8-23); Calcium 9.1 mg/dL (8.5-10.5); Carbon Dioxide 25 mmol/L (22-29); Chloride 105 mmol/L (98-107); Creatinine Clr Calc Pharmacy 94.5068; Globulin 3.2 g/dL (1.3-4.6); Glucose 106 mg/dL (65-115); Osmolality Calculated 292 mOsm/kg (285-295); Potassium 4.4 mmol/L (3.5-5.1); Sodium 140 mmol/L (136-145); Thyroid Stimulating Hormone 1.36 uIU/mL (0.27-4.20); Total Bilirubin 0.5 mg/dL (0.15-1.2); Total Protein 7.3 g/dL (6.6-8.7)
[2022-09-11] MEDS: acetaminophen 325 mg Tablet 650 MG PO (10:21)
[2022-09-11] MEDS: diphenhydrAMINE 25 mg Capsule PO (10:21)
[2022-09-11] MEDS: sodium chloride 0.9% 250 ML 100 ML IV (10:21)
[2022-09-11] MEDS: [UNRECOGNIZED DRUG - OTHER] IV (10:48)
[2022-09-11] MEDS: SODIUM CHLORIDE 0.9% IV (10:48)
[2022-09-11 13:22] VITALS: BP 176/77; PULSE 74; TEMP 36.9; O2SAT 95
== END 2022-09-19 23:59 | disposition home or self-care (01) ==
PROVIDERS: Internal Medicine Medical Oncology; PCP Nurse Practitioner Family; Visit Provider Radiology Radiation Oncology
DX: Z51.12 Encounter for antineoplastic immunotherapy (principal); C4A.72 Merkel cell carcinoma of left lower limb, including hip; Z79.899 Other long term (current) drug therapy; C77.8 Secondary and unspecified malignant neoplasm of lymph nodes of multiple regions; Z92.3 Personal history of irradiation; C79.51 Secondary malignant neoplasm of bone
CPT/HCPCS: 36415; 80053; 84443; 85025; 96413; 99024; 99214; J7050; J9023

== ENCOUNTER 2022-10-09 08:11 | Oncology outpatient (recurring) (ONCR) | payer MEDICARE, OTHER, SELFPAY ==
[2022-09-24 12:50] VITALS: BP 147/75; PULSE 62; RESP 16; TEMP 36.9; O2SAT 95
[2022-09-24] MEDS: sodium chloride 0.9% 250 ML 75 ML IV (13:06)
[2022-09-24] MEDS: diphenhydrAMINE 25 mg Capsule PO (13:09)
[2022-09-24] MEDS: acetaminophen 325 mg Tablet 650 MG PO (13:09)
[2022-09-24] MEDS: [UNRECOGNIZED DRUG - OTHER] IV (13:19)
[2022-09-24] MEDS: SODIUM CHLORIDE 0.9% IV (13:19)
[2022-09-24 14:23] VITALS: BP 152/75; PULSE 63; RESP 16; TEMP 36.8; O2SAT 97
[2022-10-09 08:36] LABS: Basophils % 0.6 %; Eosinophils # 0.3 10^3/uL (0.0-0.8); Eosinophils % 5.6 %; Hematocrit 42.9 % (42.0-52.0); Lymphocytes # 0.8 10^3/uL (0.8-4.8); Lymphocytes % 16.3 %; Mean Corpuscular Hemoglobin 32.9 pg (28.0-34.0); Mean Corpuscular Volume 94.1 fl (80-94); Mean Platelet Volume 8.8 fL (7.4-10.4); Monocytes # 0.6 10^3/uL (0.2-0.9); Monocytes % 11.1 %; Neutrophils # 3.28 10^3/uL (1.8-7.7); Nucleated Red Blood Cells % 0 %; Platelet Count 222 10^3/cmm (130-400); Red Blood Count 4.56 10^6/uL (4.1-5.3); Red Cell Distribution Width 13.1 % (12.1-15.1)
[2022-10-09 08:40] VITALS: BP 133/77; PULSE 66; TEMP 37.4; O2SAT 97
[2022-10-09 09:07] LABS: Alanine Aminotransferase 15 U/L (0-41); Albumin Level 4.2 g/dL (3.5-5.2); Alkaline Phosphatase 103 U/L (40-130); Anion Gap 15.2 (5-19); Aspartate Amino Transferase 16 U/L (0-40); Blood Urea Nitrogen 14 mg/dL (8-23); Calcium 9.1 mg/dL (8.5-10.5); Carbon Dioxide 25 mmol/L (22-29); Chloride 102 mmol/L (98-107); Globulin 3.5 g/dL (1.3-4.6); Glucose 110 mg/dL (65-115); Osmolality Calculated 287 mOsm/kg (285-295); Potassium 4.2 mmol/L (3.5-5.1); Sodium 138 mmol/L (136-145); Thyroid Stimulating Hormone 1.17 uIU/mL (0.27-4.20); Total Bilirubin 0.6 mg/dL (0.15-1.2); Total Protein 7.7 g/dL (6.6-8.7)
[2022-10-09] MEDS: sodium chloride 0.9% 250 ML 100 ML IV (10:37)
[2022-10-09] MEDS: acetaminophen 325 mg Tablet 650 MG PO (10:37)
[2022-10-09] MEDS: diphenhydrAMINE 25 mg Capsule PO (10:37)
[2022-10-09] MEDS: SODIUM CHLORIDE 0.9% IV (11:06)
[2022-10-09] MEDS: [UNRECOGNIZED DRUG - OTHER] IV (11:06)
[2022-10-09 13:56] VITALS: BP 127/69; PULSE 62; TEMP 37.2; O2SAT 96
== END 2022-10-09 23:59 | disposition home or self-care (01) ==
PROVIDERS: Nurse Practitioner Family; PCP Nurse Practitioner Family; Visit Provider Radiology Radiation Oncology
DX: Z51.12 Encounter for antineoplastic immunotherapy (principal); Z79.899 Other long term (current) drug therapy; C4A.72 Merkel cell carcinoma of left lower limb, including hip; C79.51 Secondary malignant neoplasm of bone; C77.8 Secondary and unspecified malignant neoplasm of lymph nodes of multiple regions; R53.82 Chronic fatigue, unspecified; G89.3 Neoplasm related pain (acute) (chronic); Z87.891 Personal history of nicotine dependence; Z92.3 Personal history of irradiation
CPT/HCPCS: 80053; 84443; 85025; 96413; 99214; J7050; J9023

== ENCOUNTER 2022-11-01 05:45 | Outpatient (CLI) | payer MEDICARE, OTHER, SELFPAY ==
--- NOTE | 2022-11-01 10:00 | PETR_ITS ---
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 Secondary neoplasm of bone; Follow-up oncological assessment; Condition/disease: Follow up radiation; Additional info: Restaging posttreatment LABS AND CLINICAL REPORTS: Glucose: 94 mg/dl Treatment strategy for malignancy (PET staging): Restaging (PS) TECHNIQUE: Imaging protocol: Following at least four-hour fasting and following the injection of radiopharmaceutical, low dose CT images were obtained. Then, PET images were obtained. Attenuation corrected images were constructed using the CT scan. Fused images of PET and CT were reviewed. The standardized uptake values (SUV) reported below are maximum values within a region of interest, expressed in gm/ml. Exam includes orbital meatal line to mid-thigh. Radiopharmaceutical: 10.07 mCi F-18 FDG (Fluorodeoxyglucose), IV. Time of imaging post radiopharmaceutical administration: 1 hour Injection site: Right antecubital vein COMPARISON: PT PET Scan 04/12/2022 and 09/16/2017 FINDINGS: Brain: Visualized brain has normal physiologic uptake. Pharynx: No abnormal uptake. Larynx: No abnormal uptake. Lungs, pleura and trachea: No abnormal uptake. 5 mm right middle lobe lung nodule on series 3, image 80 is stable since 2018 compatible with benign finding. No new lung nodules. No pleural effusion. Heart: Normal physiologic uptake. Mild cardiomegaly. There is no pericardial effusion. Mediastinal space: No abnormal uptake. There is a small hiatal hernia. Liver: No abnormal uptake. Gallbladder and bile ducts: No abnormal uptake. No calcified gallstones. Pancreas: No abnormal uptake. Spleen: No abnormal uptake. No splenomegaly. Adrenal glands: No abnormal uptake. No nodules. Kidneys and ureters: Normal physiologic uptake. No hydronephrosis. Stable 3.8 cm simple cyst exophytic posteriorly from the lower pole of the right kidney. Stomach and bowel: No abnormal uptake. Stable extensive diverticulosis of the sigmoid colon. Vasculature: No abnormal uptake. No aortic aneurysm. Lymph nodes: No abnormal uptake. No lymphadenopathy in the head, neck, chest, abdomen, pelvis, and extremities. Previously borderline prominent in size left external iliac lymph node decreased from 1.8 x 1.1 cm to 1.1 x 0.6 cm currently with no abnormal activity. Bones/joints: No abnormal uptake in the visualized axial and appendicular skeleton. Soft tissues: No abnormal uptake in the visualized head, neck, chest, abdomen, pelvis, and extremities. [facility] [id number] IMPRESSION: No abnormal radiotracer uptake to suggest malignancy. Small left pelvic lymph node with slightly increased uptake noted on prior exam on 04/12/2022 has resolved.
== END 2022-11-01 05:46 | disposition home or self-care (01) ==
LOC: RAD 11-03 05:46
PROVIDERS: PCP Nurse Practitioner Family; Visit Provider Internal Medicine Medical Oncology
DX: C4A.72 Merkel cell carcinoma of left lower limb, including hip (principal); C79.51 Secondary malignant neoplasm of bone
CPT/HCPCS: 78815; A9552

== ENCOUNTER 2022-11-05 08:30 | Oncology outpatient (recurring) (ONCR) | payer MEDICARE, OTHER, SELFPAY ==
[2022-10-22] MEDS: diphenhydrAMINE 25 mg Capsule PO (09:09)
[2022-10-22 09:10] VITALS: BP 126/78; PULSE 65; RESP 18; TEMP 37.1; O2SAT 98
[2022-10-22] MEDS: SODIUM CHLORIDE 0.9% IV (09:34)
[2022-10-22] MEDS: [UNRECOGNIZED DRUG - OTHER] IV (09:34)
[2022-10-22 10:45] VITALS: BP 150/78; PULSE 65; RESP 18; TEMP 37.1; O2SAT 98
[2022-11-05 08:45] VITALS: BP 131/68; PULSE 58; RESP 16; TEMP 37.1; O2SAT 98
[2022-11-05] MEDS: acetaminophen 325 mg Tablet 650 MG PO (08:55)
[2022-11-05] MEDS: diphenhydrAMINE 25 mg Capsule PO (08:55)
[2022-11-05] MEDS: SODIUM CHLORIDE 0.9% IV (09:13)
[2022-11-05] MEDS: [UNRECOGNIZED DRUG - OTHER] IV (09:13)
[2022-11-05 10:12] VITALS: BP 158/75; PULSE 66; RESP 16; TEMP 36.8; O2SAT 97
== END 2022-11-05 23:59 | disposition home or self-care (01) ==
PROVIDERS: PCP Nurse Practitioner Family; Visit Provider Radiology Radiation Oncology
DX: Z51.12 Encounter for antineoplastic immunotherapy (principal); C4A.72 Merkel cell carcinoma of left lower limb, including hip; Z79.899 Other long term (current) drug therapy; C79.51 Secondary malignant neoplasm of bone; C77.8 Secondary and unspecified malignant neoplasm of lymph nodes of multiple regions; Z92.3 Personal history of irradiation
CPT/HCPCS: 96413; J7050; J9023

== ENCOUNTER 2022-11-19 08:31 | Oncology outpatient (recurring) (ONCR) | payer MEDICARE, OTHER, SELFPAY ==
[2022-11-19 08:59] VITALS: BP 158/74; PULSE 65; RESP 18; TEMP 36.3; O2SAT 97
[2022-11-19 09:05] LABS: Basophils % 0.4 %; Eosinophils # 0.2 10^3/uL (0.0-0.8); Hematocrit 40.4 % (42.0-52.0); Lymphocytes # 0.9 10^3/uL (0.8-4.8); Lymphocytes % 17.1 %; Mean Corpuscular HGB Conc 34.7 g/dL (30.0-36.0); Mean Corpuscular Hemoglobin 32.6 pg (28.0-34.0); Mean Corpuscular Volume 94.2 fl (80-94); Monocytes # 0.4 10^3/uL (0.2-0.9); Monocytes % 8.3 %; Neutrophils # 3.73 10^3/uL (1.8-7.7); Neutrophils % 70.8 %; Nucleated Red Blood Cells % 0 %; Platelet Count 223 10^3/cmm (130-400); Red Blood Count 4.29 10^6/uL (4.1-5.3); Red Cell Distribution Width 13.3 % (12.1-15.1); White Blood Count 5.3 10^3/uL (4.0-10.0)
[2022-11-19 09:32] LABS: Alanine Aminotransferase 18 U/L (0-41); Albumin Level 4.4 g/dL (3.5-5.2); Alkaline Phosphatase 92 U/L (40-130); Aspartate Amino Transferase 23 U/L (0-40); Blood Urea Nitrogen 18 mg/dL (8-23); Calcium 8.5 mg/dL (8.5-10.5); Carbon Dioxide 25 mmol/L (22-29); Chloride 106 mmol/L (98-107); Glucose 151 mg/dL (65-115); Osmolality Calculated 295 mOsm/kg (285-295); Sodium 140 mmol/L (136-145); Thyroid Stimulating Hormone 0.79 uIU/mL (0.27-4.20); Total Bilirubin 0.5 mg/dL (0.15-1.2); Total Protein 7.4 g/dL (6.6-8.7)
[2022-11-19 09:35] LABS: Anion Gap 13.1 (5-19); Potassium 4.1 mmol/L (3.5-5.1)
[2022-11-19] MEDS: diphenhydrAMINE 25 mg Capsule PO (10:39)
[2022-11-19] MEDS: acetaminophen 325 mg Tablet 650 MG PO (10:39)
[2022-11-19] MEDS: SODIUM CHLORIDE 0.9% IV (10:50)
[2022-11-19] MEDS: [UNRECOGNIZED DRUG - OTHER] IV (10:50)
[2022-11-19 11:51] VITALS: BP 154/76; PULSE 60; RESP 16; TEMP 36.2; O2SAT 97
== END 2022-11-19 23:59 | disposition home or self-care (01) ==
PROVIDERS: Internal Medicine Medical Oncology; PCP Nurse Practitioner Family; Visit Provider Radiology Radiation Oncology
DX: Z79.899 Other long term (current) drug therapy (principal); Z51.12 Encounter for antineoplastic immunotherapy; C4A.72 Merkel cell carcinoma of left lower limb, including hip; C79.51 Secondary malignant neoplasm of bone; C77.8 Secondary and unspecified malignant neoplasm of lymph nodes of multiple regions; Z92.3 Personal history of irradiation; R53.0 Neoplastic (malignant) related fatigue
CPT/HCPCS: 80053; 84443; 85025; 96413; 99214; J7050; J9023

== ENCOUNTER 2022-12-17 08:18 | Oncology outpatient (recurring) (ONCR) | payer MEDICARE, OTHER, SELFPAY ==
[2022-12-03 08:58] VITALS: BP 178/81; PULSE 62; RESP 16; TEMP 36.7; O2SAT 97
[2022-12-03] MEDS: acetaminophen 325 mg Tablet 650 MG PO (09:19)
[2022-12-03] MEDS: diphenhydrAMINE 25 mg Capsule PO (09:20)
[2022-12-03] MEDS: [UNRECOGNIZED DRUG - OTHER] IV (09:54)
[2022-12-03] MEDS: SODIUM CHLORIDE 0.9% IV (09:54)
[2022-12-17 08:20] VITALS: BP 140/70; PULSE 59; RESP 18; TEMP 36.2; O2SAT 98
[2022-12-17] MEDS: acetaminophen 325 mg Tablet 650 MG PO (09:05)
[2022-12-17] MEDS: diphenhydrAMINE 25 mg Capsule PO (09:05)
[2022-12-17] MEDS: SODIUM CHLORIDE 0.9% IV (09:07)
[2022-12-17] MEDS: [UNRECOGNIZED DRUG - OTHER] IV (09:07)
[2022-12-17 10:15] VITALS: BP 112/68; PULSE 74; RESP 18; TEMP 36.6; O2SAT 98
== END 2022-12-17 23:59 | disposition home or self-care (01) ==
PROVIDERS: PCP Nurse Practitioner Family; Visit Provider Radiology Radiation Oncology
DX: Z51.12 Encounter for antineoplastic immunotherapy (principal); C4A.72 Merkel cell carcinoma of left lower limb, including hip
CPT/HCPCS: 96413; J7050; J9023

== ENCOUNTER 2023-01-16 10:07 | Oncology outpatient (recurring) (ONCR) | payer MEDICARE, OTHER, SELFPAY ==
[2022-12-31 08:39] VITALS: BP 159/80; PULSE 61; RESP 18; TEMP 36.7; O2SAT 99
[2022-12-31 08:53] LABS: Basophils % 0.6 %; Eosinophils # 0.1 10^3/uL (0.0-0.8); Eosinophils % 2.4 %; Hematocrit 40.3 % (42.0-52.0); Hemoglobin 14.3 g/dL (11.7-16.6); Lymphocytes # 0.9 10^3/uL (0.8-4.8); Mean Corpuscular HGB Conc 35.5 g/dL (30.0-36.0); Mean Corpuscular Hemoglobin 33.7 pg (28.0-34.0); Mean Platelet Volume 8.7 fL (7.4-10.4); Monocytes # 0.4 10^3/uL (0.2-0.9); Monocytes % 8.6 %; Neutrophils # 3.43 10^3/uL (1.8-7.7); Nucleated Red Blood Cells % 0 %; Platelet Count 227 10^3/cmm (130-400); Red Blood Count 4.24 10^6/uL (4.1-5.3); Red Cell Distribution Width 12.5 % (12.1-15.1); White Blood Count 4.9 10^3/uL (4.0-10.0)
[2022-12-31 09:34] LABS: Alanine Aminotransferase 15 U/L (0-41); Albumin Level 4.2 g/dL (3.5-5.2); Alkaline Phosphatase 89 U/L (40-130); Anion Gap 14.3 (5-19); Aspartate Amino Transferase 16 U/L (0-40); Blood Urea Nitrogen 19 mg/dL (8-23); Calcium 9.2 mg/dL (8.5-10.5); Carbon Dioxide 25 mmol/L (22-29); Chloride 105 mmol/L (98-107); Glucose 113 mg/dL (65-115); Osmolality Calculated 293 mOsm/kg (285-295); Potassium 4.3 mmol/L (3.5-5.1); Sodium 140 mmol/L (136-145); Thyroid Stimulating Hormone 0.91 uIU/mL (0.27-4.20); Total Bilirubin 0.5 mg/dL (0.15-1.2); Total Protein 7.2 g/dL (6.6-8.7)
[2022-12-31] MEDS: diphenhydrAMINE 25 mg Capsule PO (12:37)
[2022-12-31] MEDS: sodium chloride 0.9% 250 ML 75 ML IV (12:37)
[2022-12-31] MEDS: acetaminophen 325 mg Tablet 650 MG PO (12:37)
[2022-12-31] MEDS: [UNRECOGNIZED DRUG - OTHER] IV (13:00)
[2022-12-31] MEDS: SODIUM CHLORIDE 0.9% IV (13:00)
[2022-12-31 14:20] VITALS: BP 157/69; PULSE 65; RESP 16; TEMP 36.8; O2SAT 98
[2023-01-13 08:10] VITALS: BP 164/75; PULSE 66; TEMP 36.9; O2SAT 97; BMI 31.3
[2023-01-13 08:28] LABS: Basophils % 0.6 %; Eosinophils # 0.1 10^3/uL (0.0-0.8); Eosinophils % 1.4 %; Hematocrit 40.7 % (42.0-52.0); Hemoglobin 14.3 g/dL (11.7-16.6); Lymphocytes # 0.9 10^3/uL (0.8-4.8); Lymphocytes % 18.5 %; Mean Corpuscular HGB Conc 35.1 g/dL (30.0-36.0); Mean Corpuscular Hemoglobin 33.1 pg (28.0-34.0); Mean Corpuscular Volume 94.2 fl (80-94); Mean Platelet Volume 8.9 fL (7.4-10.4); Monocytes # 0.4 10^3/uL (0.2-0.9); Monocytes % 7.3 %; Neutrophils # 3.54 10^3/uL (1.8-7.7); Neutrophils % 71.8 %; Nucleated Red Blood Cells % 0 %; Platelet Count 232 10^3/cmm (130-400); Red Blood Count 4.32 10^6/uL (4.1-5.3); Red Cell Distribution Width 12.9 % (12.1-15.1); White Blood Count 4.9 10^3/uL (4.0-10.0)
[2023-01-13 10:41] LABS: Alanine Aminotransferase 14 U/L (0-41); Albumin Level 4.2 g/dL (3.5-5.2); Alkaline Phosphatase 85 U/L (40-130); Aspartate Amino Transferase 14 U/L (0-40); Blood Urea Nitrogen 18 mg/dL (8-23); Carbon Dioxide 26 mmol/L (22-29); Chloride 104 mmol/L (98-107); Globulin 2.5 g/dL (1.3-4.6); Glucose 106 mg/dL (65-115); Osmolality Calculated 292 mOsm/kg (285-295); Sodium 140 mmol/L (136-145); Total Bilirubin 0.4 mg/dL (0.15-1.2); Total Protein 6.7 g/dL (6.6-8.7)
[2023-01-16] MEDS: acetaminophen 325 mg Tablet 650 MG PO (10:30)
[2023-01-16] MEDS: sodium chloride 0.9% 250 ML 75 ML IV (10:30)
[2023-01-16] MEDS: diphenhydrAMINE 25 mg Capsule PO (10:31)
[2023-01-16] MEDS: [UNRECOGNIZED DRUG - OTHER] IV (10:42)
[2023-01-16] MEDS: SODIUM CHLORIDE 0.9% IV (10:42)
[2023-01-16 11:53] VITALS: BP 183/93; PULSE 66; RESP 16; TEMP 37.2; O2SAT 97
== END 2023-01-16 23:59 | disposition home or self-care (01) ==
PROVIDERS: Internal Medicine Medical Oncology; Nurse Practitioner Family; PCP Nurse Practitioner Family; Visit Provider Radiology Radiation Oncology
DX: Z51.11 Encounter for antineoplastic chemotherapy (principal); C4A.72 Merkel cell carcinoma of left lower limb, including hip
CPT/HCPCS: 80053; 84443; 85025; 96413; 99214; J7050; J9023

== ENCOUNTER 2023-02-16 10:30 | Oncology outpatient (recurring) (ONCR) | payer MEDICARE, OTHER, SELFPAY ==
[2023-02-02 09:12] VITALS: BP 165/73; PULSE 59; RESP 18; TEMP 36.9; O2SAT 96
[2023-02-02 09:13] VITALS: BMI 31.6
[2023-02-02 09:27] LABS: Basophils % 0.5 %; Eosinophils # 0.1 10^3/uL (0.0-0.8); Eosinophils % 2.3 %; Hematocrit 40.7 % (42.0-52.0); Hemoglobin 14.4 g/dL (11.7-16.6); Lymphocytes % 17.5 %; Mean Corpuscular HGB Conc 35.4 g/dL (30.0-36.0); Mean Corpuscular Hemoglobin 32.9 pg (28.0-34.0); Mean Corpuscular Volume 92.9 fl (80-94); Mean Platelet Volume 8.9 fL (7.4-10.4); Monocytes # 0.5 10^3/uL (0.2-0.9); Monocytes % 9.4 %; Neutrophils # 4.03 10^3/uL (1.8-7.7); Nucleated Red Blood Cells % 0 %; Platelet Count 240 10^3/cmm (130-400); Red Blood Count 4.38 10^6/uL (4.1-5.3); Red Cell Distribution Width 12.8 % (12.1-15.1); White Blood Count 5.8 10^3/uL (4.0-10.0)
[2023-02-02 09:55] LABS: Alanine Aminotransferase 13 U/L (0-41); Albumin Level 4.1 g/dL (3.5-5.2); Alkaline Phosphatase 88 U/L (40-130); Anion Gap 13.4 (5-19); Aspartate Amino Transferase 19 U/L (0-40); Blood Urea Nitrogen 21 mg/dL (8-23); Calcium 8.7 mg/dL (8.5-10.5); Carbon Dioxide 25 mmol/L (22-29); Chloride 106 mmol/L (98-107); Globulin 2.9 g/dL (1.3-4.6); Glucose 117 mg/dL (65-115); Osmolality Calculated 294 mOsm/kg (285-295); Potassium 4.4 mmol/L (3.5-5.1); Sodium 140 mmol/L (136-145); Thyroid Stimulating Hormone 1.09 uIU/mL (0.27-4.20); Total Bilirubin 0.4 mg/dL (0.15-1.2)
[2023-02-02] MEDS: acetaminophen 325 mg Tablet 650 MG PO (10:21)
[2023-02-02] MEDS: diphenhydrAMINE 25 mg Capsule PO (10:21)
[2023-02-02] MEDS: sodium chloride 0.9% 250 ML 75 ML IV (10:21)
[2023-02-02] MEDS: SODIUM CHLORIDE 0.9% IV (10:38)
[2023-02-02] MEDS: [UNRECOGNIZED DRUG - OTHER] IV (10:38)
[2023-02-02 11:41] VITALS: BP 148/78; PULSE 60; RESP 18; TEMP 37; O2SAT 96
[2023-02-16 10:30] LABS: Basophils % 0.5 %; Eosinophils # 0.1 10^3/uL (0.0-0.8); Eosinophils % 1.8 %; Hematocrit 40.3 % (37-53); Lymphocytes % 18.4 %; Mean Corpuscular HGB Conc 35.7 g/dL (30-55); Mean Corpuscular Hemoglobin 33.7 pg (27-33); Mean Corpuscular Volume 94.4 fl (82-101); Monocytes # 0.5 10^3/uL (0.2-0.9); Monocytes % 9.3 %; Neutrophils % 69.6 %; Nucleated Red Blood Cells % 0 %; Platelet Count 235 10^3/cmm (157-399); Red Blood Count 4.27 10^6/uL (3.85-5.65); Red Cell Distribution Width 12.9 % (12.1-15.1)
[2023-02-16 11:00] LABS: Alanine Aminotransferase 17 U/L (0-41); Albumin Level 4.3 g/dL (3.5-5.2); Alkaline Phosphatase 90 U/L (40-130); Anion Gap 13.3 (5-19); Aspartate Amino Transferase 21 U/L (0-40); Blood Urea Nitrogen 18 mg/dL (8-23); Calcium 8.8 mg/dL (8.5-10.5); Carbon Dioxide 27 mmol/L (22-29); Chloride 103 mmol/L (98-107); Globulin 2.9 g/dL (1.3-4.6); Glucose 123 mg/dL (65-115); Osmolality Calculated 291 mOsm/kg (285-295); Potassium 4.3 mmol/L (3.5-5.1); Sodium 139 mmol/L (136-145); Thyroid Stimulating Hormone 1.12 uIU/mL (0.27-4.20); Total Bilirubin 0.4 mg/dL (0.15-1.2); Total Protein 7.2 g/dL (6.6-8.7)
[2023-02-16] MEDS: sodium chloride 0.9% 250 ML 75 ML IV (12:17)
[2023-02-16] MEDS: acetaminophen 325 mg Tablet 650 MG PO (12:17)
[2023-02-16] MEDS: diphenhydrAMINE 25 mg Capsule PO (12:18)
[2023-02-16] MEDS: SODIUM CHLORIDE 0.9% IV (13:13)
[2023-02-16] MEDS: [UNRECOGNIZED DRUG - OTHER] IV (13:13)
[2023-02-16 14:20] VITALS: BP 155/106; PULSE 60; RESP 16; TEMP 36.8; O2SAT 96
== END 2023-02-16 23:59 | disposition home or self-care (01) ==
PROVIDERS: Internal Medicine Medical Oncology; Nurse Practitioner Family; PCP Nurse Practitioner Family; Visit Provider Radiology Radiation Oncology
DX: C4A.72 Merkel cell carcinoma of left lower limb, including hip (principal); Z51.11 Encounter for antineoplastic chemotherapy; R53.83 Other fatigue; C79.51 Secondary malignant neoplasm of bone; Z92.3 Personal history of irradiation; Z79.899 Other long term (current) drug therapy
CPT/HCPCS: 80053; 84443; 85025; 96413; 99215; J7050; J9023

== ENCOUNTER 2023-03-16 07:30 | Oncology outpatient (recurring) (ONCR) | payer MEDICARE, OTHER, SELFPAY ==
[2023-03-02 11:02] VITALS: BP 142/65; PULSE 56; RESP 16; TEMP 36.5; O2SAT 97
[2023-03-02] MEDS: sodium chloride 0.9% 250 ML 75 ML IV (11:21)
[2023-03-02] MEDS: acetaminophen 325 mg Tablet 650 MG PO (11:21)
[2023-03-02] MEDS: diphenhydrAMINE 25 mg Capsule PO (11:22)
[2023-03-02] MEDS: SODIUM CHLORIDE 0.9% IV (11:56)
[2023-03-02] MEDS: [UNRECOGNIZED DRUG - OTHER] IV (11:56)
[2023-03-02 13:15] VITALS: BP 173/78; PULSE 56; RESP 16; TEMP 36.8; O2SAT 96
[2023-03-16 07:41] VITALS: BP 159/76; PULSE 58; RESP 16; TEMP 36.6; O2SAT 97
[2023-03-16 07:58] LABS: Basophils % 0.5 %; Eosinophils # 0.2 10^3/uL (0.0-0.8); Eosinophils % 3.1 %; Hematocrit 39.7 % (37-53); Lymphocytes # 0.8 10^3/uL (0.8-4.8); Lymphocytes % 12.3 %; Mean Corpuscular HGB Conc 35.3 g/dL (30-55); Mean Corpuscular Hemoglobin 33.4 pg (27-33); Mean Corpuscular Volume 94.7 fl (82-101); Mean Platelet Volume 8.8 fL (7.4-10.4); Monocytes # 0.5 10^3/uL (0.2-0.9); Monocytes % 8.5 %; Neutrophils # 4.67 10^3/uL (1.8-7.7); Neutrophils % 75.3 %; Nucleated Red Blood Cells % 0 %; Platelet Count 227 10^3/cmm (157-399); Red Blood Count 4.19 10^6/uL (3.85-5.65); Red Cell Distribution Width 12.8 % (12.1-15.1)
[2023-03-16 08:16] LABS: Albumin Level 4.2 g/dL (3.5-5.2); Alkaline Phosphatase 94 U/L (40-130); Anion Gap 13.1 (5-19); Aspartate Amino Transferase 15 U/L (0-40); Blood Urea Nitrogen 22 mg/dL (8-23); Calcium 8.7 mg/dL (8.5-10.5); Carbon Dioxide 25 mmol/L (22-29); Chloride 108 mmol/L (98-107); Creatinine Clr Calc Pharmacy 94.3433; Glucose 138 mg/dL (65-115); Osmolality Calculated 300 mOsm/kg (285-295); Potassium 4.1 mmol/L (3.5-5.1); Sodium 142 mmol/L (136-145); Total Bilirubin 0.4 mg/dL (0.15-1.2); Total Protein 7.2 g/dL (6.6-8.7)
[2023-03-16 08:27] LABS: Alanine Aminotransferase 14 U/L (0-41)
[2023-03-16] MEDS: diphenhydrAMINE 25 mg Capsule PO (09:42)
[2023-03-16] MEDS: acetaminophen 325 mg Tablet 650 MG PO (09:42)
[2023-03-16] MEDS: SODIUM CHLORIDE 0.9% IV (09:53)
[2023-03-16] MEDS: [UNRECOGNIZED DRUG - OTHER] IV (09:53)
[2023-03-16 11:10] VITALS: BP 177/77; PULSE 55; RESP 16; TEMP 35.9; O2SAT 95
== END 2023-03-16 23:59 | disposition home or self-care (01) ==
PROVIDERS: Internal Medicine Medical Oncology; PCP Nurse Practitioner Family; Visit Provider Specialist
DX: C4A.72 Merkel cell carcinoma of left lower limb, including hip; Z51.12 Encounter for antineoplastic immunotherapy; Z53.9 Procedure and treatment not carried out, unspecified reason
CPT/HCPCS: 80053; 85025; 96413; J7050; J9023

== ENCOUNTER 2023-04-13 08:45 | Oncology outpatient (recurring) (ONCR) | payer MEDICARE, OTHER, SELFPAY ==
[2023-03-30 09:33] VITALS: BP 170/83; PULSE 61; RESP 16; TEMP 36.8; O2SAT 98
[2023-03-30 10:03] LABS: Basophils % 0.3 %; Eosinophils # 0.1 10^3/uL (0.0-0.8); Eosinophils % 2.2 %; Hematocrit 40.4 % (37-53); Lymphocytes % 16.4 %; Mean Corpuscular HGB Conc 35.1 g/dL (30-55); Mean Corpuscular Hemoglobin 33.4 pg (27-33); Mean Corpuscular Volume 95.1 fl (82-101); Mean Platelet Volume 8.8 fL (7.4-10.4); Monocytes # 0.6 10^3/uL (0.2-0.9); Monocytes % 10.6 %; Nucleated Red Blood Cells % 0 %; Platelet Count 212 10^3/cmm (157-399); Red Blood Count 4.25 10^6/uL (3.85-5.65); Red Cell Distribution Width 12.6 % (12.1-15.1); White Blood Count 5.86 10^3/uL (3.29-11.43)
[2023-03-30 10:36] LABS: Alanine Aminotransferase 17 U/L (0-41); Albumin Level 4.2 g/dL (3.5-5.2); Alkaline Phosphatase 101 U/L (40-130); Anion Gap 12.8 (5-19); Aspartate Amino Transferase 21 U/L (0-40); Blood Urea Nitrogen 20 mg/dL (8-23); Carbon Dioxide 27 mmol/L (22-29); Chloride 103 mmol/L (98-107); Globulin 3.1 g/dL (1.3-4.6); Glucose 116 mg/dL (65-115); Osmolality Calculated 290 mOsm/kg (285-295); Potassium 4.8 mmol/L (3.5-5.1); Sodium 138 mmol/L (136-145); Total Bilirubin 0.3 mg/dL (0.15-1.2); Total Protein 7.3 g/dL (6.6-8.7)
[2023-03-30] MEDS: acetaminophen 325 mg Tablet 650 MG PO (12:06)
[2023-03-30] MEDS: diphenhydrAMINE 25 mg Capsule PO (12:07)
[2023-03-30] MEDS: [UNRECOGNIZED DRUG - OTHER] IV (12:13)
[2023-03-30] MEDS: SODIUM CHLORIDE 0.9% IV (12:13)
[2023-03-30 13:39] VITALS: BP 156/83; PULSE 58; RESP 18; TEMP 36.3; O2SAT 96
[2023-04-13 08:53] VITALS: BP 152/64; PULSE 52; RESP 16; TEMP 37.1; O2SAT 96
[2023-04-13 09:17] LABS: Basophils % 0.6 %; Eosinophils # 0.1 10^3/uL (0.0-0.8); Eosinophils % 2.5 %; Hematocrit 39.7 % (37-53); Lymphocytes # 0.9 10^3/uL (0.8-4.8); Lymphocytes % 17.9 %; Mean Corpuscular HGB Conc 35.8 g/dL (30-55); Mean Corpuscular Hemoglobin 33.6 pg (27-33); Mean Corpuscular Volume 93.9 fl (82-101); Mean Platelet Volume 8.8 fL (7.4-10.4); Monocytes # 0.4 10^3/uL (0.2-0.9); Monocytes % 7.8 %; Neutrophils # 3.36 10^3/uL (1.8-7.7); Nucleated Red Blood Cells % 0 %; Platelet Count 250 10^3/cmm (157-399); Red Blood Count 4.23 10^6/uL (3.85-5.65); Red Cell Distribution Width 12.6 % (12.1-15.1); White Blood Count 4.74 10^3/uL (3.29-11.43)
[2023-04-13 09:40] LABS: Alanine Aminotransferase 16 U/L (0-41); Albumin Level 4.4 g/dL (3.5-5.2); Alkaline Phosphatase 87 U/L (40-130); Blood Urea Nitrogen 19 mg/dL (8-23); Calcium 9.1 mg/dL (8.5-10.5); Carbon Dioxide 26 mmol/L (22-29); Chloride 107 mmol/L (98-107); Globulin 2.7 g/dL (1.3-4.6); Glucose 118 mg/dL (65-115); Osmolality Calculated 291 mOsm/kg (285-295); Sodium 139 mmol/L (136-145); Total Bilirubin 0.4 mg/dL (0.15-1.2); Total Protein 7.1 g/dL (6.6-8.7)
[2023-04-13 09:51] LABS: Anion Gap 10.5 (5-19); Aspartate Amino Transferase 25 U/L (0-40); Potassium 4.5 mmol/L (3.5-5.1)
[2023-04-13] MEDS: diphenhydrAMINE 25 mg Capsule PO (10:37)
[2023-04-13] MEDS: acetaminophen 325 mg Tablet 650 MG PO (10:37)
[2023-04-13] MEDS: [UNRECOGNIZED DRUG - OTHER] IV (11:12)
[2023-04-13] MEDS: SODIUM CHLORIDE 0.9% IV (11:12)
[2023-04-13 13:17] VITALS: BP 168/83; PULSE 62
== END 2023-04-13 23:59 | disposition home or self-care (01) ==
PROVIDERS: Internal Medicine Medical Oncology; Nurse Practitioner Family; PCP Nurse Practitioner Family; Visit Provider Radiology Radiation Oncology
DX: Z51.11 Encounter for antineoplastic chemotherapy (principal); C4A.72 Merkel cell carcinoma of left lower limb, including hip
CPT/HCPCS: 80053; 84443; 85025; 96413; 99214; J7050; J9023

== ENCOUNTER 2023-04-30 15:22 | Outpatient (CLI) | payer MEDICARE, OTHER, SELFPAY ==
[2023-04-30] MEDS: iohexol 350 mg/mL 500 mL Btl (per mL) PO (15:32)
[2023-04-30] MEDS: iohexol 350 mg/mL 500 mL Btl (per mL) IV (15:32)
--- NOTE | 2023-04-30 17:00 | CTR_ITS ---
PROCEDURE INFORMATION: Exam: CT Chest With Contrast; Diagnostic Exam date and time: 04/30/2023 4:13 PM Age: 73 years old Clinical indication: Condition or disease; Cancer; Other: F/u caleb cell lower extremity; Additional info: Restaging, please schedule for in 5 weeks TECHNIQUE: Imaging protocol: Diagnostic computed tomography of the chest with contrast. Radiation optimization: All CT scans at this facility use at least one of these dose optimization techniques: automated exposure control; mA and/or kV adjustment per patient size (includes targeted exams where dose is matched to clinical indication); or iterative reconstruction. Contrast material: OMNI 350; Contrast volume: 100 ml; Contrast route: INTRAVENOUS (IV); REPORTING DATA: Count of CT and Cardiac NM exams in prior 12 months: This patient has received 4 known CTs and 0 known cardiac nuclear medicine studies in the 12 months prior to the current study. COMPARISON: CT angio chest PE protcl [id number] 07/27/2019 7:57 PM RADIATION DOSE METRICS: Total DLP (mGy-cm): 1267.35 FINDINGS: Lungs: No obvious pulmonary abnormality, but evaluation for such is quite limited due to motion artifact. Pleural spaces: Unremarkable. No pneumothorax. No pleural effusion. Heart: New mild cardiomegaly. Right heart strain is suggested. The interventricular septum is flattened, and the right ventricular to left ventricular ratio is 1.41. The tricuspid valve is difficult to see, and may be hypoplastic or incompetent. This is all new. Coronary arteries: No calcification in the visualized coronary arteries. Lymph nodes: Unremarkable. No enlarged lymph nodes. Vasculature: Unremarkable thoracic aorta. Unremarkable systemic arteries. Limitations result in suboptimal opacification and heterogeneity of the pulmonary arteries. There is no obvious larger central pulmonary embolism, but a smaller segmental or subsegmental PE in either lung can not be excluded on the basis of this examination. Diaphragm: Small hiatal hernia. Bones/joints: Mild scoliosis with mild and moderate multilevel spondylosis. Otherwise, unremarkable. Soft tissues: Unremarkable. Other findings: Motion artifact does moderately limit the sensitivity of this examination. PROCEDURE INFORMATION: Exam: CT Abdomen And Pelvis With Contrast Exam date and time: 04/30/2023 4:13 PM Age: 73 years old Clinical indication: Condition or disease; Cancer; Other: F/u caleb cell lower extremity; Additional info: Restaging, please schedule for in 5 weeks TECHNIQUE: Imaging protocol: Computed tomography of the abdomen and pelvis with contrast. Radiation optimization: All CT scans at this facility use at least one of these dose optimization techniques: automated exposure control; mA and/or kV adjustment per patient size (includes targeted exams where dose is matched to clinical indication); or iterative reconstruction. Contrast material: OMNI 350; Contrast volume: 100 ml; Contrast route: INTRAVENOUS (IV); REPORTING DATA: Count of CT and Cardiac NM exams in prior 12 months: This patient has received 4 known CTs and 0 known cardiac nuclear medicine studies in the 12 months prior to the current study. COMPARISON: CT pelvis w con* [id number] 05/27/2022 3:00 PM RADIATION DOSE METRICS: Total DLP (mGy-cm): 1267.35 FINDINGS: Lungs: Lung bases are clear as visualized. Liver: Small liver cysts. Otherwise, unremarkable. Gallbladder and bile ducts: Normal. No calcified stones. No ductal dilation. Pancreas: Normal. No ductal dilation. Spleen: Normal. No splenomegaly. Adrenal glands: Normal. No mass. Kidneys and ureters: Simple right renal cysts need no follow-up. Otherwise, unremarkable. Stomach and bowel: Multiple diverticula from the colon. No diverticulitis. No bowel obstruction. Otherwise, unremarkable. Appendix: No evidence of appendicitis. Intraperitoneal space: Unremarkable. No free air. No significant fluid collection. Vasculature: Moderate amount of arterial atherosclerotic plaque. Otherwise, unremarkable. Lymph nodes: Unremarkable. No enlarged lymph nodes. Urinary bladder: Unremarkable as visualized. Reproductive: Unremarkable as visualized. Bones/joints: Moderate scoliosis. Multilevel spondylosis ranging from mild to severe. Otherwise, unremarkable. Soft tissues: Unremarkable. CT/CT chest abdpel w/*[id number] IMPRESSION: 1. Mild cardiomegaly with evidence of right heart strain. Tricuspid valve may be hypoplastic or insufficient. 2. Limitations result in suboptimal opacification and heterogeneity of the pulmonary arteries. There is no obvious larger central pulmonary embolism, but a smaller segmental or subsegmental PE in either lung can not be excluded on the basis of this examination. 3. Additional details as above. IMPRESSION: 1. No acute findings. 2. Additional details as above.
== END 2023-04-30 15:23 | disposition home or self-care (01) ==
PROVIDERS: PCP Nurse Practitioner Family; Visit Provider Nurse Practitioner Family
DX: C4A.72 Merkel cell carcinoma of left lower limb, including hip (principal); I51.7 Cardiomegaly; I51.9 Heart disease, unspecified; K44.9 Diaphragmatic hernia without obstruction or gangrene; K76.89 Other specified diseases of liver; N28.1 Cyst of kidney, acquired; M41.9 Scoliosis, unspecified
CPT/HCPCS: 71260; 74177; Q9967

== ENCOUNTER 2023-05-11 08:37 | Oncology outpatient (recurring) (ONCR) | payer MEDICARE, OTHER, SELFPAY ==
[2023-04-27] MEDS: diphenhydrAMINE 25 mg Capsule PO (09:38)
[2023-04-27] MEDS: acetaminophen 325 mg Tablet 650 MG PO (09:38)
[2023-04-27] MEDS: [UNRECOGNIZED DRUG - OTHER] IV (09:59)
[2023-04-27] MEDS: SODIUM CHLORIDE 0.9% IV (09:59)
[2023-04-27 11:30] VITALS: BP 152/80; PULSE 67; RESP 16; O2SAT 98
[2023-05-11 09:04] VITALS: BP 157/79; PULSE 52; RESP 16; TEMP 37.1; O2SAT 95
[2023-05-11 09:25] LABS: Basophils % 0.4 %; Eosinophils # 0.1 10^3/uL (0.0-0.8); Eosinophils % 2.5 %; Hematocrit 40.3 % (37-53); Lymphocytes # 1.1 10^3/uL (0.8-4.8); Lymphocytes % 18.8 %; Mean Corpuscular HGB Conc 36.7 g/dL (30-55); Mean Corpuscular Hemoglobin 34.1 pg (27-33); Mean Corpuscular Volume 92.9 fl (82-101); Monocytes # 0.5 10^3/uL (0.2-0.9); Monocytes % 8.2 %; Neutrophils # 3.98 10^3/uL (1.8-7.7); Neutrophils % 69.7 %; Nucleated Red Blood Cells % 0 %; Platelet Count 265 10^3/cmm (157-399); Red Blood Count 4.34 10^6/uL (3.85-5.65); Red Cell Distribution Width 12.6 % (12.1-15.1)
[2023-05-11 10:53] LABS: Alanine Aminotransferase 17 U/L (0-41); Albumin Level 4.2 g/dL (3.5-5.2); Alkaline Phosphatase 96 U/L (40-130); Aspartate Amino Transferase 20 U/L (0-40); Blood Urea Nitrogen 17 mg/dL (8-23); Carbon Dioxide 23 mmol/L (22-29); Chloride 104 mmol/L (98-107); Glucose 139 mg/dL (65-115); Osmolality Calculated 292 mOsm/kg (285-295); Sodium 139 mmol/L (136-145); Total Bilirubin 0.5 mg/dL (0.15-1.2); Total Protein 7.2 g/dL (6.6-8.7)
[2023-05-11 11:04] LABS: Thyroid Stimulating Hormone 1.56 uIU/mL (0.27-4.20)
[2023-05-11 11:06] LABS: Anion Gap 16.1 (5-19); Potassium 4.1 mmol/L (3.5-5.1)
[2023-05-11] MEDS: diphenhydrAMINE 25 mg Capsule PO (11:23)
[2023-05-11] MEDS: acetaminophen 325 mg Tablet 650 MG PO (11:23)
[2023-05-11] MEDS: [UNRECOGNIZED DRUG - OTHER] IV (12:01)
[2023-05-11] MEDS: SODIUM CHLORIDE 0.9% IV (12:01)
[2023-05-11 13:15] VITALS: BP 160/76; PULSE 60; O2SAT 99
== END 2023-05-11 23:59 | disposition home or self-care (01) ==
PROVIDERS: Nurse Practitioner Family; PCP Nurse Practitioner Family; Visit Provider Specialist
DX: Z51.11 Encounter for antineoplastic chemotherapy (principal); C4A.72 Merkel cell carcinoma of left lower limb, including hip; R53.83 Other fatigue; Z79.899 Other long term (current) drug therapy
CPT/HCPCS: 80053; 84443; 85025; 96413; 99214; J7050; J9023

== ENCOUNTER 2023-05-12 06:45 | Outpatient (CLI) | payer MEDICARE, OTHER, SELFPAY ==
--- NOTE | 2023-05-12 07:00 | CT_ITS ---
WS: [id number] CTA THORACIC TECHNIQUE: Contrast enhanced CTA of the thoracic aorta with coronal and sagittal reformatted images a nd maximum intensity projection (MIP) images. CLINICAL INFORMATION: new cardiomegaly COMPARISON: 04/30/2023 DLP: 902 mgy/cm All CT scans at [facility] use at least one of these dose optimization techniques: automated e xposure control; mA and/or kV adjustment per patient size (includes targeted exams where dose is matc hed to clinical indication); or iterative reconstruction. FINDINGS: Normal caliber thoracic aorta. Stable mild cardiomegaly. Normal caliber descending thoracic aorta. Mi ld aortic calcification. Proximal main pulmonary arteries are normal. Normal segmental and subsegment al pulmonary arteries. No evidence of pulmonary embolus. No mediastinal or hilar lymphadenopathy. No axillary lymphadenopathy. Adrenal glands are normal. Mode rate esophageal hiatal hernia. Mild thoracic curve. Moderate thoracic kyphosis. Disc space narrowing in the mid thoracic spine with spondylitic changes. Slight hazy atelectasis RIGHT lower lobe. No acute pulmonary infiltrates. No focal pneumonia or pleur al fluid. IMPRESSION: 1. No evidence of pulmonary embolus. 2. Normal caliber thoracic aorta. 3. Lungs are well aerated. No acute pulmonary infiltrates. 4. Moderate esophageal canal hernia. 5. No other acute findings.
[2023-05-12] MEDS: iohexol 350 mg/mL 500 mL Btl (per mL) IV (07:28)
== END 2023-05-12 06:46 | disposition home or self-care (01) ==
LOC: RAD 06:45
PROVIDERS: PCP Nurse Practitioner Family; Visit Provider Internal Medicine Medical Oncology
DX: I51.7 Cardiomegaly (principal); K44.9 Diaphragmatic hernia without obstruction or gangrene
CPT/HCPCS: 71275; Q9967

== ENCOUNTER 2023-05-18 15:03 | Outpatient (CLI) | payer MEDICARE, OTHER, SELFPAY ==
--- NOTE | 2023-05-18 15:00 | USCV_ITS ---
Bebeto Lang Age: 73 Gender: M : 1950 Exam Date: 05/18/2023 15:21 Ordering Phys: Aman Martínez MD Technologist: Valeria Lr Exam Location: [facility] – [place] Indication: cardiomegaly BP: 118 / 66 HR: 62 Rhythm: Sinus Technical Quality: Adequate MEASUREMENTS (Male / Female) Normal Values 2D ECHO LV Chamber Size 5.1 cm RV Chamber Size 4.2 cm LVOT Diameter 2.4 cm LV Ejection Fraction MOD 2C 63.2 % LV Ejection Fraction 2C AL 63.1 % LA Diameter 5.1 cm LA Width 3.0 cm LA Height 4.8 cm RA Width 3.0 cm RA Height 3.9 cm Aorta at Sinotubular Diameter 2.7 cm M-MODE Aortic Annulus Diameter 3.3 cm LA Ao Ratio MM 1.6 MV E Point Septal Separation 0.9 cm DOPPLER AV Peak Velocity 125.0 cm/s LVOT Peak Velocity 84.0 cm/s AV Area Cont Eq vti 2.4 cm squared AV Area Cont Eq pk 2.9 cm squared MV E' Velocity 8.0 cm/s TR Peak Velocity 266.0 cm/s TR Peak Gradient 28.3 mmHg TV Peak E Velocity 76.0 cm/s Right Atrial Pressure 3.0 mmHg Pulmonary Artery Systolic Pressu 31.3 mmHg PV Peak Velocity 131.0 cm/s FINDINGS Left Ventricle Normal left ventricular size, systolic function and wall thickness, with no regional wall motion abnormalities. Left ventricular ejection fraction is estimated at 60 %. Right Ventricle Normal right ventricular size and systolic function. Right Atrium Normal right atrial size. Left Atrium Normal left atrial size. Mitral Valve Thickened mitral valve. Mitral annular calcification. No mitral valve stenosis. Trace mitral valve regurgitation. Aortic Valve Thickened aortic valve. No aortic valve stenosis. Mild aortic valve regurgitation. Tricuspid Valve Structurally normal tricuspid valve. Trace tricuspid valve regurgitation. Pulmonic Valve Structurally normal pulmonic valve. Trace pulmonary valve regurgitation. Pericardium No pericardial effusion. Aorta Normal size aortic root and proximal ascending aorta. IVC Normal IVC dimension with >50% respiratory change of the inferior vena cava. CONCLUSIONS Normal LV systolic function. No LVH. Estimated LVEF normal at 60%. Normal chamber sizes. No significant valvular abnormality noted. Normal right heart and pulmonary pressure. Sona Vo MD (Electronically Signed) Final Date: 19 May 2023 08:41 S
== END 2023-05-18 15:04 | disposition home or self-care (01) ==
LOC: RAD 15:03
PROVIDERS: PCP Nurse Practitioner Family; Visit Provider Internal Medicine Medical Oncology
DX: I51.7 Cardiomegaly (principal)
CPT/HCPCS: 93306

== ENCOUNTER 2023-06-08 09:15 | Oncology outpatient (recurring) (ONCR) | payer MEDICARE, OTHER, SELFPAY ==
[2023-05-25] MEDS: diphenhydrAMINE 25 mg Capsule PO (09:50)
[2023-05-25] MEDS: acetaminophen 325 mg Tablet 650 MG PO (09:50)
[2023-05-25] MEDS: [UNRECOGNIZED DRUG - OTHER] IV (10:35)
[2023-05-25] MEDS: SODIUM CHLORIDE 0.9% IV (10:35)
[2023-05-25 11:45] VITALS: BP 148/80; PULSE 60; RESP 16; O2SAT 93
[2023-06-08 09:28] VITALS: BP 144/67; PULSE 57; RESP 16; TEMP 37.1; O2SAT 97
[2023-06-08] MEDS: acetaminophen 325 mg Tablet 650 MG PO (09:49)
[2023-06-08] MEDS: diphenhydrAMINE 25 mg Capsule PO (09:49)
[2023-06-08] MEDS: [UNRECOGNIZED DRUG - OTHER] IV (10:47)
[2023-06-08] MEDS: SODIUM CHLORIDE 0.9% IV (10:47)
[2023-06-08 11:56] VITALS: BP 167/99; PULSE 54; RESP 18; O2SAT 98
== END 2023-06-08 23:59 | disposition home or self-care (01) ==
PROVIDERS: PCP Nurse Practitioner Family; Visit Provider Radiology Radiation Oncology
DX: Z51.11 Encounter for antineoplastic chemotherapy; C4A.72 Merkel cell carcinoma of left lower limb, including hip; Z53.9 Procedure and treatment not carried out, unspecified reason
CPT/HCPCS: 96413; J7050; J9023

== ENCOUNTER 2023-07-09 08:07 | Oncology outpatient (recurring) (ONCR) | payer MEDICARE, OTHER, SELFPAY ==
[2023-06-23 08:55] VITALS: BP 149/77; PULSE 65; RESP 16; TEMP 37.2; O2SAT 97
[2023-06-23 09:11] LABS: Basophils % 0.5 %; Eosinophils # 0.1 10^3/uL (0.0-0.8); Eosinophils % 2.2 %; Hematocrit 42.9 % (37-53); Lymphocytes # 0.9 10^3/uL (0.8-4.8); Lymphocytes % 15.6 %; Mean Corpuscular Hemoglobin 32.8 pg (27-33); Mean Corpuscular Volume 93.9 fl (82-101); Mean Platelet Volume 8.7 fL (7.4-10.4); Monocytes # 0.4 10^3/uL (0.2-0.9); Neutrophils # 4.42 10^3/uL (1.8-7.7); Neutrophils % 74.2 %; Nucleated Red Blood Cells % 0 %; Platelet Count 266 10^3/cmm (157-399); Red Blood Count 4.57 10^6/uL (3.85-5.65); Red Cell Distribution Width 12.8 % (12.1-15.1); White Blood Count 5.96 10^3/uL (3.29-11.43)
[2023-06-23 09:32] LABS: Alanine Aminotransferase 16 U/L (0-41); Albumin Level 4.2 g/dL (3.5-5.2); Alkaline Phosphatase 94 U/L (40-130); Anion Gap 14.3 (5-19); Aspartate Amino Transferase 18 U/L (0-40); Blood Urea Nitrogen 19 mg/dL (8-23); Calcium 9.1 mg/dL (8.5-10.5); Carbon Dioxide 25 mmol/L (22-29); Chloride 103 mmol/L (98-107); Globulin 3.4 g/dL (1.3-4.6); Glucose 117 mg/dL (65-115); Osmolality Calculated 289 mOsm/kg (285-295); Potassium 4.3 mmol/L (3.5-5.1); Sodium 138 mmol/L (136-145); Thyroid Stimulating Hormone 0.87 uIU/mL (0.27-4.20); Total Bilirubin 0.5 mg/dL (0.15-1.2); Total Protein 7.6 g/dL (6.6-8.7)
[2023-06-25 07:49] VITALS: BP 159/71; PULSE 79; RESP 16; TEMP 36.5; O2SAT 98
[2023-06-25] MEDS: diphenhydrAMINE 25 mg Capsule PO (08:33)
[2023-06-25] MEDS: acetaminophen 325 mg Tablet 650 MG PO (08:33)
[2023-06-25] MEDS: sodium chloride 0.9% 250 ML 75 ML IV (08:34)
[2023-06-25] MEDS: [UNRECOGNIZED DRUG - OTHER] IV (08:48)
[2023-06-25] MEDS: SODIUM CHLORIDE 0.9% IV (08:48)
[2023-06-25 10:07] VITALS: BP 173/91; PULSE 60; RESP 16; TEMP 36.5; O2SAT 98
[2023-07-09 08:30] VITALS: BP 163/82; PULSE 72; RESP 16; TEMP 37.2; O2SAT 96
[2023-07-09 08:37] LABS: Basophils % 0.4 %; Eosinophils # 0.3 10^3/uL (0.0-0.8); Eosinophils % 5.3 %; Hematocrit 40.9 % (37-53); Lymphocytes # 0.8 10^3/uL (0.8-4.8); Lymphocytes % 17.1 %; Mean Corpuscular Hemoglobin 32.6 pg (27-33); Mean Corpuscular Volume 93.2 fl (82-101); Mean Platelet Volume 8.6 fL (7.4-10.4); Monocytes # 0.5 10^3/uL (0.2-0.9); Monocytes % 10.6 %; Neutrophils # 3.27 10^3/uL (1.8-7.7); Neutrophils % 66.4 %; Nucleated Red Blood Cells % 0 %; Platelet Count 214 10^3/cmm (157-399); Red Blood Count 4.39 10^6/uL (3.85-5.65); Red Cell Distribution Width 13.2 % (12.1-15.1); White Blood Count 4.92 10^3/uL (3.29-11.43)
[2023-07-09 09:12] LABS: Alanine Aminotransferase 19 U/L (0-41); Alkaline Phosphatase 82 U/L (40-130); Anion Gap 14.1 (5-19); Aspartate Amino Transferase 19 U/L (0-40); Blood Urea Nitrogen 23 mg/dL (8-23); Calcium 8.9 mg/dL (8.5-10.5); Carbon Dioxide 25 mmol/L (22-29); Chloride 106 mmol/L (98-107); Globulin 3.2 g/dL (1.3-4.6); Glucose 137 mg/dL (65-115); Osmolality Calculated 298 mOsm/kg (285-295); Potassium 4.1 mmol/L (3.5-5.1); Sodium 141 mmol/L (136-145); Thyroid Stimulating Hormone 0.65 uIU/mL (0.27-4.20); Total Bilirubin 0.5 mg/dL (0.15-1.2); Total Protein 7.2 g/dL (6.6-8.7)
[2023-07-09] MEDS: diphenhydrAMINE 25 mg Capsule PO (10:12)
[2023-07-09] MEDS: acetaminophen 325 mg Tablet 650 MG PO (10:12)
[2023-07-09] MEDS: SODIUM CHLORIDE 0.9% IV (10:54)
[2023-07-09] MEDS: [UNRECOGNIZED DRUG - OTHER] IV (10:54)
[2023-07-09 12:11] VITALS: BP 173/72; PULSE 65; TEMP 36.6; O2SAT 95
== END 2023-07-09 23:59 | disposition home or self-care (01) ==
PROVIDERS: Internal Medicine; Nurse Practitioner Family; PCP Nurse Practitioner Family; Visit Provider Radiology Radiation Oncology
DX: Z51.11 Encounter for antineoplastic chemotherapy; C4A.72 Merkel cell carcinoma of left lower limb, including hip; C79.51 Secondary malignant neoplasm of bone; Z53.9 Procedure and treatment not carried out, unspecified reason
CPT/HCPCS: 80053; 84443; 85025; 96413; 99214; J7050; J9023

== ENCOUNTER 2023-08-06 08:25 | Oncology outpatient (recurring) (ONCR) | payer MEDICARE, OTHER, SELFPAY ==
[2023-07-23] MEDS: acetaminophen 325 mg Tablet 650 MG PO (09:30)
[2023-07-23] MEDS: diphenhydrAMINE 25 mg Capsule PO (09:31)
[2023-07-23] MEDS: SODIUM CHLORIDE 0.9% IV (09:47)
[2023-07-23] MEDS: sodium chloride 0.9% 250 ML 75 ML IV (09:47)
[2023-07-23] MEDS: [UNRECOGNIZED DRUG - OTHER] IV (09:47)
[2023-07-23 09:52] VITALS: BP 132/65; PULSE 60; RESP 17; TEMP 36.4; O2SAT 96
[2023-07-23 10:55] VITALS: BP 128/67; PULSE 61; TEMP 36.8; O2SAT 94
[2023-08-06] MEDS: acetaminophen 325 mg Tablet 650 MG PO (09:18)
[2023-08-06] MEDS: diphenhydrAMINE 25 mg Capsule PO (09:18)
[2023-08-06] MEDS: sodium chloride 0.9% 250 ML 75 ML IV (09:18)
[2023-08-06] MEDS: [UNRECOGNIZED DRUG - OTHER] IV (09:54)
[2023-08-06] MEDS: SODIUM CHLORIDE 0.9% IV (09:54)
[2023-08-06 11:15] VITALS: BP 154/72; PULSE 57; RESP 16; TEMP 37.1; O2SAT 100
== END 2023-08-06 23:59 | disposition home or self-care (01) ==
PROVIDERS: PCP Nurse Practitioner Family; Visit Provider Radiology Radiation Oncology
DX: Z51.12 Encounter for antineoplastic immunotherapy (principal); C4A.72 Merkel cell carcinoma of left lower limb, including hip; C79.51 Secondary malignant neoplasm of bone; C77.5 Secondary and unspecified malignant neoplasm of intrapelvic lymph nodes; R53.83 Other fatigue; Z79.899 Other long term (current) drug therapy; Z53.9 Procedure and treatment not carried out, unspecified reason
CPT/HCPCS: 96413; 99214; J7050; J9023

== ENCOUNTER 2023-08-20 08:20 | Oncology outpatient (recurring) (ONCR) | payer MEDICARE, OTHER, SELFPAY ==
[2023-08-20] MEDS: acetaminophen 325 mg Tablet 650 MG PO (08:44)
[2023-08-20] MEDS: diphenhydrAMINE 25 mg Capsule PO (08:45)
[2023-08-20 08:49] VITALS: BP 134/84; PULSE 68; RESP 16; TEMP 36.4; O2SAT 96
[2023-08-20] MEDS: SODIUM CHLORIDE 0.9% IV (09:00)
[2023-08-20] MEDS: [UNRECOGNIZED DRUG - OTHER] IV (09:00)
[2023-08-20 10:38] VITALS: BP 135/76; PULSE 59; RESP 18; TEMP 37; O2SAT 96
== END 2023-08-20 23:59 | disposition home or self-care (01) ==
LOC: ONCMED 08:20
PROVIDERS: PCP Nurse Practitioner Family; Visit Provider Radiology Radiation Oncology
DX: Z51.11 Encounter for antineoplastic chemotherapy (principal); C4A.72 Merkel cell carcinoma of left lower limb, including hip
CPT/HCPCS: 96413; J7050; J9023

== ENCOUNTER 2023-09-01 09:16 | Outpatient (CLI) | payer MEDICARE, OTHER, SELFPAY ==
--- NOTE | 2023-09-01 09:30 | PETR_ITS ---
PROCEDURE INFORMATION: Exam: PET/CT Whole Body Exam date and time: 09/01/2023 10:00 AM Age: 73 years old Clinical indication: Condition or disease; Additional info: Hansa cell cancer. There is a history of immunotherapy approximately 2 weeks ago. LABS AND CLINICAL REPORTS: Glucose: 123 mg/dl Treatment strategy for malignancy (PET staging): Restaging (PS) TECHNIQUE: Imaging protocol: Following at least four-hour fasting and following the injection of radiopharmaceutical, low dose CT images were obtained. Then, PET images were obtained. Attenuation corrected images were constructed using the CT scan. Fused images of PET and CT were reviewed. The standardized uptake values (SUV) reported below are maximum values within a region of interest, expressed in gm/ml. Exam includes the whole body. Radiopharmaceutical: 11.78 mCi F-18 FDG (Fluorodeoxyglucose), IV. Time of imaging post radiopharmaceutical administration: 1 hour Injection site: Right antecubital COMPARISON: CTA chest 05/12/2023, CT chest, abdomen and pelvis 04/30/2023, [facility] SUBSEQ [id number] 11/01/2022 10:42 AM FINDINGS: Brain: Visualized brain has normal physiologic uptake. Paranasal sinuses: Mucosal thickening in the paranasal sinuses is greatest within the ethmoid sinuses consistent with benign chronic appearing sinusitis. Pharynx: No abnormal uptake. Larynx: No abnormal uptake. Lungs, pleura and trachea: No abnormal uptake. Heart: Normal physiologic uptake. Mediastinal space: No abnormal uptake. Diaphragm: Small hiatal hernia. No abnormal uptake. Liver: No abnormal uptake. Gallbladder and bile ducts: No abnormal uptake. Pancreas: No abnormal uptake. Spleen: No abnormal uptake. Adrenal glands: No abnormal uptake. Kidneys and ureters: Normal physiologic uptake. A non radiotracer avid exophytic rounded low-density 3.1 cm in diameter structure arises from the inferior pole of the right kidney compatible with a probable benign cyst. Unremarkable left kidney. Stomach and bowel: No abnormal uptake. There are scattered colonic diverticula. Reproductive: There is moderate prominence of the prostate gland without definite focal abnormal uptake. Assessment of the prostate gland can be limited by PET-CT. Vasculature: No abnormal uptake. There are diffuse atherosclerotic changes. Lymph nodes: Mild prominence of mediastinal and right hilar lymph nodes is similar since at least the prior PET-CT. A mildly prominent left aortopulmonary window lymph node measuring 1.7 x 1.0 cm on series 3, image 77 is not radiotracer avid, SUV max 1.9 (previously 1.9). Mildly prominent subcarinal lymph nodes are noted with mild uptake, SUV max 3.1 (previously 2.8) for example within a lymph node measuring 1.2 cm in diameter on series 3, image 86. Elevated uptake in the right hilar region is noted, SUV max 3.3 open (previously 3.1) within a lymph node measuring approximately 1.7 x 1.4 cm on series 3, image 87. Bones/joints: No abnormal uptake in the visualized axial and appendicular skeleton. There is mild diffuse vertebral body spondylosis and moderate curvature of the lumbar spine convex to the right is present. There is mild, likely inflammatory uptake in the region of the right glenohumeral joint capsule, SUV max 3.2. Extensive narrowing of the right acromial humeral interval is noted with underlying primary osteoarthritic changes. Soft tissues: No abnormal uptake in the visualized head, neck, chest, abdomen, pelvis, and extremities. METRICS: Mediastinal blood pool: SUV max 2.8 Liver uptake: SUV max 3.1, SUV mean 2.7 PET/PET WB melanoma SUBSEQ [id number] IMPRESSION: 1. Mild prominence of mediastinal and right hilar lymph nodes is been stable since at least the prior PET-CT. The degree of uptake within these lymph nodes is similar to slightly increased. Inflammatory or infectious etiology may account for this appearance. A malignant etiology is less likely but cannot be entirely excluded. 2. No additional regions of lymphadenopathy or radiotracer avid malignancy. 3. Additional nonurgent findings as detailed above.
== END 2023-09-01 09:17 | disposition home or self-care (01) ==
LOC: RAD 09:16
PROVIDERS: PCP Nurse Practitioner Family; Visit Provider Internal Medicine Medical Oncology
DX: C4A.72 Merkel cell carcinoma of left lower limb, including hip (principal)
CPT/HCPCS: 78816; A9552

== ENCOUNTER 2023-09-17 08:35 | Oncology outpatient (recurring) (ONCR) | payer MEDICARE, SELFPAY ==
[2023-09-03] MEDS: SODIUM CHLORIDE 0.9% IV (10:14)
[2023-09-03] MEDS: [UNRECOGNIZED DRUG - OTHER] IV (10:14)
[2023-09-03] MEDS: acetaminophen 325 mg Tablet 650 MG PO (10:16)
[2023-09-03] MEDS: diphenhydrAMINE 25 mg Capsule PO (10:16)
[2023-09-03 11:21] VITALS: BP 153/72; PULSE 82; RESP 16; O2SAT 96
[2023-09-17 09:01] LABS: Basophils % 0.7 %; Eosinophils # 0.3 10^3/uL (0.0-0.8); Eosinophils % 5.4 %; Hematocrit 40.6 % (37-53); Lymphocytes # 1.1 10^3/uL (0.8-4.8); Lymphocytes % 19.2 %; Mean Corpuscular HGB Conc 35.5 g/dL (30-55); Mean Corpuscular Hemoglobin 32.7 pg (27-33); Mean Corpuscular Volume 92.3 fl (82-101); Mean Platelet Volume 8.8 fL (7.4-10.4); Monocytes # 0.5 10^3/uL (0.2-0.9); Monocytes % 9.3 %; Neutrophils # 3.77 10^3/uL (1.8-7.7); Neutrophils % 65.1 %; Nucleated Red Blood Cells % 0 %; Platelet Count 240 10^3/cmm (157-399); Red Cell Distribution Width 13.2 % (12.1-15.1); White Blood Count 5.79 10^3/uL (3.29-11.43)
[2023-09-17 09:33] LABS: Alanine Aminotransferase 16 U/L (0-41); Alkaline Phosphatase 118 U/L (40-130); Aspartate Amino Transferase 16 U/L (0-40); Blood Urea Nitrogen 19 mg/dL (8-23); Calcium 9.2 mg/dL (8.5-10.5); Carbon Dioxide 26 mmol/L (22-29); Chloride 102 mmol/L (98-107); Globulin 3.2 g/dL (1.3-4.6); Glucose 123 mg/dL (65-115); Osmolality Calculated 288 mOsm/kg (285-295); Sodium 137 mmol/L (136-145); Thyroid Stimulating Hormone 1.21 uIU/mL (0.27-4.20); Total Bilirubin 0.7 mg/dL (0.15-1.2); Total Protein 7.2 g/dL (6.6-8.7)
[2023-09-17] MEDS: sodium chloride 0.9% 250 ML 75 ML IV (10:59)
[2023-09-17] MEDS: acetaminophen 325 mg Tablet 650 MG PO (10:59)
[2023-09-17] MEDS: diphenhydrAMINE 25 mg Capsule PO (10:59)
[2023-09-17] MEDS: [UNRECOGNIZED DRUG - OTHER] IV (11:23)
[2023-09-17] MEDS: SODIUM CHLORIDE 0.9% IV (11:23)
[2023-09-17 12:39] VITALS: BP 134/76; PULSE 82; RESP 18; TEMP 36.7; O2SAT 98
== END 2023-09-17 23:59 | disposition home or self-care (01) ==
PROVIDERS: Internal Medicine Medical Oncology; PCP Nurse Practitioner Family; Visit Provider Radiology Radiation Oncology
DX: Z53.9 Procedure and treatment not carried out, unspecified reason (principal); C4A.72 Merkel cell carcinoma of left lower limb, including hip; Z79.899 Other long term (current) drug therapy
CPT/HCPCS: 80053; 84443; 85025; 96413; 99214; A4222; J7050; J9023

== ENCOUNTER 2023-10-16 09:00 | Oncology outpatient (recurring) (ONCR) | payer MEDICARE, OTHER, SELFPAY ==
[2023-10-02 08:00] VITALS: BP 151/68; PULSE 61; RESP 16; TEMP 36.6; O2SAT 96
[2023-10-02] MEDS: diphenhydrAMINE 25 mg Capsule PO (08:08)
[2023-10-02] MEDS: acetaminophen 325 mg Tablet 650 MG PO (08:08)
[2023-10-02] MEDS: SODIUM CHLORIDE 0.9% IV (08:41)
[2023-10-02] MEDS: [UNRECOGNIZED DRUG - OTHER] IV (08:41)
[2023-10-02 09:44] VITALS: BP 152/88; PULSE 62; TEMP 37.1; O2SAT 97
[2023-10-16 09:21] VITALS: BP 169/69; PULSE 58; RESP 16; TEMP 36.4; O2SAT 94
[2023-10-16] MEDS: diphenhydrAMINE 25 mg Capsule PO (09:23)
[2023-10-16] MEDS: acetaminophen 325 mg Tablet 650 MG PO (09:23)
[2023-10-16] MEDS: [UNRECOGNIZED DRUG - OTHER] IV (09:50)
[2023-10-16] MEDS: SODIUM CHLORIDE 0.9% IV (09:50)
[2023-10-16 11:10] VITALS: BP 159/81; PULSE 64; RESP 16; TEMP 36.4; O2SAT 97
== END 2023-10-16 23:59 | disposition home or self-care (01) ==
PROVIDERS: PCP Nurse Practitioner Family; Visit Provider Radiology Radiation Oncology
DX: Z51.11 Encounter for antineoplastic chemotherapy (principal); C4A.72 Merkel cell carcinoma of left lower limb, including hip
CPT/HCPCS: 96413; A4222; J7050; J9023

== ENCOUNTER 2023-11-12 08:00 | Oncology outpatient (recurring) (ONCR) | payer MEDICARE, SELFPAY ==
[2023-10-29 08:21] LABS: Basophils # 0.1 10^3/uL (0.0-0.1); Eosinophils # 0.3 10^3/uL (0.0-0.8); Eosinophils % 6.4 %; Hematocrit 42.8 % (37-53); Lymphocytes % 20.4 %; Mean Corpuscular HGB Conc 35.5 g/dL (30-55); Mean Corpuscular Hemoglobin 33.2 pg (27-33); Mean Corpuscular Volume 93.4 fl (82-101); Mean Platelet Volume 8.6 fL (7.4-10.4); Monocytes # 0.6 10^3/uL (0.2-0.9); Monocytes % 11.4 %; Neutrophils # 3.02 10^3/uL (1.8-7.7); Neutrophils % 60.4 %; Nucleated Red Blood Cells % 0 %; Platelet Count 233 10^3/cmm (157-399); Red Blood Count 4.58 10^6/uL (3.85-5.65); Red Cell Distribution Width 13.2 % (12.1-15.1)
[2023-10-29 08:44] LABS: Alanine Aminotransferase 15 U/L (0-41); Albumin Level 4.2 g/dL (3.5-5.2); Alkaline Phosphatase 107 U/L (40-130); Aspartate Amino Transferase 18 U/L (0-40); Blood Urea Nitrogen 17 mg/dL (8-23); Calcium 9.1 mg/dL (8.5-10.5); Carbon Dioxide 26 mmol/L (22-29); Chloride 102 mmol/L (98-107); Globulin 3.3 g/dL (1.3-4.6); Glucose 126 mg/dL (65-115); Osmolality Calculated 287 mOsm/kg (285-295); Sodium 137 mmol/L (136-145); Total Bilirubin 0.5 mg/dL (0.15-1.2); Total Protein 7.5 g/dL (6.6-8.7)
[2023-10-29 08:49] LABS: Anion Gap 13.4 (5-19); Potassium 4.4 mmol/L (3.5-5.1)
[2023-10-29] MEDS: acetaminophen 325 mg Tablet 650 MG PO (10:03)
[2023-10-29] MEDS: diphenhydrAMINE 25 mg Capsule PO (10:03)
[2023-10-29] MEDS: SODIUM CHLORIDE 0.9% IV (10:41)
[2023-10-29] MEDS: [UNRECOGNIZED DRUG - OTHER] IV (10:41)
[2023-10-29 11:57] VITALS: BP 136/74; PULSE 60; RESP 18; TEMP 36.6; O2SAT 98
[2023-11-12 08:05] VITALS: BP 176/78; PULSE 58; RESP 18; TEMP 36.6; O2SAT 92
[2023-11-12 08:12] VITALS: BP 176/78; PULSE 63; RESP 18; TEMP 36.6; O2SAT 92
[2023-11-12] MEDS: acetaminophen 325 mg Tablet 650 MG PO (08:32)
[2023-11-12] MEDS: diphenhydrAMINE 25 mg Capsule PO (08:33)
[2023-11-12] MEDS: [UNRECOGNIZED DRUG - OTHER] IV (09:08)
[2023-11-12] MEDS: SODIUM CHLORIDE 0.9% IV (09:08)
[2023-11-12 10:20] VITALS: BP 142/78; PULSE 60; RESP 17; TEMP 36.4; O2SAT 98
== END 2023-11-12 23:59 | disposition home or self-care (01) ==
PROVIDERS: Nurse Practitioner Family; PCP Nurse Practitioner Family; Visit Provider Radiology Radiation Oncology
DX: C4A.72 Merkel cell carcinoma of left lower limb, including hip (principal); Z51.11 Encounter for antineoplastic chemotherapy; Z53.9 Procedure and treatment not carried out, unspecified reason
CPT/HCPCS: 80053; 85025; 96365; 96413; 99213; A4222; J7050; J9023

== ENCOUNTER 2023-12-10 08:00 | Oncology outpatient (recurring) (ONCR) | payer MEDICARE, SELFPAY ==
[2023-11-26] MEDS: diphenhydrAMINE 25 mg Capsule PO (11:51)
[2023-11-26] MEDS: acetaminophen 325 mg Tablet 650 MG PO (11:51)
[2023-11-26 11:52] VITALS: BP 138/84; PULSE 88; RESP 16; TEMP 36.6; O2SAT 96
[2023-11-26] MEDS: [UNRECOGNIZED DRUG - OTHER] IV (12:26)
[2023-11-26] MEDS: SODIUM CHLORIDE 0.9% IV (12:26)
[2023-11-26 13:45] VITALS: BP 151/72; PULSE 65; RESP 17; TEMP 36.6; O2SAT 93
[2023-12-10 08:11] LABS: Basophils % 0.8 %; Eosinophils # 0.3 10^3/uL (0.0-0.8); Hematocrit 42.2 % (37-53); Lymphocytes % 18.7 %; Mean Corpuscular HGB Conc 35.8 g/dL (30-55); Mean Corpuscular Hemoglobin 33.5 pg (27-33); Mean Corpuscular Volume 93.6 fl (82-101); Mean Platelet Volume 8.6 fL (7.4-10.4); Monocytes # 0.5 10^3/uL (0.2-0.9); Monocytes % 10.4 %; Neutrophils # 3.37 10^3/uL (1.8-7.7); Neutrophils % 64.7 %; Nucleated Red Blood Cells % 0 %; Platelet Count 229 10^3/cmm (157-399); Red Blood Count 4.51 10^6/uL (3.85-5.65); Red Cell Distribution Width 13.3 % (12.1-15.1)
[2023-12-10 08:39] LABS: Alanine Aminotransferase 14 U/L (0-41); Albumin Level 4.2 g/dL (3.5-5.2); Alkaline Phosphatase 105 U/L (40-130); Anion Gap 13.3 (5-19); Aspartate Amino Transferase 17 U/L (0-40); Blood Urea Nitrogen 18 mg/dL (8-23); Calcium 8.7 mg/dL (8.5-10.5); Carbon Dioxide 26 mmol/L (22-29); Chloride 107 mmol/L (98-107); Globulin 3.2 g/dL (1.3-4.6); Glucose 126 mg/dL (65-115); Osmolality Calculated 297 mOsm/kg (285-295); Potassium 4.3 mmol/L (3.5-5.1); Sodium 142 mmol/L (136-145); Total Bilirubin 0.4 mg/dL (0.15-1.2); Total Protein 7.4 g/dL (6.6-8.7)
[2023-12-10 10:20] LABS: Erythrocyte Sedimentation Rate 8 mm/hr (0-10)
[2023-12-10] MEDS: diphenhydrAMINE 25 mg Capsule PO (10:27)
[2023-12-10] MEDS: acetaminophen 325 mg Tablet 650 MG PO (10:27)
[2023-12-10 10:44] LABS: Thyroid Stimulating Hormone 1.22 uIU/mL (0.27-4.20)
[2023-12-10] MEDS: [UNRECOGNIZED DRUG - OTHER] IV (10:52)
[2023-12-10] MEDS: SODIUM CHLORIDE 0.9% IV (10:52)
[2023-12-10 12:05] VITALS: BP 173/77; PULSE 89; RESP 18; TEMP 36.6; O2SAT 96
--- NOTE | 2023-12-10 12:15 | XRR_ITS ---
PROCEDURE INFORMATION: Exam: XR Left Knee Exam date and time: 12/10/2023 12:30 PM Age: 73 years old Clinical indication: Pain; Knee; Left; Patient HX: HX of caleb cell carcinoma; Additional info: Left knee pain TECHNIQUE: Imaging protocol: Radiologic exam of the left knee. Views: 3 views. COMPARISON: PT PET WB melanoma SUBSEQ [id number] 09/01/2023 10:00 AM FINDINGS: Bones/joints: Negative for acute bony abnormality. Soft tissues: Normal. XR/XR knee LT 3V* [id number] IMPRESSION: No acute findings.
[2023-12-10 16:11] LABS: Free T4 Free Thyroxine 1.01 ng/dL (0.82-1.77)
[2023-12-11 14:55] LABS: Cyclic Citrullinated Peptide <16 UNITS
[2023-12-11 16:09] LABS: Anti-Nuclear Antibody Screen NEGATIVE (NEGATIVE)
== END 2023-12-10 23:59 | disposition home or self-care (01) ==
PROVIDERS: Internal Medicine; PCP Nurse Practitioner Family; Visit Provider Radiology Radiation Oncology
DX: Z53.9 Procedure and treatment not carried out, unspecified reason; Z51.12 Encounter for antineoplastic immunotherapy; C4A.72 Merkel cell carcinoma of left lower limb, including hip; R53.83 Other fatigue; M25.562 Pain in left knee
CPT/HCPCS: 73562; 80053; 84439; 84443; 85025; 85651; 86038; 86140; 86200; 86431; 96413; 99213; A4222; J7050; J9023

== ENCOUNTER 2024-01-06 08:00 | Oncology outpatient (recurring) (ONCR) | payer MEDICARE, SELFPAY ==
[2023-12-23 07:51] VITALS: BMI 31.7
[2023-12-23 07:55] VITALS: BP 146/78; PULSE 58; RESP 17; TEMP 36.9; O2SAT 95
[2023-12-23] MEDS: acetaminophen 325 mg Tablet 650 MG PO (09:00)
[2023-12-23] MEDS: diphenhydrAMINE 25 mg Capsule PO (09:00)
[2023-12-23] MEDS: SODIUM CHLORIDE 0.9% IV (09:02)
[2023-12-23] MEDS: [UNRECOGNIZED DRUG - OTHER] IV (09:02)
[2023-12-23 09:50] VITALS: BP 146/80; PULSE 50; TEMP 36.5; O2SAT 96
[2024-01-06 08:49] LABS: Basophils % 0.5 %; Eosinophils # 0.3 10^3/uL (0.0-0.8); Eosinophils % 5.2 %; Hematocrit 40.7 % (37-53); Lymphocytes # 0.8 10^3/uL (0.8-4.8); Lymphocytes % 14.6 %; Mean Corpuscular HGB Conc 35.1 g/dL (30-55); Mean Corpuscular Hemoglobin 33.2 pg (27-33); Mean Corpuscular Volume 94.4 fl (82-101); Mean Platelet Volume 8.9 fL (7.4-10.4); Monocytes # 0.5 10^3/uL (0.2-0.9); Monocytes % 9.4 %; Neutrophils # 4.02 10^3/uL (1.8-7.7); Nucleated Red Blood Cells % 0 %; Platelet Count 254 10^3/cmm (157-399); Red Blood Count 4.31 10^6/uL (3.85-5.65); White Blood Count 5.75 10^3/uL (3.29-11.43)
[2024-01-06 09:14] LABS: Alanine Aminotransferase 16 U/L (0-41); Albumin Level 4.1 g/dL (3.5-5.2); Alkaline Phosphatase 116 U/L (40-130); Aspartate Amino Transferase 19 U/L (0-40); Blood Urea Nitrogen 24 mg/dL (8-23); Calcium 8.9 mg/dL (8.5-10.5); Carbon Dioxide 23 mmol/L (22-29); Chloride 103 mmol/L (98-107); Creatinine Clr Calc Pharmacy 93.3038; Glucose 151 mg/dL (65-115); Osmolality Calculated 295 mOsm/kg (285-295); Sodium 139 mmol/L (136-145); Thyroid Stimulating Hormone 0.73 uIU/mL (0.27-4.20); Total Bilirubin 0.4 mg/dL (0.15-1.2); Total Protein 7.1 g/dL (6.6-8.7)
[2024-01-06 09:25] LABS: Anion Gap 17.4 (5-19); Potassium 4.4 mmol/L (3.5-5.1)
[2024-01-06] MEDS: acetaminophen 325 mg Tablet 650 MG PO (09:41)
[2024-01-06] MEDS: diphenhydrAMINE 25 mg Capsule PO (09:41)
[2024-01-06] MEDS: SODIUM CHLORIDE 0.9% IV (10:00)
[2024-01-06] MEDS: [UNRECOGNIZED DRUG - OTHER] IV (10:00)
[2024-01-06 11:04] VITALS: BP 136/76; PULSE 63; RESP 17; O2SAT 96
== END 2024-01-06 23:59 | disposition home or self-care (01) ==
PROVIDERS: PCP Nurse Practitioner Family; Visit Provider Nurse Practitioner Family
DX: Z51.12 Encounter for antineoplastic immunotherapy (principal); C4A.72 Merkel cell carcinoma of left lower limb, including hip; Z53.9 Procedure and treatment not carried out, unspecified reason; Z79.899 Other long term (current) drug therapy; R53.83 Other fatigue; Z87.891 Personal history of nicotine dependence; Z92.3 Personal history of irradiation
CPT/HCPCS: 80053; 84443; 85025; 96413; 99214; A4222; J7050; J9023

== ENCOUNTER 2024-01-20 07:40 | Oncology outpatient (recurring) (ONCR) | payer MEDICARE, SELFPAY ==
[2024-01-20 07:57] VITALS: BP 148/71; PULSE 60; RESP 16; TEMP 36.5; O2SAT 94
[2024-01-20] MEDS: acetaminophen 325 mg Tablet 650 MG PO (08:42)
[2024-01-20] MEDS: diphenhydrAMINE 25 mg Capsule PO (08:42)
[2024-01-20] MEDS: SODIUM CHLORIDE 0.9% IV (09:15)
[2024-01-20] MEDS: [UNRECOGNIZED DRUG - OTHER] IV (09:15)
[2024-01-20 10:20] VITALS: BP 147/90; PULSE 60; RESP 16; TEMP 36.6; O2SAT 97
== END 2024-01-20 23:59 | disposition home or self-care (01) ==
LOC: ONCMED 07:40
PROVIDERS: PCP Nurse Practitioner Family; Visit Provider Nurse Practitioner Family
DX: Z51.12 Encounter for antineoplastic immunotherapy (principal); C4A.72 Merkel cell carcinoma of left lower limb, including hip; Z79.899 Other long term (current) drug therapy
CPT/HCPCS: 96413; J7050; J9023

== ENCOUNTER 2024-02-17 07:16 | Oncology outpatient (recurring) (ONCR) | payer MEDICARE, SELFPAY ==
[2024-02-03] MEDS: acetaminophen 325 mg Tablet 650 MG PO (08:53)
[2024-02-03] MEDS: diphenhydrAMINE 25 mg Capsule PO (08:53)
[2024-02-03] MEDS: [UNRECOGNIZED DRUG - OTHER] IV (09:43)
[2024-02-03] MEDS: SODIUM CHLORIDE 0.9% IV (09:43)
[2024-02-03 10:46] VITALS: BP 143/80; PULSE 60; RESP 18; TEMP 36.6; O2SAT 97
[2024-02-17 07:53] LABS: Basophils % 0.5 %; Eosinophils # 0.3 10^3/uL (0.0-0.8); Eosinophils % 4.3 %; Hematocrit 41.7 % (37-53); Lymphocytes % 17.2 %; Mean Corpuscular HGB Conc 34.8 g/dL (30-55); Mean Corpuscular Hemoglobin 33.4 pg (27-33); Mean Corpuscular Volume 96.1 fl (82-101); Mean Platelet Volume 8.9 fL (7.4-10.4); Monocytes # 0.5 10^3/uL (0.2-0.9); Monocytes % 8.5 %; Neutrophils # 3.98 10^3/uL (1.8-7.7); Neutrophils % 69.3 %; Nucleated Red Blood Cells % 0 %; Platelet Count 271 10^3/cmm (157-399); Red Blood Count 4.34 10^6/uL (3.85-5.65); Red Cell Distribution Width 12.8 % (12.1-15.1); White Blood Count 5.75 10^3/uL (3.29-11.43)
[2024-02-17 08:14] LABS: Alanine Aminotransferase 14 U/L (0-41); Albumin Level 3.9 g/dL (3.5-5.2); Alkaline Phosphatase 131 U/L (40-130); Aspartate Amino Transferase 14 U/L (0-40); Blood Urea Nitrogen 21 mg/dL (8-23); Calcium 8.8 mg/dL (8.5-10.5); Carbon Dioxide 23 mmol/L (22-29); Chloride 102 mmol/L (98-107); Globulin 3.1 g/dL (1.3-4.6); Glucose 171 mg/dL (65-115); Osmolality Calculated 293 mOsm/kg (285-295); Sodium 138 mmol/L (136-145); Thyroid Stimulating Hormone 0.96 uIU/mL (0.27-4.20); Total Bilirubin 0.4 mg/dL (0.15-1.2)
[2024-02-17 09:10] VITALS: BP 118/63; PULSE 62; RESP 16; TEMP 36.7; O2SAT 92
[2024-02-17] MEDS: acetaminophen 325 mg Tablet 650 MG PO (09:16)
[2024-02-17] MEDS: diphenhydrAMINE 25 mg Capsule PO (09:16)
[2024-02-17] MEDS: [UNRECOGNIZED DRUG - OTHER] IV (09:40)
[2024-02-17] MEDS: SODIUM CHLORIDE 0.9% IV (09:40)
[2024-02-17 10:46] VITALS: BP 155/81; PULSE 71; RESP 16; TEMP 36.7; O2SAT 97
== END 2024-02-17 23:59 | disposition home or self-care (01) ==
PROVIDERS: Nurse Practitioner Family; PCP Nurse Practitioner Family; Visit Provider Internal Medicine Medical Oncology
DX: Z51.12 Encounter for antineoplastic immunotherapy (principal); C4A.72 Merkel cell carcinoma of left lower limb, including hip; R53.83 Other fatigue; Z79.899 Other long term (current) drug therapy
CPT/HCPCS: 80053; 84443; 85025; 96413; 99214; A4222; J7050; J9023

== ENCOUNTER 2024-03-16 07:39 | Oncology outpatient (recurring) (ONCR) | payer MEDICARE, SELFPAY ==
[2024-03-02 09:10] VITALS: BP 120/58; PULSE 63; TEMP 36.6; O2SAT 93
[2024-03-02] MEDS: acetaminophen 325 mg Tablet 650 MG PO (09:20)
[2024-03-02] MEDS: diphenhydrAMINE 25 mg Capsule PO (09:20)
[2024-03-02] MEDS: [UNRECOGNIZED DRUG - OTHER] IV (09:57)
[2024-03-02] MEDS: SODIUM CHLORIDE 0.9% IV (09:57)
[2024-03-02 11:05] VITALS: BP 146/79; PULSE 69; RESP 16; TEMP 36.8; O2SAT 95
[2024-03-16 07:57] VITALS: BP 163/78; PULSE 56; TEMP 36.3; O2SAT 93
[2024-03-16] MEDS: acetaminophen 325 mg Tablet 650 MG PO (08:19)
[2024-03-16] MEDS: diphenhydrAMINE 25 mg Capsule PO (08:19)
[2024-03-16] MEDS: SODIUM CHLORIDE 0.9% IV (08:48)
[2024-03-16] MEDS: [UNRECOGNIZED DRUG - OTHER] IV (08:48)
[2024-03-16 09:50] VITALS: BP 153/66; PULSE 53; RESP 16; TEMP 36.6; O2SAT 94
== END 2024-03-16 23:59 | disposition home or self-care (01) ==
PROVIDERS: PCP Nurse Practitioner Family; Visit Provider Internal Medicine Medical Oncology
DX: C4A.72 Merkel cell carcinoma of left lower limb, including hip; Z79.899 Other long term (current) drug therapy; Z53.9 Procedure and treatment not carried out, unspecified reason; Z51.12 Encounter for antineoplastic immunotherapy
CPT/HCPCS: 96413; A4222; J7050; J9023

== ENCOUNTER 2024-03-25 08:09 | Outpatient (CLI) | payer MEDICARE, SELFPAY ==
--- NOTE | 2024-03-25 | PETR_ITS ---
PROCEDURE INFORMATION: Exam: PET/CT Skull Base to Mid-thigh Exam date and time: 03/25/2024 9:30 AM Age: 74 years old Clinical indication: Condition or disease; Primary cancer: [place] cell; Follow-up oncological assessment; Additional info: Surveillance LABS AND CLINICAL REPORTS: Glucose: 117 mg/dl Treatment strategy for malignancy (PET staging): Restaging (PS) TECHNIQUE: Imaging protocol: Following at least four-hour fasting and following the injection of radiopharmaceutical, low dose CT images were obtained. Then, PET images were obtained. Attenuation corrected images were constructed using the CT scan. Fused images of PET and CT were reviewed. The standardized uptake values (SUV) reported below are maximum values within a region of interest, expressed in gm/ml. Exam includes orbital meatal line to mid-thigh. Radiopharmaceutical: 13.31 mCi F-18 FDG (Fluorodeoxyglucose), IV. Time of imaging post radiopharmaceutical administration: 54 minutes Injection site: Right antecubital; rac. COMPARISON: PT PET WB melanoma SUBSEQ [id number] 09/01/2023 10:00 AM FINDINGS: Brain: Visualized brain has normal physiologic uptake. Paranasal sinuses: Mildly FDG avid mild right maxillary sinus mucosal thickening. Trace left maxillary sinus fluid level. Pharynx: Moderate asymmetric left adenoidal FDG uptake without underlying CT abnormality may be inflammatory. Larynx: No abnormal uptake. Lungs, pleura and trachea: No abnormal uptake. Mild platelike atelectasis versus scarring at the lung bases. Heart: Normal physiologic uptake. Mediastinal space: No abnormal uptake. Diaphragm: [id number] hiatal hernia. Liver: No abnormal uptake. Gallbladder and biliary ducts: No abnormal uptake. Pancreas: No abnormal uptake. Spleen: No abnormal uptake. Adrenal glands: No abnormal uptake. Kidneys and ureters: Normal physiologic uptake. Photopenic fluid density right renal cyst. Stomach and bowel: No abnormal uptake. Colonic diverticulosis. Reproductive: Enlarged prostate measures 5 cm in transverse dimension. No abnormal uptake. Vasculature: No abnormal uptake. Moderate systemic atherosclerotic calcification without aortic aneurysm. Lymph nodes: Mildly prominent non FDG avid mediastinal lymph nodes are stable. Skeleton: Mild thoracolumbar spine dextroconvex curvature. Degenerative changes along the imaged axial skeletal system and both shoulders. Moderate asymmetric left knee periarticular FDG uptake with mild underlying stranding and small joint effusion. Soft tissues: No abnormal uptake in the visualized head, neck, chest, abdomen, pelvis, and extremities. PET/PET skull to thigh SUBS [id number] IMPRESSION: 1. Stable mildly prominent non FDG avid mediastinal lymph nodes, favor benignity. 2. Moderate left knee periarticular FDG uptake with mild underlying stranding and small joint effusion may be inflammatory. Consider MRI as clinically indicated. 3. Mild right maxillary sinusitis. 4. Moderate asymmetric left adenoidal FDG uptake may be inflammatory. 5. Additional chronic and incidental findings as above.
== END 2024-03-25 08:10 | disposition home or self-care (01) ==
LOC: RAD 08:09
PROVIDERS: PCP Nurse Practitioner Family; Visit Provider Nurse Practitioner Family
DX: C4A.72 Merkel cell carcinoma of left lower limb, including hip (principal); R93.7 Abnormal findings on diagnostic imaging of other parts of musculoskeletal system; R93.89 Abnormal findings on diagnostic imaging of other specified body structures; K44.9 Diaphragmatic hernia without obstruction or gangrene; N28.1 Cyst of kidney, acquired; K57.90 Diverticulosis of intestine, part unspecified, without perforation or abscess without bleeding; N40.0 Benign prostatic hyperplasia without lower urinary tract symptoms; I70.0 Atherosclerosis of aorta
CPT/HCPCS: 78815; A9552

== ENCOUNTER 2024-04-14 13:45 | Oncology outpatient (recurring) (ONCR) | payer MEDICARE, OTHER, SELFPAY ==
[2024-03-31 07:56] LABS: Basophils % 0.5 %; Eosinophils # 0.3 10^3/uL (0.0-0.8); Eosinophils % 5.5 %; Hematocrit 42.3 % (37-53); Lymphocytes % 17.8 %; Mean Corpuscular HGB Conc 35.2 g/dL (30-55); Mean Corpuscular Hemoglobin 33.2 pg (27-33); Mean Corpuscular Volume 94.2 fl (82-101); Mean Platelet Volume 8.7 fL (7.4-10.4); Monocytes # 0.6 10^3/uL (0.2-0.9); Monocytes % 10.4 %; Neutrophils # 3.61 10^3/uL (1.8-7.7); Neutrophils % 65.6 %; Nucleated Red Blood Cells % 0 %; Platelet Count 239 10^3/cmm (157-399); Red Blood Count 4.49 10^6/uL (3.85-5.65)
[2024-03-31 08:23] LABS: Alanine Aminotransferase 14 U/L (0-41); Albumin Level 4.2 g/dL (3.5-5.2); Alkaline Phosphatase 130 U/L (40-130); Anion Gap 14.3 (5-19); Aspartate Amino Transferase 16 U/L (0-40); Blood Urea Nitrogen 20 mg/dL (8-23); Calcium 8.7 mg/dL (8.5-10.5); Carbon Dioxide 25 mmol/L (22-29); Chloride 105 mmol/L (98-107); Creatinine Clr Calc Pharmacy 94.4712; Globulin 3.3 g/dL (1.3-4.6); Glucose 118 mg/dL (65-115); Osmolality Calculated 294 mOsm/kg (285-295); Potassium 4.3 mmol/L (3.5-5.1); Sodium 140 mmol/L (136-145); Thyroid Stimulating Hormone 1.21 uIU/mL (0.27-4.20); Total Bilirubin 0.5 mg/dL (0.15-1.2); Total Protein 7.5 g/dL (6.6-8.7)
[2024-03-31] MEDS: acetaminophen 325 mg Tablet 650 MG PO (09:06)
[2024-03-31] MEDS: diphenhydrAMINE 25 mg Capsule PO (09:06)
[2024-03-31] MEDS: [UNRECOGNIZED DRUG - OTHER] IV (09:36)
[2024-03-31] MEDS: SODIUM CHLORIDE 0.9% IV (09:36)
[2024-03-31 10:43] VITALS: BP 146/74; PULSE 84; RESP 16; TEMP 37.1; O2SAT 94
[2024-04-14] MEDS: diphenhydrAMINE 25 mg Capsule PO (08:17)
[2024-04-14] MEDS: acetaminophen 325 mg Tablet 650 MG PO (08:18)
[2024-04-14] MEDS: [UNRECOGNIZED DRUG - OTHER] IV (08:44)
[2024-04-14] MEDS: SODIUM CHLORIDE 0.9% IV (08:44)
[2024-04-14 10:41] VITALS: BP 177/84; PULSE 94; RESP 16; TEMP 36.4; O2SAT 96
--- NOTE | 2024-04-14 13:45 | MR_ITS ---
WS: [id number] MRI LEFT KNEE with and without contrast HISTORY: left knee pain, moderate FDG uptake on recent PET COMPARISON: PET/CT 03/25/2024, LEFT knee radiographs 12/10/2023 Anterior cruciate ligament: Intact. Posterior cruciate ligament: Intact. Medial collateral ligament: Intact. Posterior lateral corner structures: Intact. Medial menisci: Intact. Normal signal, size and shape. Lateral meniscus: Blunted free edge posterior horn lateral meniscus. There is a continued tear extend ing into the posterior meniscus. Small caliber meniscus toward the meniscal root. Extensor mechanism: Distal quadriceps tendon and patellar tendons are intact. Fluid and soft tissue: Small suprapatellar joint effusion. On the postcontrast imaging there is unifo rm enhancement of the suprapatellar bursa. Some of this enhancement may be the synovium. There is onl y a very small joint effusion but there is near circumferential enhancement of the bursal lining. No nodularity or mass. Small Valerio's cyst. Osseous and articular structures: Patellofemoral compartment: Complete loss of cartilage over the medial patellar facet towards the mae nence. Subchondral edema in the lateral patellar facet. Medial compartment: Moderate chondromalacia involving the weightbearing surface of the femoral condyl e greatest towards the intercondylar notch. No marrow edema. Lateral compartment: Mild chondromalacia centrally. There is no marrow edema or bony enhancement or bone lesion. MR/MR knee LT wo/w con [id number] IMPRESSION: 1. Small joint effusion with peripheral enhancement of the suprapatellar bursa . There may be mild enhancement of the synovium also. There is no synovial nod ularity or mass identified. Enhancement can be seen with exacerbation of osteoa rthritis, joint infection or synovitis. 2. Small Valerio's cyst. 3. Blunted free edge posterior horn lateral meniscus with an additional tear e xtending deeper into the posterior meniscus. 4. Small Valerio's cyst. 5. Advanced chondromalacia medial patellar facet. 6. Moderate chondromalacia medial compartment and mild within the lateral comp artment.
[2024-04-14] MEDS: gadobenate dimeglumine 20 mL vial IV (14:31)
== END 2024-04-14 23:59 | disposition home or self-care (01) ==
LOC: RAD 04-15
PROVIDERS: PCP Nurse Practitioner Family; Visit Provider Nurse Practitioner Family
DX: Z53.9 Procedure and treatment not carried out, unspecified reason; Z51.12 Encounter for antineoplastic immunotherapy; C4A.72 Merkel cell carcinoma of left lower limb, including hip; M25.562 Pain in left knee; Z79.899 Other long term (current) drug therapy; M25.462 Effusion, left knee; M94.262 Chondromalacia, left knee; M71.22 Synovial cyst of popliteal space [Baker], left knee; S83.282A Other tear of lateral meniscus, current injury, left knee, initial encounter; X58.XXXA Exposure to other specified factors, initial encounter
CPT/HCPCS: 73723; 80053; 84443; 85025; 96413; 99214; A4222; J7050; J9023

== ENCOUNTER 2024-05-12 07:42 | Oncology outpatient (recurring) (ONCR) | payer MEDICARE, OTHER, SELFPAY ==
[2024-04-28 08:12] VITALS: BP 144/56; PULSE 56; RESP 16; TEMP 37.4; O2SAT 94
[2024-04-28] MEDS: acetaminophen 325 mg Tablet 650 MG PO (08:25)
[2024-04-28] MEDS: diphenhydrAMINE 25 mg Capsule PO (08:25)
[2024-04-28] MEDS: SODIUM CHLORIDE 0.9% IV (08:47)
[2024-04-28] MEDS: [UNRECOGNIZED DRUG - OTHER] IV (08:47)
[2024-04-28 09:53] VITALS: BP 157/78; PULSE 54; TEMP 37; O2SAT 96
[2024-05-12 08:07] LABS: Basophils % 0.6 %; Eosinophils # 0.2 10^3/uL (0.0-0.8); Eosinophils % 3.2 %; Hematocrit 41.6 % (37-53); Lymphocytes # 0.9 10^3/uL (0.8-4.8); Lymphocytes % 19.1 %; Mean Corpuscular HGB Conc 34.9 g/dL (30-55); Mean Corpuscular Volume 94.8 fl (82-101); Mean Platelet Volume 8.9 fL (7.4-10.4); Monocytes # 0.5 10^3/uL (0.2-0.9); Monocytes % 10.2 %; Neutrophils # 3.12 10^3/uL (1.8-7.7); Neutrophils % 66.5 %; Nucleated Red Blood Cells % 0 %; Platelet Count 247 10^3/cmm (157-399); Red Blood Count 4.39 10^6/uL (3.85-5.65); Red Cell Distribution Width 13.1 % (12.1-15.1)
[2024-05-12 08:35] LABS: Alanine Aminotransferase 18 U/L (0-41); Albumin Level 4.2 g/dL (3.5-5.2); Alkaline Phosphatase 110 U/L (40-130); Aspartate Amino Transferase 20 U/L (0-40); Blood Urea Nitrogen 22 mg/dL (8-23); Calcium 9.3 mg/dL (8.5-10.5); Carbon Dioxide 27 mmol/L (22-29); Chloride 102 mmol/L (98-107); Glucose 139 mg/dL (65-115); Osmolality Calculated 294 mOsm/kg (285-295); Sodium 139 mmol/L (136-145); Thyroid Stimulating Hormone 1.02 uIU/mL (0.27-4.20); Total Bilirubin 0.4 mg/dL (0.15-1.2); Total Protein 7.2 g/dL (6.6-8.7)
[2024-05-12 08:37] LABS: Anion Gap 14.3 (5-19); Potassium 4.3 mmol/L (3.5-5.1)
[2024-05-12] MEDS: diphenhydrAMINE 25 mg Capsule PO (09:18)
[2024-05-12] MEDS: acetaminophen 325 mg Tablet 650 MG PO (09:18)
[2024-05-12] MEDS: [UNRECOGNIZED DRUG - OTHER] IV (09:58)
[2024-05-12] MEDS: SODIUM CHLORIDE 0.9% IV (09:58)
[2024-05-12 11:15] VITALS: BP 152/82; PULSE 78; RESP 17; TEMP 37.1; O2SAT 98
== END 2024-05-12 23:59 | disposition home or self-care (01) ==
PROVIDERS: PCP Nurse Practitioner Family; Visit Provider Nurse Practitioner Family
DX: Z53.9 Procedure and treatment not carried out, unspecified reason; Z51.12 Encounter for antineoplastic immunotherapy; C4A.72 Merkel cell carcinoma of left lower limb, including hip; Z79.899 Other long term (current) drug therapy; Z87.891 Personal history of nicotine dependence; Z92.3 Personal history of irradiation; R53.83 Other fatigue
CPT/HCPCS: 80053; 84443; 85025; 96413; 99213; A4222; J7050; J9023

== ENCOUNTER 2024-06-09 12:00 | Oncology outpatient (recurring) (ONCR) | payer MEDICARE, OTHER, SELFPAY ==
[2024-05-26] MEDS: diphenhydrAMINE 25 mg Capsule PO (09:20)
[2024-05-26] MEDS: acetaminophen 325 mg Tablet 650 MG PO (09:20)
[2024-05-26] MEDS: [UNRECOGNIZED DRUG - OTHER] IV (09:33)
[2024-05-26] MEDS: SODIUM CHLORIDE 0.9% IV (09:33)
[2024-05-26 10:34] VITALS: BP 169/94; PULSE 62; TEMP 37.1; O2SAT 98
[2024-05-26 10:43] VITALS: BP 176/79
[2024-06-09 10:30] LABS: Basophils % 0.3 %; Eosinophils # 0.1 10^3/uL (0.0-0.8); Eosinophils % 1.4 %; Hematocrit 43.2 % (37-53); Lymphocytes # 1.2 10^3/uL (0.8-4.8); Lymphocytes % 19.8 %; Mean Corpuscular HGB Conc 35.4 g/dL (30-55); Mean Corpuscular Volume 93.3 fl (82-101); Mean Platelet Volume 8.7 fL (7.4-10.4); Monocytes # 0.5 10^3/uL (0.2-0.9); Monocytes % 7.9 %; Neutrophils # 4.08 10^3/uL (1.8-7.7); Neutrophils % 70.1 %; Nucleated Red Blood Cells % 0 %; Platelet Count 259 10^3/cmm (157-399); Red Blood Count 4.63 10^6/uL (3.85-5.65); Red Cell Distribution Width 12.5 % (12.1-15.1); White Blood Count 5.82 10^3/uL (3.29-11.43)
[2024-06-09 10:53] LABS: Alanine Aminotransferase 13 U/L (0-41); Albumin Level 4.5 g/dL (3.5-5.2); Alkaline Phosphatase 109 U/L (40-130); Aspartate Amino Transferase 18 U/L (0-40); Blood Urea Nitrogen 19 mg/dL (8-23); Calcium 9.4 mg/dL (8.5-10.5); Carbon Dioxide 25 mmol/L (22-29); Chloride 105 mmol/L (98-107); Globulin 3.2 g/dL (1.3-4.6); Glucose 116 mg/dL (65-115); Osmolality Calculated 291 mOsm/kg (285-295); Sodium 139 mmol/L (136-145); Total Bilirubin 0.5 mg/dL (0.15-1.2); Total Protein 7.7 g/dL (6.6-8.7)
[2024-06-09 10:56] LABS: Anion Gap 13.2 (5-19); Lactate Dehydrogenase 193 U/L (135-225); Potassium 4.2 mmol/L (3.5-5.1)
[2024-06-09] MEDS: diphenhydrAMINE 25 mg Capsule PO (12:19)
[2024-06-09] MEDS: acetaminophen 325 mg Tablet 650 MG PO (12:19)
[2024-06-09] MEDS: [UNRECOGNIZED DRUG - OTHER] IV (12:33)
[2024-06-09] MEDS: SODIUM CHLORIDE 0.9% IV (12:33)
[2024-06-09 14:00] VITALS: BP 125/81; PULSE 64; RESP 16; TEMP 37.2; O2SAT 97
== END 2024-06-09 23:59 | disposition home or self-care (01) ==
PROVIDERS: Internal Medicine; PCP Nurse Practitioner Family; Visit Provider Nurse Practitioner Family
DX: C4A.72 Merkel cell carcinoma of left lower limb, including hip (principal); Z79.899 Other long term (current) drug therapy; Z53.9 Procedure and treatment not carried out, unspecified reason; Z51.12 Encounter for antineoplastic immunotherapy
CPT/HCPCS: 80053; 83615; 85025; 96413; A4222; J7050; J9023

== ENCOUNTER 2024-07-07 08:06 | Oncology outpatient (recurring) (ONCR) | payer MEDICARE, OTHER, SELFPAY ==
[2024-06-23 11:13] LABS: Basophils % 0.3 %; Eosinophils # 0.1 10^3/uL (0.0-0.8); Eosinophils % 2.1 %; Hematocrit 41.2 % (37-53); Lymphocytes % 14.5 %; Mean Corpuscular HGB Conc 35.2 g/dL (30-55); Mean Corpuscular Hemoglobin 33.2 pg (27-33); Mean Corpuscular Volume 94.3 fl (82-101); Mean Platelet Volume 8.9 fL (7.4-10.4); Monocytes # 0.5 10^3/uL (0.2-0.9); Monocytes % 7.9 %; Neutrophils # 4.93 10^3/uL (1.8-7.7); Nucleated Red Blood Cells % 0 %; Platelet Count 243 10^3/cmm (157-399); Red Blood Count 4.37 10^6/uL (3.85-5.65); Red Cell Distribution Width 12.5 % (12.1-15.1); White Blood Count 6.57 10^3/uL (3.29-11.43)
[2024-06-23 11:34] LABS: Alanine Aminotransferase 15 U/L (0-41); Alkaline Phosphatase 108 U/L (40-130); Anion Gap 14.5 (5-19); Aspartate Amino Transferase 15 U/L (0-40); Blood Urea Nitrogen 19 mg/dL (8-23); Calcium 8.8 mg/dL (8.5-10.5); Carbon Dioxide 24 mmol/L (22-29); Chloride 106 mmol/L (98-107); Globulin 3.3 g/dL (1.3-4.6); Glucose 154 mg/dL (65-115); Lactate Dehydrogenase 201 U/L (135-225); Osmolality Calculated 295 mOsm/kg (285-295); Potassium 4.5 mmol/L (3.5-5.1); Sodium 140 mmol/L (136-145); Total Bilirubin 0.3 mg/dL (0.15-1.2); Total Protein 7.3 g/dL (6.6-8.7)
[2024-06-23] MEDS: diphenhydrAMINE 25 mg Capsule PO (13:21)
[2024-06-23] MEDS: acetaminophen 325 mg Tablet 650 MG PO (13:21)
[2024-06-23] MEDS: SODIUM CHLORIDE 0.9% IV (13:33)
[2024-06-23] MEDS: [UNRECOGNIZED DRUG - OTHER] IV (13:33)
[2024-06-23 14:45] VITALS: BP 178/91; PULSE 77; RESP 18; TEMP 36.4; O2SAT 95
[2024-07-07 08:22] VITALS: BP 144/78; PULSE 58; RESP 16; TEMP 36.9; O2SAT 95
[2024-07-07] MEDS: acetaminophen 325 mg Tablet 650 MG PO (08:51)
[2024-07-07] MEDS: diphenhydrAMINE 25 mg Capsule PO (08:51)
[2024-07-07] MEDS: SODIUM CHLORIDE 0.9% IV (09:23)
[2024-07-07] MEDS: [UNRECOGNIZED DRUG - OTHER] IV (09:23)
[2024-07-07 10:34] VITALS: BP 153/88; PULSE 64; RESP 16; TEMP 36.7; O2SAT 95
== END 2024-07-07 23:59 | disposition home or self-care (01) ==
PROVIDERS: PCP Nurse Practitioner Family; Visit Provider Internal Medicine
DX: Z51.12 Encounter for antineoplastic immunotherapy; C4A.72 Merkel cell carcinoma of left lower limb, including hip; Z79.899 Other long term (current) drug therapy; Z53.9 Procedure and treatment not carried out, unspecified reason
CPT/HCPCS: 80053; 83615; 85025; 96375; 96413; 99214; A4222; J7050; J9023

== ENCOUNTER 2024-07-21 08:27 | Oncology outpatient (recurring) (ONCR) | payer MEDICARE, OTHER, SELFPAY ==
[2024-07-21] MEDS: diphenhydrAMINE 25 mg Capsule PO (09:41)
[2024-07-21] MEDS: acetaminophen 325 mg Tablet 650 MG PO (09:41)
[2024-07-21] MEDS: [UNRECOGNIZED DRUG - OTHER] IV (10:08)
[2024-07-21] MEDS: SODIUM CHLORIDE 0.9% IV (10:08)
[2024-07-21 11:12] VITALS: BP 139/77; PULSE 58; RESP 18; TEMP 37.4; O2SAT 98
== END 2024-07-22 23:59 | disposition home or self-care (01) ==
LOC: ONCMED 08:27
PROVIDERS: PCP Nurse Practitioner Family; Visit Provider Internal Medicine
DX: Z51.12 Encounter for antineoplastic immunotherapy (principal); C4A.72 Merkel cell carcinoma of left lower limb, including hip; Z79.899 Other long term (current) drug therapy
CPT/HCPCS: 96413; A4222; J7050; J9023

== ENCOUNTER 2024-08-18 09:08 | Oncology outpatient (recurring) (ONCR) | payer MEDICARE, OTHER, SELFPAY ==
[2024-08-04 08:47] LABS: Basophils % 0.7 %; Eosinophils # 0.1 10^3/uL (0.0-0.8); Eosinophils % 2.6 %; Hematocrit 41.1 % (37-53); Lymphocytes # 0.9 10^3/uL (0.8-4.8); Mean Corpuscular HGB Conc 35.5 g/dL (30-55); Mean Corpuscular Hemoglobin 33.3 pg (27-33); Mean Corpuscular Volume 93.6 fl (82-101); Mean Platelet Volume 8.8 fL (7.4-10.4); Monocytes # 0.4 10^3/uL (0.2-0.9); Monocytes % 9.4 %; Neutrophils % 67.9 %; Nucleated Red Blood Cells % 0 %; Platelet Count 229 10^3/cmm (157-399); Red Blood Count 4.39 10^6/uL (3.85-5.65); Red Cell Distribution Width 12.9 % (12.1-15.1); White Blood Count 4.57 10^3/uL (3.29-11.43)
[2024-08-04 09:09] LABS: Alanine Aminotransferase 15 U/L (0-41); Albumin Level 4.2 g/dL (3.5-5.2); Alkaline Phosphatase 104 U/L (40-130); Anion Gap 13.4 (5-19); Aspartate Amino Transferase 15 U/L (0-40); Blood Urea Nitrogen 22 mg/dL (8-23); Calcium 9.1 mg/dL (8.5-10.5); Carbon Dioxide 25 mmol/L (22-29); Chloride 105 mmol/L (98-107); Creatinine Clr Calc Pharmacy 94.0618; Globulin 2.8 g/dL (1.3-4.6); Glucose 138 mg/dL (65-115); Osmolality Calculated 294 mOsm/kg (285-295); Potassium 4.4 mmol/L (3.5-5.1); Sodium 139 mmol/L (136-145); Total Bilirubin 0.5 mg/dL (0.15-1.2)
[2024-08-04] MEDS: diphenhydrAMINE 25 mg Capsule PO (09:48)
[2024-08-04] MEDS: acetaminophen 325 mg Tablet 650 MG PO (09:48)
[2024-08-04] MEDS: SODIUM CHLORIDE 0.9% IV (10:14)
[2024-08-04] MEDS: [UNRECOGNIZED DRUG - OTHER] IV (10:14)
[2024-08-04 11:36] VITALS: BP 154/74; PULSE 60; RESP 17; TEMP 37.4; O2SAT 93
[2024-08-18 09:42] VITALS: BP 152/79; PULSE 76; RESP 17; TEMP 36.4; O2SAT 96
[2024-08-18] MEDS: acetaminophen 325 mg Tablet 650 MG PO (09:47)
[2024-08-18] MEDS: diphenhydrAMINE 25 mg Capsule PO (09:47)
[2024-08-18] MEDS: SODIUM CHLORIDE 0.9% IV (10:48)
[2024-08-18] MEDS: [UNRECOGNIZED DRUG - OTHER] IV (10:48)
[2024-08-18 12:00] VITALS: BP 153/79; PULSE 58; RESP 18; TEMP 36.9; O2SAT 97
== END 2024-08-19 23:59 | disposition home or self-care (01) ==
PROVIDERS: Nurse Practitioner Family; PCP Nurse Practitioner Family; Visit Provider Internal Medicine
DX: Z51.12 Encounter for antineoplastic immunotherapy (principal); C4A.72 Merkel cell carcinoma of left lower limb, including hip; Z79.899 Other long term (current) drug therapy
CPT/HCPCS: 80053; 85025; 96413; 99214; A4222; J7050; J9023

== ENCOUNTER 2024-09-15 08:00 | Oncology outpatient (recurring) (ONCR) | payer MEDICARE, OTHER, SELFPAY ==
[2024-09-01 09:24] VITALS: BP 128/74; PULSE 58; TEMP 36.9; O2SAT 92
[2024-09-01] MEDS: acetaminophen 325 mg Tablet 650 MG PO (09:32)
[2024-09-01] MEDS: diphenhydrAMINE 25 mg Capsule PO (09:32)
[2024-09-01] MEDS: SODIUM CHLORIDE 0.9% IV (10:08)
[2024-09-01] MEDS: [UNRECOGNIZED DRUG - OTHER] IV (10:08)
[2024-09-01 11:23] VITALS: BP 138/70; PULSE 58; RESP 16; TEMP 36.1; O2SAT 95
[2024-09-15 08:22] LABS: Basophils % 0.5 %; Eosinophils # 0.2 10^3/uL (0.0-0.8); Eosinophils % 3.6 %; Hematocrit 40.5 % (37-53); Lymphocytes # 0.9 10^3/uL (0.8-4.8); Lymphocytes % 15.5 %; Mean Corpuscular HGB Conc 34.6 g/dL (30-55); Mean Corpuscular Hemoglobin 32.8 pg (27-33); Mean Corpuscular Volume 94.8 fl (82-101); Mean Platelet Volume 8.9 fL (7.4-10.4); Monocytes # 0.6 10^3/uL (0.2-0.9); Monocytes % 10.1 %; Neutrophils # 3.88 10^3/uL (1.8-7.7); Neutrophils % 69.9 %; Nucleated Red Blood Cells % 0 %; Platelet Count 254 10^3/cmm (157-399); Red Blood Count 4.27 10^6/uL (3.85-5.65); Red Cell Distribution Width 13.1 % (12.1-15.1); White Blood Count 5.55 10^3/uL (3.29-11.43)
[2024-09-15 08:40] LABS: Alanine Aminotransferase 18 U/L (0-41); Albumin Level 4.2 g/dL (3.5-5.2); Alkaline Phosphatase 96 U/L (40-130); Anion Gap 14.9 (5-19); Aspartate Amino Transferase 23 U/L (0-40); Blood Urea Nitrogen 24 mg/dL (8-23); Carbon Dioxide 26 mmol/L (22-29); Chloride 103 mmol/L (98-107); Globulin 2.9 g/dL (1.3-4.6); Glucose 155 mg/dL (65-115); Lactate Dehydrogenase 162 U/L (135-225); Osmolality Calculated 297 mOsm/kg (285-295); Potassium 3.9 mmol/L (3.5-5.1); Sodium 140 mmol/L (136-145); Total Bilirubin 0.6 mg/dL (0.15-1.2); Total Protein 7.1 g/dL (6.6-8.7)
[2024-09-15] MEDS: acetaminophen 325 mg Tablet 650 MG PO (09:31)
[2024-09-15] MEDS: diphenhydrAMINE 25 mg Capsule PO (09:31)
[2024-09-15] MEDS: SODIUM CHLORIDE 0.9% IV (10:17)
[2024-09-15] MEDS: [UNRECOGNIZED DRUG - OTHER] IV (10:17)
[2024-09-15 12:17] VITALS: BP 160/73; PULSE 59; RESP 17; TEMP 36.9; O2SAT 95
== END 2024-09-15 23:59 | disposition home or self-care (01) ==
PROVIDERS: Nurse Practitioner Family; PCP Nurse Practitioner Family; Visit Provider Internal Medicine
DX: Z53.9 Procedure and treatment not carried out, unspecified reason; Z51.12 Encounter for antineoplastic immunotherapy; C4A.72 Merkel cell carcinoma of left lower limb, including hip; Z79.899 Other long term (current) drug therapy; Z87.891 Personal history of nicotine dependence; Z92.3 Personal history of irradiation
CPT/HCPCS: 80053; 83615; 85025; 96413; 99214; A4222; J7050; J9023; J9999

== ENCOUNTER 2024-09-30 13:00 | Oncology outpatient (recurring) (ONCR) | payer MEDICARE, OTHER, SELFPAY ==
[2024-09-29 08:12] VITALS: BP 124/64; PULSE 64; RESP 16; TEMP 36.2; O2SAT 96
[2024-09-29] MEDS: diphenhydrAMINE 25 mg Capsule PO (08:31)
[2024-09-29] MEDS: acetaminophen 325 mg Tablet 650 MG PO (08:31)
[2024-09-29] MEDS: [UNRECOGNIZED DRUG - OTHER] IV (09:06)
[2024-09-29] MEDS: SODIUM CHLORIDE 0.9% IV (09:06)
[2024-09-29 10:15] VITALS: BP 149/61; PULSE 61; RESP 16; TEMP 36.4; O2SAT 95
--- NOTE | 2024-09-30 12:00 | PETR_ITS ---
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 Then, PET images were obtained. Attenuation corrected images were constructed using the CT scan. Fused images of PET and CT were reviewed. The standardized uptake values (SUV) reported below are maximum values within a region of interest, expressed in gm/ml. Exam includes orbital meatal line to mid-thigh. SUV normalization method: BodyWeight Radiopharmaceutical: 11.7 mCi F-18 FDG (Fluorodeoxyglucose), IV. Time of imaging post radiopharmaceutical administration: 47 minutes Injection site: right ac COMPARISON: PT PET skull to thigh [id number] 03/25/2024 9:30 AM FINDINGS: Brain: Chronic area of photopenic anterior right frontal lobe encephalomalacia/gliosis. Visualized brain has otherwise normal physiologic uptake. Pharynx: No abnormal uptake. Resolved left adenoidal FDG uptake. Larynx: No abnormal uptake. Lungs, pleura and trachea: No abnormal uptake. Mild bibasilar platelike atelectasis versus scarring. Minimal dependent atelectasis. No consolidation or mass. Heart: Normal physiologic uptake. Mediastinal space: No abnormal uptake. Diaphragm: Small hiatal hernia. Liver: No abnormal uptake. Gallbladder and biliary ducts: No abnormal uptake. Pancreas: No abnormal uptake. Spleen: No abnormal uptake. Adrenal glands: No abnormal uptake. Kidneys and ureters: Normal physiologic uptake. Photopenic right renal cyst. Stomach and bowel: No abnormal uptake. Colonic diverticulosis without findings of diverticulitis. Vasculature: No abnormal uptake. Mild systemic atherosclerotic calcification without aortic aneurysm. Lymph nodes: No abnormal uptake. No lymphadenopathy in the head, neck, chest, abdomen, pelvis, and extremities. Resolved mild mediastinal lymph node FDG uptake. Skeleton: Degenerative change along the axial skeletal system, shoulders and hands. Mildly decreased periarticular FDG uptake at the left knee, previously evaluated with left knee MRI. Mild dextroconvex lumbar spine curvature. Soft tissues: No abnormal uptake in the visualized head, neck, chest, abdomen, pelvis, and extremities. METRICS: Mediastinal blood pool: SUV mean 1.9 Liver uptake: SUV mean 2.3 PET/PET skull to thigh [id number] IMPRESSION: 1. Findings of complete response without abnormal radiotracer uptake to suggest malignancy. 2. Chronic and incidental findings as above.
== END 2024-09-30 23:59 | disposition home or self-care (01) ==
LOC: ONCMED 10-03 08:49
PROVIDERS: PCP Nurse Practitioner Family; Visit Provider Nurse Practitioner Family
DX: Z53.9 Procedure and treatment not carried out, unspecified reason (principal); C4A.72 Merkel cell carcinoma of left lower limb, including hip
CPT/HCPCS: 78815; 96413; A4222; A9552; J7050; J9023; J9999

== ENCOUNTER 2024-10-13 08:06 | Oncology outpatient (recurring) (ONCR) | payer MEDICARE, OTHER, SELFPAY ==
[2024-10-13 08:34] VITALS: BP 122/63; PULSE 54; RESP 16; TEMP 36.3; O2SAT 94
[2024-10-13] MEDS: diphenhydrAMINE 25 mg Capsule PO (09:05)
[2024-10-13] MEDS: acetaminophen 325 mg Tablet 650 MG PO (09:05)
[2024-10-13] MEDS: SODIUM CHLORIDE 0.9% IV (09:26)
[2024-10-13] MEDS: [UNRECOGNIZED DRUG - OTHER] IV (09:26)
[2024-10-13 10:32] VITALS: BP 166/80; PULSE 56; RESP 16; TEMP 36.2; O2SAT 98
== END 2024-10-19 23:59 | disposition home or self-care (01) ==
LOC: ONCMED 08:07
PROVIDERS: PCP Nurse Practitioner Family; Visit Provider Nurse Practitioner Family
DX: Z51.12 Encounter for antineoplastic immunotherapy (principal); C4A.72 Merkel cell carcinoma of left lower limb, including hip; Z79.899 Other long term (current) drug therapy
CPT/HCPCS: 96413; A4222; J7050; J9023; J9999

== ENCOUNTER 2024-11-10 11:00 | Oncology outpatient (recurring) (ONCR) | payer MEDICARE, OTHER, SELFPAY ==
[2024-10-27 08:35] LABS: Basophils % 0.4 %; Eosinophils # 0.2 10^3/uL (0.0-0.8); Eosinophils % 3.2 %; Hematocrit 41.6 % (37-53); Lymphocytes % 20.4 %; Mean Corpuscular HGB Conc 35.1 g/dL (30-55); Mean Corpuscular Volume 94.1 fl (82-101); Mean Platelet Volume 8.9 fL (7.4-10.4); Monocytes # 0.5 10^3/uL (0.2-0.9); Monocytes % 10.6 %; Neutrophils # 3.06 10^3/uL (1.8-7.7); Nucleated Red Blood Cells % 0 %; Platelet Count 231 10^3/cmm (157-399); Red Blood Count 4.42 10^6/uL (3.85-5.65); Red Cell Distribution Width 12.8 % (12.1-15.1); White Blood Count 4.71 10^3/uL (3.29-11.43)
[2024-10-27 09:14] LABS: Alanine Aminotransferase 13 U/L (0-41); Albumin Level 4.1 g/dL (3.5-5.2); Alkaline Phosphatase 98 U/L (40-130); Anion Gap 14.3 (5-19); Aspartate Amino Transferase 15 U/L (0-40); Blood Urea Nitrogen 15 mg/dL (8-23); Calcium 8.9 mg/dL (8.5-10.5); Carbon Dioxide 27 mmol/L (22-29); Chloride 103 mmol/L (98-107); Globulin 3.2 g/dL (1.3-4.6); Glucose 116 mg/dL (65-115); Lactate Dehydrogenase 157 U/L (135-225); Osmolality Calculated 292 mOsm/kg (285-295); Potassium 4.3 mmol/L (3.5-5.1); Sodium 140 mmol/L (136-145); Total Bilirubin 0.5 mg/dL (0.15-1.2); Total Protein 7.3 g/dL (6.6-8.7)
[2024-10-27] MEDS: acetaminophen 325 mg Tablet 650 MG PO (11:44)
[2024-10-27] MEDS: diphenhydrAMINE 25 mg Capsule PO (11:44)
[2024-10-27] MEDS: SODIUM CHLORIDE 0.9% IV (12:06)
[2024-10-27] MEDS: [UNRECOGNIZED DRUG - OTHER] IV (12:06)
[2024-10-27 13:13] VITALS: BP 146/74; PULSE 59; RESP 18; TEMP 36.4; O2SAT 96
[2024-11-10 11:36] VITALS: BP 124/77; PULSE 85; RESP 17; TEMP 36.4; O2SAT 94
[2024-11-10] MEDS: diphenhydrAMINE 25 mg Capsule PO (12:29)
[2024-11-10] MEDS: acetaminophen 325 mg Tablet 650 MG PO (12:29)
[2024-11-10] MEDS: SODIUM CHLORIDE 0.9% IV (12:39)
[2024-11-10] MEDS: [UNRECOGNIZED DRUG - OTHER] IV (12:39)
== END 2024-11-10 23:59 | disposition home or self-care (01) ==
PROVIDERS: PCP Nurse Practitioner Family; Visit Provider Nurse Practitioner Family
DX: Z53.9 Procedure and treatment not carried out, unspecified reason; Z51.12 Encounter for antineoplastic immunotherapy; C4A.72 Merkel cell carcinoma of left lower limb, including hip; Z79.620 Long term (current) use of immunosuppressive biologic; Z79.899 Other long term (current) drug therapy
CPT/HCPCS: 80053; 83615; 85025; 96413; 99213; A4222; J7050; J9023; J9999

== ENCOUNTER 2024-12-12 09:00 | Oncology outpatient (recurring) (ONCR) | payer MEDICARE, OTHER, SELFPAY ==
[2024-11-28 11:17] VITALS: BP 153/71; PULSE 78; RESP 16; TEMP 37; O2SAT 97
[2024-11-28] MEDS: acetaminophen 325 mg Tablet 650 MG PO (12:14)
[2024-11-28] MEDS: diphenhydrAMINE 25 mg Capsule PO (12:15)
[2024-11-28] MEDS: SODIUM CHLORIDE 0.9% IV (12:43)
[2024-11-28] MEDS: [UNRECOGNIZED DRUG - OTHER] IV (12:43)
[2024-12-12 09:34] LABS: Basophils % 0.5 %; Eosinophils # 0.1 10^3/uL (0.0-0.8); Eosinophils % 2.2 %; Hematocrit 42.9 % (37-53); Lymphocytes # 1.1 10^3/uL (0.8-4.8); Lymphocytes % 19.4 %; Mean Corpuscular Hemoglobin 33.2 pg (27-33); Mean Corpuscular Volume 94.9 fl (82-101); Mean Platelet Volume 8.9 fL (7.4-10.4); Monocytes # 0.5 10^3/uL (0.2-0.9); Monocytes % 9.1 %; Neutrophils # 3.78 10^3/uL (1.8-7.7); Neutrophils % 68.4 %; Nucleated Red Blood Cells % 0 %; Platelet Count 242 10^3/cmm (157-399); Red Blood Count 4.52 10^6/uL (3.85-5.65); Red Cell Distribution Width 13.1 % (12.1-15.1); White Blood Count 5.52 10^3/uL (3.29-11.43)
[2024-12-12 09:49] LABS: Alanine Aminotransferase 16 U/L (0-41); Albumin Level 4.2 g/dL (3.5-5.2); Alkaline Phosphatase 89 U/L (40-130); Anion Gap 17.2 (5-19); Aspartate Amino Transferase 15 U/L (0-40); Blood Urea Nitrogen 16 mg/dL (8-23); Carbon Dioxide 23 mmol/L (22-29); Chloride 103 mmol/L (98-107); Globulin 2.9 g/dL (1.3-4.6); Glucose 123 mg/dL (65-115); Lactate Dehydrogenase 152 U/L (135-225); Osmolality Calculated 291 mOsm/kg (285-295); Potassium 4.2 mmol/L (3.5-5.1); Sodium 139 mmol/L (136-145); Total Bilirubin 0.5 mg/dL (0.15-1.2); Total Protein 7.1 g/dL (6.6-8.7)
[2024-12-12] MEDS: acetaminophen 325 mg Tablet 650 MG PO (10:42)
[2024-12-12] MEDS: diphenhydrAMINE 25 mg Capsule PO (10:42)
[2024-12-12] MEDS: SODIUM CHLORIDE 0.9% IV (11:15)
[2024-12-12] MEDS: [UNRECOGNIZED DRUG - OTHER] IV (11:15)
[2024-12-12 11:22] LABS: Free T4 Free Thyroxine 0.91 ng/dL (0.82-1.77); T3 Free 2.9 PG/ML (2.0-4.4)
[2024-12-12 12:27] VITALS: BP 152/87; PULSE 54; TEMP 37.1
== END 2024-12-12 23:59 | disposition home or self-care (01) ==
PROVIDERS: Internal Medicine; PCP Nurse Practitioner Family; Visit Provider Nurse Practitioner Family
DX: Z53.9 Procedure and treatment not carried out, unspecified reason; Z51.12 Encounter for antineoplastic immunotherapy; C4A.72 Merkel cell carcinoma of left lower limb, including hip; Z79.899 Other long term (current) drug therapy; R03.0 Elevated blood-pressure reading, without diagnosis of hypertension
CPT/HCPCS: 80053; 83615; 84439; 84443; 84481; 85025; 96413; 99214; A4222; J7050; J9023; J9999

== ENCOUNTER 2025-01-09 10:05 | Oncology outpatient (recurring) (ONCR) | payer MEDICARE, OTHER, SELFPAY ==
[2024-12-26 09:19] VITALS: BP 138/78; PULSE 63; TEMP 36.5; O2SAT 96
[2024-12-26] MEDS: [UNRECOGNIZED DRUG - OTHER] IV (10:13)
[2024-12-26] MEDS: SODIUM CHLORIDE 0.9% IV (10:13)
[2024-12-26 11:29] VITALS: BP 138/88; PULSE 65; TEMP 36.6; O2SAT 96
[2025-01-09 10:14] VITALS: BP 137/82; PULSE 62; TEMP 37.2; O2SAT 94
[2025-01-09] MEDS: [UNRECOGNIZED DRUG - OTHER] IV (11:10)
[2025-01-09] MEDS: SODIUM CHLORIDE 0.9% IV (11:10)
[2025-01-09 12:24] VITALS: BP 171/89; PULSE 70; RESP 16; TEMP 36.4; O2SAT 99
== END 2025-01-09 23:59 | disposition home or self-care (01) ==
PROVIDERS: PCP Nurse Practitioner Family; Visit Provider Nurse Practitioner Family
DX: Z51.12 Encounter for antineoplastic immunotherapy; C4A.72 Merkel cell carcinoma of left lower limb, including hip; Z79.899 Other long term (current) drug therapy; Z53.9 Procedure and treatment not carried out, unspecified reason
CPT/HCPCS: 96413; A4222; J7050; J9023; J9999

== ENCOUNTER 2025-02-13 12:29 | Oncology outpatient (recurring) (ONCR) | payer MEDICARE, OTHER, SELFPAY ==
[2025-01-30 10:41] LABS: Hematocrit 38.5 % (37-53); Hemoglobin 14.20 g/dL (11.27-16.99); Mean Corpuscular HGB Conc 36.9 g/dL (30-55); Mean Corpuscular Hemoglobin 34.2 pg (27-33); Mean Corpuscular Volume 92.8 fl (82-101); Nucleated Red Blood Cells % 0 %; Platelet Count 241 10^3/cmm (157-399); Red Blood Count 4.15 10^6/uL (3.85-5.65); White Blood Count 4.82 10^3/uL (3.29-11.43)
[2025-01-30 11:07] LABS: Alanine Aminotransferase 18 U/L (0-41); Albumin Level 4.3 g/dL (3.5-5.2); Alkaline Phosphatase 95 U/L (40-130); Anion Gap 15.6 (5-19); Aspartate Amino Transferase 19 U/L (0-40); Blood Urea Nitrogen 17 mg/dL (8-23); Calcium 8.7 mg/dL (8.5-10.5); Carbon Dioxide 24 mmol/L (22-29); Chloride 105 mmol/L (98-107); Creatinine Clr Calc Pharmacy 81.4989; Globulin 2.8 g/dL (1.3-4.6); Glucose 108 mg/dL (65-115); Osmolality Calculated 292 mOsm/kg (285-295); Potassium 4.6 mmol/L (3.5-5.1); Sodium 140 mmol/L (136-145); Total Protein 7.1 g/dL (6.6-8.7)
[2025-01-30] MEDS: SODIUM CHLORIDE 0.9% IV (12:00)
[2025-01-30] MEDS: [UNRECOGNIZED DRUG - OTHER] IV (12:00)
[2025-01-30 13:10] VITALS: BP 119/77; PULSE 62; TEMP 36.8; O2SAT 94
[2025-02-13 12:48] VITALS: BP 128/74; PULSE 63; RESP 18; TEMP 37.1; O2SAT 94
[2025-02-13] MEDS: [UNRECOGNIZED DRUG - OTHER] IV (13:46)
[2025-02-13] MEDS: SODIUM CHLORIDE 0.9% IV (13:46)
[2025-02-13 14:49] VITALS: BP 166/99; PULSE 62; RESP 18; TEMP 35.9; O2SAT 98
== END 2025-02-13 23:59 | disposition home or self-care (01) ==
PROVIDERS: PCP Nurse Practitioner Family; Visit Provider Nurse Practitioner Family
DX: Z51.12 Encounter for antineoplastic immunotherapy (principal); C4A.72 Merkel cell carcinoma of left lower limb, including hip; Z79.899 Other long term (current) drug therapy
CPT/HCPCS: 80053; 85025; 96413; 99214; A4222; J7050; J9023; J9999

== ENCOUNTER 2025-03-13 10:00 | Oncology outpatient (recurring) (ONCR) | payer MEDICARE, OTHER, SELFPAY ==
[2025-02-27 13:12] VITALS: BP 156/55; PULSE 74; RESP 16; TEMP 36.6; O2SAT 98
[2025-02-27] MEDS: SODIUM CHLORIDE 0.9% IV (13:43)
[2025-02-27] MEDS: [UNRECOGNIZED DRUG - OTHER] IV (13:43)
[2025-02-27 15:00] VITALS: BP 152/78; PULSE 65; RESP 16; TEMP 36.4; O2SAT 99
[2025-03-13 10:33] LABS: Hematocrit 38.1 % (37-53); Hemoglobin 13.60 g/dL (11.27-16.99); Mean Corpuscular HGB Conc 35.7 g/dL (30-55); Mean Corpuscular Hemoglobin 32.6 pg (27-33); Mean Corpuscular Volume 91.4 fl (82-101); Nucleated Red Blood Cells % 0 %; Platelet Count 194 10^3/cmm (157-399); Red Blood Count 4.17 10^6/uL (3.85-5.65); White Blood Count 3.81 10^3/uL (3.29-11.43)
[2025-03-13 10:58] LABS: Alanine Aminotransferase 17 U/L (0-41); Albumin Level 4.1 g/dL (3.5-5.2); Alkaline Phosphatase 108 U/L (40-130); Anion Gap 17.2 (5-19); Aspartate Amino Transferase 21 U/L (0-40); Blood Urea Nitrogen 20 mg/dL (8-23); Calcium 8.7 mg/dL (8.5-10.5); Carbon Dioxide 23 mmol/L (22-29); Chloride 103 mmol/L (98-107); Creatinine Clr Calc Pharmacy 91.3458; Globulin 3.0 g/dL (1.3-4.6); Glucose 159 mg/dL (65-115); Osmolality Calculated 294 mOsm/kg (285-295); Potassium 4.2 mmol/L (3.5-5.1); Sodium 139 mmol/L (136-145); Thyroid Stimulating Hormone 0.77 uIU/mL (0.27-4.20); Total Protein 7.1 g/dL (6.6-8.7)
[2025-03-13] MEDS: SODIUM CHLORIDE 0.9% IV (11:32)
[2025-03-13] MEDS: [UNRECOGNIZED DRUG - OTHER] IV (11:32)
[2025-03-13 12:42] VITALS: BP 156/70; PULSE 55; RESP 16; TEMP 35.9; O2SAT 94
== END 2025-03-13 23:59 | disposition home or self-care (01) ==
PROVIDERS: PCP Nurse Practitioner Family; Visit Provider Nurse Practitioner Family
DX: Z51.11 Encounter for antineoplastic chemotherapy (principal); C4A.72 Merkel cell carcinoma of left lower limb, including hip; R03.0 Elevated blood-pressure reading, without diagnosis of hypertension; G89.3 Neoplasm related pain (acute) (chronic); Z79.899 Other long term (current) drug therapy; Z92.3 Personal history of irradiation; Z87.891 Personal history of nicotine dependence; Z53.9 Procedure and treatment not carried out, unspecified reason
CPT/HCPCS: 80053; 84443; 85025; 96413; 99214; A4222; J7050; J9023; J9999

== ENCOUNTER 2025-03-27 08:15 | Oncology outpatient (recurring) (ONCR) | payer MEDICARE, OTHER, SELFPAY ==
--- NOTE | 2025-03-24 13:02 | PETR_ITS ---
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 Then, PET images were obtained. Attenuation corrected images were constructed using the CT scan. Fused images of PET and CT were reviewed. The standardized uptake values (SUV) reported below are maximum values within a region of interest, expressed in gm/ml. Exam includes orbital meatal line to mid-thigh. SUV normalization method: BodyWeight Radiopharmaceutical: 11.4 mCi F-18 FDG (Fluorodeoxyglucose), IV. Time of imaging post radiopharmaceutical administration: 46 minutes Injection site: right ac COMPARISON: PT PET skull to thigh [id number] 09/30/2024 1:47 PM FINDINGS: Brain: Stable 2.4 cm right frontal cystic focus with expected hyometabolism suggestive of a benign finding. Otherwise, no abnormal distribution of the radiotracer. Pharynx: Normal distribution of the radiotracer in nasopharyngeal, and oropharyngeal structures. Larynx: Normal distribution of the radiotracer in laryngeal structures. Lungs, pleura and trachea: No abnormal uptake. No lung nodules or masses. No pleural effusion. Heart: Normal physiologic uptake. Stable cardiomegaly. There is no pericardial effusion. Mediastinal space: No abnormal uptake. There is a small hiatal hernia. Liver: Normal size without abnormal radiotracer uptake. Gallbladder and biliary ducts: No abnormal uptake. Pancreas: Normal distribution of radiotracer. Spleen: Normal size without abnormal radiotracer uptake. Adrenal glands: No abnormal uptake. No nodules. Kidneys and ureters: Normal physiologic uptake. No hydronephrosis. Stable 3.8 cm simple cyst exophytic posteriorly from the lower pole of the right kidney. Stomach and bowel: No abnormal uptake. Stable diverticulosis of the sigmoid colon. Intraperitoneal and retroperitoneal spaces: No abnormal uptake. No ascites. Bladder: Layering excreted FDG within moderately distended bladder suggestive of postvoiding residual. Reproductive: No abnormal uptake. The prostate isn't enlarged Vasculature: No abnormal uptake. No aortic aneurysm. Lymph nodes: No abnormal uptake. No lymphadenopathy in the head, neck, chest, abdomen, pelvis, and extremities. Skeleton: Mildly increased synovial uptake in the knees more prominently on the left side is benign inflammatory nature. Soft tissues: Benign muscular uptake in the right infraspinatus muscle METRICS: Mediastinal blood pool maximal uptake is 2.6 SUV. Liver maximal uptake is 3 SUV. PET/PET skull to thigh [id number] IMPRESSION: Stable exam with no abnormal radiotracer uptake concerning for malignancy.
[2025-03-27 08:25] LABS: Hematocrit 40.8 % (37-53); Hemoglobin 14.30 g/dL (11.27-16.99); Mean Corpuscular HGB Conc 35.0 g/dL (30-55); Mean Corpuscular Hemoglobin 32.6 pg (27-33); Mean Corpuscular Volume 92.9 fl (82-101); Nucleated Red Blood Cells % 0 %; Platelet Count 203 10^3/cmm (157-399); Red Blood Count 4.39 10^6/uL (3.85-5.65); White Blood Count 4.26 10^3/uL (3.29-11.43)
[2025-03-27 08:44] LABS: Alanine Aminotransferase 16 U/L (0-41); Albumin Level 4.3 g/dL (3.5-5.2); Alkaline Phosphatase 105 U/L (40-130); Anion Gap 15.4 (5-19); Aspartate Amino Transferase 16 U/L (0-40); Blood Urea Nitrogen 18 mg/dL (8-23); Calcium 8.9 mg/dL (8.5-10.5); Carbon Dioxide 24 mmol/L (22-29); Chloride 103 mmol/L (98-107); Globulin 3.1 g/dL (1.3-4.6); Glucose 124 mg/dL (65-115); Osmolality Calculated 289 mOsm/kg (285-295); Potassium 4.4 mmol/L (3.5-5.1); Sodium 138 mmol/L (136-145); Total Protein 7.4 g/dL (6.6-8.7)
[2025-03-27] MEDS: [UNRECOGNIZED DRUG - OTHER] IV (10:34)
[2025-03-27] MEDS: SODIUM CHLORIDE 0.9% IV (10:34)
[2025-03-27 11:53] VITALS: BP 146/82; PULSE 57; TEMP 36.6; O2SAT 97
== END 2025-03-27 23:59 | disposition home or self-care (01) ==
PROVIDERS: Nurse Practitioner; PCP Nurse Practitioner Family; Visit Provider Internal Medicine Medical Oncology
DX: Z51.11 Encounter for antineoplastic chemotherapy; C4A.72 Merkel cell carcinoma of left lower limb, including hip; R03.0 Elevated blood-pressure reading, without diagnosis of hypertension; Z87.891 Personal history of nicotine dependence; Z92.3 Personal history of irradiation; Z79.899 Other long term (current) drug therapy; Z53.9 Procedure and treatment not carried out, unspecified reason
CPT/HCPCS: 78815; 80053; 85025; 96413; 99214; A4222; A9552; J7050; J9023; J9999

== ENCOUNTER 2025-04-10 08:27 | Oncology outpatient (recurring) (ONCR) | payer MEDICARE, OTHER, SELFPAY ==
[2025-04-10 09:02] LABS: Hematocrit 40.3 % (37-53); Hemoglobin 14.40 g/dL (11.27-16.99); Mean Corpuscular HGB Conc 35.7 g/dL (30-55); Mean Corpuscular Hemoglobin 32.8 pg (27-33); Mean Corpuscular Volume 91.8 fl (82-101); Nucleated Red Blood Cells % 0 %; Platelet Count 229 10^3/cmm (157-399); Red Blood Count 4.39 10^6/uL (3.85-5.65); White Blood Count 4.70 10^3/uL (3.29-11.43)
[2025-04-10 09:18] LABS: Alanine Aminotransferase 15 U/L (0-41); Albumin Level 4.3 g/dL (3.5-5.2); Alkaline Phosphatase 99 U/L (40-130); Anion Gap 15.1 (5-19); Aspartate Amino Transferase 19 U/L (0-40); Blood Urea Nitrogen 24 mg/dL (8-23); Calcium 9.1 mg/dL (8.5-10.5); Carbon Dioxide 25 mmol/L (22-29); Chloride 99 mmol/L (98-107); Creatinine Clr Calc Pharmacy 80.3153; Globulin 3.2 g/dL (1.3-4.6); Glucose 151 mg/dL (65-115); Osmolality Calculated 287 mOsm/kg (285-295); Potassium 4.1 mmol/L (3.5-5.1); Sodium 135 mmol/L (136-145); Total Protein 7.5 g/dL (6.6-8.7)
[2025-04-10] MEDS: SODIUM CHLORIDE 0.9% IV (09:51)
[2025-04-10] MEDS: [UNRECOGNIZED DRUG - OTHER] IV (09:51)
[2025-04-10 11:04] VITALS: BP 145/89; PULSE 62; RESP 17; TEMP 36.5; O2SAT 98
== END 2025-04-21 23:59 | disposition home or self-care (01) ==
PROVIDERS: PCP Nurse Practitioner Family; Visit Provider Internal Medicine Medical Oncology
DX: Z51.12 Encounter for antineoplastic immunotherapy (principal); C4A.72 Merkel cell carcinoma of left lower limb, including hip; Z79.899 Other long term (current) drug therapy; R03.0 Elevated blood-pressure reading, without diagnosis of hypertension; G89.3 Neoplasm related pain (acute) (chronic); Z92.3 Personal history of irradiation; Z87.891 Personal history of nicotine dependence
CPT/HCPCS: 80053; 85025; 99214; A4222; J7050; J9023; J9999

== ENCOUNTER 2025-05-08 12:30 | Oncology outpatient (recurring) (ONCR) | payer MEDICARE, OTHER, SELFPAY ==
[2025-04-24 08:41] LABS: Hematocrit 39.9 % (37-53); Hemoglobin 14.10 g/dL (11.27-16.99); Mean Corpuscular HGB Conc 35.3 g/dL (30-55); Mean Corpuscular Hemoglobin 32.7 pg (27-33); Mean Corpuscular Volume 92.6 fl (82-101); Nucleated Red Blood Cells % 0 %; Platelet Count 213 10^3/cmm (157-399); Red Blood Count 4.31 10^6/uL (3.85-5.65); White Blood Count 4.35 10^3/uL (3.29-11.43)
[2025-04-24 08:58] LABS: Alanine Aminotransferase 13 U/L (0-41); Albumin Level 4.1 g/dL (3.5-5.2); Alkaline Phosphatase 98 U/L (40-130); Blood Urea Nitrogen 21 mg/dL (8-23); Calcium 8.9 mg/dL (8.5-10.5); Carbon Dioxide 26 mmol/L (22-29); Chloride 104 mmol/L (98-107); Globulin 3.0 g/dL (1.3-4.6); Glucose 121 mg/dL (65-115); Osmolality Calculated 292 mOsm/kg (285-295); Sodium 139 mmol/L (136-145); Total Protein 7.1 g/dL (6.6-8.7)
[2025-04-24 09:01] LABS: Anion Gap 13.4 (5-19); Aspartate Amino Transferase 23 U/L (0-40); Potassium 4.4 mmol/L (3.5-5.1)
[2025-04-24] MEDS: [UNRECOGNIZED DRUG - OTHER] IV (10:44)
[2025-04-24] MEDS: SODIUM CHLORIDE 0.9% IV (10:44)
[2025-04-24 12:30] VITALS: BP 151/88; PULSE 82; RESP 16; TEMP 36.6; O2SAT 98
[2025-05-08 11:28] LABS: Hematocrit 40.9 % (37-53); Hemoglobin 14.60 g/dL (11.27-16.99); Mean Corpuscular HGB Conc 35.7 g/dL (30-55); Mean Corpuscular Hemoglobin 33.1 pg (27-33); Mean Corpuscular Volume 92.7 fl (82-101); Nucleated Red Blood Cells % 0 %; Platelet Count 246 10^3/cmm (157-399); Red Blood Count 4.41 10^6/uL (3.85-5.65); White Blood Count 5.82 10^3/uL (3.29-11.43)
[2025-05-08 12:00] LABS: Alanine Aminotransferase 15 U/L (0-41); Albumin Level 4.3 g/dL (3.5-5.2); Alkaline Phosphatase 104 U/L (40-130); Anion Gap 12.9 (5-19); Aspartate Amino Transferase 18 U/L (0-40); Blood Urea Nitrogen 22 mg/dL (8-23); Calcium 8.9 mg/dL (8.5-10.5); Carbon Dioxide 28 mmol/L (22-29); Chloride 103 mmol/L (98-107); Globulin 3.0 g/dL (1.3-4.6); Glucose 155 mg/dL (65-115); Osmolality Calculated 296 mOsm/kg (285-295); Potassium 3.9 mmol/L (3.5-5.1); Sodium 140 mmol/L (136-145); Thyroid Stimulating Hormone 1.02 uIU/mL (0.27-4.20); Total Protein 7.3 g/dL (6.6-8.7)
[2025-05-08 12:28] VITALS: BP 142/84; PULSE 62; RESP 18; TEMP 36.9; O2SAT 95
[2025-05-08] MEDS: [UNRECOGNIZED DRUG - OTHER] IV (12:51)
[2025-05-08] MEDS: SODIUM CHLORIDE 0.9% IV (12:51)
[2025-05-08 13:52] VITALS: BP 170/79; PULSE 69
== END 2025-05-08 23:59 | disposition home or self-care (01) ==
PROVIDERS: Nurse Practitioner; PCP Nurse Practitioner Family; Visit Provider Internal Medicine Medical Oncology
DX: Z51.11 Encounter for antineoplastic chemotherapy; C4A.72 Merkel cell carcinoma of left lower limb, including hip; R53.83 Other fatigue; Z79.899 Other long term (current) drug therapy; Z53.9 Procedure and treatment not carried out, unspecified reason
CPT/HCPCS: 80053; 84443; 85025; 96413; 99214; A4222; J7050; J9023; J9999

== ENCOUNTER 2025-06-05 10:34 | Oncology outpatient (recurring) (ONCR) | payer MEDICARE, OTHER, SELFPAY ==
[2025-05-22 11:48] LABS: Hematocrit 39.3 % (37-53); Hemoglobin 13.90 g/dL (11.27-16.99); Mean Corpuscular HGB Conc 35.4 g/dL (30-55); Mean Corpuscular Hemoglobin 32.9 pg (27-33); Mean Corpuscular Volume 92.9 fl (82-101); Nucleated Red Blood Cells % 0 %; Platelet Count 242 10^3/cmm (157-399); Red Blood Count 4.23 10^6/uL (3.85-5.65); White Blood Count 4.67 10^3/uL (3.29-11.43)
[2025-05-22 12:25] LABS: Alanine Aminotransferase 19 U/L (0-41); Albumin Level 4.6 g/dL (3.5-5.2); Alkaline Phosphatase 108 U/L (40-130); Blood Urea Nitrogen 18 mg/dL (8-23); Calcium 9.1 mg/dL (8.5-10.5); Carbon Dioxide 27 mmol/L (22-29); Chloride 105 mmol/L (98-107); Globulin 2.9 g/dL (1.3-4.6); Glucose 105 mg/dL (65-115); Osmolality Calculated 294 mOsm/kg (285-295); Sodium 141 mmol/L (136-145); Thyroid Stimulating Hormone 1.24 uIU/mL (0.27-4.20); Total Protein 7.5 g/dL (6.6-8.7)
[2025-05-22 12:32] LABS: Anion Gap 13.5 (5-19); Aspartate Amino Transferase 28 U/L (0-40); Potassium 4.5 mmol/L (3.5-5.1)
[2025-05-22] MEDS: [UNRECOGNIZED DRUG - OTHER] IV (14:07)
[2025-05-22] MEDS: SODIUM CHLORIDE 0.9% IV (14:07)
[2025-05-22 15:12] VITALS: BP 143/74; PULSE 60; RESP 17; TEMP 37.2; O2SAT 97
[2025-06-05 11:03] LABS: Hematocrit 38.3 % (37-53); Hemoglobin 13.80 g/dL (11.27-16.99); Mean Corpuscular HGB Conc 36.0 g/dL (30-55); Mean Corpuscular Hemoglobin 33.3 pg (27-33); Mean Corpuscular Volume 92.5 fl (82-101); Nucleated Red Blood Cells % 0 %; Platelet Count 219 10^3/cmm (157-399); Red Blood Count 4.14 10^6/uL (3.85-5.65); White Blood Count 4.94 10^3/uL (3.29-11.43)
[2025-06-05 11:35] LABS: Alanine Aminotransferase 16 U/L (0-41); Albumin Level 4.3 g/dL (3.5-5.2); Alkaline Phosphatase 102 U/L (40-130); Blood Urea Nitrogen 15 mg/dL (8-23); Calcium 8.7 mg/dL (8.5-10.5); Carbon Dioxide 26 mmol/L (22-29); Chloride 102 mmol/L (98-107); Globulin 2.9 g/dL (1.3-4.6); Glucose 137 mg/dL (65-115); Osmolality Calculated 287 mOsm/kg (285-295); Sodium 137 mmol/L (136-145); Thyroid Stimulating Hormone 1.03 uIU/mL (0.27-4.20); Total Protein 7.2 g/dL (6.6-8.7)
[2025-06-05 11:53] LABS: Anion Gap 13.1 (5-19); Aspartate Amino Transferase 26 U/L (0-40); Potassium 4.1 mmol/L (3.5-5.1)
[2025-06-05] MEDS: [UNRECOGNIZED DRUG - OTHER] IV (12:02)
[2025-06-05] MEDS: SODIUM CHLORIDE 0.9% IV (12:02)
[2025-06-05 13:04] VITALS: BP 180/80; PULSE 58; TEMP 36.6; O2SAT 98
== END 2025-06-05 23:59 | disposition home or self-care (01) ==
PROVIDERS: PCP Nurse Practitioner Family; Visit Provider Nurse Practitioner
DX: Z51.11 Encounter for antineoplastic chemotherapy; C4A.72 Merkel cell carcinoma of left lower limb, including hip; R03.0 Elevated blood-pressure reading, without diagnosis of hypertension; G89.3 Neoplasm related pain (acute) (chronic); Z79.899 Other long term (current) drug therapy; Z92.3 Personal history of irradiation; Z87.891 Personal history of nicotine dependence; Z53.9 Procedure and treatment not carried out, unspecified reason
CPT/HCPCS: 80053; 84443; 85025; 96365; 96413; 99214; A4222; J7050; J9023; J9999

== ENCOUNTER 2025-06-19 10:35 | Oncology outpatient (recurring) (ONCR) | payer MEDICARE, OTHER, SELFPAY ==
[2025-06-19 11:05] LABS: Hematocrit 41.0 % (37-53); Hemoglobin 14.50 g/dL (11.27-16.99); Mean Corpuscular HGB Conc 35.4 g/dL (30-55); Mean Corpuscular Hemoglobin 32.8 pg (27-33); Mean Corpuscular Volume 92.8 fl (82-101); Nucleated Red Blood Cells % 0 %; Platelet Count 247 10^3/cmm (157-399); Red Blood Count 4.42 10^6/uL (3.85-5.65); White Blood Count 5.28 10^3/uL (3.29-11.43)
[2025-06-19 12:31] LABS: Alanine Aminotransferase 10 U/L (0-41); Albumin Level 3.8 g/dL (3.5-5.2); Alkaline Phosphatase 97 U/L (40-130); Aspartate Amino Transferase 15 U/L (0-40); Blood Urea Nitrogen 21 mg/dL (8-23); Calcium 8.9 mg/dL (8.5-10.5); Carbon Dioxide 23 mmol/L (22-29); Chloride 104 mmol/L (98-107); Globulin 3.0 g/dL (1.3-4.6); Glucose 156 mg/dL (65-115); Osmolality Calculated 292 mOsm/kg (285-295); Sodium 138 mmol/L (136-145); Total Protein 6.8 g/dL (6.6-8.7)
[2025-06-19 12:32] LABS: Anion Gap 15.4 (5-19); Potassium 4.4 mmol/L (3.5-5.1)
[2025-06-19] MEDS: [UNRECOGNIZED DRUG - OTHER] IV (12:39)
[2025-06-19] MEDS: SODIUM CHLORIDE 0.9% IV (12:39)
[2025-06-19 14:04] VITALS: BP 148/64; PULSE 65; TEMP 36.6; O2SAT 97
== END 2025-06-21 23:59 | disposition home or self-care (01) ==
PROVIDERS: Internal Medicine Medical Oncology; PCP Nurse Practitioner Family; Visit Provider Nurse Practitioner
DX: Z51.12 Encounter for antineoplastic immunotherapy (principal); C4A.72 Merkel cell carcinoma of left lower limb, including hip; Z79.899 Other long term (current) drug therapy
CPT/HCPCS: 80053; 85025; 96413; A4222; J7050; J9023; J9999